=== PATIENT | male | born 1975 | race Caucasian/White ===

== ENCOUNTER → 2019-07-27 09:31 | Outpatient (CLI) | payer OTHER, SELFPAY ==
--- NOTE | ~2019-07-27 | XR_ITS ---
EXAMINATION: XR chest 2V 07/27/2019 09:46 INDICATION: Nicotine dependence. PROCEDURE: PA and lateral views of the chest COMPARISON: No prior studies for comparison. FINDINGS: The lungs are clear. There are scattered calcified granulomas. The cardiomediastinal silhou ette is within normal limits. There are no pleural effusions. There is no pneumothorax suspected. IMPRESSION: 1: NO ACUTE CARDIOPULMONARY DISEASE. Reviewed, dictated and finalized at location A.
== END ==
PROVIDERS: PCP Family Medicine; Visit Provider Family Medicine
DX: F17.200 Nicotine dependence, unspecified, uncomplicated (principal)
CPT/HCPCS: 71046

== ENCOUNTER 2021-07-30 08:46 | Outpatient (CLI) | payer OTHER, BC, SELFPAY ==
[2021-07-30 19:18] LABS: Basophils Percent Auto 0.7 % (0.2-1.2); Eosinophils Absolute Auto 0.2 K/mm3 (0-0.3); Hematocrit 44.1 % (42.0-52.0); Immature Granulocyte Absolute 0.02 K/mm3 (0.00-0.031); Immature Granulocyte Percent A 0.4 % (0-0.5); Lymphocytes Absolute Auto 1.79 K/mm3 (0.9-3.2); Lymphocytes Percent Auto 32.4 % (18.3-44.2); Mean Corpuscular Hemoglobin 30.6 pg (26-34); Mean Platelet Volume 10.2 fl (7.4-10.4); Monocytes Absolute Auto 0.4 K/mm3 (0.1-0.6); Monocytes Percent Auto 6.7 % (2.6-8.5); Neutrophils Absolute Auto 3.1 K/mm3 (1.3-6.7); Neutrophils Percent Auto 55.8 % (45.5-73.1); Platelet Count Result 261 k/mm3 (150-375); Red Cell Distribution Width 12.8 % (11.5-14.5); White Blood Count 5.5 K/mm3 (4.5-10.0)
[2021-07-30 19:32] LABS: Alanine Aminotransferase 32 U/L (4-50); Alkaline Phosphatase 98 U/L (38-126); Anion Gap 8 mmol/L (8-16); Aspartate Amino Transferase 38 U/L (17-59); Bilirubin,Total 0.5 mg/dL (0.2-1.3); Blood Urea Nitrogen 15 mg/dL (9-20); CRP 0.8 mg/dL (<1.0); Calcium 9.5 mg/dL (8.4-10.2); Carbon Dioxide 27 mmol/L (22-30); Chloride 104 mmol/L (98-107); Cholesterol 190 mg/dL (0-200); Estimated Glomerular Filt Rate > 60; Glucose 94 mg/dL (65-110); HDL Direct 35 mg/dL; Lipase 186 U/L (23-300); Potassium 4.4 mmol/L (3.4-5.0); Sodium 139 mmol/L (137-145); Triglycerides 101 mg/dL (<150)
[2021-07-30 19:41] LABS: LDL Cholesterol Direct 129 mg/dL
[2021-07-30 19:48] LABS: Vitamin D 25 Hydroxy 44.4 ng/mL
[2021-07-30 20:02] LABS: Prostate Specific Antigen 0.5 ng/mL (< OR = 4.0)
[2021-07-30 20:12] LABS: Erythrocyte Sedimentation Rate 12 mm/hr (0-20)
[2021-08-03 20:11] LABS: Gliadin AB, IgG <1.0 U/mL (<15.0); Reticulin IgA Negative (Negative); TTG IGA AB <1.0 U/mL (<15.0)
== END 2021-07-30 08:47 | disposition home or self-care (01) ==
PROVIDERS: PCP Family Medicine; Visit Provider Family Medicine
DX: Z00.00 Encounter for general adult medical examination without abnormal findings (principal); Z12.5 Encounter for screening for malignant neoplasm of prostate; E78.5 Hyperlipidemia, unspecified; K21.9 Gastro-esophageal reflux disease without esophagitis; R53.83 Other fatigue; R79.89 Other specified abnormal findings of blood chemistry; K52.9 Noninfective gastroenteritis and colitis, unspecified; Z87.19 Personal history of other diseases of the digestive system
CPT/HCPCS: 36415; 80053; 80061; 82306; 83516; 83690; 84153; 85025; 85652; 86140; 86255; G0103

== ENCOUNTER 2022-12-23 09:30 | Emergency (ER) | payer OTHER, BC, SELFPAY ==
[2022-12-23] VITALS (12 sets, daily range): BP systolic 133–162; BP diastolic 86–106; PULSE 70–91; RESP 16–22; TEMP 36.6–36.8; O2SAT 96–100
--- NOTE | ~2022-12-23 | XR_ITS ---
EXAMINATION: XR chest 2V 12/23/2022 13:45 INDICATION: Weakness, dizziness and syncope PROCEDURE: 2 view chest COMPARISON: 07/27/2019 FINDINGS: The lungs are clear. The cardiomediastinal silhouette is within normal limits. There are no pleural effusions. There is no pneumothorax suspected. IMPRESSION: 1: NO ACUTE CARDIOPULMONARY DISEASE. Reviewed, dictated and finalized at location B.
--- NOTE | ~2022-12-23 | CT_ITS ---
EXAMINATION: CT brain wo con DATE: 12/23/2022 12:54 INDICATION: Syncope. TECHNIQUE: Computed tomography (CT) of the head was performed without intravenous contrast. The mA wa s adjusted according to patient size. Iterative reconstruction technique was employed. The dose-lengt h product was 605.33 mGy-cm. COMPARISON: None FINDINGS: There is no intracranial hemorrhage, acute infarction, or abnormal intracranial mass lesion . The ventricles are normal in size. The orbits are normal. There is mucosal thickening in the parana olegario sinuses. The mastoid air cells are normal. IMPRESSION: 1. Normal brain. Reviewed, dictated and finalized at location A. IMPRESSION: 1. Normal brain.
--- NOTE | 2022-12-23 09:33 | ECG_ITS ---
Measurements Intervals Lyman Rate: 91 P: 68 AL: 126 QRS: 46 QRSD: 91 T: 29 QT: 359 QTc: 443 Interpretive Statements SINUS RHYTHM MINIMAL Q WAVES- INFERIOR LEADS BORDERLINE ECG NO PREVIOUS ECG AVAILABLE FOR COMPARISON Electronically Signed On 12-23-2022 10:26:31 CDT by Lamonte Hansen D.O.
[2022-12-23 09:55] LABS: Basophils Absolute Auto 0.1 K/mm3 (0.0-0.1); Basophils Percent Auto 0.5 % (0.2-1.2); Eosinophils Absolute Auto 0.1 K/mm3 (0-0.3); Eosinophils Percent Auto 1.2 % (0-4.4); Hematocrit 47.3 % (42.0-52.0); Hemoglobin 16.5 g/dL (14.0-18.0); Immature Granulocyte Absolute 0.05 K/mm3 (0.00-0.031); Immature Granulocyte Percent A 0.4 % (0-0.5); Lymphocytes Absolute Auto 1.73 K/mm3 (0.9-3.2); Lymphocytes Percent Auto 14.4 % (18.3-44.2); Mean Corpuscular HGB Conc 34.9 g/dl (32-36); Mean Corpuscular Volume 91.8 fl (80-100); Mean Platelet Volume 9.5 fl (7.4-10.4); Monocytes Absolute Auto 0.6 K/mm3 (0.1-0.6); Monocytes Percent Auto 4.6 % (2.6-8.5); Neutrophils Absolute Auto 9.5 K/mm3 (1.3-6.7); Neutrophils Percent Auto 78.9 % (45.5-73.1); Platelet Count Result 245 k/mm3 (150-375); Red Blood Count 5.15 M/mm3 (4.6-6.20); Red Cell Distribution Width 12.3 % (11.5-14.5)
[2022-12-23 10:05] LABS: Alanine Aminotransferase 49 U/L (6-50); Albumin Level 4.9 g/dL (3.5-5.1); Alkaline Phosphatase 111 U/L (38-126); Anion Gap 11 mmol/L (8-16); Aspartate Amino Transferase 56 U/L (17-59); Bilirubin,Total 0.8 mg/dL (0.2-1.3); Blood Urea Nitrogen 8 mg/dL (9-20); Calcium 9.5 mg/dL (8.4-10.2); Carbon Dioxide 24 mmol/L (22-30); Chloride 102 mmol/L (98-107); Estimated CRCL calculation 115 ml/min; Estimated Glomerular Filt Rate > 60; Glucose 113 mg/dL (65-110); Sodium 137 mmol/L (137-145)
--- NOTE | 2022-12-23 11:02 | PC.NURSE ---
Pt denies any dizziness at this time. States he has had a minor stroke a few years ago without any assisted deficits. Pt reports history of ETOH, states when he passed out yesterday i did a breathalyzer on him and it was negative
[2022-12-23 12:53] LABS: Appearance Urine Clear (Clear); Bilirubin Urine Negative (Negative); Blood Urine Negative (Negative); Color Urine Yellow (Yellow); Glucose Urine UA Negative (Negative); Ketones Urine Negative (Negative); Leukocyte Esterase Ur Negative LEU/UL (Negative); Nitrate Urine Negative (Negative); Protein Urine Negative (Negative); Specific Grav Ur 1.013 (1.001-1.035); pH Urine 8.5 (5.0-9.0)
[2022-12-23 12:55] LABS: Add Urine Microscopic? NO
[2022-12-23 13:01] LABS: Magnesium 2.1 mg/dL (1.6-2.3)
[2022-12-23 13:03] LABS: Ethanol < 10 mg/dL (<10)
[2022-12-23 13:05] LABS: INR 1.1; Prothrombin Time 14.3 Seconds (11.1-14.7)
[2022-12-23 13:06] LABS: Partial Thromboplastin Time 30.4 SECONDS (22.3-36.8)
[2022-12-23] MEDS: SODIUM CHLORIDE 0.9% IV 1,000 ML 999 ML IV CONT (13:08)
[2022-12-23 13:13] LABS: Barbiturate Screen Urine Negative (Negative); Benzodiazepines Screen Urine Negative (Negative); Troponin I < 0.012 ng/mL (0.000-0.034)
[2022-12-23 13:14] LABS: D Dimer < 0.27 ug/mL (<0.48)
[2022-12-23 13:20] LABS: Amphetamine Screen Urine Negative (Negative); Cannabinoid Screen Urine Negative (Negative); Cocaine Screen Urine Negative (Negative); Methadone Screen Urine Negative (Negative); Opiate Screen Urine Negative (Negative); Phencyclidine Screen Urine Negative (Negative)
--- NOTE | 2022-12-23 13:56 | ED.SYNCOPE ---
HPI - Syncope General Chief Complaint: Syncope Stated Complaint: syncopal episodes Time Seen by Provider: 12/23/22 12:05 Source: patient and RN notes reviewed Mode of arrival: ambulatory Limitations: no limitations History of Present Illness HPI narrative: This is a 47 year old male who presents for evaluation of syncope. PAtient states on Friday he develop diaphoretic and dizzy. He states he felt fine until yesterday. He states yesterday he had a couple of episodes of dizziness . He also reports he walked into the kitchen and he passed out. His states she checked his alcohol, and it was negative. He denies having associated palpitations, chest pain, shortness of breath, nausea, vomiting, abdominal pain. He denies having any complaints today. Related Data Allergies Allergy/AdvReac Type Severity Reaction Status Date / Time No Known Allergies Allergy Verified 08/05/22 16:06 Review of Systems Constitutional: Constitutional: Denies weakness Cardiovascular: Cardiovascular: Reports syncope, Denies rapid heart rate, Denies irregular heart rhythm, Denies leg edema and Denies dyspnea Respiratory: Respiratory: Denies chest congestion, Denies hemoptysis, Denies excessive phlegm production and Denies dyspnea Gastrointestinal: Gastrointestinal: Denies abdominal pain, Denies hematochezia, Denies diarrhea and Denies vomiting Genitourinary: Genitourinary: Denies hematuria, Denies dysuria, Denies penile discharge and Denies testicular pain Musculoskeletal: Musculoskeletal: Denies joint swelling, Denies loss of height and Denies muscle weakness Neurologic: Reports syncope, Denies focal weakness and Denies weakness PMFSH Past Medical History Medical History (Updated 12/23/22 @ 15:21 by Esther Haines MD) Colitis GERD (gastroesophageal reflux disease) History of IBS Tobacco abuse Family History Family History Mother Cancer COPD (chronic obstructive pulmonary disease) Social History Social History Smoking packs per day: 1 Smoking cigarettes per day: 20.0 Years smoked: 20 Smoking pack-years: 20.00 Smoking status: Current every day smoker Alcohol intake: current Drinks per week: 18 Exam Const: General: no acute distress and alert Nutritional Appearance: well nourished Orientation/consciousness: patient oriented x3 HENMT: Head: normal to inspection Face and sinus: normal facial exam Mouth: Yes Normal oral and palatal mucosa present, Yes lip normal and Yes moist mucous membranes Throat: posterior oropharynx normal and uvula midline Eyes: Pupils: Equal, round and reactive pupils present EOM: EOMs intact bilaterally Neck: Neck: normal visual inspection Chest: Chest palpation & inspection: normal inspection of the chest Resp: Effort & Inspection: normal respiratory effort Auscultation: clear to auscultation bilaterally Cardio: Rate: regular rate Rhythm: regular rhythm Heart sounds: no murmurs GI: GI Palp: Yes Soft to palpation, No Tenderness to palpation present (GI), No Guarding due to palpation present (GI) and No Rigid due to palpation Auscultation: normal bowel sounds Skin: General skin exam: normal color Rashes: no rashes Wounds: no wounds Neuro: General: patient oriented x3, moves all extremities and CN's II-XI intact bilaterally Cranial nerves: Yes Nystagmus not present Speech: normal speech Extrem: General: normal to inspection Psych: Mental Status: mental status grossly normal Affect: normal affect Attitude: cooperative Course Reevaluation(s) Reevaluation #1: I Discussed with patient labs results and imaging. HE has not complaints at this time. I Discussed concern for rule out of arrhythmia. I discussed admission to hospital but he declines. I spoke with his PCP Dr. Yoni Odom who states he will get patient into clinic and continue work up for syncop
== END 2022-12-23 15:34 | disposition home or self-care (01) ==
PROVIDERS: Emergency Medicine; Emergency Provider General Practice; PCP Family Medicine
DX: R55 Syncope and collapse (principal); K21.9 Gastro-esophageal reflux disease without esophagitis; F17.210 Nicotine dependence, cigarettes, uncomplicated
CPT/HCPCS: 36415; 70450; 71046; 80053; 80307; 81003; 83735; 84484; 85025; 85380; 85610; 85730; 93005; 96360; 99284; J7030

== ENCOUNTER 2024-08-30 16:23 | Outpatient (CLI) | payer OTHER, SELFPAY ==
--- OUTSIDE RECORDS SUMMARY | 2024-08-30 16:28 | XMS_ITS | Clinical Summary ---
Author Organization [facility] Address [address] [address] Phone Care Team Providers Care Director Video Name Role Phone Nelly Godinez Juan FRIAS Primary Care Provider [phone]- [phone] Allergies Active Allergy Reactions Criticality Noted Date Comments Lactose Intolerance (Gi) Nausea 07/25/2024 Medications amLODIPine (NORVASC) 5 MG Tablet Take 5 mg by mouth daily. 5 10/20/19 25 Active aspirin 81 MG Chewable Tablet Take 81 mg by mouth daily. 5 10/20/19 25 Active atorvastatin (LIPITOR) 80 MG Tablet Take 80 mg by mouth daily. 5 10/20/19 25 Active acetaminophen (TYLENOL) 325 MG Tablet Take 650 mg by mouth every 8 hours as needed for Mild or more severe pain. Active nicotine (NICODERM CQ) 14 MG/24HR PATCH 24 HR 1 Patch by Transdermal route every 24 hours. 5 09/20/19 25 Active Active Problems Problem Noted Date Diagnosed Date Spastic hemiparesis of right dominant side 08/17 Cognitive communication deficit 08/04/2024 Carotid stenosis 07/27/2024 Polysubstance abuse 07/27/2024 Mixed hyperlipidemia Resolved Problems Problem Noted Date Diagnosed Date Resolved Date Cerebral edema 07/27/2024 08/25/2024 Acute ischemic left ICA stroke 07/19/2024 08/25/2024 Wrist drop 01/17/2015 08/18/2024 Overview (08/18/2024): Wristdrop Encounters Date Type Department Care Team Description 08/25/2024 1:45 PM CDT Office Visit [facility] - Primary Care - [place] [address] [place] [address] Serafin Amato MD Spastic hemiparesis of right dominant side (HCC) (Primary Dx) Discharge Disposition: Discharged to home or Selfcare 08/25/2024 Travel 08/18/2024 Telephone [facility] [address] [place] [address] Provider, None Advice Only from Last 3 Months Social History Tobacco Use Types Packs/Day Years Used Date Smoking Tobacco: Former Cigarettes Tobacco Cessation:Counseling Given: Not Answered Alcohol Use Standard Drinks/Week Comments Not Currently 0 (1 standard drink = 0.6 oz pur e alcohol) Sex and Gender Information Value Date Recorded Sex Assigned at Not on file Legal Sex Male 8:59 PM CDT Gender Identity Not on file Sexual Orientation Not on file Last Filed Vital Signs Vital Sign Reading Time Taken Comments Blood Pressure 102/72 08/25/2024 1:37 PM CDT Pulse 76 08/25/2024 1:37 PM CDT Temperature 36.6 C (97.9 F) 08/25/2024 1:37 PM CDT Respiratory Rate 20 08/25/2024 1:37 PM CDT Oxygen Saturation 97% 08/25/2024 1:37 PM CDT Inhaled Oxygen Concentration - - Weight - - Height 172.7 cm (5' 8) 08/25/2024 1:37 PM CDT Body Mass Index - - Plan of Treatment Health Maintenance Due Date Last Done Comments Hepatitis C Virus (HCV) Screening 1977 TdaP Immunization 1977 Hepatitis B Immunization (1 of 3 - 19+ 3-dose series) 1996 Colonoscopy 2022 Colorectal Cancer Screening 2022 SARS-COV-2 Immunization ( - season) 2023 Influenza Immunization (Seas on Ended) 2024 Respiratory Syncytial Virus (RSV) Immunization (Adult) (1 - 1-dose 75+ series) 2052 Human Papillomavirus (HPV) Immunization Aged Out No longer eligible b ased on patient's age to complete this topic Meningococcal Immunization (ACWY) Aged Out No longer eligible based on patient's age to complete this topic Pneumococcal Immunization Combined Aged Out No longer eligible based on patient's age to complete this topic Rotavirus Immunization Aged Out No lo nger eligible based on patient's age to complete this topic [place] [address] [place] [address] Care Teams Director Video Relationship Specialty Start Date End Date Nelly Godinez APRN [address] [place] [address] PCP - General Advanced Practice Nurse 08/25/24
[2024-08-30 20:24] LABS: Basophils Absolute Auto 0.1 K/mm3 (0.0-0.1); Basophils Percent Auto 0.8 % (0.2-1.2); Eosinophils Absolute Auto 0.2 K/mm3 (0-0.3); Eosinophils Percent Auto 2.6 % (0-4.4); Hematocrit 45.3 % (42.0-52.0); Hemoglobin 15.2 g/dL (14.0-18.0); Immature Granulocyte Absolute 0.04 K/mm3 (0.00-0.031); Immature Granulocyte Percent A 0.5 % (0-0.5); Lymphocytes Absolute Auto 2.36 K/mm3 (0.9-3.2); Lymphocytes Percent Auto 27.5 % (18.3-44.2); Mean Corpuscular HGB Conc 33.6 g/dl (32-36); Mean Corpuscular Hemoglobin 30.9 pg (26-34); Mean Corpuscular Volume 92.1 fl (80-100); Mean Platelet Volume 9.6 fl (7.4-10.4); Monocytes Absolute Auto 0.6 K/mm3 (0.1-0.6); Monocytes Percent Auto 7.5 % (2.6-8.5); Neutrophils Absolute Auto 5.3 K/mm3 (1.3-6.7); Neutrophils Percent Auto 61.1 % (45.5-73.1); Platelet Count Result 314 k/mm3 (150-375); Red Blood Count 4.92 M/mm3 (4.6-6.20); Red Cell Distribution Width 11.9 % (11.5-14.5); White Blood Count 8.6 K/mm3 (4.5-10.0)
[2024-08-30 20:26] LABS: Alanine Aminotransferase 40 U/L (6-50); Albumin Level 4.8 g/dL (3.5-5.1); Alkaline Phosphatase 98 U/L (38-126); Anion Gap 12 mmol/L (4-12); Aspartate Amino Transferase 60 U/L (17-59); Bilirubin,Total 0.8 mg/dL (0.2-1.3); Blood Urea Nitrogen 10 mg/dL (9-20); Calcium 9.8 mg/dL (8.4-10.2); Carbon Dioxide 26 mmol/L (22-30); Chloride 101 mmol/L (98-107); Estimated Glomerular Filt Rate > 60; Glucose 110 mg/dL (65-110); Potassium 4.1 mmol/L (3.4-5.0); Sodium 139 mmol/L (137-145)
== END 2024-08-30 16:24 | disposition home or self-care (01) ==
PROVIDERS: PCP Nurse Practitioner Adult Health; Visit Provider Nurse Practitioner Adult Health
DX: I65.29 Occlusion and stenosis of unspecified carotid artery (principal)
CPT/HCPCS: 36415; 80053; 85025

== ENCOUNTER 2024-10-06 15:42 | Outpatient (CLI) | payer OTHER, MEDICAID, SELFPAY ==
--- NOTE | ~2024-10-06 | XR_ITS ---
Right Shoulder Technique: AP and scapular Y views were obtained. Clinical History: Bursitis Findings: No fracture or dislocation is seen. Osseous alignment is anatomic. The glenohumeral joint i s intact. There is mild AC joint degenerative change. Soft tissues are unremarkable. Impression: Mild AC joint degenerative change. Reviewed, dictated and finalized at location . Impression: Mild AC joint degenerative change.
--- OUTSIDE RECORDS SUMMARY | 2024-10-06 15:45 | XMS_ITS | Encounter Summary ---
Author Organization [facility] Address [address] [place] [address] Phone Care Team Providers Care Entry Rep Name Role Phone Nelly Godinez APRN Primary Care Provider [phone]- [phone] Encounter Details Date Type Department Care Team (Late st Contact Info) Description 10/06/2024 Plan of Care Documentation [facility] [address] [place] [address] Social History Tobacco Use Types Packs/Day Years Used Date Smoking Tobacco: Former Cigarettes Alcohol Use Standard Drinks/Week Comments Not Currently 0 (1 standard drink = 0.6 oz pur e alcohol) Sex and Gender Information Value Date Recorded Sex Assigned at Not on file Legal Sex Male 8:59 PM CDT Gender Identity Not on file Sexual Orientation Not on file documented as of this encounter Plan of Treatment Upcoming Encounters Date Type Department Care Team (Latest Contact Info) Description 10/07/2024 10:00 AM CDT Physical Therapy [facility] [address] [place] [address] Nelly Godinez APRN [address] [place] [id number] Nidhi Priest, PT [place] Discharge Disposition: Discharged to home or Selfcare 10/11/2024 2:30 PM CDT Speech Therapy [facility] [address] [place] [address] Nelly Godinez, CLERK TELEGRAPH SERVICE [address] [place] [address] Evelina Barrientos, MS [facility]NAGER [place] Discharge Disposition: Discharged to home or Selfcare 10/12/2024 4:45 PM CDT Occupational Therapy [facility] [address] [place] [address] Nelly Godinez CLERK TELEGRAPH SERVICE [address] [place] [address] Kyra Castillo, OT [place] Discharge Disposition: Discharged to home or Selfcare 10/14/2024 8:30 AM CDT Occupational Therapy [facility] [address] [place] [address] Nelly Godinez CLERK TELEGRAPH SERVICE [address] [place] [address] Kyra Castillo, OT [place] 10/18/2024 12:45 PM CDT Occupational Therapy [facility] [address] [place] [address] Nelly Godinez CLERK TELEGRAPH SERVICE [address] [place] [address] Kyra Castillo, OT [place] 10/21/2024 1:00 PM CDT Occupational Therapy [facility] [address] [place] [address] Nelly Godinez, CLERK TELEGRAPH SERVICE [address] [facility] [place] [address] Kyra Castillo, OT [place] 10/26/2024 1:00 PM CDT Occupational Therapy [facility] [address] [place] [address] Nelly Godinez, CLERK TELEGRAPH SERVICE [address] [facility] [place] [address] Kyra Castillo, OT [place] 10/28/2024 2:30 PM CDT Occupational Therapy [facility] [address] [place] [address] Nelly Godinez, CLERK TELEGRAPH SERVICE [address] [facility] [place] [address] Kyra Castillo, OT [place] 11/02/2024 1:45 PM CDT Occupational Therapy [facility] [address] [place] [address] Nelly Godinez, CLERK TELEGRAPH SERVICE [address] [facility] [place] [address] Kyra Castillo, OT [place] 11/02/2024 2:30 PM CDT Speech Therapy [facility] [address] [place] [address] Nelly Godinez, CLERK TELEGRAPH SERVICE [address] [facility] [place] [address] Evelina Barrientos, MS [facility]NAGER [place] 11/05/2024 1:45 PM CDT Speech Therapy [facility] [address] [place] [address] Nelly Godinez, CLERK TELEGRAPH SERVICE [address] [facility] [place] [address] Evelnia Barrientos, MS CCC-MEDICAL CLINIC MANAGER [place] 11/05/2024 2:30 PM CDT Occupational Therapy [facility] [address] [place] [address] Nelly Godinez, CLERK TELEGRAPH SERVICE [address] [place] [address] Kyra Castillo, OT [place] 11/08/2024 12:45 PM CDT Occupational Therapy [facility] [address], [address] [place] [address] Nelly Godinez, CLERK TELEGRAPH SERVICE [address] [facility] [place] [address] Kyra Castillo, OT [place] 11/08/2024 1:45 PM CDT Speech Therapy [facility] [address] [place] [address] Nelly Godinez, CLERK TELEGRAPH SERVICE [address] [facility] [place] [address] Evelina Barrientos, MS CCC-MEDICAL CLINIC MANAGER [place] 11/11/2024 1:00 PM CDT Occupational Therapy [facility] [address] [place] [address] Nelly Godinez, CLERK TELEGRAPH SERVICE [address] [facility] [place] [address] Kyra Castillo, OT [place] 11/15/2024 12:45 PM CDT Occupational Therapy [facility] [address] [place] [address] Nelly Godinez, CLERK TELEGRAPH SERVICE [address] [facility] [place] [address] Kyra Castillo, OT [place] 11/15/2024 1:45 PM CDT Speech Therapy [facility] [address] [place] [address] Nelly Godinez, CLERK TELEGRAPH SERVICE [address] [facility] [place] [address] Evelina Barrientos, MS CCC-MEDICAL CLINIC MANAGER [place] 11/19/2024 1:00 PM CDT Speech Therapy [facility] [address] [place] [address] Nelly Godinez, CLERK TELEGRAPH SERVICE [address] [facility] [place] [address] Evelina Barrientos, MS CCC-MEDICAL CLINIC MANAGER [place] 11/22/2024 12:45 PM CDT Occupational Therapy [facility] [address] [place] [address] Nelly Godinez, CLERK TELEGRAPH SERVICE [address] [facility] [place] [address] Kyra Castillo, OT [place] 11/22/2024 1:45 PM CDT Speech Therapy [facility] [address] [place] [address] Nelly Godinez, CLERK TELEGRAPH SERVICE [address] [facility] [place] [address] Evelina Barrientos, MS CCC-MEDICAL CLINIC MANAGER [place] 11/26/2024 1:00 PM CDT Speech Therapy [facility] [address] [place] [address] Nelly Godinez, CLERK TELEGRAPH SERVICE [address] [place] [address] Evelina Barrientos, MS CCC-MEDICAL CLINIC MANAGER [place] 11/26/2024 1:45 PM CDT Occupational Therapy [facility] [address] [place] [address] Nelly Godinez, CLERK TELEGRAPH SERVICE [address] [place] [address] [place], Kyra, OT [place] 11/30/2024 1:00 PM CDT Speech Therapy [facility] [address] [place] [address] Nelly Godinez, CLERK TELEGRAPH SERVICE [address] [facility] [place] [address] Evelina Barrientos, MS CCC-MEDICAL CLINIC MANAGER [place] 11/30/2024 1:45 PM CDT Occupational Therapy [facility] [address] [place] [address] Nelly Godinez, CLERK TELEGRAPH SERVICE [address] [facility] [place] [address] [place], Kyra, OT [place] 12/03/2024 1:00 PM CDT Speech Therapy [facility] [address] [place] [address] Nelly Godinez, CLERK TELEGRAPH SERVICE [address] [place] [address] Evelina Barrientos, MS CCC-MEDICAL CLINIC MANAGER [place] 12/03/2024 1:45 PM CDT Occupational Therapy [facility] [address] [place] [address] Nelly Godinez, CLERK TELEGRAPH SERVICE [address] [place] [address] Kyra Castillo, OT [place] 12/06/2024 12:45 PM CDT Occupational Therapy [facility] [address] [facility], [address] [place] [address] Nelly Godinez, CLERK TELEGRAPH SERVICE [address] [place] [address] Kyra Castillo, OT [place] 12/06/2024 1:45 PM CDT Speech Therapy [facility] [address] [place] [address] Nelly Godinez, CLERK TELEGRAPH SERVICE [address] [place] [address] Evelina Barrientos, MS CCC-MEDICAL CLINIC MANAGER [place] documented as of this encounter Visit Diagnoses Not on filedocumented in this encounter Care Teams Entry Rep Relationship Specialty Start Date End Date Nelly Godinez APRN [address] [place] [address] PCP - General Advanced Practice Nurse 08/25/24 documented as of this encounter
--- OUTSIDE RECORDS SUMMARY | 2024-10-06 15:46 | XMS_ITS | Clinical Summary ---
Author Organization [facility] Address [address] [address] Phone Care Team Providers Care Electrical Designer Drafter Name Role Phone Nelly Godinez ALTAGRACIA Primary Care Provider [phone]- [phone] Allergies Active Allergy Reactions Criticality Noted Date Comments Lactose Intolerance (Gi) Nausea 07/25/2024 Medications amLODIPine (NORVASC) 5 MG Tablet Take 5 mg by mouth daily. 5 10/20/19 25 Active aspirin 81 MG Chewable Tablet Take 81 mg by mouth daily. 5 10/20/19 25 Active atorvastatin (LIPITOR) 80 MG Tablet Take 80 mg by mouth daily. 5 10/20/19 Active acetaminophen (TYLENOL) 325 MG Tablet Take 650 mg by mouth every 8 hours as needed for Mild or more severe pain. Active omeprazole (PriLOSEC) 40 MG CAPSULE DELAYED RELEASE Take 40 mg by mouth 2 times daily. Active nicotine (NICODERM CQ) 14 MG/24HR PATCH 24 HR 1 Patch by Transdermal route every 24 hours. 5 09/20/19 25 Active Problems Problem Noted Date Diagnosed Date Spastic hemiparesis of right dominant side 08/17 Cognitive communication deficit 08/04/2024 Carotid stenosis 07/27/2024 Polysubstance abuse 07/27/2024 Mixed hyperlipidemia Resolved Problems Problem Noted Date Diagnosed Date Resolved Date Cerebral edema 07/27/2024 08/25/2024 Acute ischemic left ICA stroke 07/19/2024 08/25/2024 Wrist drop 01/17/2015 08/18/2024 Overview (08/18/2024): Wristdrop Encounters Date Type Department Care Team Description 10/06/2024 [facility] [address], [address] [place] [address] 10/06/2024 Plan of Care Documentation [facility] [address], [place] [address] 10/05/2024 2:30 PM CDT Occupational Therapy [facility] [address], [address] [place] [address] Nelly Godinez, Kyra Glasgow OT Hemiplegia affecting right dominant side, unspecified etiology, unspecified hemiplegia type (HCC) Discharge Disposition: Discharged to home or Selfcare 10/05/2024 1:45 PM CDT Speech Therapy [facility] [address], [place] [address] Nelly Godinez APRN Davis, Kristina J MS [facility]-SALES REPRESENTATIVE GRAPHIC ART Aphasia (Primary Dx); Hemiplegia affecting right dominant side, unspecified etiology, unspecified hemiplegia type (HCC); Personal history of transient ischemic attack (TIA), and cerebral infarction without residual deficits Discharge Disposition: Discharged to home or Selfcare 10/05/2024 Travel 09/24/2024 [facility] [address] [place] [address] Mayda Singh OT OT - DISCHARGE SUMMARY 09/24/2024 [facility] [address] [place] [address] Demetria Bains, PT PT - DISCHARGE SUMMARY 09/23/2024 1:00 PM CDT Home Care Visit [address] [address] Josselyn Goff, SALES REPRESENTATIVE GRAPHIC ART-SPEECH LANGUAGE PATHOLOGIST SALES REPRESENTATIVE GRAPHIC ART - OASIS DISCHARGE 09/23/2024 11:00 AM CDT Home Care Visit [address] [address] Blank Bernal OTA OT - DISCIPLINE DISCHARGE 09/23/2024 10:30 AM CDT Home Care Visit [address] [address] Gali Ag, LINUX DEVOPS ENGINEER PT - DISCIPLINE DISCHARGE 09/23/2024 Travel 09/22/2024 Home Care Visit [address] [address] Demetria Bains, PT CASE COMMUNICATION 09/22/2024 Transcribe Orders [facility] [address] [place] [phone] Nelly Godinez APRN Hemiplegia affecting right dominant side, unspecified etiology, unspecified hemiplegia type (HCC) (Primary Dx); Personal history of transient ischemic attack (TIA), and cerebral infarction without residual deficits 09/22/2024 Home Care Visit [address] [address] Demetria Bains, PT TELEPHONE ENCOUNTER 09/21/2024 2:30 PM CDT Home Care Visit [address] [address] Josselyn Goff, SALES REPRESENTATIVE GRAPHIC ART-SPEECH LANGUAGE PATHOLOGIST SALES REPRESENTATIVE GRAPHIC ART - HOME VISIT 09/21/2024 10:30 AM CDT Home Care Visit [address] [address] Gali Ag, LINUX DEVOPS ENGINEER PT - HOME VISIT 09/21/2024 Home Care Visit [address] [address] Blank Bernal, SECOND FLOOR OPERATOR CASE COMMUNICATION 09/20/2024 12:30 PM CDT Home Care Visit [address] [address] Blank Bernal, BESSY OT - HOME VISIT 09/20/2024 8:00 AM CDT Home Care Visit [address] [address] Mei Karimi, RN SN - DISCIPLINE DISCHARGE 09/20/2024 Home Care Visit [address] [address] Demetria Bains, PT TELEPHONE ENCOUNTER 09/20/2024 Travel 09/17/2024 1:00 PM CDT Home Care Visit [address] [address] Annabel Potter, LINUX DEVOPS ENGINEER PT - HOME VISIT 09/16/2024 1:15 PM CDT Home Care Visit [address] [address] Josselyn Goff, SALES REPRESENTATIVE GRAPHIC ART-SPEECH LANGUAGE PATHOLOGIST SALES REPRESENTATIVE GRAPHIC ART - HOME VISIT 09/16/2024 11:30 AM CDT Home Care Visit [address] [address] Stefany Lopez, BESSY OT - HOME VISIT 09/14/2024 3:00 PM CDT Home Care Visit [address] [address] Josselyn Goff, SALES REPRESENTATIVE GRAPHIC ART-SPEECH LANGUAGE PATHOLOGIST SALES REPRESENTATIVE GRAPHIC ART - INITIAL EVALUATION 09/14/2024 2:00 PM CDT Home Care Visit [address] [address] Gali Ag, LINUX DEVOPS ENGINEER PT - HOME VISIT 09/14/2024 10:30 AM CDT Home Care Visit [address] [address] Jasmin Gilbert, ADMITTING OFFICER ADMITTING OFFICER - INITIAL EVALUATION 09/13/2024 11:00 AM CDT Home Care Visit [address] [address] Mei Karimi RN SN - HOME VISIT 09/13/2024 9:00 AM CDT Home Care Visit [address] [address] Mayda Singh, OT OT - MARMOLEJO SUPERVISORY VISIT 09/09/2024 1:00 PM CDT Home Care Visit [address] [address] Stefany Lopez, SECOND FLOOR OPERATOR OT - HOME VISIT 09/09/2024 Home Care Visit [address] [address] Stefany Lopez, SECOND FLOOR OPERATOR CASE COMMUNICATION 09/09/2024 Home Care Visit [address] [address] Stefany Lopez, BESSY TELEPHONE ENCOUNTER 09/08/2024 11:30 AM CDT Home Care Visit [address] [address] Ludy Reardon, LINUX DEVOPS ENGINEER PT - HOME VISIT 09/08/2024 Home Care Visit [address] [address] Jasmin Gilbert, ADMITTING OFFICER CASE COMMUNICATION 09/08/2024 Travel 09/08/2024 Home Care Visit [address] [address] Demetria Bains, PT TELEPHONE ENCOUNTER 09/07/2024 12:00 PM CDT Home Care Visit [address] [address] Demetria Bains, PT PT - INITIAL EVALUATION 09/07/2024 10:15 AM CDT Home Care Visit [address] [address] Mayda Singh, OT OT - INITIAL EVALUATION 09/06/2024 10:00 AM CDT Home Care Visit [address] [address] Mei Karimi RN SN - OASIS START OF CARE 09/06/2024 Plan of Care [facility]ation [facility] [address] [place] [address] 08/25/2024 1:45 PM CDT Office Visit [facility] Primary [facility] - [place] [address] [place] [address] Serafin Amato MD Spastic hemiparesis of right dominant side (HCC) (Primary Dx) Discharge Disposition: Discharged to home or Selfcare 08/25/2024 Travel 08/18/2024 Telephone [facility] [address] [place] [address] Provider, None Advice Only from [...] Sign Reading Time Taken Comments Blood Pressure 120/64 09/23/2024 1:29 PM CDT Pulse 80 09/23/2024 1:29 PM CDT Temperature 36.6 C (97.8 F) 09/23/2024 1:29 PM CDT Respiratory Rate 18 09/23/2024 1:29 PM CDT Oxygen Saturation 98% 09/23/2024 1:29 PM CDT Inhaled Oxygen Concentration - - Weight - - Height 172.7 cm (5' 8) 09/07/2024 10:50 AM CDT Body Mass Index - - Plan of Treatment Upcoming Encounters Date Type Department Care Team (Latest Contact Info) Description 10/07/2024 10:00 AM CDT Physical Therapy [facility] [address], [address] [place] [phone] Nelly Godinez, EDUCATION DEPARTMENT REGISTRAR [address] [place] [address] Nidhi Priest, PT [place] Discharge Disposition: Discharged to home or Selfcare 10/11/2024 2:30 PM CDT Speech [facility] [address], [address] [place] [address] Nelly Godinez, EDUCATION DEPARTMENT REGISTRAR [address] [place] [address] Evelina Barrientos, MS [facility]-SALES REPRESENTATIVE GRAPHIC ART [place] Discharge Disposition: Discharged to home or Selfcare 10/12/2024 4:45 PM CDT [facility]ational [facility] [address], [address] [place] [address] Nelly Godinez, EDUCATION DEPARTMENT REGISTRAR [address] [place] [address] Kyra Castillo, OT [place] Discharge Disposition: Discharged to home or Selfcare 10/14/2024 8:30 AM CDT Occupational [facility] [address], [address] [place] [address] Nelly Godinez, EDUCATION DEPARTMENT REGISTRAR [address] [place] [address] Kyra Castillo, OT [place] 10/18/2024 12:45 PM CDT Occupational Therapy [facility] [address], [address] [place] [phone] Nelly Godinez, EDUCATION DEPARTMENT REGISTRAR [address] [place] [address] Kyra Castillo, OT [place] 10/21/2024 1:00 PM CDT Occupational [facility] [address], [address] [place] [address] Nelly Godinez, EDUCATION DEPARTMENT REGISTRAR [address] [facility] [place] [address] Kyra Castlilo, OT [place] 10/26/2024 1:00 PM CDT Occupational Therapy [facility] [address] [facility], [address] [place] [address] Nelly Godinez, EDUCATION DEPARTMENT REGISTRAR [address] [facility] [place] [address] Kyra Castillo, OT [place] 10/28/2024 2:30 PM CDT [facility] [address], [address] [place] [address] Nelly Godinez, EDUCATION DEPARTMENT REGISTRAR [address] [facility] [place] [address] Kyra Castillo, OT [place] 11/02/2024 1:45 PM CDT [facility] [address], [address] [place] [address] Nelly Godinez, EDUCATION DEPARTMENT REGISTRAR [address] [facility] [place] [address] Kyra Castillo, OT [place] 11/02/2024 2:30 PM CDT Speech Therapy [facility] [address] [facility], [address] [place] [address] Nelly Godinez, EDUCATION DEPARTMENT REGISTRAR [address] [facility] [place] [address] Evelina Barrientos, MS [facility]-SALES REPRESENTATIVE GRAPHIC ART [place] 11/05/2024 1:45 PM CDT Speech Therapy [facility] [address], [address] [place] [address] Nelly Godinez, EDUCATION DEPARTMENT REGISTRAR [address] [facility] [place] [address] Evelina Barrientos, MS CCC-SALES REPRESENTATIVE GRAPHIC ART [place] 11/05/2024 2:30 PM CDT Occupational Therapy [facility] [address], [address] [place] [address] Nelly Godinez, EDUCATION DEPARTMENT REGISTRAR [address] [facility] [place] [address] Kyra Castillo, OT [place] 11/08/2024 12:45 PM CDT Occupational Therapy [facility] [address], [address] [place] [address] Nelly Godinez, EDUCATION DEPARTMENT REGISTRAR [address] [facility] [place] [address] Kyra Castillo, OT [place] 11/08/2024 1:45 PM CDT Speech Therapy [facility] [address], [address] [place] [address] Nelly Godinez, EDUCATION DEPARTMENT REGISTRAR [address] [facility] [place] [address] Evelina Barrientos, MS CCC-SALES REPRESENTATIVE GRAPHIC ART [place] 11/11/2024 1:00 PM CDT Occupational Therapy [facility] [address], [address] [place] [address] Nelly Godinez, EDUCATION DEPARTMENT REGISTRAR [address] [facility] [place] [address] Kyra Castillo, OT [place] 11/15/2024 12:45 PM CDT Occupational Therapy [facility] [address], [address] [place] [address] Nelly Godinez, EDUCATION DEPARTMENT REGISTRAR [address] [place] [address] Kyra Castillo, OT [place] 11/15/2024 1:45 PM CDT Speech Therapy [facility] [address], [address] [place] [address] Nelly Godinez, EDUCATION DEPARTMENT REGISTRAR [address] [place] [address] Evelina Barrientos, MS CCC-SALES REPRESENTATIVE GRAPHIC ART [place] 11/19/2024 1:00 PM CDT Speech Therapy [facility] [address], [address] [place] [address] Nelly Godinez, EDUCATION DEPARTMENT REGISTRAR [address] [place] [address] Evelina Barrientos, MS CCC-SALES REPRESENTATIVE GRAPHIC ART [place] 11/22/2024 12:45 PM CDT Occupational Therapy [facility] [address], [address] [place] [address] Nelly Godinez, EDUCATION DEPARTMENT REGISTRAR [address] [place] [address] Kyra Castillo, OT [place] 11/22/2024 1:45 PM CDT Speech Therapy [facility] [address], [address] [place] [address] Nelly Godinez, EDUCATION DEPARTMENT REGISTRAR [address] [place] [address] Evelina Barrientos, MS CCC-SALES REPRESENTATIVE GRAPHIC ART [place] 11/26/2024 1:00 PM CDT Speech Therapy [facility] [address], [address] [place] [address] Nelly Godinez, EDUCATION DEPARTMENT REGISTRAR [address] [place] [address] Evelina Barrientos, MS CCC-SALES REPRESENTATIVE GRAPHIC ART [place] 11/26/2024 1:45 PM CDT Occupational Therapy [facility] [address], [address] [place] [address] Nelly Godinez, EDUCATION DEPARTMENT REGISTRAR [address] [place] [address] Embick, Kyra, OT [place] 11/30/2024 1:00 PM CDT Speech Therapy [facility] [address], [address] [place] [address] Nelly Godinez, EDUCATION DEPARTMENT REGISTRAR [address] [place] [address] Evelina Barrientos, MS CCC-SALES REPRESENTATIVE GRAPHIC ART [place] 11/30/2024 1:45 PM CDT Occupational Therapy [facility] [address], [address] [place] [address] Nelly Godinez, EDUCATION DEPARTMENT REGISTRAR [address] [place] [address] [place]aick, Kyra, OT [place] 12/03/2024 1:00 PM CDT Speech Therapy [facility] [address], [address] [place] [address] Nelly Godinez, EDUCATION DEPARTMENT REGISTRAR [address] [place] [address] Evelina Barrientos, MS CCC-SALES REPRESENTATIVE GRAPHIC ART [place] 12/03/2024 1:45 PM CDT Occupational Therapy [facility] [address], [address] [place] [address] Nelly Godinez, EDUCATION DEPARTMENT REGISTRAR [address] [place] [address] Kyra Castillo, OT [place] 12/06/2024 12:45 PM CDT Occupational Therapy [facility] [address], [address] [place] [address] Nelly Godinez, EDUCATION DEPARTMENT REGISTRAR [address] [facility] [place] [address] Kyra Castillo, OT [place] 12/06/2024 1:45 PM CDT Speech Therapy [facility] [address] [place] [address] Nelly Godinez, EDUCATION DEPARTMENT REGISTRAR [address] [facility] [place] [address] Evelina Barrientos, MS CCC-SALES REPRESENTATIVE GRAPHIC ART [place] Health Maintenance Due Date Last Done Comments Hepatitis C Virus (HCV) Screening 1977 TdaP Immunization 1977 Hepatitis B Immunization (1 of 3 - 19+ 3-dose series) 1996 Cologuard 2022 Colonoscopy 2022 Colorectal Cancer Screening 2022 Immunochemical Fecal Occult Blood 2022 SARS-COV-2 Immunization (1 - 2023- season) 2023 Influenza Immunization (#1) 2024 Respiratory Syncytial Virus (RSV) Immunization (Adult) [...] patient's age to complete this topic Insurance [facility] Advance Directives * Full Code (Latest Code Status on File) Date Activated Date Inactivated Comments 09/06/2024 3:09 PM Care Teams Electrical Designer Drafter Relationship Specialty Start Date End Date Nelly Godinez APRN [address] [place] [address] PCP - General Advanced Practice Nurse 08/25/24
--- OUTSIDE RECORDS SUMMARY | 2024-10-06 15:46 | XMS_ITS | Referral Summary ---
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 Phone Nelly Godinez NP Primary Care Provider [phone] Encounters Date Type Department Care Team Description 09/30/2024 Telephone [facility] Neurosurgery [address] [place] [address] 6th [place] [address] [place] [address] Claudia Walters RN 09/25/2024 7:35 PM CDT - 09/30/2024 4:19 PM CDT Hospital Encounter [address] [address] Chelsea Hawkins MD Stenosis of left carotid artery (Primary Dx); Stroke due to stenosis of left middle cerebral artery (HCC) Discharge Disposition: Discharge to home or self care 09/29/2024 Orders Only [address] [address] Joey Hodges MD 09/29/2024 8:30 AM CDT - 09/29/2024 1:15 PM CDT Surgery [facility] [address] [place] [address] Joey Hodges MD Endarterectomy - Carotid 09/29/2024 8:33 AM CDT Anesthesia Event [facility] [address] [place] [address] Howard Garay MD PhD Irene Manriquez NP 09/25/2024 6:53 PM CDT - 09/25/2024 11:59 PM CDT Hospital Encounter [facility] Emergency, Room R Discharge Disposition: Discharge to home or self care 09/25/2024 2:16 PM CDT - 09/25/2024 6:51 PM CDT Emergency [facility] Emergency Department [address] [place] [address] Dominique Fischer MD Stroke, hemorrhagic (HCC) (Primary Dx) Discharge Disposition: Discharge to a critical access hospital 09/07/2024 3:40 PM CDT Lab [facility] [address] [place] [id number] 09/01/2024 Telephone [facility] Home Care Services [address] [place] [address] Apryl Spence from Last 3 Months Allergies No known active allergies Medications ondansetron ODT (ZOFRAN-ODT) 4 mg disintegrating tablet Dissolve 1 tablet oral every 4 hours as needed for nausea or vomiting. 15 tablet 0 Active amLODIPine (NORVASC) 5 mg tablet Take 1 tablet (5 mg total) by mouth daily Active atorvastatin (LIPITOR) 80 mg tablet Take 1 tablet (80 mg total) by mouth daily Active omeprazole (PriLOSEC) 40 mg capsule Take 1 capsule (40 mg total) by mouth 2 (two) times a day Active aspirin 325 mg enteric coated tablet Take 1 tablet (325 mg total) by mouth daily 30 tablet 1 5 026 Active acetaminophen (TYLENOL) 325 mg tabletIndications: Fever,Pain Take 2 tablets (650 mg total) by mouth every 4 (four) hours as needed for pain 5 Active aspirin 81 mg chewable tablet Take 1 tablet (81 mg total) by mouth daily 5 025 Discontin ued(Stop Taking at Discharge ) aspirin 81 mg enteric coated tablet Take 1 tablet (81 mg total) by mouth daily 025 Discontin ued(Stop Taking at Discharge ) Active Problems Problem Noted Date Diagnosed Date 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 09/25/2024 Stenosis of left carotid artery 09/25/2024 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 Never 09/29/2024 Q2: How many drinks containi ng alcohol do you have on a typical day when you are drinking? Patient does not drink Q3: How often do you have si x or more drinks on one occasion? Never 09/29/2024 PHQ-2 Answer Date Recorded PHQ-2 Total Score (If total score is 3 or more points, staff should administer the PHQ-9) 0 09/25/2024 PHQ-9 Answer Date Recorded PHQ-9 Total Score 0 09/25/2024 Personal Safety Answer Date Recorded Have you ever been in or are you currently in a harmful physical or emotional relationship or is someone making you feel afraid or unsafe? Denies 09/29/2024 Sex and Gender Information Value Date Recorded Sex Assigned at Not on file Legal Sex Male 4:24 PM CRO Gender Identity Not on file Sexual Orientation Not on file Last Filed Vital Signs Vital Sign Reading Time Taken Comments Blood Pressure 98/69 09/30/2024 3:00 PM CDT Pulse 90 09/30/2024 3:00 PM CDT Temperature 36.3 C (97.4 F) 09/30/2024 2:02 PM CDT Respiratory Rate 22 09/30/2024 3:00 PM CDT Oxygen Saturation 94% 09/30/2024 1:00 PM CDT Inhaled Oxygen Concentration - - Weight 72.6 kg (160 lb) 09/29/2024 6:05 AM CDT Height 172.7 cm (5' 8) 09/25/2024 9:00 PM CDT Body Mass Index 24.33 09/25/2024 9:00 PM CDT Plan of Treatment Not on file Procedures Procedure Name Priority Date/Time Associated Diagnosis Comments EGFR Routine 09/29/2024 9:08 PM CDT BASIC METABOLIC PANEL Routine 09/29/2024 9:08 PM CDT CBC WITHOUT DIFFERENTIAL Routine 09/29/2024 9:08 PM CDT VASCULAR SURGERY PROCEDURE Routine 09/29/2024 12:55 PM CDT Stenosis of left carotid artery POC BLOOD GAS AND CHEMISTRIES, ARTERIAL Routine 09/29/2024 10:42 AM CDT PERIPHERAL LINE Routine 09/29/2024 9:29 AM CDT ANESTHESIA ARTERIAL LINE PLACEMENT Routine 09/29/2024 9:29 AM CDT ANESTHESIA INTUBATION Routine 09/29/2024 9:28 AM CDT B CHECK SAMPLE STAT 09/29/2024 12:47 AM CDT EGFR Routine 09/28/2024 9:20 PM CDT B CHECK SAMPLE STAT 09/28/2024 9:20 PM CDT BASIC METABOLIC PANEL Routine 09/28/2024 9:20 PM CDT CBC WITHOUT DIFFERENTIAL Routine 09/28/2024 9:20 PM CDT TYPE AND SCREEN Timed 09/28/2024 4:23 PM CDT XR CHEST 1 VIEW ED Urgent/IP Urgent 09/28/2024 11:26 AM CDT TRANSTHORACIC ECHO (TTE) COMPLETE W DOPPLER/CF W CONTRAST W BUBBLE Routine 09/28/2024 8:13 AM CDT EGFR Routine 09/27/2024 9:39 PM CDT BASIC METABOLIC PANEL Routine 09/27/2024 9:39 PM CDT CBC WITHOUT DIFFERENTIAL Routine 09/27/2024 9:39 PM CDT ANGIO SELECTIVE CAROTID HVAC REFRIGERATION TECHNICIAN RIGHT Today 09/27/2024 8:47 AM CDT HEMOGLOBIN A1C Routine 09/26/2024 8:00 PM CDT EGFR Routine 09/26/2024 8:00 PM CDT BASIC METABOLIC PANEL Routine 09/26/2024 8:00 PM CDT CBC WITHOUT DIFFERENTIAL Routine 09/26/2024 8:00 PM CDT FENTANYL CONFIRMATION, MS URINE Routine 09/26/2024 1:23 PM CDT DRUGS OF ABUSE SCREEN, URINE WITH REFLEX CONFIRMATION Routine 09/26/2024 1:23 PM CDT LIPID PANEL Routine 09/25/2024 10:32 PM CDT EGFR Routine 09/25/2024 10:32 PM CDT BASIC METABOLIC PANEL Routine 09/25/2024 10:32 PM CDT CBC WITHOUT DIFFERENTIAL Routine 09/25/2024 10:32 PM CDT ECG 12-LEAD STAT 09/25/2024 9:41 PM CDT URINALYSIS AND REFLEX TO MICROSCOPIC AND CULTURE STAT 09/25/2024 6:06 PM CDT TROPONIN T HIGH-SENSITIVITY 2-HOUR Timed 09/25/2024 3:[address] STROKE PROTOCOL W WO CONTRAST Critical/Life-T hreatening 09/25/2024 3:13 PM CDT ECG 12-LEAD STAT 09/25/2024 2:[address] STROKE PROTOCOL WO CONTRAST Critical/Life-T hreatening 09/25/2024 2:24 PM CDT EGFR STAT 09/25/2024 2:16 PM CDT DIFFERENTIAL AUTO STAT 09/25/2024 2:1 6 PM CDT TROPONIN T HIGH-SENSITIVITY SERIES (BASELINE, 2HR, 4HR, 6HR) STAT 09/25/2024 2:16 PM CDT APTT STAT 09/25/2024 2:16 PM CDT PROTIME-INR STAT 09/25/2024 2:16 PM CDT COMPREHENSIVE METABOLIC PANEL STAT 09/25/2024 2:16 PM CDT CBC WITH AUTO DIFFERENTIAL STAT 09/25/2024 2:16 PM CDT POCT GLUCOSE DEVICE Routine 09/25/2024 2 :11 PM CDT EGFR Routine 09/07/2024 4:00 PM CDT DIFFERENTIAL AUTO Routine 09/07/2024 4:0 0 PM CDT CBC WITH AUTO DIFFERENTIAL Routine 09/07/2024 4:00 PM CDT BASIC METABOLIC PANEL Routine 09/07/2024 4:00 PM CDT LIPOPROTEIN A (LPA) Routine 09/07/2024 4 :00 PM CDT LIPID PANEL Routine 09/07/2024 4:00 PM CDT COLONOSCOPY 06/10/2012 12:00 AM CDT from Last 3 Months or Most Recently Relevant to Health Maintenance Results * eGFR (09/29/2024 9:08 PM CDT) eGFR >90 >=60 mL/min/1. 73 m2 Comment: Interpretive Data Reference Interval Normal >/= 90 mL/min/1.73m2 Mildly decreased* 60 - 89 mL/min/1.73m2 Mildly to moderately decreased 45 - 59 mL/min/1.73m2 Moderately to severely decreased 30 - 44 mL/min/1.73m2 Severely decreased 15 - 29 mL/min/1.73m2 Kidney Failure < 15 mL/min/1.73m2 *Relative to young adult level Estimated glomerular filtration rate is determined by the 2020 CKD-EPI equation recommended by the National Kidney Foundation (A Unifying Approach to GFR Estimation: Recommendations of the NKF-ASK Task Force on Reassessing the Inclusion of Race in Diagnosing Kidney Disease, JASN 2020). The CKD-EPI equation should not be used for patients with unstable renal function and has not been validated in children and those over 70. Current interpretive data was last reviewed 2021. Blood 09/29/2024 9:08 PM CDT 09/29/2024 9:32 PM CDT us Chelsea Hawkins MD LAB BLOOD ORDERABLES Final Result [facility] [place] [address] * (ABNORMAL) CBC without differential (09/29/2024 9:08 PM CDT) WBC 11.26(H) 3.80 - 9.90 K/cumm Hgb 14.1 13.0 - 17.5 g/dL [facility] Hct 40.3 38.9 - 50.3 % [facility] Plt 289 150 - 400 K/cumm [facility] MPV 9.1 9.1 - 12.3 fL [facility] RBC 4.76 4.30 - 5.80 M/cumm [facility] MCV 84.7 81.3 - 96.4 fL [facility] MCH 29.6 27.1 - 33.3 pg [facility] MCHC 35.0 32.3 - 35.7 g/dL [facility] RDW CV 11.7 11.1 - 14.9 % [facility] RDW SD 35.8 35.7 - 48.1 fL [facility] NRBC abs 0.00 0.00 - 0.01 K/cumm [facility] Blood 09/29/2024 9:08 PM CDT 09/29/2024 9:35 PM CDT Chelsea Hawkins MD LAB BLOOD ORDERABLES Final Result [facility] [place] [address] * Basic metabolic panel (09/29/2024 9:08 PM CDT) Pathologist [facility] [place] Sodium 136 135 - 145 mmol/L Potassium, pl 4.3 3.3 - 4.9 mmol/L [facility] Chloride 99 97 - 110 mmol/L [facility] CO2 26 22 - 32 mmol/L [facility] Anion gap 11 2 - 15 mmol/L [facility] BUN 12 6 - 25 mg/dL [facility] Creatinine 0.85 0.80 - 1.30 mg/dL [facility] Glucose 188 70 - 199 mg/dL [facility] Comment: Interpretive Data Fasting glucose >/= 126 mg/dl is diagnostic for diabetes. Fasting is defined as no caloric intake for at least 8 hours. Fasting glucose between 100 mg/dl to 125 mg/dl is diagnostic of prediabetes. In a patient with classic symptoms of hyperglycemia or hyperglycemic crisis, a random glucose >/= 200 mg/dl is diagnostic for diabetes. In the absence of unequivocal hyperglycemia, results should be confirmed by repeat testing. The classification and Diagnosis of Diabetes Diabetes Care 2021; 46: S19-S40. Current interpretive data was last revised 2022. Calcium 9.5 8.5 - 10.3 mg/dL [facility] Blood 09/29/2024 9:08 PM CDT 09/29/2024 9:32 PM CDT us Chelsea Hawkins MD LAB BLOOD ORDERABLES Final Result [facility] [place] [address] * ENDARTERECTOMY - CAROTID (09/29/2024 12:55 PM CDT) Anatomical Region Laterality Modality X-Ray Angiograph y Narrative 09/29/2024 3:17 PM CDT Please see OpNote for result. us Joey Hodges MD CV CARDIAC CATH PROCEDURES Fi nal Result * (ABNORMAL) POC Blood Gas and Chemistries, Arterial - (09/29/2024 10:42 AM CDT) pH, Art POC 7.36 7.35 - 7.45 pCO2, Art POC 46(H) 35 - 45 mmHg [facility] pO2, Art POC 213(H) 83 - 108 mmHg [facility] Na, POC 139 135 - 145 mmol/L [facility] K POC 4.6 3.3 - 4.9 mmol/L [facility] Comment: Interpretive Data Not all point of care methods assess for hemolysis. Confirm with instrument and retest K+ if not consistent with clinical signs and symptoms. Current Interpretive Data was last revised on 2023. Cl, POC 108 97 - 110 mmol/L [facility] Ionized Ca, POC 4.84 4.50 - 5.10 mg/dL [facility] Glucose, POC 115 70 - 199 mg/dL [facility] Lactate POC 1.5 0.7 - 2.0 mmol/L [facility] SO2 (radha) arterial 100(H) 90 - 95 % [facility] Base excess, POC 0.1 mmol/L [facility] Hct, POC 42.0 41.4 - 51.6 % [facility] Total Hb, POC 14.1 13.8 - 17.2 g/dL [facility] Blood 09/29/2024 10:4 2 AM CDT 09/29/2024 10:42 AM CDT Chelsea Hawkins MD LAB POCT ORDERABLES - CARRIE CE Final Result [facility] [place] [address] * Peripheral IV Catheter (09/29/2024 9:29 AM CDT) Narrative Susana Lomeli MD - 09/29/2024 9:29 AM CDT Susana Lomeli MD 09/29/2024 9:30 AM Peripheral IV Catheter Patient location: OR Staff: Supervising provider: Howard Garay MD PhD Placed by: Resident: Susana Lomeli MD Preprocedure prep: Prep solution: chlorhexadine PPE: gloves PIV line: Laterality: right Site: upper arm Catheter size: 20 g Technique: ultrasound guided Procedure details: good blood return and occlusive dressing applied Number of attempts: 1 Assessment: Events: patient tolerated procedure well with no complications Howard Garay MD PhD ANESTHESIA ORDERABLES Fin al Result * Arterial Line (09/29/2024 9:29 AM CDT) Narrative Susana Lomeli MD - 09/29/2024 9:29 AM CDT Susana Lomeli MD 09/29/2024 9:29 AM Arterial Line Patient location: OR Indication: continuous blood pressure monitoring and blood sampling needed Ultrasound assisted: yes Staff: Supervising provider: Howard Garay MD PhD Placed by: Resident: Susana Lomeli MD Procedure prep: Prep solution: chlorhexadine/alcohol Prep: provider hat/mask and sterile gloves Arterial line: Catheter size: 22 gauge Catheter length: 1 and 3/4 inch Catheter type: wire-guided catheter Seldinger technique: yes Site: radial artery Line secured: tape and Tegaderm Results: good waveform and good blood return Number of attempts: 1 Assessment: Events: patient tolerated procedure well with no complications us Howard Garay MD PhD ANESTHESIA ORDERABLES Fin al Result * Airway (09/29/2024 9:28 AM CDT) Narrative Susana Lomeli MD - 09/29/2024 9:28 AM CDT Susana Lomeli MD 09/29/2024 9:28 AM Airway Patient location: OR Urgency: elective Indications for airway management: anesthesia Difficult airway: no Staff: Supervising provider: Howard Garay MD PhD Placed by: Resident: Susana Lomeli MD Emergent airway documentation: Risks and benefits discussed: yes Consent obtained: yes Consent given by: patient Airway prep: Preoxygenated: yes Patient position: sniffing Mask difficulty assessment: 2 - vent by mask + OA or adjuvant Spontaneous ventilation during airway: absent Sedation level during airway: GA Final airway details: Final airway type: endotracheal airway Tube type: ETT ETT size: 8.0 mm Cuffed: yes Technique used for successful ETT placement: video laryngoscopy Devices/Methods used in placement: stylet Insertion site: oral Blade type: Claudia Video blade type: Resendiz Blade size: 4 Cormack-Lehane (video): grade IIa - partial view of glottis Cuff volume: 24 mL Placement verified by: auscultation and CO2 detection Airway secured with: silk tape Number of attempts: 1 Planned trial extubation: yes us Howard Garay MD PhD ANESTHESIA ORDERABLES Fin al Result * Check Sample (09/29/2024 12:47 AM CDT) ABO Rh O Negative [facility] OTHER 09/29/2024 12:4 7 AM CDT 09/29/2024 1:35 AM CDT Chelsea Hawkins MD LAB BLOOD ORDERABLES Final Result [facility] Department [place] [address] [facility] * eGFR (09/28/2024 9:20 PM CDT) eGFR >90 >=60 mL/min/1. 73 m2 Comment: Interpretive Data Reference Interval Normal >/= 90 mL/min/1.73m2 Mildly decreased* 60 - 89 mL/min/1.73m2 Mildly to moderately decreased 45 - 59 mL/min/1.73m2 Moderately to severely decreased 30 - 44 mL/min/1.73m2 Severely decreased 15 - 29 mL/min/1.73m2 Kidney Failure < 15 mL/min/1.73m2 *Relative to young adult level Estimated glomerular filtration rate is determined by the 2020 CKD-EPI equation recommended by the National Kidney Foundation (A Unifying Approach to GFR Estimation: Recommendations of the NKF-ASK Task Force on Reassessing the Inclusion of Race in Diagnosing Kidney Disease, JASN 2020). The CKD-EPI equation should not be used for patients with unstable renal function and has not been validated in children and those over 70. Current interpretive data was last reviewed 2021. Blood 09/28/2024 9:20 PM CDT 09/28/2024 10:30 PM CDT us Chelsea Hawkins MD LAB BLOOD ORDERABLES Final Result Performing Organization Address City/[facility]/ZIP Co de Phone Number [facility] Department [place] [address] * Check Sample (09/28/2024 9:20 PM CDT) Pathologist [facility] [place] ABO Rh O Negative [facility] OTHER 09/28/2024 9:20 PM CDT 09/28/2024 10:46 PM CDT us Chelsea Hawkins MD LAB BLOOD ORDERABLES Final Result [facility] Department [place] [address] [facility] * CBC without differential (09/28/2024 9:20 PM CDT) WBC 8.07 3.80 - 9.90 K/cumm Hgb 14.1 13.0 - 17.5 g/dL [facility] Hct 40.7 38.9 - 50.3 % [facility] Plt 287 150 - 400 K/cumm [facility] MPV 9.2 9.1 - 12.3 fL [facility] RBC 4.84 4.30 - 5.80 M/cumm [facility] MCV 84.1 81.3 - 96.4 fL [facility] MCH 29.1 27.1 - 33.3 pg [facility] MCHC 34.6 32.3 - 35.7 g/dL [facility] RDW CV 11.8 11.1 - 14.9 % [facility] RDW SD 35.8 35.7 - 48.1 fL [facility] NRBC abs 0.00 0.00 - 0.01 K/cumm [facility] Blood 09/28/2024 9:20 PM CDT 09/28/2024 10:33 PM CDT us Chelsea Hawkins MD LAB BLOOD ORDERABLES Final Result [facility] [place] [address] * (ABNORMAL) Basic metabolic panel (09/28/2024 9:20 PM CDT) [facility] Sodium 137 135 - 145 mmol/L Potassium, pl 3.5 3.3 - 4.9 mmol/L [facility] Chloride 100 97 - 110 mmol/L [facility] CO2 25 22 - 32 mmol/L [facility] Anion gap 12 2 - 15 mmol/L [facility] BUN 14 6 - 25 mg/dL [facility] Creatinine 0.73(L) 0.80 - 1.30 mg/dL [facility] Glucose 112 70 - 199 mg/dL [facility] Comment: Interpretive Data Fasting glucose >/= 126 mg/dl is diagnostic for diabetes. Fasting is defined as no caloric intake for at least 8 hours. Fasting glucose between 100 mg/dl to 125 mg/dl is diagnostic of prediabetes. In a patient with classic symptoms of hyperglycemia or hyperglycemic crisis, a random glucose >/= 200 mg/dl is diagnostic for diabetes. In the absence of unequivocal hyperglycemia, results should be confirmed by repeat testing. The classification and Diagnosis of Diabetes Diabetes Care 2021; 46: S19-S40. Current interpretive data was last revised 2022. Calcium 9.5 8.5 - 10.3 mg/dL [facility] Blood 09/28/2024 9:20 PM CDT 09/28/2024 10:30 PM CDT Chelsea Hawkins MD LAB BLOOD ORDERABLES Final Result Performing Organization Address [facility] Co de Phone Number [facility] [place] [address] * Type and screen (09/28/2024 4:23 PM CDT) Keira, indirect Negative ABO Rh O Negative [facility] Blood 09/28/2024 4:23 PM CDT 09/28/2024 5:14 PM CDT Narrative [facility] - 09/28/2024 6:14 PM CDT Has the patient had Daratumumab or Isatuximab in the past 6 months?->Unknown us Chelsea Hawkins MD LAB BLOOD BANK TEST ORDERA BLES Final Result Performing Organization Address [facility] Co de Phone Number [facility] [place] [address] * XR Chest 1 View (09/28/2024 11:26 AM CDT) Anatomical Region Laterality Modality Body, Chest N/A Computed Radiogr aphy 09/28/2024 11:5 0 AM CDT Impressions 09/28/2024 11:50 AM CDT There are no prior chest radiographs for comparison. The heart and mediastinal contours are normal. There is no mass or consolidation. There is no lymphadenopathy. There are no pleural effusions. There is no pneumothorax. Electronically signed by: Concepción Goyal M.D. Narrative 09/28/2024 11:50 AM CDT EXAMINATION: 1 view chest radiograph Procedure Note Concepción Goyal MD - 09/28/2024 EXAMINATION: 1 view chest radiograph IMPRESSION: There are no prior chest radiographs for comparison. The heart and mediastinal contours are normal. There is no mass or consolidation. There is no lymphadenopathy. There are no pleural effusions. There is no pneumothorax. Electronically signed by: Concepción Goyal M.D. us Chelsea Hawkins MD IMG XR PROCEDURES Final Re sult * TRANSTHORACIC ECHO (TTE) COMPLETE W DOPPLER/CF W CONTRAST W BUBBLE (09/28/2024 8:13 AM CDT) EF Mod BP 71 % CONS SCIMAGE Anatomical Region Laterality Modality Ultrasound 09/28/2024 7:17 AM CDT Narrative 09/28/2024 9:26 AM CDT [facility] [place] [address] Transthoracic Echocardiographic Report Patient Name: LIT SOTOMAYOR L : 1975 (49y 4m) Gender: M Study Date: 09/28/2024 07:17:31 AM Ht(Inch): 68 Wt(Lb): 160.05 BSA: 1.87 Registered Nurse Cardiac: Sole Jarqiun [facility] Location: [id number] Order Provider: CHELSEA HAWKINS Heart Rate: 97 BMI: 24.33 BP: 104 / 71 Ref Provider: CHELSEA HAWKINS PROCEDURES: Echocardiographic Report: Transthoracic complete echo with contrast, 2D, spectral and tissue Doppler, color flow Doppler, M-mode. Contrast: Contrast Enhancement was Employed: Due to suboptimal image quality with inadequate visualization of at least 2 of 16 LV wall segments in any view after initial imaging. Perflutren contrast was administered using the volume necessary to obtain adequate images. 0.4 ml Optison Administered, (2.6 ml wasted). Technically difficult study due to: Poor acoustic windows. INDICATIONS: stroke, follow up. CONCLUSIONS: 1. Normal left ventricular size based on volume index. Normal LV wall thickness. Normal left ventricular systolic function. The Ejection Fraction (Manley's) is measured at 71 %. Normal diastolic function. 2. Normal right ventricular size. Normal right ventricular systolic function. 3. Agitated saline bubble study is negative for intracardiac shunt at rest and post-Valsalva. 4. There is no significant valvular heart disease. 5. Normal pericardium without pericardial effusion. 6. Normal aortic root size at sinuses of Valsalva. 7. IVC is normal in size. 8. Unable to determine PASP due to inadequate TR jet. ATTESTATION: I have personally reviewed and interpreted this study without fellow or resident. - DISCLAIMER: The study images and the final report will be retained in the patient chart by the Echo Laboratory for the legally required time period. This chart constitutes the legal record of any testing performed. FINDINGS: Left Ventricle: Normal left ventricular size based on volume index. Normal LV wall thickness. Normal left ventricular systolic function. The Ejection Fraction (Manley's) is measured at 71 %. Normal diastolic function. Unable to assess global longitudinal strain due to image quality. Right Ventricle: Normal right ventricular size. Normal right ventricular systolic function. Left Atrium: The left atrium is normal in size. Right Atrium: The right atrium is normal in size. Atrial Septum: Agitated saline bubble study is negative for intracardiac shunt at rest and post-Valsalva. Mitral Valve: Normal mitral valve structure. No mitral regurgitation. No stenosis present. Aortic Valve: Normal trileaflet aortic valve. No aortic regurgitation. No aortic valve stenosis. Tricuspid Valve: Normal tricuspid valve structure. No tricuspid regurgitation. No tricuspid valve stenosis. Pulmonic Valve: Normal pulmonic valve structure. No pulmonic regurgitation. No pulmonic valve stenosis present. Pericardium: Normal pericardium without pericardial effusion. Aorta: Normal aortic root size at sinuses of Valsalva. IVC: IVC is normal in size. PASP: Unable to determine PASP due to inadequate TR jet. MEASUREMENTS: 2D/MM Value Range Doppler Value Range LVIDd 2D 3.92 cm [ 4.20 - 5.80 ] AV Peak Ranjit 1.3 m/s [ 1.0 - 1.7 ] LVIDs 2D 2.20 cm [ 2.50 - 4.00 ] AV Peak PG 6.76 mmHg IVSd 2D 0.62 cm [ 0.60 - 1.00 ] AV Mean PG 4 mmHg LVPWd 2D 0.62 cm [ 0.60 - 1.00 ] AV VTI 27.0 cm LV Thickness Ratio 1.0 LVOT Peak Ranjit 1.0 m/s [ 0.7 - 1.1 ] LV FS 2D 43.92 % [ 25.00 - 43.00 ] LVOT Peak PG 4.00 mmHg LV Mass 2D 66.72 g LVOT Mean PG 3 mmHg LV Mass Index 2D 35.68 g/m2 LVOT VTI 21.6 cm RWT 0.32 LVOT Diam 2.00 cm EDV Mod BP 102.29 ml [ 62.00 - 150.00 ] LORENA VTI 2.51 cm2 LV EDV Index 54.70 ml/m2 LVOT/AV VTI 0.80 - Dimensionless index (DVI) ESV Mod BP 30.10 ml [ 21.00 - 61.00 ] MV E Peak Ranjit 0.7 m/s [ 0.6 - 1.3 ] EF Mod BP 71 % [ 52 - 72 ] MV A Peak Ranjit 0.5 m/s [ 1.0 - 1.2 ] LA Length 4C 5.65 cm MV E/A 1.5 ratio [ 0.8 - 1.5 ] LA Length 2C 5.74 cm MV Decel Time 173.18 msec [ 104.00 - 258.00 ] LA Volume BP 23.58 ml Med E` Ranjit 10.4 cm/sec [ 8.0 - 25.0 ] LA Volume Index 12.61 ml/m2 [ 16.00 - 34.00 ] Lat E` Ranjit 11.2 cm/sec [ 10.0 - 25.0 ] RV Base Dimen 2D 3.5 cm [ 2.5 - 4.2 ] Average E/E` 6.48 RV ES Area 8.58 cm2 [ 3.00 - 15.00 ] RV S` 11.62 cm/sec TAPSE 2.19 cm [ 1.71 - 5.00 ] PV Peak Ranjit 0.7 m/s [ 0.4 - 0.8 ] RA Volume 18.34 ml PV Peak PG 1.96 mmHg RA Volume Index 9.81 ml/m2 IVC Diam 1.53 cm AoR Diam 2D 3.24 cm [ 3.10 - 3.70 ] Ao Root Index 1.73 cm/m2 [ 1.00 - 2.00 ] Electronically Signed By: Michael Johnson MD 09/28/2024 9:25:51 AM CDT Procedure Note Michael Johnson MD - 09/28/2024 [facility] [place] [address] Transthoracic Echocardiographic Report Patient Name: LIT SOTOMAYOR L : 1975 (49y 4m) Gender: M Study Date: 09/28/2024 07:17:31 AM Ht(Inch): 68 Wt(Lb): 160.05 BSA: 1.87 Registered Nurse Cardiac: Sole Jarquin RDCS Location: [id number] OrderProvider: CHELSEA HAWKINS Heart Rate: 97 BMI: 24.33 BP: 104 / 71 Ref Provider: CHELSEA HAWKINS PROCEDURES: Echocardiographic Report: Transthoracic complete echo with contrast, 2D,spectral and tissue Doppler, color flow Doppler, M-mode. Contrast: Contrast Enhancement was Employed: Due to suboptimal imagequality with inadequate visualization of at least 2 of 16 LV wall segments in any viewafter initial imaging. Perflutren contrast was administered using the volume necessaryto obtain adequate images. 0.4 ml Optison Administered, (2.6 ml wasted). Technically difficult study due to: Poor acoustic windows. INDICATIONS: stroke, follow up. CONCLUSIONS: 1. Normal left ventricular size based on volume index. Normal LV wallthickness. Normal left ventricular systolic function. The Ejection Fraction (Manley's) ismeasured at 71 %. Normal diastolic function. 2. Normal right ventricular size. Normal right ventricular systolicfunction. 3. Agitated saline bubble study is negative for intracardiac shunt at restand post-Valsalva. 4. There is no significant valvular heart disease. 5. Normal pericardium without pericardial effusion. 6. Normal aortic root size at sinuses of Valsalva. 7. IVC is normal in size. 8. Unable to determine PASP due to inadequate TR jet. ATTESTATION: I have personally reviewed and interpreted this study without fellow orresident. - DISCLAIMER: The study images and the final report will be retained in the patientchart by the Echo Laboratory for the legally required time period. This chart constitutesthe legal record of any testing performed. FINDINGS: Left Ventricle: Normal left ventricular size based on volume index. NormalLV wall thickness. Normal left ventricular systolic function. The EjectionFraction (Manley's) is measured at 71 %. Normal diastolic function. Unable to assess globallongitudinal strain due to image quality. Right Ventricle: Normal right ventricular size. Normal right ventricularsystolic function. Left Atrium: The left atrium is normal in size. Right Atrium: The right atrium is normal in size. Atrial Septum: Agitated saline bubble study is negative for intracardiacshunt at rest and post-Valsalva. Mitral Valve: Normal mitral valve structure. No mitral regurgitation. Nostenosis present. Aortic Valve: Normal trileaflet aortic valve. No aortic regurgitation. Noaortic valve stenosis. Tricuspid Valve: Normal tricuspid valve structure. No tricuspidregurgitation. No tricuspid valve stenosis. Pulmonic Valve: Normal pulmonic valve structure. No pulmonicregurgitation. No pulmonic valve stenosis present. Pericardium: Normal pericardium without pericardial effusion. Aorta: Normal aortic root size at sinuses of Valsalva. IVC: IVC is normal in size. PASP: Unable to determine PASP due to inadequate TR jet. MEASUREMENTS: 2D/MM Value Range DopplerValue Range LVIDd 2D 3.92 cm [ 4.20 - 5.80 ] AV Peak Vel1.3 m/s [ 1.0 - 1.7 ] LVIDs 2D 2.20 cm [ 2.50 - 4.00 ] AV Peak PG6.76 mmHg IVSd 2D 0.62 cm [ 0.60 - 1.00 ] AV Mean PG4 mmHg LVPWd 2D 0.62 cm [ 0.60 - 1.00 ] AV VTI27.0 cm LV Thickness Ratio 1.0 LVOT Peak Vel1.0 m/s [ 0.7 - 1.1 ] LV FS 2D 43.92 % [ 25.00 - 43.00 ] LVOT Peak PG4.00 mmHg LV Mass 2D 66.72 g LVOT Mean PG3 mmHg LV Mass Index 2D 35.68 g/m2 LVOT VTI21.6 cm RWT 0.32 LVOT Diam2.00 cm EDV Mod BP 102.29 ml [ 62.00 - 150.00 ] LORENA VTI2.51 cm2 LV EDV Index 54.70 ml/m2 LVOT/AV VTI0.80 - Dimensionless index (DVI) ESV Mod BP 30.10 ml [ 21.00 - 61.00 ] MV E Peak Vel0.7 m/s [ 0.6 - 1.3 ] EF Mod BP 71 % [ 52 - 72 ] MV A Peak Vel0.5 m/s [ 1.0 - 1.2 ] LA Length 4C 5.65 cm MV E/A1.5 ratio [ 0.8 - 1.5 ] LA Length 2C 5.74 cm MV Decel Dzvd896.18 msec [ 104.00 - 258.00 ] LA Volume BP 23.58 ml Med E` Vel10.4 cm/sec [ 8.0 - 25.0 ] LA Volume Index 12.61 ml/m2 [ 16.00 - 34.00 ] Lat E` Vel11.2 cm/sec [ 10.0 - 25.0 ] RV Base Dimen 2D 3.5 cm [ 2.5 - 4.2 ] Average E/E`6.48 RV ES Area 8.58 cm2 [ 3.00 - 15.00 ] RV S`11.62 cm/sec TAPSE 2.19 cm [ 1.71 - 5.00 ] PV Peak Vel0.7 m/s [ 0.4 - 0.8 ] RA Volume 18.34 ml PV Peak PG1.96 mmHg RA Volume Index9.81 ml/m2 IVC Diam1.53 cm AoR Diam 2D 3.24 cm [ 3.10 - 3.70 ] Ao Root Index 1.73 cm/m2 [ 1.00 - 2.00 ] Electronically Signed By: Michael Johnson MD 09/28/2024 9:25:51 AM CDT us Chelsea Hawkins MD CV ECHO PROCEDURES Final R esult * eGFR (09/27/2024 9:39 PM CDT) eGFR >90 >=60 mL/min/1. 73 m2 Comment: Interpretive Data Reference Interval Normal >/= 90 mL/min/1.73m2 Mildly decreased* 60 - 89 mL/min/1.73m2 Mildly to moderately decreased 45 - 59 mL/min/1.73m2 Moderately to severely decreased 30 - 44 mL/min/1.73m2 Severely decreased 15 - 29 mL/min/1.73m2 Kidney Failure < 15 mL/min/1.73m2 *Relative to young adult level Estimated glomerular filtration rate is determined by the 2020 CKD-EPI equation recommended by the National Kidney Foundation (A Unifying Approach to GFR Estimation: Recommendations of the NKF-ASK Task Force on Reassessing the Inclusion of Race in Diagnosing Kidney Disease, JASN 2020). The CKD-EPI equation should not be used for patients with unstable renal function and has not been validated in children and those over 70. Current interpretive data was last reviewed 2021. Blood 09/27/2024 9:39 PM CDT 09/27/2024 10:43 PM CDT Chelsea Hawkins MD LAB BLOOD ORDERABLES Final Result Performing Organization Address [facility]/ZIP Co de Phone Number [facility] [place] [place] [place] [address] * (ABNORMAL) CBC without differential (09/27/2024 9:39 PM CDT) Pathologist [facility] [place] WBC 7.74 3.80 - 9.90 K/cumm Hgb 13.1 13.0 - 17.5 g/dL [facility] Hct 37.1(L) 38.9 - 50.3 % [facility] Plt 250 150 - 400 K/cumm [facility] MPV 9.2 9.1 - 12.3 fL [facility] RBC 4.37 4.30 - 5.80 M/cumm [facility] MCV 84.9 81.3 - 96.4 fL [facility] MCH 30.0 27.1 - 33.3 pg [facility] MCHC 35.3 32.3 - 35.7 g/dL [facility] RDW CV 11.9 11.1 - 14.9 % [facility] RDW SD 36.4 35.7 - 48.1 fL [facility] NRBC abs 0.00 0.00 - 0.01 K/cumm [facility] Blood 09/27/2024 9:39 PM CDT 09/27/2024 10:44 PM CDT us Chelsea Hawkins MD LAB BLOOD ORDERABLES Final Result Performing Organization Address City/[facility] Co de Phone Number [facility] Department [place] [address] * Basic metabolic panel (09/27/2024 9:39 PM CDT) Sodium 143 135 - 145 mmol/L Potassium, pl 4.3 3.3 - 4.9 mmol/L [facility] Chloride 105 97 - 110 mmol/L [facility] CO2 24 22 - 32 mmol/L [facility] Anion gap 14 2 - 15 mmol/L [facility] BUN 14 6 - 25 mg/dL [facility] Creatinine 0.89 0.80 - 1.30 mg/dL [facility] Glucose 124 70 - 199 mg/dL [facility] Comment: Interpretive Data Fasting glucose >/= 126 mg/dl is diagnostic for diabetes. Fasting is defined as no caloric intake for at least 8 hours. Fasting glucose between 100 mg/dl to 125 mg/dl is diagnostic of prediabetes. In a patient with classic symptoms of hyperglycemia or hyperglycemic crisis, a random glucose >/= 200 mg/dl is diagnostic for diabetes. In the absence of unequivocal hyperglycemia, results should be confirmed by repeat testing. The classification and Diagnosis of Diabetes Diabetes Care 2021; 46: S19-S40. Current interpretive data was last revised 2022. Calcium 9.0 8.5 - 10.3 mg/dL [facility] Blood 09/27/2024 9:39 PM CDT 09/27/2024 10:43 PM CDT Chelsea Hawkins MD LAB BLOOD ORDERABLES Final Result [facility] [place] [address] * IR Angio Selective Carotid HVAC REFRIGERATION TECHNICIAN Right (09/27/2024 8:47 AM CDT) Anatomical Region Laterality Modality Neck Right Radio Fluoroscop y 09/27/2024 9:02 AM CDT Impressions 10/02/2024 8:06 PM CDT 1. There is 55% stenosis at the origin of the left internal carotid artery with respect to the distal internal carotid artery secondary to an ulcerative and heavily calcified atherosclerotic plaque status post angioplasty. 2. There is very mild irregularity at the origin of the right internal carotid artery without flow limiting stenosis. 3. There is mild stenosis at the origin of the right vertebral artery. These results were discussed with patient's brother and neurology team after the conclusion of the procedure. Dictated by: Michael Ramon M.D. The radiology attending physician has personally reviewed this study, and had reviewed and/or edited this written report and agrees with it. Electronically signed by: Joey Hodges M.D. 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 He presents for diagnostic cerebral angiogram to evaluate carotid stenosis. PROCEDURE: 1. Cerebral angiography: Left common carotid artery, right common carotid artery, right vertebral artery injections 2. Ultrasound-guided vascular access ATTENDING SURGEON: Joey Hodges MD. He was present for the entire procedure. ASSISTING SURGEON(S): Michael Ramon MD ANESTHESIA: Local in the right forearm with 1% Lidocaine. Conscious sedation with Versed and Fentanyl was given by the nurse under the supervision of the attending interventional neuroradiologist. Pre-, intra-, and post-conscious sedation monitoring records are available in the chart. Total monitored sedation time was 30 minutes. MEDICATIONS: Local anesthesia: 1% Lidocaine SQ Sedation and Analgesia: Versed IV, Fentanyl IV Radial artery cocktail: Verapamil (2.5 mg), Nitroglycerin (200 mcg), and Heparin (3000 units) MATERIALS: 21-gauge needle 5 [place] Merit Prelude IDeal sheath 23cm and mini guidewire 5 [place] Carson 2 [place] catheter Terumo glidewire TR Band CONTRAST: Visipaque 270 100 mL TECHNIQUE: Prior to the procedure, the technical aspects of the procedure, as well as benefits, potential risks and alternate options, were explained to the patient's brother. Specifically, the risks of cerebral infarction, hemorrhage, weakness, paralysis, sensory changes, vision decline/blindness, cranial nerve palsy, facial pain, anaphylaxis, renal failure, access site hematoma, arterial dissection, arterial pseudoaneurysm, arteriovenous fistula were discussed with the patient's brother via telephone. Informed consent was obtained. After informed consent was obtained, the patient was brought to the angiography suite. Moderate sedation (intravenous fentanyl and midazolam) was administered under the direction of the attending physician with continuous monitoring by a trained nurse specialist independent of those performing the procedure. Total monitored sedation time was 30 minutes. The right forearm was prepped and draped in the usual fashion. Access to the vascular system was gained in the usual way by a single-wall puncture of the right radial artery at the anatomical snuff box under ultrasound guidance. Ultrasound images demonstrated a patent vessel and were stored to PACS.. The 5 [place] Merit Prelude IDeal sheath 23cm was then introduced into the right radial artery over the mini guidewire. A cocktail of Verapamil (2.5 mg), Nitroglycerin (200 mcg), and Heparin (3000 units) was slowly injected into the right radial artery through the sheath over several minutes, with close monitoring of blood pressure. A Terumo Glidewire and 5 [place] Carson 2 [place] catheter were advanced into the aortic arch under fluoroscopic visualization and the Carson catheter was formed over the aortic arch. Using fluoroscopic guidance, selective catheterization of the above mentioned vessels and digital angiograms were performed, centered over the head and neck with AP, lateral, and oblique views. The catheter was then removed. The sheath was removed. Patent hemostasis was achieved by placement of a TR band. There were no immediate complications related to the procedure. FINDINGS: RIGHT COMMON CAROTID ARTERY, CERVICAL: The bifurcation has mild irregularity without flow-limiting stenosis with respect to the distal right internal carotid artery. The bifurcation is at C3-C4 level. There is normal opacification of right cervical external carotid artery branches. RIGHT COMMON CAROTID ARTERY, CEREBRAL: There is no evidence of aneurysm, focal stenosis, or early draining vein. There is cross filling of the left anterior cerebral artery via the anterior communicating artery. Normal parenchymal and venous phases. LEFT COMMON CAROTID ARTERY, CERVICAL: There is an ulcerative and heavily calcified atherosclerotic plaque at the origin of the left internal carotid artery. There is approximately 55% stenosis secondary to the atherosclerotic disease with respect to the distal internal carotid artery. There is no flow limitation. Bifurcation is at C3 level. There is normal opacification of left cervical external carotid artery branches. LEFT COMMON CAROTID ARTERY, CEREBRAL: There is no evidence of aneurysm, focal stenosis, or early draining vein. There is no opacification of the left posterior communicating artery. There is cross-filling of the right anterior cerebral artery via the anterior communicating artery. Normal parenchymal and venous phases. RIGHT VERTEBRAL ARTERY, CEREBRAL: There is no evidence of aneurysm, focal stenosis, or early draining vein. There was good contrast reflux down the left vertebral artery. Both posterior inferior cerebellar arteries demonstrate normal takeoffs from the distal ipsilateral vertebral arteries. There is mild stenosis at the origin of the right vertebral artery. There are robust P1 segments bilaterally. Normal parenchymal and venous phases. COMPLICATIONS: There were no immediate complications. 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 He presents for diagnostic cerebral angiogram to evaluate carotid stenosis. PROCEDURE: 1. Cerebral angiography: Left common carotid artery, right common carotid artery, right vertebral artery injections 2. Ultrasound-guided vascular access ATTENDING SURGEON: Joey Hodges MD. He was present for the entire procedure. ASSISTING SURGEON(S): Michael Ramon MD ANESTHESIA: Local in the right forearm with 1% Lidocaine. Conscious sedation with Versed and Fentanyl was given by the nurse under the supervision of the attending interventional neuroradiologist. Pre-, intra-, and post-conscious sedation monitoring records are available in the chart. Total monitored sedation time was 30 minutes. MEDICATIONS: Local anesthesia: 1% Lidocaine SQ Sedation and Analgesia: Versed IV, Fentanyl IV Radial artery cocktail: Verapamil (2.5 mg), Nitroglycerin (200 mcg), and Heparin (3000 units) MATERIALS: 21-gauge needle 5 [place] Merit Prelude IDeal sheath 23cm and mini guidewire 5 [place] Carson 2 [place] catheter Terumo glidewire TR Band CONTRAST: Visipaque 270 100 mL TECHNIQUE: Prior to the procedure, the technical aspects of the procedure, as well as benefits, potential risks and alternate options, were explained to the patient's brother. Specifically, the risks of cerebral infarction, hemorrhage, weakness, paralysis, sensory changes, vision decline/blindness, cranial nerve palsy, facial pain, anaphylaxis, renal failure, access site hematoma, arterial dissection, arterial pseudoaneurysm, arteriovenous fistula were discussed with the patient's brother via telephone. Informed consent was obtained. After informed consent was obtained, the patient was brought to the angiography suite. Moderate sedation (intravenous fentanyl and midazolam) was administered under the direction of the attending physician with continuous monitoring by a trained nurse specialist independent of those performing the procedure. Total monitored sedation time was 30 minutes. The right forearm was prepped and draped in the usual fashion. Access to the vascular system was gained in the usual way by a single-wall puncture of the right radial artery at the anatomical snuff box under ultrasound guidance. Ultrasound images demonstrated a patent vessel and were stored to PACS.. The 5 Icelandic Genero Prelude IDeal sheath 23cm was then introduced into the right radial artery over the mini guidewire. A cocktail of Verapamil (2.5 mg), Nitroglycerin (200 mcg), and Heparin (3000 units) was slowly injected into the right radial artery through the sheath over several minutes, with close monitoring of blood pressure. A Terumo Glidewire and 5 [place] Carson 2 [place] catheter were advanced into the aortic arch under fluoroscopic visualization and the Carson catheter was formed over the aortic arch. Using fluoroscopic guidance, selective catheterization of the above mentioned vessels and digital angiograms were performed, centered over the head and neck with AP, lateral, and oblique views. The catheter was then removed. The sheath was removed. Patent hemostasis was achieved by placement of a TR band. There were no immediate complications related to the procedure. FINDINGS: RIGHT COMMON CAROTID ARTERY, CERVICAL: The bifurcation has mild irregularity without flow-limiting stenosis with respect to the distal right internal carotid artery. The bifurcation is at C3-C4 level. There is normal opacification of right cervical external carotid artery branches. RIGHT COMMON CAROTID ARTERY, CEREBRAL: There is no evidence of aneurysm, focal stenosis, or early draining vein. There is cross filling of the left anterior cerebral artery via the anterior communicating artery. Normal parenchymal and venous phases. LEFT COMMON CAROTID ARTERY, CERVICAL: There is an ulcerative and heavily calcified atherosclerotic plaque at the origin of the left internal carotid artery. There is approximately 55% stenosis secondary to the atherosclerotic disease with respect to the distal internal carotid artery. There is no flow limitation. Bifurcation is at C3 level. There is normal opacification of left cervical external carotid artery branches. LEFT COMMON CAROTID ARTERY, CEREBRAL: There is no evidence of aneurysm, focal stenosis, or early draining vein. There is no opacification of the left posterior communicating artery. There is cross-filling of the right anterior cerebral artery via the anterior communicating artery. Normal parenchymal and venous phases. RIGHT VERTEBRAL ARTERY, CEREBRAL: There is no evidence of aneurysm, focal stenosis, or early draining vein. There was good contrast reflux down the left vertebral artery. Both posterior inferior cerebellar arteries demonstrate normal takeoffs from the distal ipsilateral vertebral arteries. There is mild stenosis at the origin of the right vertebral artery. There are robust P1 segments bilaterally. Normal parenchymal and venous phases. COMPLICATIONS: There were no immediate complications. IMPRESSION: 1. There is 55% stenosis at the origin of the left internal carotid artery with respect to the distal internal carotid artery secondary to an ulcerative and heavily calcified atherosclerotic plaque status post angioplasty. 2. There is very mild irregularity at the origin of the right internal carotid artery without flow limiting stenosis. 3. There is mild stenosis at the origin of the right vertebral artery. These results were discussed with patient's brother and neurology team after the conclusion of the procedure. Dictated by: Michael Ramon M.D. The radiology attending physician has personally reviewed this study, and had reviewed and/or edited this written report and agrees with it. Electronically signed by: Joey Hodges M.D. us Chelsea Hawkins MD IMG IR PROCEDURES Final Re sult * eGFR (09/26/2024 8:00 PM CDT) eGFR >90 >=60 mL/min/1. 73 m2 Comment: Interpretive Data Reference Interval Normal >/= 90 mL/min/1.73m2 Mildly decreased* 60 - 89 mL/min/1.73m2 Mildly to moderately decreased 45 - 59 mL/min/1.73m2 Moderately to severely decreased 30 - 44 mL/min/1.73m2 Severely decreased 15 - 29 mL/min/1.73m2 Kidney Failure < 15 mL/min/1.73m2 *Relative to young adult level Estimated glomerular filtration rate is determined by the 2020 CKD-EPI equation recommended by the National Kidney Foundation (A Unifying Approach to GFR Estimation: Recommendations of the NKF-ASK Task Force on Reassessing the Inclusion of Race in Diagnosing Kidney Disease, JASN 2020). The CKD-EPI equation should not be used for patients with unstable renal function and has not been validated in children and those over 70. Current interpretive data was last reviewed 2021. Blood 09/26/2024 8:00 PM CDT 09/26/2024 8:55 PM CDT us Chelsea Hawkins MD LAB BLOOD ORDERABLES Final Result Performing Organization Address City/[facility]/ZIP Co de Phone Number [facility] [place] [address] * CBC without differential (09/26/2024 8:00 PM CDT) WBC 7.85 3.80 - 9.90 K/cumm Hgb 13.9 13.0 - 17.5 g/dL [facility] Hct 39.3 38.9 - 50.3 % [facility] Plt 256 150 - 400 K/cumm [facility] MPV 9.2 9.1 - 12.3 fL [facility] RBC 4.66 4.30 - 5.80 M/cumm [facility] MCV 84.3 81.3 - 96.4 fL [facility] MCH 29.8 27.1 - 33.3 pg [facility] MCHC 35.4 32.3 - 35.7 g/dL [facility] RDW CV 11.9 11.1 - 14.9 % [facility] RDW SD 36.4 35.7 - 48.1 fL [facility] NRBC abs 0.00 0.00 - 0.01 K/cumm [facility] Blood 09/26/2024 8:00 PM CDT 09/26/2024 8:55 PM CDT us Chelsea Hawkins MD LAB BLOOD ORDERABLES Final Result Performing Organization Address [facility] Co de Phone Number [facility] [place] [address] * Hemoglobin A1c (09/26/2024 8:00 PM CDT) Hgb A1C 5.6 4.0 - 5.6 % Estimated Average Glucose 114 mg/dL [facility] Comment: The ADA recommends reporting an estimated Average Glucose (eAG) with all Hemoglobin A1c results using the equation derived from a study of 507 normal and diabetic adults. Minority populations were underrepresented and children were not included. (Diabetes Care 2020; 43(S1): S66-S76). The eAG is not equivalent to a fasting glucose. Blood 09/26/2024 8:00 PM CDT 09/26/2024 8:58 PM CDT us Chelsea Hawkins MD LAB BLOOD ORDERABLES Final Result [facility] [place] [address] * Basic metabolic panel (09/26/2024 8:00 PM CDT) [facility] Sodium 139 135 - 145 mmol/L Potassium, pl 3.9 3.3 - 4.9 mmol/L [facility] Chloride 103 97 - 110 mmol/L [facility] CO2 25 22 - 32 mmol/L [facility] Anion gap 11 2 - 15 mmol/L [facility] BUN 20 6 - 25 mg/dL [facility] Creatinine 0.89 0.80 - 1.30 mg/dL [facility] Glucose 141 70 - 199 mg/dL [facility] Comment: Interpretive Data Fasting glucose >/= 126 mg/dl is diagnostic for diabetes. Fasting is defined as no caloric intake for at least 8 hours. Fasting glucose between 100 mg/dl to 125 mg/dl is diagnostic of prediabetes. In a patient with classic symptoms of hyperglycemia or hyperglycemic crisis, a random glucose >/= 200 mg/dl is diagnostic for diabetes. In the absence of unequivocal hyperglycemia, results should be confirmed by repeat testing. The classification and Diagnosis of Diabetes Diabetes Care 202; 46: S19-S40. Current interpretive data was last revised 2022. Calcium 9.4 8.5 - 10.3 mg/dL [facility] Blood 09/26/2024 8:00 PM CDT 09/26/2024 8:55 PM CDT Chelsea Hawkins MD LAB BLOOD ORDERABLES Final Result Performing Organization Address [facility] Co de Phone Number MIGUEL ANGEL [facility] [place] [address] * (ABNORMAL) Fentanyl Confirmation, Urine (09/26/2024 1:23 PM CDT) Fentanyl Conf, Ur Confirmed Positive(A) Cutoff 0.3ng/mL Acetylfentanyl Conf, Ur Does Not Confirm Cutoff 1 ng/mL [facility] Acrylfentanyl Conf, Ur Does Not Confirm Cutoff 1 ng/mL [facility] Furanylfentanyl Conf, Ur Does Not Confirm Cutoff 1 ng/mL [facility] Fentanyl Metabolite (Norfentanyl) Conf, Ur Confirmed Positive(A) CutOff 5 ng/mL [facility] Xylazine MS Does Not Confirm Cutoff 1 ng/mL [facility] Comment: Interpretive Data This test detects the presence or absence of drug compounds using LC Tandem mass spectrometry and is not intended to assess compliance with prescribed medications. While this test is highly specific, false positive and false negative results may occur in very rare circumstances. Contact the laboratory for consultation, if needed. Performance characteristics were determined by the [facility] in a manner consistent with CLIA requirement and has not been cleared or approved by the U.S. Food and Drug Administration. Current interpretive data was last revised 2020. Urine 09/26/2024 1:23 PM CDT 09/26/2024 1:42 PM CDT us Chelsea Hawkins MD LAB URINE ORDERABLES Final Result Performing Organization Address City/[facility]/ZIP Co de Phone Number MIGUEL ANGEL [facility] Department [place] [address] * (ABNORMAL) Drugs of Abuse Screen, Urine with Reflex Confirmation (09/26/2024 1:23 PM CDT) Amphetamine, ur Not Detected CutOff 500ng/mL Comment: Interpretive Data - Amphetamines: Samples containing greater than 500 ng/mL d-methamphetamine or other cross-reacting amphetamine compounds are reported as positive. Amphetamine immunoassays are subject to significant false positive rates due to cross-reactivity of non-amphetamine drugs. Confirmatory testing required for definitive results. Current Interpretive Data was last reviewed 2022. Barbiturates, ur Not Detected CutOff 200ng/mL [facility] Comment: Interpretive Data - Barbiturates: Samples containing greater than 200 ng/mL secobarbital or other cross-reacting barbiturate compounds are reported as positive. False positive and false negative results are possible. Confirmatory testing required for definitive results. Current Interpretive Data was last reviewed 2022. Benzodiazepines, ur Not Detected CutOff 100ng/mL [facility] Comment: Interpretive Data - Benzodiazepines: Samples containing greater than 100 ng/mL nordiazepam or other cross-reacting compounds are reported as positive. False positive and false negative results are possible. Confirmatory testing required for definitive results. Current Interpretive Data was last reviewed 2022. Cannabinoids, ur Not Detected CutOff 50 ng/mL [facility] Comment: Interpretive Data - Cannabinoids: Samples containing greater than 50 ng/mL delta-9 THC -COOH or other cross- reacting compounds are reported as positive. False positive and false negative results are possible. Confirmatory testing required for definitive results. Current Interpretive Data was last reviewed 2022. Cocaine, ur Not Detected CutOff 150ng/mL [facility] Comment: Interpretive Data - Cocaine: Samples containing greater than 150 ng/mL benzoylecgonine or other cross- reacting compounds are reported as positive. False positive and false negative results are possible. Confirmatory testing required for definitive results. Current Interpretive Data was last reviewed 2022. Fentanyl, Ur Screen Positive, presumptive (A) CutOff 5 ng/mL [facility] Comment: Interpretive Data - Fentanyl: Samples containing greater than 5 ng/mL norfentanyl, fentanyl, or other cross-reacting fentanyl compounds are reported as positive. False positive and false negative results are possible. Confirmatory testing required for definitive results. Current Interpretive Data was last reviewed 2023. Methadone, ur Not Detected CutOff 300ng/mL [facility] Comment: Interpretive Data - Methadone: Samples containing greater than 300 ng/mL d,l-methadone or other cross-reacting compounds are reported as positive. False positive and false negative results are possible. Confirmatory testing required for definitive results. Current Interpretive Data was last reviewed 2022. Opiates, ur Not Detected CutOff 300ng/mL [facility] Comment: Interpretive Data - Opiates: Samples containing greater than 300 ng/mL morphine or other cross-reacting compounds are reported as positive. False positive and false negative results are possible. Confirmatory testing required for definitive results. Current Interpretive Data was last reviewed 2022. Oxycodone, ur Not Detected CutOff 100ng/mL [facility] Comment: Interpretive Data - Oxycodone: Samples containing greater than 100 ng/mL oxycodone or other cross-reacting compounds are reported as positive. False positive and false negative results are possible. Confirmatory testing required for definitive results. Current Interpretive Data was last reviewed 2022. Phencyclidine, ur Not Detected CutOff 25 ng/mL [facility] Comment: Interpretive Data - Phencyclidine: Samples containing greater than 25 ng/mL phencyclidine or other cross-reacting compounds are reported as positive. False positive and false negative results are possible. Confirmatory testing required for definitive results. Current Interpretive Data was last reviewed 2022. Urine Creatinine 292 mg/dL [facility] Comment: Interpretive Data Urine Creatinine: < 10 mg/dL is extremely dilute = or > 10 but < 20 mg/dL is dilute = or > 20 mg/dL is normal Current Interpretive Data was last revised on 2017. Urine 09/26/2024 1:23 PM CDT 09/26/2024 1:42 PM CDT Narrative [facility] - 09/26/2024 2:54 PM CDT Drug of Abuse screening is performed by immunoassay for medical purposes only. This is not to be used for Pain Management purposes. If Detected, confirmation testing will be performed for Amphetamines, Cocaine, Fentanyl, Methadone, Opiates, Oxycodone or Phencyclidine. Chelsea Hawkins MD LAB URINE ORDERABLES Final Result MIGUEL ANGEL [facility] Department [place] [address] * eGFR (09/25/2024 10:32 PM CDT) [facility] eGFR >90 >=60 mL/min/1. 73 m2 Comment: Interpretive Data Reference Interval Normal >/= 90 mL/min/1.73m2 Mildly decreased* 60 - 89 mL/min/1.73m2 Mildly to moderately decreased 45 - 59 mL/min/1.73m2 Moderately to severely decreased 30 - 44 mL/min/1.73m2 Severely decreased 15 - 29 mL/min/1.73m2 Kidney Failure < 15 mL/min/1.73m2 *Relative to young adult level Estimated glomerular filtration rate is determined by the 2020 CKD-EPI equation recommended by the National Kidney Foundation (A Unifying Approach to GFR Estimation: Recommendations of the NKF-ASK Task Force on Reassessing the Inclusion of Race in Diagnosing Kidney Disease, JASN 2020). The CKD-EPI equation should not be used for patients with unstable renal function and has not been validated in children and those over 70. Current interpretive data was last reviewed 2021. Blood 09/25/2024 10:3 2 PM CDT 09/25/2024 10:58 PM CDT us Chelsea Hawkins MD LAB BLOOD ORDERABLES Final Result Performing Organization Address [facility]/State/ZIP Co de Phone Number MIGUEL ANGEL [facility] Department [place] [address] * (ABNORMAL) CBC without differential (09/25/2024 10:32 PM CDT) [facility] WBC 9.05 3.80 - 9.90 K/cumm Hgb 13.9 13.0 - 17.5 g/dL [facility] Hct 40.2 38.9 - 50.3 % [facility] Plt 281 150 - 400 K/cumm [facility] MPV 9.0(L) 9.1 - 12.3 fL [facility] RBC 4.70 4.30 - 5.80 M/cumm [facility] MCV 85.5 81.3 - 96.4 fL [facility] MCH 29.6 27.1 - 33.3 pg [facility] MCHC 34.6 32.3 - 35.7 g/dL [facility] RDW CV 11.9 11.1 - 14.9 % [facility] RDW SD 37.0 35.7 - 48.1 fL [facility] NRBC abs 0.00 0.00 - 0.01 K/cumm [facility] Blood 09/25/2024 10:3 2 PM CDT 09/25/2024 11:00 PM CDT Chelsea Hawkins MD LAB BLOOD ORDERABLES Final Result [facility] [place] [address] * (ABNORMAL) Lipid panel (09/25/2024 10:32 PM CDT) Cholesterol 152 30 - 199 mg/dL Comment: Interpretive Data Ages < or = 19 years Acceptable: <170 mg/dL Borderline high: 170-199 mg/dL High: >or= 200 mg/dL Ages > or = 20 years Desirable: <200 mg/dL Borderline high: 200-239 mg/dL High: >or= 240 mg/dL Literature References: 1. Expert Panel on Integrated Guidelines for Cardiovascular Health and Risk Reduction in Children and Adolescents. Pediatrics 2011;128:S213 2. NCEP Expert Panel. Circulation 2004;110:227 Current Interpretive Data was last revised on 2017. Triglycerides 60 <=149 mg/dL [facility] Comment: Interpretive Data Ages < or = 9 years Acceptable: <75 mg/dL Borderline high: 75-99 mg/dL High: >or= 100 mg/dL Ages 10 to 20 years Acceptable: <90 mg/dL Borderline high: 90-129 mg/dL High: >or= 130 mg/dL Ages > or = 20 years Desirable: <150 mg/dL Borderline high: 150-199 mg/dL High: 200-499 mg/dL Very high: >or= 499 mg/dL Literature References: 1. Expert Panel on Integrated Guidelines for Cardiovascular Health and Risk Reduction in Children and Adolescents. Pediatrics 2011;128:S213 2. NCEP Expert Panel. Circulation 2004;110:227 Current Interpretive Data was last revised on 2017. HDL 37(L) >=40 mg/dL [facility] Comment: Interpretive Data Ages < or = 19 years Acceptable: >45 mg/dL Borderline low: 40-45 mg/dL Low: <40 mg/dL Ages > or = 20 years Desirable: >or= 60 mg/dL Low: <40 mg/dL Literature References: 1. Expert Panel on Integrated Guidelines for Cardiovascular Health and Risk Reduction in Children and Adolescents. Pediatrics 2011;128:S213 2. NCEP Expert Panel. Circulation 2004;110:227 Current Interpretive Data was last revised on 2017. LDL, calculated 103 <=129 mg/dL [facility] Comment: Interpretive Data Ages < or = 19 years Acceptable: <110 mg/dL Borderline high: 110-129 mg/dL High: >or= 130 mg/dL Ages > or = 20 years Optimal: <100 mg/dL Near optimal: 100-129 mg/dL Borderline high: 130-159 mg/dL High: >160 mg/dL Calculated using the Tom LDL-C estimating equation. This equation was implemented on 2023. Prior to this date LDL-C was estimated using the Friedewald equation. Literature References: 1. Expert Panel on Integrated Guidelines for Cardiovascular Health and Risk Reduction in Children and Adolescents. Pediatrics 2011;128:S213 2. NCEP Expert Panel. Circulation 2004;110:227 3. Tom Leonard al. RIZWANA Cardiol. 2019July 29;5(5):540-548. doi: [email or web address] Current Interpretive Data was last revised on 2023. Non-HDL Cholesterol 115 mg/dL [facility] Comment: Interpretive Data Ages < or = 19 years Acceptable: <120 mg/dL Borderline high: 120-144 mg/dL High: >145 mg/dL Ages > or = 20 years When triglycerides are >200 mg/dL, Non-HDL cholesterol is a secondary target of therapy with treatment goals that are 30 mg/dL greater than the LDL cholesterol target. Literature References: 1. Expert Panel on Integrated Guidelines for Cardiovascular Health and Risk Reduction in Children and Adolescents. Pediatrics 2011;128:S213 2. NCEP Expert Panel. Circulation 2004;110:227 Current Interpretive Data was last revised on 2017. Chol/HDL ratio 4 [facility] Blood 09/25/2024 10:3 2 PM CDT 09/25/2024 10:58 PM CDT Chelsea Hawkins MD LAB BLOOD ORDERABLES Final Result [facility] [place] [address] * (ABNORMAL) Basic metabolic panel (09/25/2024 10:32 PM CDT) Sodium 139 135 - 145 mmol/L Potassium, pl 4.3 3.3 - 4.9 mmol/L [facility] Chloride 104 97 - 110 mmol/L [facility] CO2 25 22 - 32 mmol/L [facility] Anion gap 10 2 - 15 mmol/L [facility] BUN 11 6 - 25 mg/dL [facility] Creatinine 0.77(L) 0.80 - 1.30 mg/dL [facility] Glucose 106 70 - 199 mg/dL [facility] Comment: Interpretive Data Fasting glucose >/= 126 mg/dl is diagnostic for diabetes. Fasting is defined as no caloric intake for at least 8 hours. Fasting glucose between 100 mg/dl to 125 mg/dl is diagnostic of prediabetes. In a patient with classic symptoms of hyperglycemia or hyperglycemic crisis, a random glucose >/= 200 mg/dl is diagnostic for diabetes. In the absence of unequivocal hyperglycemia, results should be confirmed by repeat testing. The classification and Diagnosis of Diabetes Diabetes Care 202; 46: S19-S40. Current interpretive data was last revised 2022. Calcium 9.6 8.5 - 10.3 mg/dL [facility] Blood 09/25/2024 10:3 2 PM CDT 09/25/2024 10:58 PM CDT us Chelsea Hawkins MD LAB BLOOD ORDERABLES Final Result Performing Organization Address [facility]/ZIP Co de Phone Number [facility] Department [place] [address] * ECG 12 lead (09/25/2024 9:41 PM CDT) Ventricular Rate EKG/Min 59 BPM [facility] Atrial Rate 59 BPM [facility] OK-Interval (MSEC) 154 ms [facility] QRS-Interval (MSEC) 86 ms [facility] QT-Interval (MSEC) 460 ms [facility] QTc 455 ms [facility] P [place] 46 degrees [facility] R [place] 18 degrees [facility] T [place] 19 degrees [facility] Diagnosis Sinus bradycardia Otherwise normal ECG No previous ECGs available Confirmed by ROYER MALIN M.D ([id number]) on 09/27/2024 6:26:23 PM [facility] 09/25/2024 9:41 PM CDT 09/27/2024 6:26 PM CDT us Chelsea Hawkins MD ECG ORDERABLES Final Resu lt Performing Organization Address [facility] Co de Phone Number [facility] * (ABNORMAL) Urinalysis reflex to microscopic and culture Urine (09/25/2024 6:06 PM CDT) Color, ur Yellow Yellow Clarity, ur Clear Clear [facility] ([place]) Specific gravity, ur 1.046(H) 1.003 - 1.030 [facility] ([place]) pH, urine 6.0 [facility] ([place]) Comment: Interpretive Data U rine pH is affected by diet, medications, systemic acid-base disturbances, and renal tubular function. pH may affect urinary stone formation. For example, urine pH below 6.0 may help reduce the tendency for calcium phosphate stones and pH greater than 6.0 may reduce the tendency for uric acid stone formation. Source: [employer] Current Interpretive Data was last revised on 2017 Protein, ur ql Negative Negative [facility] ([place]) Glucose, ur ql Negative Negative [facility] ([place]) Ketones, ur Negative Negative [facility] ([place]) Bilirubin, ur Negative Negative [facility] ([place]) Blood, ur Negative Negative [facility] ([place]) Urobilinogen, ur <2.0 <2.0 mg/dL [facility] ([place]) Nitrite, ur Negative Negative [facility] ([place]) Leukocyte esterase, ur Negative Negative [facility] ([place]) UA reflex comment Reflex conditions for microscopic UA and culture not met. [facility] ([place]) Urine 09/25/2024 6:06 PM CDT 09/25/2024 6:20 PM CDT Dominique Fischer MD LAB MICROBIOLOGY - GENERAL ORDERABLES Final Result Performing Organization Address [facility] Co de Phone Number MIGUEL ANGEL [facility] ([place]) [facility] Department [place] [address] * Troponin T high-sensitivity 2-hour (09/25/2024 3:56 PM CDT) Trop T hs <6 <=22 ng/L Comment: Interpretive Data For further hscTnT resources including the diagnostic algorithm and an aid in interpretation, copy and paste this link: [email or web address].testcatalog.org/show/[email or web address] Current Interpretive Data last revised 2020. Trop T hs delta 0 ng/L [facility] (ESTEF[place]IA) Trop T hs interp Insignificant [facility] ([place]) Blood 09/25/2024 3:56 PM CDT 09/25/2024 3:58 PM CDT us Dominique Fischer MD LAB BLOOD ORDERABLES Final Result Performing Organization Address City/[facility]/ZIP Co de Phone Number MIGUEL ANGEL [facility] ([place]) 1 [facility] Department [place] [address] * CTA Stroke Head Neck W WO Contrast (09/25/2024 3:13 PM CDT) Anatomical Region Laterality Modality Head and Neck N/A Computed Tomogra phy 09/25/2024 3:20 PM CDT Narrative 09/25/2024 3:41 PM CDT EXAM DESCRIPTION: CTA STROKE HEAD NECK W WO CONTRAST REASON FOR STUDY: Severe right sided headache since 1315 today, on blood thinners, hx of stroke reported prior large vessel occlusion status post thrombectomy. TECHNIQUE: Post IV contrast scanning, thin section axial imaging from the great vessel origins through the brain. Sagittal and coronal reformats were reconstructed and reviewed. 3D MIP images rendered on scanning unit and reviewed at time of interpretation. Carotid stenosis measurements are based on NASCET criteria. Automated exposure control was used as a dose optimization technique for this examination. CONTRAST TYPE/DOSE: 75mL of IOVERSOL 350 MG IODINE/ML INTRAVENOUS SYRINGE injected via intravenous COMPARISON: 09/17/2024, 11/25/2014 FINDINGS: CAROTID AND VERTEBRAL ARTERIES: AORTIC ARCH: No significant narrowing. RIGHT CAROTIDS: Atherosclerotic changes with up to mild (<50%) stenosis at the ICA origin. LEFT CAROTIDS: Atherosclerotic changes with up to severe (70-99%) stenosis at the ICA origin. RIGHT VERTEBRAL: Atherosclerotic changes with up to mild (<50%) stenosis at the origin. LEFT VERTEBRAL: Patent. No significant stenosis. Where applicable, evaluation of internal carotid artery (ICA) stenosis was performed using NASCET-like criteria. INTRACRANIAL VESSELS: ANTERIOR CIRCULATION: Right anterior circulation (ICA/JOSELIN/MCA): Atherosclerotic changes with up to mild (<50%) stenosis. No large vessel occlusion. Left anterior circulation (ICA/JOSELIN/MCA): Multifocal atherosclerotic changes with up to mild stenosis of the intracranial ICA. Asymmetrically decreased arborization of the inferior left MCA distribution throughout the temporal lobe. No large vessel occlusion. POSTERIOR CIRCULATION: Vertebral and basilar arteries: No large vessel occlusion or vascular malformation. Right posterior cerebral artery (LOOPER FIXER): No large vessel occlusion or vascular malformation. Left posterior cerebral artery (LOOPER FIXER): No large vessel occlusion or vascular malformation. INCLUDED LUNGS: Mild biapical pleural-parenchymal scarring and emphysematous changes. Calcified pulmonary nodules which likely represent sequelae of prior granulomatous disease. NECK SOFT TISSUE: Right palatine tonsilliths. Unremarkable thyroid. No pathologically enlarged lymphadenopathy. CERVICAL SPINE: No acute abnormality. OTHER: Large chronic appearing left MCA territorial infarction involving the left insula, basal ganglia, temporal lobe. Age-indeterminate but subacute to chronic appearing infarction of the left perirolandic region with similar-appearing small volume parenchymal and petechial hemorrhage measuring approximately 1.2 x 0.8 cm (4; 630). IMPRESSION: 1. No large vessel occlusion. 2. Asymmetrically decreased arborization of the left MCA distribution likely related to chronic left MCA territory infarction. 3. Severe (70-99%) stenosis of the left ICA origin. 4. Age-indeterminate but subacute to chronic appearing infarction of the left perirolandic region with similar-appearing small volume parenchymal and petechial hemorrhage. No definite active extravasation or underlying vascular malformation. Recommend attention on follow-up. 5. Incidental and chronic findings as above. These significant findings were reported by telephone to Dr. Fischer on 09/17/2024 at 1535 . THIS IS AN ELECTRONICALLY VERIFIED FINAL REPORT 09/25/2024 3:41 PM - Electronically signed by Sekou Burton M.D. NS: NS Report ID: [id number] Reading Location: [id number] Procedure Note Sekou Burton MD - 09/25/2024 EXAM DESCRIPTION: CTA STROKE HEAD NECK W WO CONTRAST REASON FOR STUDY: Severe right sided headache since 1315 today, on blood thinners, hx ofstroke reported prior large vessel occlusion status post thrombectomy. TECHNIQUE: Post IV contrast scanning, thin section axial imaging from the great vessel origins through the brain. Sagittal and coronal reformatswere reconstructed and reviewed. 3D MIP images rendered on scanning unit and reviewed at time of interpretation. Carotid stenosis measurements arebased on NASCET criteria. Automated exposure control was used as a dose optimization technique for this examination. CONTRAST TYPE/DOSE: 75mL of IOVERSOL 350 MG IODINE/ML INTRAVENOUSSYRINGE injected via intravenous COMPARISON: 09/17/2024, 11/25/2014 FINDINGS: CAROTID AND VERTEBRAL ARTERIES: AORTIC ARCH: No significant narrowing. RIGHT CAROTIDS: Atherosclerotic changes with up to mild (<50%) stenosisat the ICA origin. LEFT CAROTIDS: Atherosclerotic changes with up to severe (70-99%)stenosis at the ICA origin. RIGHT VERTEBRAL: Atherosclerotic changes with up to mild (<50%) stenosisat the origin. LEFT VERTEBRAL: Patent. No significant stenosis. Where applicable, evaluation of internal carotid artery (ICA) stenosis was performed using NASCET-like criteria. INTRACRANIAL VESSELS: ANTERIOR CIRCULATION: Right anterior circulation (ICA/JOSELIN/MCA): Atherosclerotic changes with upto mild (<50%) stenosis. No large vessel occlusion. Left anterior circulation (ICA/JOSELIN/MCA): Multifocal atheroscleroticchanges with up to mild stenosis of the intracranial ICA. Asymmetricallydecreased arborization of the inferior left MCA distribution throughout the temporal lobe. No large vessel occlusion. POSTERIOR CIRCULATION: Vertebral and basilar arteries: No large vessel occlusion or vascular malformation. Right posterior cerebral artery (LOOPER FIXER): No large vessel occlusion orvascular malformation. Left posterior cerebral artery (LOOPER FIXER): No large vessel occlusion orvascular malformation. INCLUDED LUNGS: Mild biapical pleural-parenchymal scarring andemphysematous changes. Calcified pulmonary nodules which likely represent sequelae ofprior granulomatous disease. NECK SOFT TISSUE: Right palatine tonsilliths. Unremarkable thyroid. No pathologically enlarged lymphadenopathy. CERVICAL SPINE: No acute abnormality. OTHER: Large chronic appearing left MCA territorial infarction involvingthe left insula, basal ganglia, temporal lobe. Age-indeterminate but subacuteto chronic appearing infarction of the left perirolandic region with similar-appearing small volume parenchymal and petechial hemorrhagemeasuring approximately 1.2 x 0.8 cm (4; 630). IMPRESSION: 1. No large vessel occlusion. 2. Asymmetrically decreased arborization of the left MCA distributionlikely related to chronic left MCA territory infarction. 3. Severe (70-99%) stenosis of the left ICA origin. 4. Age-indeterminate but subacute to chronic appearing infarction of the left perirolandic region with similar-appearing small volume parenchymaland petechial hemorrhage. No definite active extravasation or underlyingvascular malformation. Recommend attention on follow-up. 5. Incidental and chronic findings as above. These significant findings were reported by telephone to Dr. Baker 09/17/2024 at 1535 . THIS IS AN ELECTRONICALLY VERIFIED FINAL REPORT 09/25/2024 3:41 PM - Electronically signed by Sekou Burton M.D. NS: NS Report ID: [id number] Reading Location: [id number] us Dominique Fischer MD IMG CT PROCEDURES Final Re sult * ECG 12 lead (09/25/2024 2:27 PM CDT) 09/25/2024 2:27 PM CDT Narrative [facility] - 09/27/2024 8:11 AM CDT Vent Rate: 90 bpm RR Interval: 662 msec OK Interval: 147 msec QRS Duration: 89 msec QT Interval: 362 msec QTC Interval: 410 msec P-R-T [place]: 60 - 26 - 44 degrees IMPRESSION: SINUS RHYTHM LOW QRS VOLTAGE IN PRECORDIAL LEADS [QRS DEFLECTION < 1.0 mV IN CHEST LEADS] BORDERLINE ECG Electronically Signed By: Harvey Olson MD us Dominique Fischer MD ECG ORDERABLES Final Resu lt [facility] * CT Stroke Head WO Contrast (09/25/2024 2:24 PM CDT) Anatomical Region Laterality Modality Head N/A Computed Tomogra phy 09/25/2024 2:30 PM CDT Narrative 09/25/2024 2:43 PM CDT EXAM DESCRIPTION: CT STROKE HEAD WO CONTRAST REASON FOR STUDY: Stroke, follow up, Stroke Severe right sided headache since 1315 today, on blood thinners, hx of stroke TECHNIQUE: Axial images acquired through the brain without intravenous contrast. Images stored on PACS. Automated exposure control was used as a dose optimization technique for this examination. COMPARISON: Head CT comparison 11/25/2014 FINDINGS: BRAIN: Large old territorial infarction of the left middle cerebral artery with chronic encephalomalacia is evident, involving the left basal ganglia, left temporal lobe and portions of the posterior left temporal occipital regions and left centrum semiovale white matter. On today's study, there is a new recent appearing cortical infarct involving the posterior left parietal lobe. There is a smudgy focus of high density in keeping with acute parenchymal hemorrhage centrally within the lesion as well as additional petechial hemorrhage of cortex over the superficial infarct of the parietal region. EXTRA-AXIAL SPACES: No fluid collections. No masses. CALVARIUM: No fracture. SINUSES/MASTOIDS: No fluid or mucosal thickening. ORBITS: No significant abnormality. OTHER: No other significant abnormality. IMPRESSION: 1. 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 2. New acute cortical infarct of the posterior left parietal lobe with small areas of acute parenchymal hemorrhage and petechial hemorrhage of the overlying cortex. 3. Findings discussed with Dr. Fischer at the time of this dictation, 09/25/2024 at 2:43 p.m. THIS IS AN ELECTRONICALLY VERIFIED FINAL REPORT 09/25/2024 2:43 PM - Electronically signed by Radha Lorenz M.D. LC: KYRA Report ID: [id number] Reading Location: [place] [address] Procedure Note Lubna Lorenz MD - 09/25/2024 EXAM DESCRIPTION: CT STROKE HEAD WO CONTRAST REASON FOR STUDY: Stroke, follow up, Stroke Severe right sided headache since 1314 today, on blood thinners, hx ofstroke TECHNIQUE: Axial images acquired through the brain without intravenous contrast. Images stored on PACS. Automated exposure control was used asa dose optimization technique for this examination. COMPARISON: Head CT comparison 11/25/2014 FINDINGS: BRAIN: Large old territorial infarction of the left middle cerebralartery with chronic encephalomalacia is evident, involving the left basalganglia, left temporal lobe and portions of the posterior left temporal occipital regions and left centrum semiovale white matter. On today's study,there is a new recent appearing cortical infarct involving the posterior leftparietal lobe. There is a smudgy focus of high density in keeping with acute parenchymal hemorrhage centrally within the lesion as well as additional petechial hemorrhage of cortex over the superficial infarct of theparietal region. EXTRA-AXIAL SPACES: No fluid collections. No masses. CALVARIUM: No fracture. SINUSES/MASTOIDS: No fluid or mucosal thickening. ORBITS: No significant abnormality. OTHER: No other significant abnormality. IMPRESSION: 1. 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 2. New acute cortical infarct of the posterior left parietal lobe withsmall areas of acute parenchymal hemorrhage and petechial hemorrhage of the overlying cortex. 3. Findings discussed with Dr. Fischer at the time of this dictation, 09/25/2024 at 2:43 p.m. THIS IS AN ELECTRONICALLY VERIFIED FINAL REPORT 09/25/2024 2:43 PM - Electronically signed by Radha Lorenz M.D. LC: KYRA Report ID: [id number] Reading Location: [id number] Dominique Fischer MD IMG CT PROCEDURES Final Re sult * Troponin T high-sensitivity series (baseline, 2hr, 4hr, 6hr) (09/25/2024 2:16 PM CDT) Trop T hs <6 <=22 ng/L Comment: Interpretive Data For further hscTnT resources including the diagnostic algorithm and an aid in interpretation, copy and paste this link: [email or web address].[email or web address] Current Interpretive Data last revised 2020. Blood 09/25/2024 2:16 PM CDT 09/25/2024 2:20 PM CDT Dominique Fischer MD LAB BLOOD ORDERABLES Final Result [facility] 1 [facility] Department of Laboratories [place], [place] [id number] * eGFR (09/25/2024 2:16 PM CDT) eGFR >90 >=60 mL/min/1. 73 m2 Comment: Interpretive Data Reference Interval Normal >/= 90 mL/min/1.73m2 Mildly decreased* 60 - 89 mL/min/1.73m2 Mildly to moderately decreased 45 - 59 mL/min/1.73m2 Moderately to severely decreased 30 - 44 mL/min/1.73m2 Severely decreased 15 - 29 mL/min/1.73m2 Kidney Failure < 15 mL/min/1.73m2 *Relative to young adult level Estimated glomerular filtration rate is determined by the 2020 CKD-EPI equation recommended by the National Kidney Foundation (A Unifying Approach to GFR Estimation: Recommendations of the NKF-ASK Task Force on Reassessing the Inclusion of Race in Diagnosing Kidney Disease, JASN 2020). The CKD-EPI equation should not be used for patients with unstable renal function and has not been validated in children and those over 70. Current interpretive data was last reviewed 2021. Blood 09/25/2024 2:16 PM CDT 09/25/2024 2:20 PM CDT us Dominique Fischer MD LAB BLOOD ORDERABLES Final Result [facility] ([place] 1 [facility] Department [place] [address] * Differential, auto (09/25/2024 2:16 PM CDT) Neutrophil abs 5.23 1.50 - 6.50 K/cumm Imm gran abs 0.02 0.00 - 0.10 K/cumm [facility] ([place]) Lymphocyte abs 2.18 0.80 - 3.30 K/cumm [facility] ([place]) Monocyte abs 0.68 0.20 - 0.80 K/cumm [facility] ([place]) Eosinophil abs 0.16 0.00 - 0.50 K/cumm [facility] ([place]) Basophil abs 0.06 0.00 - 0.10 K/cumm [facility] ([place]) Neutrophil pct 62.8 % [facility] ([place]) Comment: Interpretive Data Percent cell count reference ranges are not reported, since discordance with absolute values may lead to misinterpretation of CBC data. Current Interpretive Data was last revised on 2017. Imm gran pct 0.2 % [facility] ([place]) Comment: Interpretive Data Percent cell count reference ranges are not reported, since discordance with absolute values may lead to misinterpretation of CBC data. Current Interpretive Data was last revised on 2017. Lymphocyte pct 26.2 % [facility] ([place]) Comment: Interpretive Data Percent cell count reference ranges are not reported, since discordance with absolute values may lead to misinterpretation of CBC data. Current Interpretive Data was last revised on 2017. Monocyte pct 8.2 % [facility] ([place]) Comment: Interpretive Data Percent cell count reference ranges are not reported, since discordance with absolute values may lead to misinterpretation of CBC data. Current Interpretive Data was last revised on 2017. Eosinophil pct 1.9 % [facility] ([place]) Comment: Interpretive Data Percent cell count reference ranges are not reported, since discordance with absolute values may lead to misinterpretation of CBC data. Current Interpretive Data was last revised on 2017. Basophil pct 0.7 % [facility] ([place]) Comment: Interpretive Data Percent cell count reference ranges are not reported, since discordance with absolute values may lead to misinterpretation of CBC data. Current Interpretive Data was last revised on 2017. Blood 09/25/2024 2:16 PM CDT 09/25/2024 2:20 PM CDT us Dominique Fischer MD LAB BLOOD ORDERABLES Final Result [facility] ([place] 1 [facility] Department [place] [address] * (ABNORMAL) CBC with auto differential (09/25/2024 2:16 PM CDT) WBC 8.33 3.80 - 9.90 K/cumm Hgb 15.0 13.0 - 17.5 g/dL [facility] ([place]) Hct 42.3 38.9 - 50.3 % [facility] ([place]) Plt 297 150 - 400 K/cumm [facility] ([place]) MPV 8.5(L) 9.1 - 12.3 fL [facility] ([place]) RBC 4.97 4.30 - 5.80 M/cumm [facility] ([place]) MCV 85.1 81.3 - 96.4 fL [facility] ([place]) MCH 30.2 27.1 - 33.3 pg [facility] ([place]) MCHC 35.5 32.3 - 35.7 g/dL [facility] ([place]) RDW CV 11.7 11.1 - 14.9 % [facility] ([place]) RDW SD 35.8 35.7 - 48.1 fL [facility] ([place]) NRBC abs 0.00 0.00 - 0.01 K/cumm [facility] ([place]) Blood Venous blood specimen / Unknown 09/25/2024 2:16 PM CDT 09/25/2024 2:20 PM CDT Narrative [facility] ([place]) - 09/25/2024 2:23 PM CDT Potential Stroke Patient us Dominique Fischer MD LAB BLOOD ORDERABLES Final Result Performing Organization Address [facility]/ZIP Co de Phone Number [facility] ([place]) 1 [facility] [place] [address] * (ABNORMAL) aPTT (09/25/2024 2:16 PM CDT) aPTT 40(H) 28 - 38 sec [facility] ([place]) Comment: Interpretive Data Heparin therapeutic range: 66.0 - 100.0 seconds. Range based on correlation with therapeutic heparin activity range of 0.3 - 0.7 Units/mL. Current interpretive data was last revised on 2022. Blood Venous blood specimen / Unknown 09/25/2024 2:16 PM CDT 09/25/2024 2:20 PM CDT Narrative [facility] ([place]) - 09/25/2024 2:31 PM CDT Potential stroke patient. Dominique Fischer MD LAB BLOOD ORDERABLES Final Result [facility] ([place] 1 [facility] [place] [address] * (ABNORMAL) Protime-INR (09/25/2024 2:16 PM CDT) PT 13.6(H) 9.7 - 13.0 sec [facility] ([place]) INR 1.25(H) 0.90 - 1.20 [facility] ([place]) Comment: Interpretive data Oral anticoagulant therapeutic ranges: Venous thromboembolism prophylaxis or treatment: 2.0-3.0 CARDIOLOGY Standard range: 2.0-3.0 High-intensity range: 2.5-3.5 Refer to indication-specific guidelines for appropriate target ranges for prosthetic heart valve replacement. Current interpretive data was last revised on 2019. Blood 09/25/2024 2:16 PM CDT 09/25/2024 2:20 PM CDT us Dominique Fischer MD LAB BLOOD ORDERABLES Final Result [facility] ([place]) 1 [facility] Department [place] [address] * (ABNORMAL) Comprehensive metabolic panel (09/25/2024 2:16 PM CDT) Sodium 137 135 - 145 mmol/L Potassium, pl 4.0 3.3 - 4.9 mmol/L [facility] ([place]) Chloride 99 97 - 110 mmol/L [facility] ([place]) CO2 24 22 - 32 mmol/L [facility] ([place]) Anion gap 14 2 - 15 mmol/L [facility] ([place]) BUN 10 6 - 25 mg/dL [facility] ([place]) Creatinine 0.73(L) 0.80 - 1.30 mg/dL [facility] ([place]) Glucose 107 70 - 199 mg/dL [facility] ([place]) Comment: Interpretive Data Fasting glucose >/= 126 mg/dl is diagnostic for diabetes. Fasting is defined as no caloric intake for at least 8 hours. Fasting glucose between 100 mg/dl to 125 mg/dl is diagnostic of prediabetes. In a patient with classic symptoms of hyperglycemia or hyperglycemic crisis, a random glucose >/= 200 mg/dl is diagnostic for diabetes. In the absence of unequivocal hyperglycemia, results should be confirmed by repeat testing. The classification and Diagnosis of Diabetes Diabetes Care 202; 46: S19-S40. Current interpretive data was last revised 2022. Calcium 9.7 8.5 - 10.3 mg/dL [facility] ([place]) Bilirubin, total 0.6 0.1 - 1.2 mg/dL [facility] ([place]) Protein, pl 7.7 6.5 - 8.5 g/dL [facility] ([place]) Albumin 4.4 3.5 - 5.0 g/dL [facility] ([place]) Alk phos 134(H) 40 - 130 Units/L [facility] ([place]) ALT 23 7 - 55 Units/L [facility] ([place]) AST 20 10 - 50 Units/L [facility] ([place]) Blood Venous blood specimen / Unknown 09/25/2024 2:16 PM CDT 09/25/2024 2:20 PM CDT Narrative [facility] ([place]) - 09/25/2024 2:38 PM CDT Potential Stroke Patient Dominique Fischer MD LAB BLOOD ORDERABLES Final Result [facility] ([place]) 1 [facility] [place] [address] * POCT glucose (09/25/2024 2:11 PM CDT) [facility] Glucose, POC 113 70 - 199 mg/dL Blood 09/25/2024 2:11 PM CDT 09/25/2024 2:11 PM CDT Dominique Fischer MD LAB POCT ORDERABLES - CARRIE CE Final Result [facility] ([place]) 1 [facility] [place] [address] * eGFR (09/07/2024 4:00 PM CDT) [facility] eGFR >90 >=60 mL/min/1. 73 m2 Comment: Interpretive Data Reference Interval Normal >/= 90 mL/min/1.73m2 Mildly decreased* 60 - 89 mL/min/1.73m2 Mildly to moderately decreased 45 - 59 mL/min/1.73m2 Moderately to severely decreased 30 - 44 mL/min/1.73m2 Severely decreased 15 - 29 mL/min/1.73m2 Kidney Failure < 15 mL/min/1.73m2 *Relative to young adult level Estimated glomerular filtration rate is determined by the 2020 CKD-EPI equation recommended by the National Kidney Foundation (A Unifying Approach to GFR Estimation: Recommendations of the NKF-ASK Task Force on Reassessing the Inclusion of Race in Diagnosing Kidney Disease, JASN 2020). The CKD-EPI equation should not be used for patients with unstable renal function and has not been validated in children and those over 70. Current interpretive data was last reviewed 2021. Blood 09/07/2024 4:00 PM CDT 09/07/2024 5:54 PM CDT us Reuben Finn MD LAB BLOOD ORDERABLES Final Resu lt [facility] [address] Department [place] [address] * Differential, auto (09/07/2024 4:00 PM CDT) Neutrophil abs 5.29 1.50 - 6.50 K/cumm Imm gran abs 0.03 0.00 - 0.10 K/cumm [facility] Lymphocyte abs 1.92 0.80 - 3.30 K/cumm [facility] Monocyte abs 0.69 0.20 - 0.80 K/cumm [facility] Eosinophil abs 0.13 0.00 - 0.50 K/cumm [facility] Basophil abs 0.06 0.00 - 0.10 K/cumm [facility] Neutrophil pct 65.2 % [facility] Comment: Interpretive Data Percent cell count reference ranges are not reported, since discordance with absolute values may lead to misinterpretation of CBC data. Current Interpretive Data was last revised on 2017. Imm gran pct 0.4 % [facility] Comment: Interpretive Data Percent cell count reference ranges are not reported, since discordance with absolute values may lead to misinterpretation of CBC data. Current Interpretive Data was last revised on 2017. Lymphocyte pct 23.6 % [facility] Comment: Interpretive Data Percent cell count reference ranges are not reported, since discordance with absolute values may lead to misinterpretation of CBC data. Current Interpretive Data was last revised on 2017. Monocyte pct 8.5 % [facility] Comment: Interpretive Data Percent cell count reference ranges are not reported, since discordance with absolute values may lead to misinterpretation of CBC data. Current Interpretive Data was last revised on 2017. Eosinophil pct 1.6 % [facility] Comment: Interpretive Data Percent cell count reference ranges are not reported, since discordance with absolute values may lead to misinterpretation of CBC data. Current Interpretive Data was last revised on 2017. Basophil pct 0.7 % [facility] Comment: Interpretive Data Percent cell count reference ranges are not reported, since discordance with absolute values may lead to misinterpretation of CBC data. Current Interpretive Data was last revised on 2017. Blood 09/07/2024 4:00 PM CDT 09/07/2024 4:01 PM CDT us Reuben Finn MD LAB BLOOD ORDERABLES Final Resu lt [facility] [address] Department [place] [address] * CBC with auto differential (09/07/2024 4:00 PM CDT) WBC 8.12 3.80 - 9.90 K/cumm Hgb 14.9 13.0 - 17.5 g/dL [facility] Hct 43.0 38.9 - 50.3 % [facility] Plt 307 150 - 400 K/cumm [facility] MPV 10.0 9.1 - 12.3 fL [facility] RBC 4.79 4.30 - 5.80 M/cumm [facility] MCV 89.8 81.3 - 96.4 fL [facility] MCH 31.1 27.1 - 33.3 pg [facility] MCHC 34.7 32.3 - 35.7 g/dL [facility] RDW CV 11.7 11.1 - 14.9 % [facility] SD 38.5 35.7 - 48.1 fL [facility] NRBC abs 0.00 0.00 - 0.01 K/cumm [facility] Blood 09/07/2024 4:00 PM CDT 09/07/2024 4:01 PM CDT Reuben Finn MD LAB BLOOD ORDERABLES Final Resu lt Performing Organization Address [facility] Co de Phone Number [facility] [address] [place] [address] * Lipoprotein a (LPa) (09/07/2024 4:00 PM CDT) [facility] Lipoprotein A 23 <75 nmol/L [facility] Comment: ADDITIONAL INFORMATION Please notice that Lp(a) values are reported in molar units (nmol/L). These units are recommended by professional society guidelines and expert opinion statements. Measured results and risk thresholds are higher than those generated using mass units (mg/dL). Cardiovascular risk increases starting at 75 nmol/L. Lp(a) >=125 nmol/L is considered a risk enhancing factor by the [place] [employer]. This test has been modified from the safety grooving machine operator's instructions. Its performance characteristics were determined by [facility] in a manner consistent with CLIA requirements. This test has not been cleared or approved by the U.S. Food and Drug Administration. Test Performed by: [address] [address] [employer] Mechan[employer] Helper: Pauly Ruffin Ph.D.; CLIA# [id number] Blood 09/07/2024 4:00 PM CDT 09/08/2024 9:52 AM CDT Reuben Finn MD LAB BLOOD ORDERABLES Final Resu lt Performing Organization Address [facility]/ZIP Co de Phone Number [facility] [address] [place] [address] [facility] * (ABNORMAL) Lipid panel (09/07/2024 4:00 PM CDT) Cholesterol 147 30 - 199 mg/dL Comment: Interpretive Data Ages < or = 19 years Acceptable: <170 mg/dL Borderline high: 170-199 mg/dL High: >or= 200 mg/dL Ages > or = 20 years Desirable: <200 mg/dL Borderline high: 200-239 mg/dL High: >or= 240 mg/dL Literature References: 1. Expert Panel on Integrated Guidelines for Cardiovascular Health and Risk Reduction in Children and Adolescents. Pediatrics 2011;128:S213 2. NCEP Expert Panel. Circulation 2004;110:227 Current Interpretive Data was last revised on 2017. Triglycerides 161(H) <=149 mg/dL [facility] Comment: Interpretive Data Ages < or = 9 years Acceptable: <75 mg/dL Borderline high: 75-99 mg/dL High: >or= 100 mg/dL Ages 10 to 20 years Acceptable: <90 mg/dL Borderline high: 90-129 mg/dL High: >or= 130 mg/dL Ages > or = 20 years Desirable: <150 mg/dL Borderline high: 150-199 mg/dL High: 200-499 mg/dL Very high: >or= 499 mg/dL Literature References: 1. Expert Panel on Integrated Guidelines for Cardiovascular Health and Risk Reduction in Children and Adolescents. Pediatrics 2011;128:S213 2. NCEP Expert Panel. Circulation 2004;110:227 Current Interpretive Data was last revised on 2017. HDL 38(L) >=40 mg/dL [facility] Comment: Interpretive Data Ages < or = 19 years Acceptable: >45 mg/dL Borderline low: 40-45 mg/dL Low: <40 mg/dL Ages > or = 20 years Desirable: >or= 60 mg/dL Low: <40 mg/dL Literature References: 1. Expert Panel on Integrated Guidelines for Cardiovascular Health and Risk Reduction in Children and Adolescents. Pediatrics 2011;128:S213 2. NCEP Expert Panel. Circulation 2004;110:227 Current Interpretive Data was last revised on 2017. LDL, calculated 81 <=129 mg/dL [facility] Comment: Interpretive Data Ages < or = 19 years Acceptable: <110 mg/dL Borderline high: 110-129 mg/dL High: >or= 130 mg/dL Ages > or = 20 years Optimal: <100 mg/dL Near optimal: 100-129 mg/dL Borderline high: 130-159 mg/dL High: >160 mg/dL Calculated using the Tom LDL-C estimating equation. This equation was implemented on 2023. Prior to this date LDL-C was estimated using the Friedewald equation. Literature References: 1. Expert Panel on Integrated Guidelines for Cardiovascular Health and Risk Reduction in Children and Adolescents. Pediatrics 2011;128:S213 2. NCEP Expert Panel. Circulation 2004;110:227 3. Tom Nava et al. RIZWANA Cardiol. 2019July 29;5(5):540-548. doi: 10.1001/jamacardio.2020.0013 Current Interpretive Data was last revised on 2023. Non-HDL Cholesterol 109 mg/dL [facility] Comment: Interpretive Data Ages < or = 19 years Acceptable: <120 mg/dL Borderline high: 120-144 mg/dL High: >145 mg/dL Ages > or = 20 years When triglycerides are >200 mg/dL, Non-HDL cholesterol is a secondary target of therapy with treatment goals that are 30 mg/dL greater than the LDL cholesterol target. Literature References: 1. Expert Panel on Integrated Guidelines for Cardiovascular Health and Risk Reduction in Children and Adolescents. Pediatrics 2011;128:S213 2. NCEP Expert Panel. Circulation 2004;110:227 Current Interpretive Data was last revised on 2017. Chol/HDL ratio 4 [facility] Blood 09/07/2024 4:00 PM CDT 09/07/2024 4:00 PM CDT us Reuben Finn MD LAB BLOOD ORDERABLES Final Resu lt [facility] [address] Department [place] [address] * Basic metabolic panel (09/07/2024 4:00 PM CDT) Sodium 141 135 - 145 mmol/L Potassium, pl 4.0 3.3 - 4.9 mmol/L [facility] Chloride 104 97 - 110 mmol/L [facility] CO2 26 22 - 32 mmol/L [facility] Anion gap 11 2 - 15 mmol/L [facility] BUN 9 6 - 25 mg/dL [facility] Creatinine 0.85 0.80 - 1.30 mg/dL [facility] Glucose 111 70 - 199 mg/dL [facility] Comment: Interpretive Data Fasting glucose >/= 126 mg/dl is diagnostic for diabetes. Fasting is defined as no caloric intake for at least 8 hours. Fasting glucose between 100 mg/dl to 125 mg/dl is diagnostic of prediabetes. In a patient with classic symptoms of hyperglycemia or hyperglycemic crisis, a random glucose >/= 200 mg/dl is diagnostic for diabetes. In the absence of unequivocal hyperglycemia, results should be confirmed by repeat testing. The classification and Diagnosis of Diabetes Diabetes Care 202; 46: S19-S40. Current interpretive data was last revised 2022. Calcium 9.8 8.5 - 10.3 mg/dL [facility] Blood 09/07/2024 4:00 PM CDT 09/07/2024 4:00 PM CDT us Reuben Finn MD LAB BLOOD ORDERABLES Final Resu lt [facility] [id number] [place] [address] * COLONOSCOPY (06/10/2012 12:00 AM CDT) Anatomical Region Laterality Modality Other Narrative 06/10/2012 12:00 AM CDT Ordered by an unspecified provider. Procedure Note ProviderPerry MD - 06/10/2012 12:00 AM CDT PROCEDURE REPORT Patient: LIT SOTOMAYOR Account: [id number] Room No: : 1975 Patient Type: SDS Attend.: Aranza Butler M.D. Admit Date: 06/10/2012 Dict.: Aranza Butler M.D. Disch. Date: 06/10/2012 NAME OF PROCEDURE: Colonoscopy with biopsy. INDICATIONS Acute abdominal pain, acute diarrhea, colitis. DATE OF PROCEDURE 06/10/2012 BRIEF HISTORY AND PHYSICAL The patient is a 37-year-old white male with acute onset episode ofabdominal pain and diarrhea. I saw the patient in my office last week. The patientwas started on antibiotics of Flagyl and Levaquin. Colonoscopy is being doneto rule out acute colitis and inflammatory bowel disease. No family historyof colon cancer. PROCEDURE Sedation was provided by anesthesia service. The procedure ofcolonoscopy, including indications and possible complications of bleeding, infection,and perforation requiring surgery was discussed with the patient and consentwas obtained. Rectal exam prior to colonoscopy was normal. The scope wasintroduced into the rectum and advanced to the cecum, which was identified by the ileocecal valve and appendiceal orifice. The terminal ileum was normal.The cecum and ascending colon and the transverse colon were normal. Biopsyfrom the right side of the colon was performed. The descending colon was noted withmild erythema, then we see more extensive patchy erythema in the sigmoid colon.This is suggestive of acute colitis, likely infectious, less likelyinflammatory bowel disease. Biopsy for histology was performed. The rectum andretroflex view of the rectum were unremarkable. IMPRESSION Patchy erythema in the left side of the colon suggestive of acutecolitis. RECOMMENDATIONS 1. Follow pathology report. 2. Follow up in my office as scheduled. 3. Finish antibiotics as prescribed. 4. Maintain low fiber diet for the next week or two weeks. Aranza Butler M.D. BIBI/gaurav TD: 06/11/2012 15:04 CC: Jarod Cheatham M.D. Authenticated by Aranza Butler MD On 06/12/2012 01:11:15 PM Historical Provider ENDOSCOPY PROCEDURES Yomaira solorio Result from Last 3 Months or Most Recently Relevant to Health Maintenance Insurance [facility] [place] [address] [facility] [employer] Advance Directives For more information, please contact: [phone] Documents on File Type Date Recorded Patient Editorial Assistant Expl anation ADVANCE DIRECTIVE 09/26/2024 10:45 AM RAYMUNDO R OF AUTOMATIC VULCANIZING LEAD OPERATOR-MEDICAL * Full Code (Latest Code Status on File) Date Activated Date Inactivated Comments 09/25/2024 8:20 PM 09/30/2024 8:25 PM Care Teams Painting Trades Worker Relationship Specialty Start Date End Date Nelly Godinez NP [facility] [place] [address] PCP - General Nurse Practitioner 09/26/24
--- OUTSIDE RECORDS SUMMARY | 2024-10-06 15:46 | XMS_ITS | Encounter Summary ---
Author Organization [facility] [employer] Care Team Providers Care Music Education Adjunct Professor Name Role Phone Nelly Godinez APRN Primary Care Provider [phone]- [phone] Encounter Details Date Type Department Care Team (Latest Contact Info) Description 10/05/2024 Travel Social History Tobacco Use Types Packs/Day Years [...] Description 10/07/2024 10:00 AM CDT Physical Therapy [facility] at [facility] [address] [place] [address] Nelly Godinez, RAILROAD YARD WORKER [address] [place] [address] Nidhi Priest, PT [place] Discharge Disposition: Discharged to home or Selfcare 10/11/2024 2:30 PM CDT Speech Therapy [facility] [address] [place] [address] Nelly Godinez, RAILROAD YARD WORKER [address] [place] [address] Evelina Barrientos, MS [facility]-CONSTRUCTION SAFETY MANAGER [place] Discharge Disposition: Discharged to home or Selfcare 10/12/2024 4:45 PM CDT Occupational Therapy [facility] Re[facility] at [address] [place] [address] Nelly Godinez, RAILROAD YARD WORKER [address] [place] [address] Kyra Castillo, OT [place] Discharge Disposition: Discharged to home or Selfcare 10/14/2024 8:30 AM CDT Occupational Therapy [facility] Re[facility] at [address] [place] [address] Nelly Godinez, RAILROAD YARD WORKER [address] [place] [address] Kyra Castillo, OT [place] 10/18/2024 12:45 PM CDT Occupational Therapy [facility] at [facility] [address] [place] [address] Nelly Godinez, RAILROAD YARD WORKER [address] [facility] [place] [address] Kyra Castillo, OT [place] 10/21/2024 1:00 PM CDT Occupational Therapy [facility] at [facility] [address] [place] [address] eNlly Godinez, RAILROAD YARD WORKER [address] [facility] [place] [address] Kyra Castillo, OT [place] 10/26/2024 1:00 PM CDT Occupational Therapy [facility] at [facility] [address] [place] [address] Nelly Godinez, RAILROAD YARD WORKER [address] [place] [address] Kyra Castillo, OT [place] 10/28/2024 2:30 PM CDT Occupational Therapy [facility] at [facility] [address] [place] [address] Nelly Godinez, RAILROAD YARD WORKER [address] [place] [address] Kyra Castillo, OT [place] 11/02/2024 1:45 PM CDT Occupational Therapy [facility] Rehab at [address], [address] [place] [address] Nelly Godinez, RAILROAD YARD WORKER [address] [place] [address] Kyra Castillo, OT [place] 11/02/2024 2:30 PM CDT Speech Therapy [facility] Rehab at [address], [address] [place] [address] Nelly Godinez, RAILROAD YARD WORKER [address] [place] [address] Evelina Barrientos, MS CCC-CONSTRUCTION SAFETY MANAGER [place] 11/05/2024 1:45 PM CDT Speech Therapy [facility] at [facility] [address] [place] [address] Nelly Godinez, RAILROAD YARD WORKER [address] [place] [address] Evelina Barrientos, MS CCC-CONSTRUCTION SAFETY MANAGER [place] 11/05/2024 2:30 PM CDT Occupational Therapy [facility] at [facility] [address] [place] [address] Nelly Godinez, RAILROAD YARD WORKER [address] [facility] [place] [address] Kyra Castillo, OT [place] 11/08/2024 12:45 PM CDT Occupational Therapy [facility] at [facility] [address] [place] [address] Nelly Godinez, RAILROAD YARD WORKER [address] [facility] [place] [address] Kyra Castillo, OT [place] 11/08/2024 1:45 PM CDT Speech Therapy [facility] at [facility] [address] [place] [address] Nelly Godinez, RAILROAD YARD WORKER [address] [facility] [place] [address] Evelina Barrientos, MS CCC-CONSTRUCTION SAFETY MANAGER [place] 11/11/2024 1:00 PM CDT Occupational Therapy [facility] at [facility] [address] [place] [address] Nelly Godinez, RAILROAD YARD WORKER [address] [facility] [place] [address] Kyra Castillo, OT [place] 11/15/2024 12:45 PM CDT Occupational Therapy [facility] at [facility] [address] [place] [address] Nelly Godinez, RAILROAD YARD WORKER [address] [facility] [place] [address] Kyra Castillo, OT [place] 11/15/2024 1:45 PM CDT Speech Therapy [facility] at [facility] [address] [place] [address] Nelly Godinez, RAILROAD YARD WORKER [address] [place] [address] Eevlina Barrientos, MS CCC-CONSTRUCTION SAFETY MANAGER [place] 11/19/2024 1:00 PM CDT Speech Therapy [facility] at [facility] [address] [place] [address] Nelly Godinez, RAILROAD YARD WORKER [address] [place] [address] Evelina Barrientos, MS CCC-CONSTRUCTION SAFETY MANAGER [place] 11/22/2024 12:45 PM CDT Occupational Therapy [facility] at [facility] [address] [place] [address] Nelly Godinez, RAILROAD YARD WORKER [address] [place] [address] Kyra Castillo, OT [place] 11/22/2024 1:45 PM CDT Speech Therapy [facility] [address] [place] [address] Nelly Godinez, RAILROAD YARD WORKER [address] [place] [address] Evelina Barrientos, MS CCC-CONSTRUCTION SAFETY MANAGER [place] 11/26/2024 1:00 PM CDT Speech Therapy [facility] at [facility] [address] [place] [address] Nelly Godinez, RAILROAD YARD WORKER [address] [facility] [place] [address] Evelina Barrientos, MS CCC-CONSTRUCTION SAFETY MANAGER [place] 11/26/2024 1:45 PM CDT Occupational Therapy [facility] at [facility] [address] [facility], [address] [place] [address] Nelly Godinez, RAILROAD YARD WORKER [address] [facility] [place] [address] Anna, Kyra, OT [place] 11/30/2024 1:00 PM CDT Speech Therapy [facility] Rehab at [address], [address] [place] [address] Nelly Godinez, RAILROAD YARD WORKER [address] [facility] [place] [address] Evelina Barrientos, MS CCC-CONSTRUCTION SAFETY MANAGER [place] 11/30/2024 1:45 PM CDT Occupational Therapy [facility] Re[facility] at [address], [address] [place] [address] Nelly Godinez, RAILROAD YARD WORKER [address] [facility] [place] [address] Anna, Kyra, OT [place] 12/03/2024 1:00 PM CDT Speech Therapy [facility] at [facility] [address] [facility], [address] [place] [address] Nelly Godinez, RAILROAD YARD WORKER [address] [facility] [place] [address] Evelina Barrientos, MS CCC-CONSTRUCTION SAFETY MANAGER [place] 12/03/2024 1:45 PM CDT Occupational Therapy [facility] at [facility] [address] [place] [address] Nelly Godinez RAILROAD YARD WORKER [address] [place] [address] Kyra Castillo, OT [place] 12/06/2024 12:45 PM CDT Occupational Therapy [facility] at [facility] [address] [place] [address] Nelly Godinez RAILROAD YARD WORKER [address] [place] [address] Kyra Castillo, OT [place] 12/06/2024 1:45 PM CDT Speech Therapy [facility] at [facility] [address] [place] [address] Nelly Godinez RAILROAD YARD WORKER [address] [place] [address] Evelina Barrientos, MS [facility]-CONSTRUCTION SAFETY MANAGER [place] documented as of this encounter Visit Diagnoses Not on filedocumented in this encounter Care Teams Music Education Adjunct Professor Relationship Specialty Start Date End Date Nelly Godinez APRN [address] [place] [address] PCP - General Advanced Practice Nurse 08/25/24 documented as of this encounter
--- OUTSIDE RECORDS SUMMARY | 2024-10-06 15:46 | XMS_ITS | Encounter Summary ---
Author Organization [facility] Address [address] [place] [address] Phone Care Team Providers Care Supervisor Hardboard Name Role Phone Nelly Godinez APRN Primary Care Provider +1- [phone] Encounter Details Date Type Department Care Team (Late st Contact Info) Description 10/06/2024 Plan of Care [facility]ation [facility] [address] [place] [address] Social History Tobacco Use Types [...] Description 10/07/2024 10:00 AM CDT Physical Therapy [facility] [address] [place] [address] Nelly Godinez APRN [address] [place] [address] Nidhi Priest, PT [place] Discharge Disposition: Discharged to home or Selfcare 10/11/2024 2:30 PM CDT Speech Therapy [facility] [address] [place] [address] Nelly Godinez, COLOR MATCHER [address] [place] [address] Evelina Barrientos, MS [facility]-PACKAGING TECH [place] Discharge Disposition: Discharged to home or Selfcare 10/12/2024 4:45 PM CDT Occupational Therapy [facility] [address] [place] [address] Nelly Godinez COLOR MATCHER [address] [place] [address] Kyra Castillo, OT [place] Discharge Disposition: Discharged to home or Selfcare 10/14/2024 8:30 AM CDT Occupational Therapy [facility] [address] [place] [address] Nelly Godinez COLOR MATCHER [address] [place] [address] Kyra Castillo, OT [place] 10/18/2024 12:45 PM CDT Occupational Therapy [facility] [address] [place] [address] Nelly Godinez COLOR MATCHER [address] [place] [address] Kyra Castillo, OT [place] 10/21/2024 1:00 PM CDT Occupational Therapy [facility] [address] [place] [address] Nelly Godinez, COLOR MATCHER [address] [facility] [place] [address] Kyra Castillo, OT [place] 10/26/2024 1:00 PM CDT Occupational Therapy [facility] [address] [place] [address] Nelly Godinez, COLOR MATCHER [address] [facility] [place] [address] Kyra Castillo, OT [place] 10/28/2024 2:30 PM CDT Occupational Therapy [facility] [address] [place] [address] Nelly Godinez, COLOR MATCHER [address] [facility] [place] [address] Kyra Castillo, OT [place] 11/02/2024 1:45 PM CDT Occupational Therapy [facility] [address] [place] [address] Nelly Godinez, COLOR MATCHER [address] [facility] [place] [address] Kyra Castillo, OT [place] 11/02/2024 2:30 PM CDT Speech Therapy [facility] [address] [place] [address] Nelly Godinez, COLOR MATCHER [address] [facility] [place] [address] Evelina Barrientos, MS [facility]-PACKAGING TECH [place] 11/05/2024 1:45 PM CDT Speech Therapy [facility] [address] [place] [address] Nelly Godinez, COLOR MATCHER [address] [facility] [place] [address] Evelina Barrientos, MS CCC-PACKAGING TECH [place] 11/05/2024 2:30 PM CDT Occupational Therapy [facility] [address] [place] [address] Nelly Godinez, COLOR MATCHER [address] [place] [address] Kyra Castillo, OT [place] 11/08/2024 12:45 PM CDT Occupational Therapy [facility] at [address], [address] [place] [address] Nelly Godinez, COLOR MATCHER [address] [facility] [place] [address] Kyra Castillo, OT [place] 11/08/2024 1:45 PM CDT Speech Therapy [facility] at [address] [place] [address] Nelly Godinez, COLOR MATCHER [address] [facility] [place] [address] Evelina Barrientos, MS CCC-PACKAGING TECH [place] 11/11/2024 1:00 PM CDT Occupational Therapy [facility] [address] [place] [address] Nelly Godinez, COLOR MATCHER [address] [facility] [place] [address] Kyra Castillo, OT [place] 11/15/2024 12:45 PM CDT Occupational Therapy [facility] [address] [place] [address] Nelly Godinez, COLOR MATCHER [address] [facility] [place] [address] Kyra Castillo, OT [place] 11/15/2024 1:45 PM CDT Speech Therapy [facility] [address] [place] [address] Nelly Godinez, COLOR MATCHER [address] [facility] [place] [address] Evelina Barrientos, MS CCC-PACKAGING TECH [place] 11/19/2024 1:00 PM CDT Speech Therapy [facility] [address] [place] [address] Nelly Godinez, COLOR MATCHER [address] [facility] [place] [address] Evelina Barrientos, MS CCC-PACKAGING TECH [place] 11/22/2024 12:45 PM CDT Occupational Therapy [facility] [address] [place] [address] Nelly Godinez, COLOR MATCHER [address] [facility] [place] [address] Kyra Castillo, OT [place] 11/22/2024 1:45 PM CDT Speech Therapy [facility] [address] [place] [address] Nelly Godinez, COLOR MATCHER [address] [facility] [place] [address] Evelina Barrientos, MS CCC-PACKAGING TECH [place] 11/26/2024 1:00 PM CDT Speech Therapy [facility] [address] [place] [address] Nelly Godinez, COLOR MATCHER [address] [place] [address] Evelina Barrientos, MS CCC-PACKAGING TECH [place] 11/26/2024 1:45 PM CDT Occupational Therapy [facility] [address] [place] [address] Nelly Godinez, COLOR MATCHER [address] [place] [address] Embick, Kyra, OT [place] 11/30/2024 1:00 PM CDT Speech Therapy [facility] [address] [place] [address] Nelly Godinez, COLOR MATCHER [address] [facility] [place] [address] Evelina Barrientos, MS CCC-PACKAGING TECH [place] 11/30/2024 1:45 PM CDT Occupational Therapy [facility] [address] [place] [address] Nelly Godinez, COLOR MATCHER [address] [facility] [place] [address] Michaick, Kyra, OT [place] 12/03/2024 1:00 PM CDT Speech Therapy [facility] [address] [place] [address] Nelly Godinez, COLOR MATCHER [address] [place] [address] Evelina Barrientos, MS CCC-PACKAGING TECH [place] 12/03/2024 1:45 PM CDT Occupational Therapy [facility] [address] [place] [address] Nelly Godinez, COLOR MATCHER [address] [place] [address] Kyra Castillo, OT [place] 12/06/2024 12:45 PM CDT Occupational Therapy [facility] [address] [facility], [address] [place] [address] Nelly Godinez, COLOR MATCHER [address] [place] [address] Kyra Castillo, OT [place] 12/06/2024 1:45 PM CDT Speech Therapy [facility] [address] [place] [address] Nelly Godinez, COLOR MATCHER [address] [place] [address] Evelina Barrientos, MS CCC-PACKAGING TECH [place] documented as of this encounter Visit Diagnoses Not on filedocumented in this encounter Care Teams Supervisor Hardboard Relationship Specialty Start Date End Date Nelly Godinez APRN [address] [place] [address] PCP - General Advanced Practice Nurse 08/25/24 documented as of this encounter
--- OUTSIDE RECORDS SUMMARY | 2024-10-06 15:46 | XMS_ITS | Clinical Summary ---
Author Organization [facility] Address [address] [place] [address] Care Team Providers Care Personnel Consultant Name Role Phone Nelly Godinez NP Primary Care Provider [phone] Allergies No known active allergies Medications ondansetron [...] 09/25/2024 Wrist drop 01/17/2015 Overview (07/05/2016): Wristdrop Encounters Date Type Department Care Team Description 09/30/2024 Telephone [facility] Neurosurgery [address] 6th [place] [address] [place] [address] Claudia Walters RN 09/29/2024 8:33 AM CDT Anesthesia Event [facility] Operating Room [address] [place] [address] Howard Garay MD PhD Irene Manriquez NP 09/29/2024 8:30 AM CDT - 09/29/2024 1:15 PM CDT Surgery [facility] Operating Room [address] [place] [address] Joey Hodges MD Endarterectomy - Carotid 09/29/2024 Orders Only [address] [address] Joey Hodges MD 09/25/2024 7:35 PM CDT - 09/30/2024 4:19 PM CDT Hospital Encounter [address] [address] Chelsea Hawkins MD Stenosis of left carotid artery (Primary Dx); Stroke due to stenosis of left middle cerebral artery (HCC) Discharge Disposition: Discharge to home or self care 09/25/2024 6:53 PM CDT - 09/25/2024 11:59 PM CDT Hospital Encounter [facility] Emergency, Room R Discharge Disposition: Discharge to home or self care 09/25/2024 2:16 PM CDT - 09/25/2024 6:51 PM CDT Emergency [facility] Emergency Department [address] [place] [address] Dominique Fischer MD Stroke, hemorrhagic (HCC) (Primary Dx) Discharge Disposition: Discharge to a critical access hospital 09/07/2024 3:40 PM CDT Lab [facility] [address] [place] [address] 09/01/2024 Telephone [facility] [address] [place] [address] Apryl Spence from Last 3 Months Surgical History Surgery Date Site/Laterality Comments THROMBECTOMY 06/29/2024 - 07/28/2024 IR THROMBECTOMY/THROMBOLYSIS INTRACRANIAL ARTERIAL 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 09/27/2024 Right Medical History Medical History Date Comments Calculus of kidney Kidney stones Hx Other Medical Colitice Gastroesophageal reflux disease GERD Family History Medical History Relation Name Comments Cancer Other Family history of Cancer; Anesthesia problems Neg Hx Relation Name Status Comments Other Social History Tobacco Use Types Packs/Day Years [...] on file Legal Sex Male 4:24 PM [employer]IL [employer]ATIONS [employer] Gender Identity Not on file Sexual Orientation Not on file Obstetrics History Last Filed Vital Signs Vital Sign Reading [...] 09/25/2024 9:00 PM CDT Plan of Treatment Health Maintenance Due Date Last Done Comments Hepatitis C Screening 1977 DTaP/Tdap/Td Vaccine (1 - Tdap) 1988 Hepatitis B Screening 1995 Regular Well Visit/Exam 18-64 1995 Pneumococcal vaccine <65 (1 of 2 - PCV) 1996 Colon Cancer Screening-Colonoscopy 06/10/20222012 Influenza Vaccine (#1) 2024 Depression Screening 09/25/2025 09/25/2024, 09/26/19 25 Procedures Procedure Name Priority Date/Time Associated Diagnosis [...] 09/27/2024 9:39 PM CDT 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 Today 09/27/2024 8:47 AM CDT HEMOGLOBIN [...] 9:08 PM CDT 09/29/2024 9:32 PM CDT Chelsea Hawkins MD LAB BLOOD ORDERABLES Final Result Performing Organization Address City/[facility]/ZIP Co de Phone Number [facility] [place] [address] * (ABNORMAL) CBC without differential (09/29/2024 9:08 PM CDT) Pathologist [facility] WBC 11.26(H) 3.80 - 9.90 K/cumm Hgb 14.1 13.0 - 17.5 g/dL [facility] Hct 40.3 38.9 - 50.3 % [facility] Plt 289 150 - 400 K/cumm [facility] MPV 9.1 9.1 - 12.3 fL [facility] RBC 4.76 4.30 - 5.80 M/cumm [facility] MCV 84.7 81.3 - 96.4 fL [facility] MCH 29.6 27.1 - 33.3 pg [facility] MCHC 35.0 32.3 - 35.7 g/dL [facility] RDW CV 11.7 11.1 - 14.9 % [facility] RDW SD 35.8 35.7 - 48.1 fL [facility] NRBC abs 0.00 0.00 - 0.01 K/cumm [facility] Blood 09/29/2024 9:08 PM CDT 09/29/2024 9:35 PM CDT us Chelsea Hawkins MD LAB BLOOD ORDERABLES Final Result Performing Organization Address City/[facility]/ZIP Co de Phone Number [facility] Department [place] [address] * Basic metabolic panel (09/29/2024 9:08 PM CDT) Pathologist [facility] Sodium 136 135 - 145 mmol/L Potassium, pl 4.3 3.3 - 4.9 mmol/L [facility] Chloride 99 97 - 110 mmol/L [facility] CO2 26 22 - 32 mmol/L [facility] Anion gap 11 2 - 15 mmol/L [facility] BUN 12 6 - 25 mg/dL [facility] Creatinine 0.85 0.80 - 1.30 mg/dL [facility] Glucose 188 70 - 199 mg/dL [facility] Comment: Interpretive Data Fasting glucose >/= 126 [...] 2022. Calcium 9.5 8.5 - 10.3 mg/dL [facility] Blood 09/29/2024 9:08 PM CDT 09/29/2024 9:32 PM CDT us Chelsea Hawkins MD LAB BLOOD ORDERABLES Final Result [facility] [address] [facility] [place] [address] * ENDARTERECTOMY - CAROTID (09/29/2024 12:55 PM [...] Art POC 46(H) 35 - 45 mmHg [facility] pO2, Art POC 213(H) 83 - 108 mmHg [facility] Na, POC 139 135 - 145 mmol/L [facility] K POC 4.6 3.3 - 4.9 mmol/L [facility] Comment: Interpretive Data Not all point of care methods assess for hemolysis. Confirm with instrument and retest K+ if not consistent with clinical signs and symptoms. Current Interpretive Data was last revised on 2023. Cl, POC 108 97 - 110 mmol/L [facility] Ionized Ca, POC 4.84 4.50 - 5.10 mg/dL [facility] Glucose, POC 115 70 - 199 mg/dL [facility] Lactate POC 1.5 0.7 - 2.0 mmol/L [facility] SO2 (radha) arterial 100(H) 90 - 95 % [facility] Base excess, POC 0.1 mmol/L [facility] Hct, POC 42.0 41.4 - 51.6 % [facility] Total Hb, POC 14.1 13.8 - 17.2 g/dL [facility] Blood 09/29/2024 10:4 2 AM CDT 09/29/2024 10:42 AM CDT us Chelsea Hawkins MD LAB POCT ORDERABLES - CARRIE CE Final Result [facility] [address] [facility] [place] [address] * Peripheral IV Catheter (09/29/2024 9:29 AM [...] 12:47 AM CDT) ABO Rh O Negative [facility] OTHER 09/29/2024 12:4 7 AM CDT 09/29/2024 1:35 AM CDT us Chelsea Hawkins MD LAB BLOOD ORDERABLES Final Result Performing Organization Address City/[facility]/ZIP Co de Phone Number [facility] [place] [address] [facility] * eGFR (09/28/2024 9:20 PM CDT) eGFR [...] Hawkins MD LAB BLOOD ORDERABLES [place] [address] * Check Sample (09/28/2024 9:20 PM CDT) Pathologist [facility] ABO Rh O Negative [facility] OTHER 09/28/2024 9:20 PM CDT 09/28/2024 10:46 PM CDT us Chelsea Hawkins MD LAB BLOOD ORDERABLES [place] [address] [facility] * CBC without differential (09/28/2024 9:20 PM CDT) Pathologist [facility] WBC 8.07 3.80 - 9.90 K/cumm Hgb 14.1 13.0 - 17.5 g/dL [facility] Hct 40.7 38.9 - 50.3 % [facility] Plt 287 150 - 400 K/cumm [facility] MPV 9.2 9.1 - 12.3 fL [facility] RBC 4.84 4.30 - 5.80 M/cumm [facility] MCV 84.1 81.3 - 96.4 fL [facility] MCH 29.1 27.1 - 33.3 pg [facility] MCHC 34.6 32.3 - 35.7 g/dL [facility] RDW CV 11.8 11.1 - 14.9 % [facility] RDW SD 35.8 35.7 - 48.1 fL [facility] NRBC abs 0.00 0.00 - 0.01 K/cumm [facility] Blood 09/28/2024 9:20 PM CDT 09/28/2024 10:33 PM CDT us Chelsea Hawkins MD LAB BLOOD ORDERABLES Final Result [facility] [place] [address] * (ABNORMAL) Basic metabolic panel (09/28/2024 9:20 PM CDT) Sodium 137 135 - 145 mmol/L Potassium, pl 3.5 3.3 - 4.9 mmol/L [facility] Chloride 100 97 - 110 mmol/L [facility] CO2 25 22 - 32 mmol/L [facility] Anion gap 12 2 - 15 mmol/L [facility] BUN 14 6 - 25 mg/dL [facility] Creatinine 0.73(L) 0.80 - 1.30 mg/dL [facility] Glucose 112 70 - 199 mg/dL [facility] Comment: Interpretive Data Fasting glucose >/= 126 [...] 2022. Calcium 9.5 8.5 - 10.3 mg/dL [facility] Blood 09/28/2024 9:20 PM CDT 09/28/2024 10:30 PM CDT Chelsea Hawkins MD LAB BLOOD ORDERABLES Final Result [facility] [address] [facility] [place] [address] * Type and screen (09/28/2024 4:23 PM CDT) Keira, indirect Negative ABO Rh O Negative [facility] Blood 09/28/2024 4:23 PM CDT 09/28/2024 5:14 PM CDT Narrative [facility] - 09/28/2024 6:14 PM CDT Has the patient had Daratumumab or Isatuximab in the past 6 months?->Unknown Chelsea Hawkins MD LAB BLOOD BANK TEST ORDERA BLES Final Result [facility] [address] [facility] [place] [address] * XR Chest 1 View (09/28/2024 11:26 [...] pneumothorax. Electronically signed by: Concepción Goyal M.D. Chelsea Hawkins MD IMG XR PROCEDURES Final Re sult * TRANSTHORACIC ECHO (TTE) COMPLETE W DOPPLER/CF W CONTRAST W BUBBLE (09/28/2024 8:13 AM CDT) EF Mod BP 71 % CONS SCIMAGE Anatomical Region Laterality Modality Ultrasound 09/28/2024 7:17 AM CDT Narrative 09/28/2024 9:26 AM CDT [facility] Cardiac [place] [address] Transthoracic Echocardiographic Report Patient Name: LIT SOTOMAYOR L : 1975 (49y 4m) Gender: M Study Date: 09/28/2024 07:17:31 AM Ht(Inch): 68 Wt(Lb): 160.05 BSA: 1.87 Corporate Development Associate: Sole Jarquin [facility] Location: [id number] Order Provider: CHELSEA HAWKINS Heart Rate: 97 [...] Procedure Note Michael Johnson MD - 09/28/2024 [facility] Cardiac [place] [address] Transthoracic Echocardiographic Report Patient Name: LIT SOTOMAYOR L : 1975 (49y 4m) Gender: M Study Date: 09/28/2024 07:17:31 AM Ht(Inch): 68 Wt(Lb): 160.05 BSA: 1.87 Corporate Development Associate: Sole Jarquin [facility] Location: [id number] OrderProvider: CHELSEA HAWKINS Heart Rate: 97 BMI: [...] LA Length 2C 5.74 cm MV Decel Qspa352.18 msec [ 104.00 - 258.00 ] LA [...] Michael Johnson MD 09/28/2024 9:25:51 AM CDT Chelsea Hawkins MD CV ECHO PROCEDURES Final R esult * eGFR (09/27/2024 9:39 PM CDT) [facility] eGFR >90 >=60 mL/min/1. 73 m2 [...] 9:39 PM CDT 09/27/2024 10:43 PM CDT us Chelsea Hawkins MD LAB BLOOD ORDERABLES Final Result [facility] [address] [facility] [place] [address] * (ABNORMAL) CBC without differential (09/27/2024 9:39 PM CDT) [facility] WBC 7.74 3.80 - 9.90 K/cumm Hgb 13.1 13.0 - 17.5 g/dL [facility] Hct 37.1(L) 38.9 - 50.3 % [facility] Plt 250 150 - 400 K/cumm [facility] MPV 9.2 9.1 - 12.3 fL [facility] RBC 4.37 4.30 - 5.80 M/cumm [facility] MCV 84.9 81.3 - 96.4 fL [facility] MCH 30.0 27.1 - 33.3 pg [facility] MCHC 35.3 32.3 - 35.7 g/dL [facility] RDW CV 11.9 11.1 - 14.9 % [facility] RDW SD 36.4 35.7 - 48.1 fL [facility] NRBC abs 0.00 0.00 - 0.01 K/cumm [facility] Blood 09/27/2024 9:39 PM CDT 09/27/2024 10:44 PM CDT Chelsea Hawkins MD LAB BLOOD ORDERABLES Final Result [facility] [address] [facility] [place] [address] * Basic metabolic panel (09/27/2024 9:39 PM CDT) Sodium 143 135 - 145 mmol/L Potassium, pl 4.3 3.3 - 4.9 mmol/L [facility] Chloride 105 97 - 110 mmol/L [facility] CO2 24 22 - 32 mmol/L [facility] Anion gap 14 2 - 15 mmol/L [facility] BUN 14 6 - 25 mg/dL [facility] Creatinine 0.89 0.80 - 1.30 mg/dL [facility] Glucose 124 70 - 199 mg/dL [facility] Comment: Interpretive Data Fasting glucose >/= 126 [...] 2022. Calcium 9.0 8.5 - 10.3 mg/dL [facility] Blood 09/27/2024 9:39 PM CDT 09/27/2024 10:43 PM CDT us Chelsea Hawkins MD LAB BLOOD ORDERABLES Final Result [facility] [place] [address] * IR Angio Selective Carotid STRATEGIC PLANNING DIRECTOR Right (09/27/2024 8:47 AM CDT) Anatomical Region [...] Heparin (3000 units) MATERIALS: 21-gauge needle 5 Maltese Merit Prelude IDeal sheath 23cm and mini guidewire 5 Maltese Carson 2 Jackson catheter Terumo glidewire TR Band CONTRAST: Visipaque [...] and were stored to PACS.. The 5 M[place] Merit Prelude IDeal sheath 23cm was then introduced into the right radial artery over the mini guidewire. A cocktail of Verapamil (2.5 mg), Nitroglycerin (200 mcg), and Heparin (3000 units) was slowly injected into the right radial artery through the sheath over several minutes, with close monitoring of blood pressure. A Terumo Glidewire and 5 M[place] Carson 2 Jackson catheter were advanced into the aortic arch [...] Heparin (3000 units) MATERIALS: 21-gauge needle 5 M[place] Merit Prelude IDeal sheath 23cm and mini guidewire 5 M[place]ese Carson 2 Jackson catheter Terumo glidewire TR Band CONTRAST: Visipaque [...] and were stored to PACS.. The 5 M[place]ese Merit Prelude IDeal sheath 23cm was then introduced into the right radial artery over the mini guidewire. A cocktail of Verapamil (2.5 mg), Nitroglycerin (200 mcg), and Heparin (3000 units) was slowly injected into the right radial artery through the sheath over several minutes, with close monitoring of blood pressure. A Terumo Glidewire and 5 M[place]ese Carson 2 Jackson catheter were advanced into the aortic arch [...] Joey Hodges M.D. us Chelsea Hawkins MD IM IR PROCEDURES Final Re sult * eGFR (09/26/2024 8:00 PM CDT) [facility] eGFR >90 >=60 mL/min/1. 73 m2 [...] Hawkins MD LAB BLOOD ORDERABLES Final Result [facility] [place] [address] * CBC without differential (09/26/2024 8:00 PM CDT) [facility] WBC 7.85 3.80 - 9.90 K/cumm Hgb 13.9 13.0 - 17.5 g/dL [facility] Hct 39.3 38.9 - 50.3 % [facility] Plt 256 150 - 400 K/cumm [facility] MPV 9.2 9.1 - 12.3 fL [facility] RBC 4.66 4.30 - 5.80 M/cumm [facility] MCV 84.3 81.3 - 96.4 fL [facility] MCH 29.8 27.1 - 33.3 pg [facility] MCHC 35.4 32.3 - 35.7 g/dL [facility] RDW CV 11.9 11.1 - 14.9 % [facility] RDW SD 36.4 35.7 - 48.1 fL [facility] NRBC abs 0.00 0.00 - 0.01 K/cumm [facility] Blood 09/26/2024 8:00 PM CDT 09/26/2024 8:55 PM CDT Chelsea Hawkins MD LAB BLOOD ORDERABLES Final Result Performing Organization Address [facility] de Phone Number [facility] [place] [place] [address] * Hemoglobin A1c (09/26/2024 8:00 PM CDT) [facility] Hgb A1C 5.6 4.0 - 5.6 % Estimated Average Glucose 114 mg/dL [facility] Comment: The ADA recommends reporting an estimated Average Glucose (eAG) with all Hemoglobin A1c results using the equation derived from a study of 507 normal and diabetic adults. Minority populations were underrepresented and children were not included. (Diabetes Care 2020; 43(S1): S66-S76). The eAG is not equivalent to a fasting glucose. Blood 09/26/2024 8:00 PM CDT 09/26/2024 8:58 PM CDT Chelsea Hawkins MD LAB BLOOD ORDERABLES Final Result Performing Organization Address [facility] Co de Phone Number [facility] [place] [address] * Basic metabolic panel (09/26/2024 8:00 PM CDT) [facility] Sodium 139 135 - 145 mmol/L Potassium, pl 3.9 3.3 - 4.9 mmol/L [facility] Chloride 103 97 - 110 mmol/L [facility] CO2 25 22 - 32 mmol/L [facility] Anion gap 11 2 - 15 mmol/L [facility] BUN 20 6 - 25 mg/dL [facility] Creatinine 0.89 0.80 - 1.30 mg/dL [facility] Glucose 141 70 - 199 mg/dL [facility] Comment: Interpretive Data Fasting glucose >/= 126 [...] 2022. Calcium 9.4 8.5 - 10.3 mg/dL [facility] Blood 09/26/2024 8:00 PM CDT 09/26/2024 8:55 PM CDT us Chelsea Hawkins MD LAB BLOOD ORDERABLES Final Result [facility] [place] [address] * (ABNORMAL) Fentanyl Confirmation, Urine (09/26/2024 1:23 PM CDT) [facility] Fentanyl Conf, Ur Confirmed Positive(A) Cutoff 0.3ng/mL Acetylfentanyl Conf, Ur Does Not Confirm Cutoff 1 ng/mL [facility] Acrylfentanyl Conf, Ur Does Not Confirm Cutoff 1 ng/mL [facility] Furanylfentanyl Conf, Ur Does Not Confirm Cutoff 1 ng/mL [facility] Fentanyl Metabolite (Norfentanyl) Conf, Ur Confirmed Positive(A) CutOff 5 ng/mL [facility] Xylazine MS Does Not Confirm Cutoff 1 ng/mL [facility] Comment: Interpretive Data This test detects the presence or absence of drug compounds using LC Tandem mass spectrometry and is not intended to assess compliance with prescribed medications. While this test is highly specific, false positive and false negative results may occur in very rare circumstances. Contact the laboratory for consultation, if needed. Performance characteristics were determined by the [facility] in a manner consistent with CLIA requirement and has not been cleared or approved by the U.S. Food and Drug Administration. Current interpretive data was last revised 2020. Urine 09/26/2024 1:23 PM CDT 09/26/2024 1:42 PM CDT Chelsea Hawkins MD LAB URINE ORDERABLES Final Result [facility] [place] [address] * (ABNORMAL) Drugs of Abuse Screen, Urine [...] 2022. Barbiturates, ur Not Detected CutOff 200ng/mL [facility] Comment: Interpretive Data - Barbiturates: Samples containing greater than 200 ng/mL secobarbital or other cross-reacting barbiturate compounds are reported as positive. False positive and false negative results are possible. Confirmatory testing required for definitive results. Current Interpretive Data was last reviewed 2022. Benzodiazepines, ur Not Detected CutOff 100ng/mL [facility] Comment: Interpretive Data - Benzodiazepines: Samples containing greater than 100 ng/mL nordiazepam or other cross-reacting compounds are reported as positive. False positive and false negative results are possible. Confirmatory testing required for definitive results. Current Interpretive Data was last reviewed 2022. Cannabinoids, ur Not Detected CutOff 50 ng/mL [facility] Comment: Interpretive Data - Cannabinoids: Samples containing greater than 50 ng/mL delta-9 THC -COOH or other cross- reacting compounds are reported as positive. False positive and false negative results are possible. Confirmatory testing required for definitive results. Current Interpretive Data was last reviewed 2022. Cocaine, ur Not Detected CutOff 150ng/mL [facility] Comment: Interpretive Data - Cocaine: Samples containing greater than 150 ng/mL benzoylecgonine or other cross- reacting compounds are reported as positive. False positive and false negative results are possible. Confirmatory testing required for definitive results. Current Interpretive Data was last reviewed 2022. Fentanyl, Ur Screen Positive, presumptive (A) CutOff 5 ng/mL [facility] Comment: Interpretive Data - Fentanyl: Samples containing greater than 5 ng/mL norfentanyl, fentanyl, or other cross-reacting fentanyl compounds are reported as positive. False positive and false negative results are possible. Confirmatory testing required for definitive results. Current Interpretive Data was last reviewed 2023. Methadone, ur Not Detected CutOff 300ng/mL [facility] Comment: Interpretive Data - Methadone: Samples containing greater than 300 ng/mL d,l-methadone or other cross-reacting compounds are reported as positive. False positive and false negative results are possible. Confirmatory testing required for definitive results. Current Interpretive Data was last reviewed 2022. Opiates, ur Not Detected CutOff 300ng/mL [facility] Comment: Interpretive Data - Opiates: Samples containing greater than 300 ng/mL morphine or other cross-reacting compounds are reported as positive. False positive and false negative results are possible. Confirmatory testing required for definitive results. Current Interpretive Data was last reviewed 2022. Oxycodone, ur Not Detected CutOff 100ng/mL [facility] Comment: Interpretive Data - Oxycodone: Samples containing greater than 100 ng/mL oxycodone or other cross-reacting compounds are reported as positive. False positive and false negative results are possible. Confirmatory testing required for definitive results. Current Interpretive Data was last reviewed 2022. Phencyclidine, ur Not Detected CutOff 25 ng/mL [facility] Comment: Interpretive Data - Phencyclidine: Samples containing greater than 25 ng/mL phencyclidine or other cross-reacting compounds are reported as positive. False positive and false negative results are possible. Confirmatory testing required for definitive results. Current Interpretive Data was last reviewed 2022. Urine Creatinine 292 mg/dL [facility] Comment: Interpretive Data Urine Creatinine: < 10 mg/dL is extremely dilute = or > 10 but < 20 mg/dL is dilute = or > 20 mg/dL is normal Current Interpretive Data was last revised on 2017. Urine 09/26/2024 1:23 PM CDT 09/26/2024 1:42 PM CDT Narrative [facility] - 09/26/2024 2:54 PM CDT Drug of Abuse screening is performed by immunoassay for medical purposes only. This is not to be used for Pain Management purposes. If Detected, confirmation testing will be performed for Amphetamines, Cocaine, Fentanyl, Methadone, Opiates, Oxycodone or Phencyclidine. Chelsea Hawkins MD LAB URINE ORDERABLES Final Result [facility] One [facility] [place] [address] * eGFR (09/25/2024 10:32 PM CDT) eGFR >90 >=60 mL/min/1. 73 [...] BLOOD ORDERABLES Final Result Performing Organization Address City/[facility]/ZIP Co de Phone Number [facility] [place] [address] * (ABNORMAL) CBC without differential (09/25/2024 10:32 PM CDT) [facility] WBC 9.05 3.80 - 9.90 K/cumm Hgb 13.9 13.0 - 17.5 g/dL [facility] Hct 40.2 38.9 - 50.3 % [facility] Plt 281 150 - 400 K/cumm [facility] MPV 9.0(L) 9.1 - 12.3 fL [facility] RBC 4.70 4.30 - 5.80 M/cumm [facility] MCV 85.5 81.3 - 96.4 fL [facility] MCH 29.6 27.1 - 33.3 pg [facility] MCHC 34.6 32.3 - 35.7 g/dL [facility] RDW CV 11.9 11.1 - 14.9 % [facility] RDW SD 37.0 35.7 - 48.1 fL [facility] NRBC abs 0.00 0.00 - 0.01 K/cumm [facility] Blood 09/25/2024 10:3 2 PM CDT 09/25/2024 11:00 PM CDT us Chelsea Hawkins MD LAB BLOOD ORDERABLES Final Result [facility] [place] [address] * (ABNORMAL) Lipid panel (09/25/2024 10:32 PM CDT) Pathologist [facility] Cholesterol 152 30 - 199 mg/dL Comment: [...] revised on 2017. Triglycerides 60 <=149 mg/dL [facility] Comment: Interpretive Data Ages < or [...] 2017. HDL 37(L) >=40 mg/dL [facility] Comment: Interpretive Data Ages < or [...] LDL, calculated 103 <=129 mg/dL [facility] Comment: Interpretive Data Ages < or = 19 years Acceptable: <110 mg/dL Borderline high: 110-129 mg/dL High: >or= 130 mg/dL Ages > or = 20 years Optimal: <100 mg/dL Near optimal: 100-129 mg/dL Borderline high: 130-159 mg/dL High: >160 mg/dL Calculated using the Santos LDL-C estimating equation. This equation was implemented on 2023. Prior to this date LDL-C was estimated using the Friedewald equation. Literature References: 1. Expert Panel on Integrated Guidelines for Cardiovascular Health and Risk Reduction in Children and Adolescents. Pediatrics 2011;128:S213 2. NCEP Expert Panel. Circulation 2004;110:227 3. Tom Nava et al. RIZWANA Cardiol. 2020 July 29;5(5):540-548. doi: 10.1001/jamacardio.2020.0013 Current Interpretive Data was last revised on 2023. Non-HDL Cholesterol 115 mg/dL [facility] Comment: Interpretive Data Ages < or = [...] last revised on 2017. Chol/HDL ratio 4 [facility] Blood 09/25/2024 10:3 2 PM CDT 09/25/2024 10:58 PM CDT us Chelsea Hawkins MD LAB BLOOD ORDERABLES Final Result [facility] One [facility] [place] [address] * (ABNORMAL) Basic metabolic panel (09/25/2024 10:32 PM CDT) Sodium 139 135 - 145 mmol/L Potassium, pl 4.3 3.3 - 4.9 mmol/L [facility] Chloride 104 97 - 110 mmol/L [facility] CO2 25 22 - 32 mmol/L [facility] Anion gap 10 2 - 15 mmol/L [facility] BUN 11 6 - 25 mg/dL [facility] Creatinine 0.77(L) 0.80 - 1.30 mg/dL [facility] Glucose 106 70 - 199 mg/dL [facility] Comment: Interpretive Data Fasting glucose >/= 126 [...] 2022. Calcium 9.6 8.5 - 10.3 mg/dL [facility] Blood 09/25/2024 10:3 2 PM CDT 09/25/2024 10:58 PM CDT us Chelsea Hawkins MD LAB BLOOD ORDERABLES Final Result Performing Organization Address City/State/[facility] Co de Phone Number [facility] One [facility] [place] [address] * ECG 12 lead (09/25/2024 9:41 PM CDT) Ventricular Rate EKG/Min 59 BPM [facility] Atrial Rate 59 BPM [facility] ID-Interval (MSEC) 154 ms [facility] QRS-Interval (MSEC) 86 ms [facility] QT-Interval (MSEC) 460 ms [facility] QTc 455 ms [facility] P Alto 46 degrees [facility] R Alto 18 degrees [facility] T Alto 19 degrees [facility] Diagnosis Sinus bradycardia Otherwise normal ECG No previous ECGs available Confirmed by ROYER MALIN M.D ([id number]) on 09/27/2024 6:26:[address] [facility] 09/25/2024 9:41 PM CDT 09/27/2024 6:26 PM CDT us Chelsea Hawkins MD ECG ORDERABLES Final Resu lt [facility] * (ABNORMAL) Urinalysis reflex to microscopic and culture Urine (09/25/2024 6:06 PM CDT) Color, ur Yellow Yellow Clarity, ur Clear Clear [facility] ([place]) Specific gravity, ur 1.046(H) 1.003 - 1.030 [facility] ([place]) pH, urine 6.0 [facility] ([place]) Comment: Interpretive Data U rine pH is affected by diet, medications, systemic acid-base disturbances, and renal tubular function. pH may affect urinary stone formation. For example, urine pH below 6.0 may help reduce the tendency for calcium phosphate stones and pH greater than 6.0 may reduce the tendency for uric acid stone formation. Source: [facility] [employer] Current Interpretive Data was last revised on [...] 6:06 PM CDT 09/25/2024 6:20 PM CDT us Dominique Fischer MD LAB MICROBIOLOGY - GENERAL ORDERABLES Final Result [facility] ([place]) 1 [facility] Department [place] [address] * Troponin T high-sensitivity 2-hour (09/25/2024 3:56 [...] BLOOD ORDERABLES Final Result [facility] ([place]) 1 [facility] Department [place] [address] * CTA Stroke Head Neck W WO Contrast (09/25/2024 3:13 PM CDT) Anatomical Region Laterality Modality Head and Neck N/A Computed Tomogra phy 09/25/2024 3:20 PM CDT Narrative 09/25/2024 3:41 PM CDT EXAM DESCRIPTION: CTA STROKE HEAD NECK W WO CONTRAST REASON FOR STUDY: Severe right sided headache since 5 today, on blood thinners, hx of stroke [...] or vascular malformation. Right posterior cerebral artery (SENIOR CLINICAL PROJECT MANAGER): No large vessel occlusion or vascular malformation. Left posterior cerebral artery (SENIOR CLINICAL PROJECT MANAGER): No large vessel occlusion or vascular malformation. [...] Sekou Burton M.D. NS: NS Report ID: [id number] Reading Location: [place] [address] Procedure Note Sekou Burton MD - 09/25/2024 [...] or vascular malformation. Right posterior cerebral artery (SENIOR CLINICAL PROJECT MANAGER): No large vessel occlusion orvascular malformation. Left posterior cerebral artery (SENIOR CLINICAL PROJECT MANAGER): No large vessel occlusion orvascular malformation. INCLUDED [...] Sekou Burton M.D. NS: NS Report ID: [id number] Reading Location: [place] [address] Dominique Fischer MD IMG CT PROCEDURES Final Re sult * ECG 12 lead (09/25/2024 2:27 PM CDT) 09/25/2024 2:27 PM CDT Narrative [facility] - 09/27/2024 8:11 AM CDT Vent Rate: 90 bpm RR Interval: 662 msec ID Interval: 147 msec QRS Duration: 89 msec QT Interval: 362 msec QTC Interval: 410 msec P-R-T Alto: 60 - 26 - 44 degrees IMPRESSION: SINUS RHYTHM LOW QRS VOLTAGE IN PRECORDIAL LEADS [QRS DEFLECTION < 1.0 mV IN CHEST LEADS] BORDERLINE ECG Electronically Signed By: Harvey Olson MD Dominique Fischer MD ECG ORDERABLES Final Resu lt [facility] [employer] [facility] * CT Stroke Head WO Contrast (09/25/2024 2:24 PM CDT) Anatomical Region Laterality Modality Head N/A Computed Tomogra phy 09/25/2024 2:30 PM CDT Narrative 09/25/2024 2:43 PM CDT EXAM DESCRIPTION: CT STROKE HEAD WO CONTRAST REASON FOR STUDY: Stroke, follow up, Stroke Severe right sided headache since 1314 today, on blood thinners, hx of stroke [...] Radha Lorenz M.D. LC: KYRA Report ID: [id number] Reading Location: [id number] Procedure Note Lubna Lorenz MD - 09/25/2024 [...] Radha Lorenz M.D. LC: KYRA Report ID: [id number] Reading Location: [place] [address] Dominique Fischer MD IM CT PROCEDURES Final Re sult * Troponin [...] BLOOD ORDERABLES Final Result [facility] ([place]) 1 [facility] [employer] [place] [address] * eGFR (09/25/2024 2:16 PM CDT) eGFR [...] BLOOD ORDERABLES Final Result [facility] ([place]) 1 [facility] [employer] [place] [address] * Differential, auto (09/25/2024 2:16 PM CDT) Neutrophil abs 5.23 1.50 - 6.50 K/cumm Imm gran abs 0.02 0.00 - 0.10 K/cumm [facility] ([place]) Lymphocyte abs 2.18 0.80 - 3.30 [...] Final Result [facility] ([place]) 1 [facility] Department [place] [address] * (ABNORMAL) CBC with auto differential (09/25/2024 2:16 PM CDT) Pathologist [facility] WBC 8.33 3.80 - 9.90 K/cumm Hgb [...] ([place]) MCHC 35.5 32.3 - 35.7 g/dL [facility] ([place]) RDW CV 11.7 11.1 - 14.9 % [facility] ([place]) RDW SD 35.8 35.7 - 48.1 fL [facility] NRBC abs 0.00 0.00 - 0.01 K/cumm [facility] Blood Venous blood specimen / Unknown 09/25/2024 2:16 PM CDT 09/25/2024 2:20 PM CDT Narrative [facility] ([place]) - 09/25/2024 2:23 PM CDT Potential Stroke Patient us Dominique Fischer MD LAB BLOOD ORDERABLES Final Result [facility] ([place]) 1 [facility] Department [place] [address] * (ABNORMAL) aPTT (09/25/2024 2:16 PM CDT) Pathologist [facility] aPTT 40(H) 28 - 38 sec [facility] ([place]) Comment: Interpretive Data Heparin therapeutic range: 66.0 [...] BLOOD ORDERABLES Final Result Performing Organization Address City/[facility] Co de Phone Number [facility] 1 [facility] [place] [address] * (ABNORMAL) Protime-INR (09/25/2024 2:16 PM CDT) PT 13.6(H) 9.7 - 13.0 sec [facility] ([place]) INR 1.25(H) 0.90 - 1.20 [facility] ([place]) Comment: Interpretive data Oral anticoagulant therapeutic ranges: Venous thromboembolism prophylaxis or treatment: 2.0-3.0 CARDIOLOGY Standard range: 2.0-3.0 High-intensity range: 2.5-3.5 Refer to indication-specific guidelines for appropriate target ranges for prosthetic heart valve replacement. Current interpretive data was last revised on 2019. Blood 09/25/2024 2:16 PM CDT 09/25/2024 2:20 PM CDT Dominique Fischer MD LAB BLOOD ORDERABLES Final Result Performing Organization Address City/[facility]/ZIP Co de Phone Number [facility] ([place]) 1 [facility] [place] [address] * (ABNORMAL) Comprehensive metabolic panel (09/25/2024 2:16 PM CDT) Sodium 137 135 - 145 mmol/L Potassium, pl 4.0 3.3 - 4.9 mmol/L [facility] ([place]) Chloride 99 97 - 110 mmol/L [facility] ([place]) CO2 24 22 - 32 mmol/L [facility] ([place]) Anion gap 14 2 - 15 mmol/L [facility] ([place]) BUN 10 6 - 25 mg/dL [facility] ([place]) Creatinine 0.73(L) 0.80 - 1.30 mg/dL [facility] ([place]) Glucose 107 70 - 199 mg/dL [facility] ([place]) Comment: Interpretive Data Fasting glucose >/= [...] 09/25/2024 2:38 PM CDT Potential Stroke Patient us Dominique Fischer MD LAB BLOOD ORDERABLES Final Result [facility] ([place]) 1 [facility] Department [place] [address] * POCT glucose (09/25/2024 2:11 PM CDT) [facility] Glucose, POC 113 70 - 199 mg/dL Blood 09/25/2024 2:11 PM CDT 09/25/2024 2:11 PM CDT us Dominique Fischer MD LAB POCT ORDERABLES - CARRIE CE Final Result [facility] 1 [facility] Department [place] [address] * eGFR (09/07/2024 4:00 PM CDT) [facility] eGFR >90 >=60 mL/min/1. 73 m2 [...] ORDERABLES Final Resu lt [facility] [address] [place] [address] * Differential, auto (09/07/2024 4:00 PM CDT) Neutrophil abs 5.29 1.50 - 6.50 K/cumm Imm gran abs 0.03 0.00 - 0.10 K/cumm [facility] Lymphocyte abs 1.92 0.80 - 3.30 K/cumm [facility] Monocyte abs 0.69 0.20 - 0.80 K/cumm [facility] Eosinophil abs 0.13 0.00 - 0.50 K/cumm [facility] Basophil abs 0.06 0.00 - 0.10 K/cumm [facility] Neutrophil pct 65.2 % [facility] Comment: Interpretive Data Percent cell count reference ranges are not reported, since discordance with absolute values may lead to misinterpretation of CBC data. Current Interpretive Data was last revised on 2017. Imm gran pct 0.4 % [facility] Comment: Interpretive Data Percent cell count reference ranges are not reported, since discordance with absolute values may lead to misinterpretation of CBC data. Current Interpretive Data was last revised on 2017. Lymphocyte pct 23.6 % [facility] Comment: Interpretive Data Percent cell count reference ranges are not reported, since discordance with absolute values may lead to misinterpretation of CBC data. Current Interpretive Data was last revised on 2017. Monocyte pct 8.5 % [facility] Comment: Interpretive Data Percent cell count reference ranges are not reported, since discordance with absolute values may lead to misinterpretation of CBC data. Current Interpretive Data was last revised on 2017. Eosinophil pct 1.6 % [facility] Comment: Interpretive Data Percent cell count reference ranges are not reported, since discordance with absolute values may lead to misinterpretation of CBC data. Current Interpretive Data was last revised on 2017. Basophil pct 0.7 % [facility] Comment: Interpretive Data Percent cell count reference ranges are not reported, since discordance with absolute values may lead to misinterpretation of CBC data. Current Interpretive Data was last revised on 2017. Blood 09/07/2024 4:00 PM CDT 09/07/2024 4:01 PM CDT us Reuben Finn MD LAB BLOOD ORDERABLES Final Resu lt [facility] [address] Department [place] [address] * CBC with auto differential (09/07/2024 4:00 PM CDT) Pathologist [facility] WBC 8.12 3.80 - 9.90 K/cumm Hgb 14.9 13.0 - 17.5 g/dL [facility] Hct 43.0 38.9 - 50.3 % [facility] Plt 307 150 - 400 K/cumm [facility] MPV 10.0 9.1 - 12.3 fL [facility] RBC 4.79 4.30 - 5.80 M/cumm [facility] CH MCV 89.8 81.3 - 96.[address] [facility] CH MCH 31.1 27.1 - 33.3 pg [facility] MCHC 34.7 32.3 - 35.7 g/dL [facility] CH RDW CV 11.7 11.1 - 14.9 % [facility] CH RDW SD 38.5 35.7 - 48.1 fL [facility] NRBC abs 0.00 0.00 - 0.01 K/cumm [facility] Blood 09/07/2024 4:00 PM CDT 09/07/2024 4:01 PM CDT us Reuben Finn MD LAB BLOOD ORDERABLES Final Resu lt [facility] [address] [facility] [place] [address] * Lipoprotein a (LPa) (09/07/2024 4:00 PM CDT) Pathologist [facility] Lipoprotein A 23 <75 nmol/L [place] [facility] Comment: ADDITIONAL INFORMATION Please notice that Lp(a) values are reported in molar units (nmol/L). These units are recommended by professional society guidelines and expert opinion statements. Measured results and risk thresholds are higher than those generated using mass units (mg/dL). Cardiovascular risk increases starting at 75 nmol/L. Lp(a) >=125 nmol/L is considered a risk enhancing factor by the [place] [employer]. This test has been modified from the mortar mixer operator's instructions. Its performance characteristics were determined by [facility] in a manner consistent with CLIA requirements. This test has not been cleared or approved by the U.S. Food and Drug Administration. Test Performed by: [facility] - [address] [address] [employer]: Pauly Ruffin Ph.D.; CLIA# [id number] Blood 09/07/2024 4:00 PM CDT 09/08/2024 9:52 AM CDT us Reuben Finn MD LAB BLOOD ORDERABLES Final Resu lt [facility] [address] Department [place] [address] [place] [facility] * (ABNORMAL) Lipid panel (09/07/2024 [...] last revised on 2017. Chol/HDL ratio 4 [facility] Blood 09/07/2024 4:00 PM CDT 09/07/2024 4:00 PM CDT Reuben Finn MD LAB BLOOD ORDERABLES Final Resu lt Performing Organization Address [facility] Co de Phone Number [facility] [address] [place] [address] * Basic metabolic panel (09/07/2024 4:00 PM CDT) Sodium 141 135 - 145 mmol/L Potassium, pl 4.0 3.3 - 4.9 mmol/L [facility] Chloride 104 97 - 110 mmol/L [facility] CO2 26 22 - 32 mmol/L [facility] Anion gap 11 2 - 15 mmol/L [facility] BUN 9 6 - 25 mg/dL [facility] Creatinine 0.85 0.80 - 1.30 mg/dL [facility] Glucose 111 70 - 199 mg/dL [facility] Comment: Interpretive Data Fasting glucose >/= 126 [...] 2022. Calcium 9.8 8.5 - 10.3 mg/dL [facility] Blood 09/07/2024 4:00 PM CDT 09/07/2024 4:00 PM CDT Reuben Finn MD LAB BLOOD ORDERABLES Final Resu lt Performing Organization Address [facility]/ZIP Co de Phone Number [facility] [address] [place] [address] * COLONOSCOPY (06/10/2012 12:00 AM CDT) Anatomical Region Laterality Modality Other Narrative 06/10/2012 12:00 AM CDT Ordered by an unspecified provider. Procedure Note ProviderPerry MD - 06/10/2012 12:00 AM CDT PROCEDURE REPORT Patient: LIT SOTOMAYOR Account: [id number] Room No: : 1975 Patient Type: SDS [...] week or two weeks. Aranza Butler M.D. AK/gaurav TD: 06/11/2012 15:04 CC: Jarod Cheatham M.D. 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
--- OUTSIDE RECORDS SUMMARY | 2024-10-06 15:46 | XMS_ITS | Encounter Summary ---
Author Organization [facility] Health[facility] Address [address] [place] [address] Phone Care Team Providers Care Lens Matcher Name Role Phone Nelly Godinez APRN Primary Care Provider [phone] Reason for Referral * PT/OT/ST (Routine) - Authorized Specialty Diagnoses / Procedures Referred By Kb kyle Referred To Contact Speech Therapy Diagnoses Hemiplegia affecting right dominant side, unspecified etiology, unspecified hemiplegia type (HCC) Personal history of transient ischemic attack (TIA), and cerebral infarction without residual deficits Nelly Godinez APRN [address] [place] [address] Phone: tel: fax: [facility] at [address] [address] Phone: tel: fax: Referral ID Status Reason Start Date Expiration Date V isits Requested Visits Authorized [id number] Authorized 09/22/2024 100 30 Scheduling Instructions * PT/OT/ST (Routine) - Authorized Specialty Diagnoses / Procedures Referred By Kb kyle Referred To Contact Physical Therapy Diagnoses Hemiplegia affecting right dominant side, unspecified etiology, unspecified hemiplegia type (HCC) Personal history of transient ischemic attack (TIA), and cerebral infarction without residual deficits Nelly Godinez APRN [address] [place] [address] Phone: tel: fax: [facility] [address] [facility], [address] [address] Phone: tel: fax: Referral ID Status Reason Start Date Expiration Date V isits Requested Visits Authorized [id number] Authorized 09/22/2024 100 20 Scheduling Instructions * PT/OT/ST (Routine) - Authorized Specialty Diagnoses / Procedures Referred By Contolga t Referred To Contact Occupational Therapy Diagnoses Hemiplegia affecting right dominant side, unspecified etiology, unspecified hemiplegia type (HCC) Nelly Godinez APRN [address] [place] [address] Phone: tel: fax: [facility] [address], [address] [address] Phone: tel: fax: Referral ID Status Reason Start Date Expiration Date V isits Requested Visits Authorized [id number] Authorized 09/22/2024 100 20 Scheduling Instructions Encounter Details Date Type Department Care Team (Latest Contact Info) Description 09/22/2024 Transcribe Orders [facility] [address] [place] [phone] Nelly Godinez APRN [address] [place] [address] Hemiplegia affecting right dominant side, unspecified etiology, unspecified hemiplegia type (HCC) (Primary Dx); Personal history of transient ischemic attack (TIA), and cerebral infarction without residual deficits Social History Tobacco Use Types Packs/Day Years [...] Description 10/07/2024 10:00 AM CDT Physical Therapy [facility] [address], [place] [place] [place] [phone] Nelly Godinez, CLINICAL INFORMATION SYSTEMS DIRECTOR [address] [place] [address] Nidhi Priest, PT [place] Discharge Disposition: Discharged to home or Selfcare 10/11/2024 2:30 PM CDT Speech Therapy [facility] [address], [address] [place] [phone] Nelly Godinez, CLINICAL INFORMATION SYSTEMS DIRECTOR [address] [place] [address] Evelina Barrientos, MS [facility] CNC MACHINE OPERATOR [place] Discharge Disposition: Discharged to home or Selfcare 10/12/2024 4:45 PM CDT Occupational Therapy [facility] [address], [address] [place] [phone] Nelly Godinez, CLINICAL INFORMATION SYSTEMS DIRECTOR [address] [place] [address] Kyra Castillo OT [place] Discharge Disposition: Discharged to home or Selfcare 10/14/2024 8:30 AM CDT Occupational Therapy [facility] [address], [address] [place] [phone] Nelly Godinez, CLINICAL INFORMATION SYSTEMS DIRECTOR [address] [facility] [place] [place] [address] Kyra Castillo, OT [place] 10/18/2024 12:45 PM CDT Occupational Therapy [facility] [address], [address] [place] [address] Nelly Godinez, CLINICAL INFORMATION SYSTEMS DIRECTOR [address] [place] [address] Kyra Castillo, OT [place] 10/21/2024 1:00 PM CDT Occupational Therapy [facility] [address], [address] [place] [address] Nelly Godinez, CLINICAL INFORMATION SYSTEMS DIRECTOR [address] [place] [address] Kyra Castillo, OT [place] 10/26/2024 1:00 PM CDT Occupational Therapy [facility] [address] [place] [address] Nelly Godinez, CLINICAL INFORMATION SYSTEMS DIRECTOR [address] [place] [address] Kyra Castillo, OT [place] 10/28/2024 2:30 PM CDT Occupational Therapy [facility] [address] [place] [address] Nelly Godinez, CLINICAL INFORMATION SYSTEMS DIRECTOR [address] [facility] [place] [place] [address] Kyra Castillo, OT [place] 11/02/2024 1:45 PM CDT Occupational Therapy [facility] [address] [facility], [address] [place] [address] Nelly Godinez, CLINICAL INFORMATION SYSTEMS DIRECTOR [address] [facility] [place] [address] Kyra Castillo, OT [place] 11/02/2024 2:30 PM CDT Speech Therapy [facility] [address] [facility], [address] [place] [address] Nelly Godinez, CLINICAL INFORMATION SYSTEMS DIRECTOR [address] [facility] [place] [address] Evelina Barrientos, MS [employer] CNC MACHINE OPERATOR [place] 11/05/2024 1:45 PM CDT Speech Therapy [facility] [address], [address] [place] [address] Nelly Godinez, CLINICAL INFORMATION SYSTEMS DIRECTOR [address] [facility] [place] [address] Evelina Barrientos, MS [employer] CNC MACHINE OPERATOR [place] 11/05/2024 2:30 PM CDT Occupational Therapy [facility] [address] [facility], [address] [place] [address] Nelly Godinez, CLINICAL INFORMATION SYSTEMS DIRECTOR [address] [facility] [place] [address] Kyra Castillo, OT [place] 11/08/2024 12:45 PM CDT Occupational Therapy [facility] [address] [facility], [address] [place] [address] Nelly Godinez, CLINICAL INFORMATION SYSTEMS DIRECTOR [address] [facility] [place] [address] Kyra Castillo, OT [place] 11/08/2024 1:45 PM CDT Speech Therapy [facility] [address] [place] [address] Nelly Godinez, CLINICAL INFORMATION SYSTEMS DIRECTOR [address] [facility] [place] [place] [address] Evelina Barrientos, MS CCC-[employer] CNC MACHINE OPERATOR [place] 11/11/2024 1:00 PM CDT Occupational Therapy [facility] [address], [address] [place] [address] Nelly Godinez, CLINICAL INFORMATION SYSTEMS DIRECTOR [address] [place] [address] Kyra Castillo, OT [place] 11/15/2024 12:45 PM CDT Occupational Therapy [facility] [address], [address] [place] [address] Nelly Godinez, CLINICAL INFORMATION SYSTEMS DIRECTOR [address] [facility] [place] [address] Kyra Castillo, OT [place] 11/15/2024 1:45 PM CDT Speech Therapy [facility] [address], [address] [place] [address] Nelly Godinez, CLINICAL INFORMATION SYSTEMS DIRECTOR [address] [place] [address] Evelina Barrientos, MS [employer] CNC MACHINE OPERATOR [place] 11/19/2024 1:00 PM CDT Speech Therapy [facility] [address], [address] [place] [address] Nelly Godinez, CLINICAL INFORMATION SYSTEMS DIRECTOR [address] [place] [address] Evelina Barrientos, MS CCC-[employer] CNC MACHINE OPERATOR [place] 11/22/2024 12:45 PM CDT Occupational Therapy [facility] [address], [address] [place] [address] Nelly Godinez, CLINICAL INFORMATION SYSTEMS DIRECTOR [address] [place] [address] Anna, Kyra, OT [place] 11/22/2024 1:45 PM CDT Speech Therapy [facility] [address], [address] [place] [address] Nelly Godinez, CLINICAL INFORMATION SYSTEMS DIRECTOR [address] [place] [address] Evelina Barrientos, MS CCC[employer] CNC MACHINE OPERATOR [place] 11/26/2024 1:00 PM CDT Speech Therapy [facility] [address] [place] [address] Nelly Godinez, CLINICAL INFORMATION SYSTEMS DIRECTOR [address] [place] [address] Evelina Barrientos, MS CCC-PL[employer] CNC MACHINE OPERATOR [place] 11/26/2024 1:45 PM CDT Occupational Therapy [facility] [address] [place] [address] Nelly Godinez, CLINICAL INFORMATION SYSTEMS DIRECTOR [address] [place] [address] Katie Castillosa, OT [place] 11/30/2024 1:00 PM CDT Speech Therapy [facility] [address] [facility], [address] [place] [address] Nelly Godinez, CLINICAL INFORMATION SYSTEMS DIRECTOR [address] [facility] [place] [address] Evelina Barrientos, MS CCC-[employer] CNC MACHINE OPERATOR [place] 11/30/2024 1:45 PM CDT Occupational Therapy [facility] [address], [address] [place] [address] Nelly Godinez, CLINICAL INFORMATION SYSTEMS DIRECTOR [address] [facility] [place] [address] Kyra Castillo, OT [place] 12/03/2024 1:00 PM CDT Speech Therapy [facility] [address], [address] [place] [address] Nelly Godinez, CLINICAL INFORMATION SYSTEMS DIRECTOR [address] [place] [address] Evelina Barrientos, MS CCC-PL[employer]IC CNC MACHINE OPERATOR [place] 12/03/2024 1:45 PM CDT Occupational Therapy [facility] [address], [address] [place] [address] Nelly Godinez, CLINICAL INFORMATION SYSTEMS DIRECTOR [address] [facility] [place] [address] Kyra Castillo, OT [place] 12/06/2024 12:45 PM CDT Occupational Therapy [facility] [address], [address] [place] [address] Nelly Godinez, CLINICAL INFORMATION SYSTEMS DIRECTOR [address] [facility] [place] [address] Kyra Castillo, OT [place] 12/06/2024 1:45 PM CDT Speech Therapy [facility] [address], [address] [place] [address] Nelly Godinez APRN [address] [place] [address] Evelina Barrientos, MS CCC-PLASTIC CNC MACHINE OPERATOR [place] Scheduled Referrals Name Type Priority Associated Diagnoses Orde r Schedule OCCUPATIONAL THERAPY REFERRAL Outpatient Referral Routine Hemiplegia affecting right dominant side, unspecified etiology, unspecified hemiplegia type (HCC) Expected: 09/22/2024, Expires: 09/22/2025 PHYSICAL THERAPY REFERRAL Outpatient Referral Routine Hemiplegia affecting right dominant side, unspecified etiology, unspecified hemiplegia type (HCC) Personal history of transient ischemic attack (TIA), and cerebral infarction without residual deficits Expected: 09/22/2024, Expires: 09/22/2025 SPEECH THERAPY REFERRAL Outpatient Referral Routine Hemiplegia affecting right dominant side, unspecified etiology, unspecified hemiplegia type (HCC) Personal history of transient ischemic attack (TIA), and cerebral infarction without residual deficits Expected: 09/22/2024, Expires: 09/22/2025 documented as of this encounter Visit Diagnoses Diagnosis Hemiplegia affecting right dominant side, unspecified etiology, unspecified hemiplegia type (HCC)- Primary Personal history of transient ischemic attack (TIA), and cerebral infarction without residual deficits documented in this encounter Care Teams Lens Matcher Relationship Specialty Start Date End Date Nelly Godinez APRN [address] [place] [address] PCP - General Advanced Practice Nurse 08/25/24 documented as of this encounter
--- OUTSIDE RECORDS SUMMARY | 2024-10-06 15:46 | XMS_ITS | Encounter Summary ---
Author Organization [facility] Address [address] [place] [address] Phone Care Team Providers Care Vp Lab Name Role Phone Nelly Godinez APRN Primary Care Provider [phone] Reason for Visit * PT/OT/ST (Routine) - Authorized Specialty Diagnoses / Procedures Referred By Kb kyle Referred To Contact Speech Therapy Diagnoses Hemiplegia affecting right dominant side, unspecified etiology, unspecified hemiplegia type (HCC) Personal history of transient ischemic attack (TIA), and cerebral infarction without residual deficits Nelly Godinez APRN [address] [place] [address] Phone: tel: fax: [facility] [address], [address] [address] Phone: tel: fax: Referral ID Status Reason Start Date Expiration Date V isits Requested Visits Authorized [id number] Authorized 09/22/2024 100 30 Encounter Details Date Type Department Care Team (Late st Contact Info) Description 10/05/2024 1:45 PM CDT Speech Therapy [facility] [address], [address] [address] Nelly Godinez APRN [address] [place] [address] Evelina Barrientos, MS CCC-CHEMISTRY TECHNICAL OFFICER [place] Aphasia (Primary Dx); Hemiplegia affecting right dominant side, unspecified etiology, unspecified hemiplegia type (HCC); Personal history of transient ischemic attack (TIA), and cerebral infarction without residual deficits Discharge Disposition: Discharged to home or Selfcare Social History Tobacco Use Types Packs/Day Years [...] on file documented as of this encounter Miscellaneous Notes * Plan of Care - Evelina Barrientos, MS CCC-CHEMISTRY TECHNICAL OFFICER - 10/05/2024 1:45 PM CDT Speech-Language Pathology Evaluation - Electronically signed by: EVELINA BARRIENTOS, MS CCC-CHEMISTRY TECHNICAL OFFICER October 05, 2024 Subjective Subjective Shalom Madison is 49 y.o. male referred to Speech Pathology service from Nelly Godinez APRN ,with much appreciation, due to global communication impairment. Patient's former attended evaluation to assist patient and provide historical information. Patient attempted to communicate verbally with overt evidence of speech disturbance that impeded basic communication. Former confirmed history. Patient currently lives with brother Sam and extended family providing care and transportation. Patient history remarkable for large left MCA occlusion stroke in June 2024 in [facility] with residual right hemiplegia and aphasia s/p mechanical thrombectomy and left ICA balloon angioplasty.Positive drug screen for methamphetamines and cocaine and known history of etoh/tobacco/substance use. Patient discharged from OSH in 08/19/24. Patient presented in August 2024 with initial complaint of right side headache and initial NIH of 21.Non contrast head CT in August 2024 reported 1.no large vessel occlusion. 2. Asymmetrically decreased arborization of the left MCA distribution likely related to chronic left MCA territory infarction. 3. Severe (70-99%) stenosis of the left ICA origin. 4. Age-indeterminate but subacute to chronic ap pearing infarction of the left perirolandic region with similar-appearing small volume parenchymal and petechial hemorrhage. No definite active extravasation or underlying vascular malformation. Recommend attention on follow-up. 5. Incidental and chronic findings as above. No thrombolytics administered. Patient underwent carotid endarterectomy on 09/29/24 after evidence of greater than 70% Left ICA stenosis Past Medical History: has a past medical history of Acute ischemic left ICA stroke ([facility]) (07/19/2024), Cerebral edema (HCC) (07/27/2024), Hyperlipidemia, Hypertension, and Stroke ([facility]). Calculus of kidney, GERD, Colitice, etoh abuse, tobacco use, substance abuse Number of falls within the past year: 1 History of previous therapies: recent home health care Speech Pathology service Patient reports headache Prior Level of Function: Prior to original stroke, patient reported independent baseline and workedin [employer] Noted medical impairments: wheelchair bound Areas of daily life affected by language:Social Language, Medical Communication, Vocational Language, Basic communication Areas of daily life affected by cognition: ADLs, Organization, Social, Safety Current assistive devices: Wheelchair Patient is right hand dominant. Is the patient's weight a concern? No Patient/caregiver concerns: Communication Patient is unemployed. Patient's goal for speech therapy: Improved communication. to stand up, I'm going to a dirty house, I want to weigh something Patient's learning preference: multi-modal Patient's barriers to learning: receptive language, expressive language, cognition communication Patient's preferred language: [place] Galvanizer required: no Written attendance policy reviewed: yes Objective Oral Motor: Appearance of intact general musculature, no overt structural abnormality or strength deficit, no evidence of drooling, Mild facial asymmetry at rest. Mild asymmetry noted during labial retraction. Intact lingual lateralization, Intact lingual elevation, intact lingual depression. Patient required demonstration due to impaired receptive language. Speech Intelligibility: Patient presented with intact articulation, fast rate of speech and no overt evidence of apraxia Voice: appearance of intact respiratory support, denied vocal fatigue, denied sinus drainage. No reported concern from patient/family Language: The Western Aphasia Battery (WAB) is a diagnostic tool to assess the linguistic skills, main nonlinguistic skills of adults with Aphasia and provides information for the diagnosis of the type of Aphasia. Exam not completed due to time constraints and severity of language impairment. Completed subtests as follows: Spontaneous Speech Information Content: 2/10 Fluency, Grammatical Competence, and paraphasias: 06/07 Spontaneous Speech Total: 08/17 Spontaneous Speech Total: 08/17 Picture Natural Resources Specialist: Hubert....Geez..... Two racked..... he huddle.... he eduard sex... two... he get choked.... he was going to leave.... he was going to leave restroom.. the aragon.. the arm it... he gonna give the strings teacher.... that's all pretty good. He's got thos valleys.. and you wanting to have some... and that's it.... Auditory Verbal Comprehension Yes/No Questions: Auditory Word Recognition: TREATMENT: Learner: patient and family Readiness: acceptance Method: explanation CHEMISTRY TECHNICAL OFFICER provided skilled instruction to patient/family regarding rationale for skilled services, evaluation performance to date and proposed care plan. CHEMISTRY TECHNICAL OFFICER provided skilled instruction to patient/family defined asphasia, reviewed types and aphasias, instructed on communication strategies for optimal communication and initiation of home program. Former only stated understanding, patient did not exhibit evidence of learning. Given observations, suspect Wernicke's aphasia given impaired naming, fluent paraphasias, some structured but empty utterances and impaired comprehension Assessment Therapy Diagnosis: Global Communication disorder, Aphasia Medical Diagnosis: Hemiplegia affecting right dominant side, unspecified etiology, unspecified hemiplegia type (HCC) Personal history of transient ischemic attack (TIA), and cerebral infarction without residual deficits Shalom Madison is a 49 y.o. patient referred to Speech Pathology service with receptive and expressive language deficits consistent with aphasia. Patient's current level of skills/abilities directlyimpact basic communication, medical communication, comprehension, safety, reasoning and independence. Clinical impression at this time: Patient would benefit from ongoing skilled Speech Pathology intervention. Rehab potential: fair Complexities that are a barrier to service: cognitive deficits impacting carryover Preferred Language: [place] All charges entered today are appropriate and separate from each other. Plan Goals to be achieved by discharge. - Complete formal testing to determine further intervention needs. -The patient will complete sentences with an appropriate word at 80% accuracy given frequent maximum verbal and frequent maximum phonemic cues. - Patient will complete naming tasks with 80% accuracy and provide single word to phrase length response when provided with max verbal assist for improved language skills. - The patient will name items via confrontation naming and/or from description at 80% accuracy given frequent maximum verbal and frequent maximum phonemic cues in order to increase ability to communicate basic wants and needs. - The patient will complete sentences with two or more appropriate words at 80% accuracy given frequent maximum verbal and frequent maximum phonemic cues. - The patient will participate in simple conversation at 80% accuracy given frequent maximum verbaland frequent maximum phonemic cues. - Patient will produce a minimum of 4 different features, when presented with a word using semanticfeature analysis (SFA), given verbal prompts, with 75% accuracy. - CHEMISTRY TECHNICAL OFFICER to provide skilled instruction to patient/family regarding recommendations, guidelines and compensatory strategies for optimal communication and carryover of skills. Planned Interventions This patient will likely be seen 1-2x/week for 12 visits from the date of initial evaluation for the following interventions: Speech Therapy Treatment ([address]55), Compensatory Strategies, Patient/Caregiver Education to address current level of function, Progression of home exercise program. Precaution: falls, safetyTreatment may be altered based on patient progression and symptoms. The plan of care, as well as the benefits and risks of speech therapy were reviewed with the patient and the patient consented to treatment. EVELINA BARRIENTOS MS CCC-CHEMISTRY TECHNICAL OFFICER Speech Language Pathologist 10/05/24 Time spent with patient/family:45 m documented in this encounter Plan of Treatment Upcoming Encounters Date Type Department Care Team (Latest Contact Info) Description 10/07/2024 10:00 AM CDT Physical Therapy [facility] [address], [address] [place] [address] Nelly Godinez, [employer] [address] [place] [address] Nidhi Priest, PT [place] Discharge Disposition: Discharged to home or Selfcare 10/11/2024 2:30 PM CDT Speech Therapy [facility] [address], [address] [place] [address] Nelly Godinez, [employer] [address] [place] [address] Evelina Barrientos, MS [facility]-CHEMISTRY TECHNICAL OFFICER [place] Discharge Disposition: Discharged to home or Selfcare 10/12/2024 4:45 PM CDT Occupational Therapy [facility] [address], [address] [place] [address] Nelly Godinez, [employer] [address] [place] [address] Kyra Castillo, JASMIN [place] Discharge Disposition: Discharged to home or Selfcare 10/14/2024 8:30 AM CDT Occupational Therapy [facility] [address], [address] [place] [address] Nelly Godinez, [employer] [address] [place] [address] Kyra Castillo, OT [place] 10/18/2024 12:45 PM CDT Occupational Therapy [facility] [address], [address] [place] [address] Nelly Godinez, [employer] [address] [place] [address] Kyra Castillo, OT [place] 10/21/2024 1:00 PM CDT Occupational Therapy [facility] [address], [address] [place] [address] Nelly Godinez, [employer] [address] [place] [address] Kyra Castillo, OT [place] 10/26/2024 1:00 PM CDT Occupational Therapy [facility] [address], [address] [place] [address] Nelly Godinez, [employer] [address] [place] [address] Kyra Castillo, OT [place] 10/28/2024 2:30 PM CDT Occupational Therapy [facility] [address], [address] [place] [address] Nelly Godinez, [employer] [address] [place] [address] Kyra Castillo, OT [place] 11/02/2024 1:45 PM CDT Occupational Therapy [facility] [address], [address] [place] [address] Nelly Godinez, [employer] [address] [place] [address] Kyra Castillo, OT [place] 11/02/2024 2:30 PM CDT Speech Therapy [facility] [address], [address] [place] [address] Nelly Godinez, [employer] [address] [place] [address] Evelina Barrientos, MS [facility]-CHEMISTRY TECHNICAL OFFICER [place] 11/05/2024 1:45 PM CDT Speech Therapy [facility] [address], [address] [place] [address] Nelly Godinez, [employer] [address] [place] [address] Evelina Barrientos, MS CCC-CHEMISTRY TECHNICAL OFFICER [place] 11/05/2024 2:30 PM CDT Occupational Therapy [facility] [address], [address] [place] [address] Nelly Godinez, [employer] [address] [place] [address] Kyra Castillo, OT [place] 11/08/2024 12:45 PM CDT Occupational Therapy [facility] [address], [address] [place] [address] Nelly Godinez, [employer] [address] [place] [address] Kyra Castillo, OT [place] 11/08/2024 1:45 PM CDT Speech Therapy [facility] [address], [address] [place] [address] Nelly Godinez, [employer] [address] [place] [address] Evelina Barrientos, MS CCC-CHEMISTRY TECHNICAL OFFICER [place] 11/11/2024 1:00 PM CDT Occupational Therapy [facility] [address], [address] [place] [address] Nelly Godinez, [employer] [address] [place] [address] Katie Castillosa, OT [place] 11/15/2024 12:45 PM CDT Occupational Therapy [facility] [address], [address] [place] [address] Nelly Godinez, [employer] [address] [place] [address] Kyra Castillo, OT [place] 11/15/2024 1:45 PM CDT Speech Therapy [facility] [address], [address] [place] [address] Nelly Godinez, [employer] [address] [place] [address] Evelina Barrientos, MS CCC-CHEMISTRY TECHNICAL OFFICER [place] 11/19/2024 1:00 PM CDT Speech Therapy [facility] [address] [facility], [address] [place] [address] Nelly Godinez, [employer] [address] [place] [address] Evelina Barrientos, MS CCC-CHEMISTRY TECHNICAL OFFICER [place] 11/22/2024 12:45 PM CDT Occupational Therapy [facility] [address], [address] [place] [address] Nelly Godinez, [employer] [address] [place] [address] Kyra Castillo, OT [place] 11/22/2024 1:45 PM CDT Speech Therapy [facility] [address], [address] [place] [address] Nelly Godinez, [employer] [address] [place] [address] Evelina Barrientos, MS CCC-CHEMISTRY TECHNICAL OFFICER [place] 11/26/2024 1:00 PM CDT Speech Therapy [facility] [address], [address] [place] [address] Nelly Godinez, [employer] [address] [place] [address] Evelina Barrientos, MS CCC-CHEMISTRY TECHNICAL OFFICER [place] 11/26/2024 1:45 PM CDT Occupational Therapy [facility] [address], [address] [place] [address] Nelly Godinez, [employer] [address] [place] [address] Kyra Castillo, OT [place] 11/30/2024 1:00 PM CDT Speech Therapy [facility] [address] [place] [address] Nelly Godinez, [employer] [address] [place] [address] Evelina Barrientos, MS CCC-CHEMISTRY TECHNICAL OFFICER [place] 11/30/2024 1:45 PM CDT Occupational Therapy [facility] [address], [address] [place] [address] Nelly Godinez, [employer] [address] [place] [address] Anna, Kyra, OT [place] 12/03/2024 1:00 PM CDT Speech Therapy [facility] [address], [address] [place] [address] Nelly Godinez, [employer] [address] [place] [address] Evelina Barrientos, MS CCC-CHEMISTRY TECHNICAL OFFICER [place] 12/03/2024 1:45 PM CDT Occupational Therapy [facility] [address], [address] [place] [address] Nelly Godinez, [employer] [address] [place] [address] Katie Castillosa, OT [place] 12/06/2024 12:45 PM CDT Occupational Therapy [facility] [address], [address] [place] [address] Nelly Godinez, [employer] [address] [place] [address] Kyra Castillo, OT [place] 12/06/2024 1:45 PM CDT Speech Therapy [facility] [address], [address] [place] [address] Nelly Godinez, [employer] [address] [place] [address] Evelina Barrientos, MS CCC-CHEMISTRY TECHNICAL OFFICER [place] documented as of this encounter Visit Diagnoses Diagnosis Aphasia- Primary Hemiplegia affecting right dominant side, unspecified etiology, unspecified hemiplegia type (HCC) Personal history of transient ischemic attack (TIA), and cerebral infarction without residual deficits documented in this encounter Care Teams Vp Lab Relationship Specialty Start Date End Date Nelly Godinez APRN [address] [place] [address] PCP - General Advanced Practice Nurse 08/25/24 documented as of this encounter
--- OUTSIDE RECORDS SUMMARY | 2024-10-06 15:46 | XMS_ITS | Encounter Summary ---
Author Organization [facility] Address [address] [facility] [place] [place] [address] Phone Care Team Providers Care Interventional Tech Name Role Phone Nelly Godinez APRN Primary Care Provider [phone] Reason for Visit * PT/OT/ST (Routine) - Authorized Specialty Diagnoses / Procedures Referred By Kb t Referred To Contact Occupational Therapy Diagnoses Hemiplegia affecting right dominant side, unspecified etiology, unspecified hemiplegia type (HCC) Nelly Godinez APRN [address] [place] [address] Phone: tel: fax: [facility] [address] [facility], [address] [address] Phone: tel: fax: Referral ID Status Reason Start Date Expiration Date V isits Requested Visits Authorized [id number] Authorized 09/22/2024 100 20 Encounter Details Date Type Department Care Team (Latest Contact Info) Description 10/05/2024 2:30 PM CDT Occupational Therapy [facility] [address], [address] [place] [address] Nelly Godinez APRN [address] [place] [address] Kyra Castillo OT [place] Hemiplegia affecting right dominant side, unspecified etiology, [...] Miscellaneous Notes * Plan of Care - Kyra Castillo OT - 10/05/2024 2:30 PM CDT Occupational Therapy Evaluation - Electronically signed by: KYRA CASTILLO OT October 05, 2024 Subjective SUBJECTIVE: Onset date: June 2024 Patient has expressive and receptive aphasia. Patient's ex- was present to assist with reports of the incident and overall medical history. History of current problem: Patient was in [facility] on a job site when he experienced stroke symptoms. Patient was aware of the amount of time that passed, but couldn't access his phone to call, and it is suspected that he was on the ground for 5-6 hours. Patient's ex reports that he was found on his right shoulder. Patient spent 2 weeks in ICU, 2 weeks in inpatient rehab for PT/OT/ST, and C after. Patient experienced some additional stroke symptoms, and went to [facility] on09/25/24, where he had second stroke with left carotid artery clean out. Patient was discharged lastThday from the hospital and referred for outpatient therapy services. Per chart review, left MCAstroke on 06/2024 (s/p MT and left ICA balloon angioplasty, follow-up CT imaging showed petechial hemorrhage and progression of the midline shift). He was ultimately discharged on 08/19 with plans for PT/OT/CHURCH SECRETARY/BA/SW. Patient has a past medical history of Acute ischemic left ICA stroke (HCC) (07/19/2024), Cerebral edema (HCC) (07/27/2024), Hyperlipidemia, Hypertension, and Stroke (HCC). Patient's blood pressure iswell managed. Patient has been taped in the shoulder due to potential subluxation. Red flags: weakness and numbness / tingling Fall history (in the past year): 1 fall when getting dressed. History of previous therapies: Patient has received inpatient and home health therapy services fromPT/OT/ST. Patient reports having a headache on the right side of his head/face, but does not rate. Living arrangements: Patient lives in a house with 1 step up to enter. There are no stairs within home. Bathroom set up: tub/shower with shower chair. Patient lives with brother. Family is assisting to make sure there is 24 hour care. Equipment: Patient currently utilizes: walker, wheelchair, and shower chair. Patient has a bedside commode, but doesn't like to use. Patient has leg weights. Current functional status: Bathing: Patient's brother will assist with bathing, but only has to help with washing his left arm, Dressing: Patient is able to get himself dressed using one handed dressing techniques with his arm. Patient will occasionally need assistance with putting on his socks/shoes. He will at least attempt/try, Grooming: Patient is independent with washing his face, brushing te eth, using an electric shaver. He attempts to wash his hands. Toilet skills: Patient is independentwith toileting skills using his left arm, Homemaking: Patient reports that he will get in the fridge, and can make his own coffee in the morning. Transfers: Patient is independent. Patient is Right side dominant. Employment status: Patient is not currently working due to stroke. Prior functional status: Patient was independent with ADLs and IADLs Patient's goal for Occupational Therapy: to get as much back in the right arm as possible Patient learning style: - Patient's barriers to learning: cognitive - Patient's preferred learning style: listening, demonstration, pictures/videos, and hands-on Caregiver's learning style: - Caregiver's barriers to learning: no barriers - Caregiver's preferred learning style: listening, reading, demonstration, and pictures/videos Written attendance policy reviewed: Yes OBJECTIVE: Observation: Functional Outcomes/Other Observations: Upper Extremity: Range of Motion: All Range of Motion Documentation below is measured in degrees unless otherwise indicated Patient required demonstration of all movements, and was able to follow single step directions withabout 50% accuracy for ROM testing. Patient experienced significant pain in the shoulder with any attempts for PROM. There were several occasions where the patient would attempt to move his right legwhen instructed to attempt to move his right arm. Right Shoulder Flexion: AROM: 40 PROM: 90 Right Shoulder Extension: AROM: 0 Right Shoulder Abduction: AROM: 0 PROM: 38 Right Shoulder Ext Rotation: AROM: 0 PROM: 27 Right Shoulder Internal Rotation: AROM: 0 PROM: WFL Right Elbow Flexion: AROM: 82 PROM: 140 Right Elbow Extension: AROM: 0 PROM: 21 Right Elbow Pronation: AROM: 0 PROM: WFL Right Elbow Supination: AROM: 0 PROM: 77 Right Wrist Flexion: AROM: 0 PROM: 68 Right Wrist Extension: AROM: 0 PROM: 35 Right Finger Flexion: PROM: WFL Right Finger Extension: PROM: WFL Strength: All strength measurements out of 5 unless otherwise indicated. Right Shoulder Flexion: 2- Right Shoulder Abduction: 2- Right Shoulder Ext Rotation: 2- Right Shoulder Internal Rotation: 2- Right Elbow Flexion: 2- Right Elbow Extension: 2- Right Elbow Pronation: Strength: 1 Right Elbow Supination: 1 Right Wrist Flexion: 1 Right Wrist Extension: 1 Right Finger Flexion: Strength: 1 Right Finger Extension: Strength: 1 Formal repair armature winder/pinch strength testing not completed due to trace movement noted in digits. Treatment ASSESSMENT: Therapy Diagnosis: right hemiplegia Medical Diagnosis: Hemiplegia affecting right dominant side, unspecified etiology, unspecified hemiplegia type (HCC) Shalom Madison is a 49 y.o. patient referred to Occupational Therapy with deficits noted includingimpairments of right UE ROM, right UE strength, coordination, repair armature winder strength, pinch strength, and sensation which contribute to the following areas of functional restriction or limitation: housework, lifting a bag of groceries to waist level, lifting a bag of groceries over head, grooming hair, pushing up on hands, dressing, doing buttons, tying or lacing shoes, and opening a jar. Clinical impression at this time: Patient will benefit from ongoing skilled Occupational Therapy intervention. Patient may benefit from a follow up with additional provider/further imaging on his right shoulder depending on his progress with therapy. Rehab potential: good. Complexities that are a barrier to service: cognitive deficits impacting carryover Preferred Language: Venezuelan All charges entered today are appropriate and separate from each other. PLAN Goals to be achieved by discharge. Patient will demonstrate the following: - Demonstrate independence in home exercise program for PROM and demonstrate understanding and be independent in its performance. (high) - Patient will increase right upper extremity shoulder flexion range of motion by 25 degrees to enable patient to reach into upper kitchen cabinet. - Patient will increase right upper extremity shoulder abduction range of motion by 25 degrees to enable patient to reach into upper kitchen cabinet. - Patient will report pain as a 5/10 or less with functional activities. - Patient will stand X 5 minutes with good activity tolerance unsupported to perform yard work. - Patient will utilize his right hand as a stabilizer during bimanual tasks to increase independence for cooking tasks. - Patient to be evaluated on repair armature winder/pinch/9 hole testing at a later date. Planned Interventions This patient will likely be seen 2x/week for 16 visits from the date of initial evaluation for the following interventions: Therapeutic Exercise (07333) - ROM and strengthening Neuromuscular re-education (09031) Self care/home management training (98433) Therapeutic activity (98509) Instruction in home exercise program Precautions: monitor BP; expressive and receptive aphasia. Treatment may be altered based on patient progression and symptoms. The plan of care, as well as the benefits and risks of therapy were reviewed with the patient and the patient consented to treatment. Thank you for the opportunity to work with this individual. . documented in this encounter Plan of Treatment Upcoming Encounters Date Type Department Care Team (Latest Contact Info) Description 10/07/2024 10:00 AM CDT Physical Therapy [facility] [address], [address] [place] [address] Nelly Godinez, SEASONAL CUSTOMER SERVICE ASSOCIATE [address] [place] [address] Nidhi Priest, PT [place] Discharge Disposition: Discharged to home or Selfcare 10/11/2024 2:30 PM CDT Speech Therapy [facility] [address], [address] [place] [address] Nelly Godinez, SEASONAL CUSTOMER SERVICE ASSOCIATE [address] [place] [address] Evelina Barrientos, MS [facility] [place] Discharge Disposition: Discharged to home or Selfcare 10/12/2024 4:45 PM CDT Occupational Therapy [facility] [address], [address] [place] [address] Nelly Godinez, SEASONAL CUSTOMER SERVICE ASSOCIATE [address] [place] [address] Kyra Castillo, OT [place] Discharge Disposition: Discharged to home or Selfcare 10/14/2024 8:30 AM CDT Occupational Therapy [facility] [address] [place] [address] Nelly Godinez, SEASONAL CUSTOMER SERVICE ASSOCIATE [address] [place] [address] Kyra Castillo, OT [place] 10/18/2024 12:45 PM CDT Occupational Therapy [facility] [address] [place] [address] Nelly Godinez, SEASONAL CUSTOMER SERVICE ASSOCIATE [address] [facility] [place] [address] Kyra Castillo, OT [place] 10/21/2024 1:00 PM CDT Occupational Therapy [facility] [address] [place] [address] Nelly Godinez, SEASONAL CUSTOMER SERVICE ASSOCIATE [address] [facility] [place] [address] Kyra Castillo, OT [place] 10/26/2024 1:00 PM CDT Occupational Therapy [facility] [address] [place] [address] Nelly Godinez, SEASONAL CUSTOMER SERVICE ASSOCIATE [address] [facility] [place] [address] Kyra Castillo, OT [place] 10/28/2024 2:30 PM CDT Occupational Therapy [facility] [address] [place] [address] Nelly Godinez, SEASONAL CUSTOMER SERVICE ASSOCIATE [address] [facility] [place] [address] Kyra Castillo, OT [place] 11/02/2024 1:45 PM CDT Occupational Therapy [facility] [address] [place] [address] Nelly Godinez, SEASONAL CUSTOMER SERVICE ASSOCIATE [address] [facility] [place] [address] Kyra Castillo, OT [place] 11/02/2024 2:30 PM CDT Speech Therapy [facility] [address] [place] [address] Nelly Godinez, SEASONAL CUSTOMER SERVICE ASSOCIATE [address] [facility] [place] [address] Evelina Barrientos, MS [facility] [place] 11/05/2024 1:45 PM CDT Speech Therapy [facility] [address] [place] [address] Nelly Godinez, SEASONAL CUSTOMER SERVICE ASSOCIATE [address] [facility] [place] [address] Evelina Barrientos, MS [facility]-CHURCH SECRETARY [place] 11/05/2024 2:30 PM CDT Occupational Therapy [facility] [address], [address] [place] [address] Nelly Godinez, SEASONAL CUSTOMER SERVICE ASSOCIATE [address] [place] [address] Kyra Castillo, OT [place] 11/08/2024 12:45 PM CDT Occupational Therapy [facility] [address] [place] [address] Nelly Godinez, SEASONAL CUSTOMER SERVICE ASSOCIATE [address] [place] [address] Kyra Castillo, OT [place] 11/08/2024 1:45 PM CDT Speech Therapy [facility] [address], [address] [place] [address] Nelly Godinez, SEASONAL CUSTOMER SERVICE ASSOCIATE [address] [place] [address] Evelina Barrientos, MS CCC-CHURCH SECRETARY [place] 11/11/2024 1:00 PM CDT Occupational Therapy [facility] [address], [address] [place] [address] Nelly Godinez, SEASONAL CUSTOMER SERVICE ASSOCIATE [address] [place] [address] Katie Castillosa, OT [place] 11/15/2024 12:45 PM CDT Occupational Therapy [facility] [address] [place] [address] Nelly Godinez, SEASONAL CUSTOMER SERVICE ASSOCIATE [address] [place] [address] Kyra Castillo, OT [place] 11/15/2024 1:45 PM CDT Speech Therapy [facility] [address] [place] [address] Nelly Godinez, SEASONAL CUSTOMER SERVICE ASSOCIATE [address] [place] [address] Evelina Barrientos, MS [facility]-CHUR[facility] SECRETARY [place] 11/19/2024 1:00 PM CDT Speech Therapy [facility] [address], [address] [place] [address] Nelly Godinez, SEASONAL CUSTOMER SERVICE ASSOCIATE [address] [place] [address] Evelina Barrientos, MS CCC-[facility] SECRETARY [place] 11/22/2024 12:45 PM CDT Occupational Therapy [facility] [address] [place] [address] Nelly Godinez, SEASONAL CUSTOMER SERVICE ASSOCIATE [address] [place] [address] Kyra Castillo, OT [place] 11/22/2024 1:45 PM CDT Speech Therapy [facility] [address] [place] [address] Nelly Godinez, SEASONAL CUSTOMER SERVICE ASSOCIATE [address] [place] [address] Evelina Barrientos, MS [facility]-CHUR[facility] SECRETARY [place] 11/26/2024 1:00 PM CDT Speech Therapy [facility] [address] [place] [address] Nelly Godinez, SEASONAL CUSTOMER SERVICE ASSOCIATE [address] [facility] [place] [address] Evelina Barrientos, MS CCC-[facility] SECRETARY [place] 11/26/2024 1:45 PM CDT Occupational Therapy [facility] [address] [place] [address] Nelly Godinez, SEASONAL CUSTOMER SERVICE ASSOCIATE [address] [place] [address] Kyra Castillo, OT [place] 11/30/2024 1:00 PM CDT Speech Therapy [facility] [address] [facility], [address] [place] [address] Nelly Godinez, SEASONAL CUSTOMER SERVICE ASSOCIATE [address] [facility] [place] [address] Evelina Barrientos, MS [facility] SECR[facility]ARY [place] 11/30/2024 1:45 PM CDT Occupational Therapy [facility] [address] [facility], [address] [place] [address] Nelly Godinez, SEASONAL CUSTOMER SERVICE ASSOCIATE [address] [facility] [place] [address] Anna, Kyra, OT [place] 12/03/2024 1:00 PM CDT Speech Therapy [facility] [address] [place] [address] Nelly Godinez, SEASONAL CUSTOMER SERVICE ASSOCIATE [address] [facility] [address] Evelina Barrientos, MS CCC-[facility]UR[facility] SECRETARY [place] 12/03/2024 1:45 PM CDT Occupational Therapy [facility] [address] [place] [address] Nelly Godinez, SEASONAL CUSTOMER SERVICE ASSOCIATE [address] [place] [address] Kyra Castillo, OT [place] 12/06/2024 12:45 PM CDT Occupational Therapy [facility] [address] [place] [address] Nelly Godinez, SEASONAL CUSTOMER SERVICE ASSOCIATE [address] [place] [address] Kyra Castillo, OT [place] 12/06/2024 1:45 PM CDT Speech Therapy [facility] [address] [place] [address] Nelly Godinez, SEASONAL CUSTOMER SERVICE ASSOCIATE [address] [place] [address] Evelina Barrientos, MS [facility] SECRETARY [place] documented as of this encounter Visit Diagnoses Diagnosis Hemiplegia affecting right dominant side, unspecified etiology, unspecified hemiplegia type (HCC) documented in this encounter Care Teams Interventional Tech Relationship Specialty Start Date End Date Nelly Godinez APRN [address] [place] [address] PCP - General Advanced Practice Nurse 08/25/24 documented as of this encounter
== END 2024-10-06 15:43 | disposition home or self-care (01) ==
PROVIDERS: PCP Nurse Practitioner Adult Health; Visit Provider Nurse Practitioner Adult Health
DX: M19.011 Primary osteoarthritis, right shoulder (principal); M75.50 Bursitis of unspecified shoulder
CPT/HCPCS: 73030

== ENCOUNTER 2024-10-27 08:51 | Outpatient (CLI) | payer OTHER, MEDICAID, SELFPAY ==
--- NOTE | ~2024-10-27 | US_ITS ---
EXAMINATION: US arterial duplex LE RT DATE: 10/27/2024 09:40 INDICATION: hemiplegia TECHNIQUE: Grayscale ultrasound images without and with compression and Doppler ultrasound images of the bilateral lower extremity veins were obtained. COMPARISON: None. FINDINGS: Peak systolic velocity (cm/sec) ; waveform Right lower extremity Common femoral artery: 115; triphasic Profunda femoral artery: 77; biphasic Superficial femoral artery: 91; biphasic Popliteal artery: 63; biphasic Anterior tibial artery: 59; biphasic Posterior tibial artery: 95; biphasic Peroneal artery: 79; biphasic Dorsalis pedis: 75; biphasic IMPRESSION: No significant peripheral vascular disease detected within the right lower extremity, as detailed abo ve. Reviewed, dictated and finalized at location A. IMPRESSION: No significant peripheral vascular disease detected within the right lower extr emity, as detailed above.
--- OUTSIDE RECORDS SUMMARY | 2024-10-27 09:03 | XMS_ITS | Encounter Summary ---
Author Organization [facility] Healthcare Address [address] [place] [address] Care Team Providers Care Lieutenant Governor Name Role Phone Nelly Godinez NP Primary Care Provider [phone] Encounter Details Date Type Department Care Team (Latest Contact Info) Description 10/25/2024 12:39 PM CDT - 10/25/2024 11:59 PM CDT Hospital Encounter [facility] [address] [place] [address] Arrived Discharge Disposition: Discharge to home or self care Social History Tobacco Use Types Packs/Day Years [...] on file 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 Gender Identity Not on file Sexual Orientation Not on file documented as of this encounter Medications at Time of Discharge acetaminophen (TYLENOL) 325 mg tabletIndications:Fe bear,Pain Take 2 tablets (650 mg total) by mouth every 4 (four) hours as needed for pain 09/30/2024 amLODIPine (NORVASC) 5 mg tablet Take 1 tablet (5 mg total) by mouth daily aspirin 325 mg enteric coated tablet Take 1 tablet (325 mg total) by mouth daily 30 tablet 1 10/01/2024 atorvastatin (LIPITOR) 80 mg tablet Take 1 tablet (80 mg total) by mouth daily omeprazole (PriLOSEC) 40 mg capsule Take 1 capsule (40 mg total) by mouth 2 (two) times a day ondansetron ODT (ZOFRAN-ODT) 4 mg disintegrating tablet Dissolve 1 tablet oral every 4 hours as needed for nausea or vomiting. 15 tablet 11/30/2019 documented as of this encounter Discharge Disposition Disposition Code Departure Means Destination Discharge to home or self care documented in this encounter Plan of Treatment Not on file documented as of this encounter Procedures Procedure Name Priority Date/Time Associated Diagnosis Comments US TRANSFER OF OUTSIDE FILMS Routine 10/25/2024 12:39 PM CDT documented in this encounter Results * US Outside Reference (10/25/2024 12:39 PM CDT) Impressions [facility] - 10/25/2024 12:39 PM CDT These images are for Reference purposes only and have not been reviewed by [facility]iology. There will be no report generated by a [facility] Radiologist. Narrative [facility] - 10/25/2024 12:39 PM CDT EXAMINATION: Images For Reference Purposes Only us Jarod Jacobson MD IMG US PROCEDURES Final Re sult [facility] documented in this encounter Visit Diagnoses Not on filedocumented in this encounter Care Teams Lieutenant Governor Relationship Specialty Start Date End Date Nelly Godinez NP [facility] [place] [address] PCP - General Nurse Practitioner 09/26/24 documented as of this encounter
--- OUTSIDE RECORDS SUMMARY | 2024-10-27 09:03 | XMS_ITS | Encounter Summary ---
Author Organization [facility] Healthcare Address [address] [place] [address] Care Team Providers Care Mathematics Professor Name Role Phone Nelly Godinez NP Primary Care Provider [phone] Reason for Referral * MRI/CAT/PET Scan (Routine) - Closed Specialty Diagnoses / Procedures Referred By Kb kyle Referred To Contact Procedures Neuro CT Outside Reference Jarod Jacobson MD [address] [address] Phone: tel: fax: Referral ID Status Reason Start Date Expiration Date Visits Re quested Visits Authorized [id number] Closed 10/25/2024 11/24/2025 1 1 Reason for Visit * MRI/CAT/PET Scan (Routine) - Closed Specialty Diagnoses / Procedures Referred By Kb kyle Referred To Contact Procedures Neuro CT Outside Reference Jarod Jacobson MD [address] [address] Phone: tel: fax: Referral ID Status Reason Start Date Expiration Date Visits Re quested Visits Authorized [id number] Closed 10/25/2024 11/24/2025 1 1 Encounter Details Date Type Department Care Team (Latest Contact Info) Description 10/25/2024 12:41 PM CDT - 10/25/2024 11:59 PM CDT Hospital Encounter [facility] [address] [place] [address] Arrived Discharge Disposition: Discharge to home or [...] on file 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 There will be no report generated by a [facility] Radiologist. Narrative [facility] - 10/25/2024 12:41 PM CDT EXAMINATION: Images For Reference Purposes Only us Jarod Jacobson MD IMG CT PROCEDURES Final Re sult [facility] documented in this encounter Visit Diagnoses Not on filedocumented in this encounter Care Teams Mathematics Professor Relationship Specialty Start Date End Date Nelly Godinez NP [address] [place] [address] [place] [address] PCP - General Nurse Practitioner 09/26/24 documented as of this encounter
--- OUTSIDE RECORDS SUMMARY | 2024-10-27 09:03 | XMS_ITS | Encounter Summary ---
Author Organization [facility] Address [address] [place] [address] Phone Care Team Providers Care Brand Marketing Manager Name Role Phone Nelly Godinez APRN Primary Care Provider [phone] Reason for Referral * PT/OT/ST (Routine) - Authorized Specialty Diagnoses / Procedures Referred By Kb kyle Referred To Contact Speech Therapy Diagnoses Hemiplegia affecting right dominant side, unspecified etiology, unspecified hemiplegia type (HCC) Personal history of transient ischemic attack (TIA), and cerebral infarction without residual deficits Nelly Godinez APRN [address] [place] [address] Phone: tel: fax: [facility] at [address] [address] Phone: tel: fax: Referral ID Status Reason Start Date Expiration Date V isits Requested Visits Authorized [id number] Authorized 09/22/2024 100 30 Scheduling Instructions * PT/OT/ST (Routine) - Authorized Specialty Diagnoses / Procedures Referred By Kb kyle Referred To Contact Physical Therapy Diagnoses Hemiplegia affecting right dominant side, unspecified etiology, unspecified hemiplegia type (HCC) Personal history of transient ischemic attack (TIA), and cerebral infarction without residual deficits Nelly Godinez APRN [address] [place] [address] Phone: tel: fax: [facility] [address] [facility], [address] [address] Phone: tel: fax: Referral ID Status Reason Start Date Expiration Date V isits Requested Visits Authorized [id number] Authorized 09/22/2024 100 20 Scheduling Instructions * PT/OT/ST (Routine) - Authorized Specialty Diagnoses / Procedures Referred By Contolga t Referred To Contact Occupational Therapy Diagnoses Hemiplegia affecting right dominant side, unspecified etiology, unspecified hemiplegia type (HCC) Nelly Godinez APRN [address] [place] [address] Phone: tel: fax: [facility] [address] [facility], [address] [address] Phone: tel: fax: Referral ID Status Reason Start Date Expiration Date V isits Requested Visits Authorized [id number] Authorized 09/22/2024 100 20 Scheduling Instructions Encounter Details Date Type Department Care Team (Latest Contact Info) Description 09/22/2024 Transcribe Orders [facility] [address] [place] [address] Nelly Godinez APRN [address] [place] [address] Hemiplegia affecting right dominant side, unspecified etiology, [...] Upcoming Encounters Date Type Department Care Team (Late st Contact Info) Description 10/28/2024 2:30 PM CDT Occupational Therapy [facility] [address] [facility], [address] [place] [address] Nelly Godinez PAD EXTRACTOR TENDER [address] [place] [address] Kyra Castillo OT [place] 10/29/2024 8:45 AM CDT Physical Therapy [facility] [address], [address] [place] [address] Nelly Godinez PAD EXTRACTOR TENDER [address] [place] [address] Nidhi Priest, PT [place] 11/02/2024 11:30 AM CDT Physical Therapy [facility] [address], [address] [place] [address] Nelly Godinez PAD EXTRACTOR TENDER [address] [place] [address] Nidhi Priest, PT [place] 11/02/2024 1:45 PM CDT Occupational Therapy [facility] [address], [address] [place] [address] Nelly Godinez PAD EXTRACTOR TENDER [address] [place] [address] Kyra Castillo, OT [place] 11/02/2024 2:30 PM CDT Speech Therapy [facility] [address], [address] [place] [address] Nelly Godinez, PAD EXTRACTOR TENDER [address] [place] [address] Evelina Barrientos, MS CCC-BEHAVIORAL HEALTH WORKER [place] 11/05/2024 1:00 PM CDT Physical Therapy [facility] [address], [address] [place] [address] Nelly Godinez, PAD EXTRACTOR TENDER [address] [place] [address] Nidhi Priest, PT [place] 11/05/2024 1:45 PM CDT Speech Therapy [facility] [address], [address] [place] [address] Nelly Godinez, PAD EXTRACTOR TENDER [address] [place] [address] Evelina Barrientos, MS CCC-BEHAVIORAL HEALTH WORKER [place] 11/05/2024 2:30 PM CDT Occupational Therapy [facility] [address], [address] [place] [address] Nelly Godinez, PAD EXTRACTOR TENDER [address] [place] [address] Kyra Castillo, OT [place] 11/08/2024 12:45 PM CDT Occupational Therapy [facility] [address], [address] [place] [address] Nelly Godinez, PAD EXTRACTOR TENDER [address] [place] [address] Kyra Castillo, OT [place] 11/08/2024 1:45 PM CDT Speech Therapy [facility] [address], [address] [place] [address] Nelly Godinez, PAD EXTRACTOR TENDER [address] [place] [address] Evelina Barrientos, MS [facility]-BEHAVIORAL HEALTH WORKER [place] 11/11/2024 1:00 PM CDT Occupational Therapy [facility] [address], [address] [place] [address] Nelly Godinez, PAD EXTRACTOR TENDER [address] [place] [address] Kyra Castillo, OT [place] 11/11/2024 1:45 PM CDT Physical Therapy [facility] [address], [address] [place] [address] Nelly Godinez, PAD EXTRACTOR TENDER [address] [place] [address] Adalberto Kwan PTA [place] 11/15/2024 12:45 PM CDT Occupational Therapy [facility] [address], [address] [place] [address] Nelly Godinez, PAD EXTRACTOR TENDER [address] [place] [address] Kyra Castillo, OT [place] 11/15/2024 1:45 PM CDT Speech Therapy [facility] [address] [facility], [address] [place] [address] Nelly Godinez, PAD EXTRACTOR TENDER [address] [facility] [place] [address] Evelina Barrientos, MS CCC-BEHAVIORAL HEALTH WORKER [place] 11/15/2024 2:45 PM CDT Physical Therapy [facility] [address], [address] [place] [address] Nelly Godinez, PAD EXTRACTOR TENDER [address] [facility] [place] [address] Adalberto Kwan PTA [place] 11/19/2024 1:00 PM CDT Speech Therapy [facility] [address] [facility], [address] [place] [address] Nelly Godinez, PAD EXTRACTOR TENDER [address] [place] [address] Evelina Barrientos, MS CCC-BEHAVIORAL HEALTH WORKER [place] 11/19/2024 1:45 PM CDT Physical Therapy [facility] [address] [facility], [address] [place] [address] Nelly Godinez, PAD EXTRACTOR TENDER [address] [facility] [place] [address] Nidhi Priest PT [place] 11/22/2024 12:45 PM CDT Occupational Therapy [facility] [address], [address] [place] [address] Nelly Godinez, PAD EXTRACTOR TENDER [address] [facility] [place] [address] Kyra Castillo, OT [place] 11/22/2024 1:45 PM CDT Speech Therapy [facility] [address], [address] [place] [address] Nelly Godinez, PAD EXTRACTOR TENDER [address] [place] [address] Evelina Barrientos, MS CCC-BEHAVIORAL HEALTH WORKER [place] 11/22/2024 2:45 PM CDT Physical Therapy [facility] [address], [address] [place] [address] Nelly Godinez, PAD EXTRACTOR TENDER [address] [place] [address] Adalberto Kwan, SURVEY ENGINEER [place] 11/26/2024 1:00 PM CDT Speech Therapy [facility] [address], [address] [place] [address] Nelly Godinez, PAD EXTRACTOR TENDER [address] [place] [address] Evelina Barrientos, MS CCC-BEHAVIORAL HEALTH WORKER [place] 11/26/2024 1:45 PM CDT Occupational Therapy [facility] [address], [address] [place] [address] Nelly Godinez, PAD EXTRACTOR TENDER [address] [place] [address] Kyra Castillo, OT [place] 11/26/2024 2:30 PM CDT Physical Therapy [facility] [address], [address] [place] [address] Nelly Godinez, PAD EXTRACTOR TENDER [address] [place] [address] Nidhi Priest, PT [place] 11/30/2024 1:00 PM CDT Speech Therapy [facility] [address], [address] [place] [address] Nelly Godinez, PAD EXTRACTOR TENDER [address] [place] [address] Evelina Barrientos, MS CCC-BEHAVIORAL HEALTH WORKER [place] 11/30/2024 1:45 PM CDT Occupational Therapy [facility] [address], [address] [place] [address] Nelly Godinez, PAD EXTRACTOR TENDER [address] [place] [address] Kyra Castillo OT [place] 11/30/2024 2:30 PM CDT Physical Therapy [facility] [address], [address] [place] [address] Nelly Godinez, PAD EXTRACTOR TENDER [address] [place] [address] Adalberto Kwan PTA [place] 12/03/2024 1:00 PM CDT Speech Therapy [facility] [address], [address] [place] [address] Nelly Godinez, PAD EXTRACTOR TENDER [address] [place] [address] Evelina Barrientos, MS CCC-BEHAVIORAL HEALTH WORKER [place] 12/03/2024 1:45 PM CDT Occupational Therapy [facility] [address], [address] [place] [address] Nelly Godinez, PAD EXTRACTOR TENDER [address] [facility] [place] [address] Kyra Castillo, OT [place] 12/03/2024 2:30 PM CDT Physical Therapy [facility] [address] [facility], [address] [place] [address] Nelly Godinez, PAD EXTRACTOR TENDER [address] [place] [address] Nidhi Priest, PT [place] 12/06/2024 12:45 PM CDT Occupational Therapy [facility] [address], [address] [place] [address] Nelly Godinez, PAD EXTRACTOR TENDER [address] [place] [address] Anna, Kyra, OT [place] 12/06/2024 1:45 PM CDT Speech Therapy [facility] [address] [facility], [address] [place] [address] Nelly Godinez, PAD EXTRACTOR TENDER [address] [place] [address] Evelina Barrientos, MS [facility]-BEHAVIORAL HEALTH WORKER [place] 12/06/2024 2:45 PM CDT Physical Therapy [facility] [address] [facility], [address] [place] [address] Nelly Godinez, PAD EXTRACTOR TENDER [address] [place] [address] Nidhi Priest, PT [place] 12/09/2024 1:15 PM CDT Physical Therapy [facility] [address], [address] [place] [address] Nelly Godinez APRN [address] [place] [address] Nidhi Priest, PT [place] Scheduled Referrals Name Type Priority Associated Diagnoses [...] deficits documented in this encounter Care Teams Brand Marketing Manager Relationship Specialty Start Date End Date Nelly Godinez APRN [address] [place] [address] PCP - General Advanced Practice Nurse 08/25/24 documented as of this encounter
--- OUTSIDE RECORDS SUMMARY | 2024-10-27 09:03 | XMS_ITS | Encounter Summary ---
Author Organization [facility] Healthcare Address [address] [place] [address] Care Team Providers Care Military Communications Specialist Name Role Phone Nelly Godinez NP Primary Care Provider [phone] Reason for Referral * MRI/CAT/PET Scan (Routine) - Closed Specialty Diagnoses / Procedures Referred By Kb kyle Referred To Contact Procedures Neuro CT Outside Reference Jarod Jacobson MD [address] [address] Phone: tel: fax: Referral ID Status Reason Start Date Expiration Date Visits Re quested Visits Authorized [id number] Closed 10/25/2024 11/24/2025 1 1 Reason for Visit * MRI/CAT/PET Scan (Routine) - Closed Specialty Diagnoses / Procedures Referred By Kb kyle Referred To Contact Procedures Neuro CT Outside Reference Jarod Jacobson MD [address] [address] Phone: tel: fax: Referral ID Status Reason Start Date Expiration Date Visits Re quested Visits Authorized [id number] Closed 10/25/2024 11/24/2025 1 1 Encounter Details Date Type Department Care Team (Latest Contact Info) Description 10/25/2024 12:39 PM CDT - 10/25/2024 11:59 PM CDT Hospital Encounter [facility] [address] [place] [address] Arrived Discharge Disposition: Discharge to home or [...] on file 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 There will be no report generated by a [facility] Radiologist. Narrative RAD_PACS_[facility] - 10/25/2024 12:39 PM CDT EXAMINATION: Images For Reference Purposes Only us Jarod Jacobson MD IMG CT PROCEDURES Final Re sult [facility] documented in this encounter Visit Diagnoses Not on filedocumented in this encounter Care Teams Military Communications Specialist Relationship Specialty Start Date End Date Nelly Godniez NP [address] [place] [address] [place] [address] PCP - General Nurse Practitioner 09/26/24 documented as of this encounter
--- OUTSIDE RECORDS SUMMARY | 2024-10-27 09:03 | XMS_ITS | Encounter Summary ---
Author Organization [facility] Healthcare Address [address] [place] [address] Care Team Providers Care Fixed Wing Aircraft Flight Engineer Name Role Phone Nelly Godinez NP Primary Care Provider Reason for Referral * MRI/CAT/PET Scan (Routine) - Closed Specialty Diagnoses / Procedures Referred By Kb kyle Referred To Contact Procedures Neuro CT Outside Reference Jarod Jacobson MD [address] [place] [id number] Phone: tel: fax: Referral ID Status Reason Start Date Expiration Date Visits Re quested Visits Authorized [id number] Closed 10/25/2024 11/24/2025 1 1 Reason for Visit * MRI/CAT/PET Scan (Routine) - Closed Specialty Diagnoses / Procedures Referred By Kb kyle Referred To Contact Procedures Neuro CT Outside Reference Jarod Jacobson MD [address] [address] Phone: tel: fax: Referral ID Status Reason Start Date Expiration Date Visits Re quested Visits Authorized [id number] Closed 10/25/2024 11/24/2025 1 1 Encounter Details Date Type Department Care Team (Latest Contact Info) Description 10/25/2024 12:43 PM CDT - 10/25/2024 11:59 PM CDT Hospital Encounter [facility] [address] [place] [address] Arrived Discharge Disposition: Discharge to home or [...] on file 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 There will be no report generated by a [facility] Radiologist. Narrative RAD_PACS_[facility] - 10/25/2024 12:43 PM CDT EXAMINATION: Images For Reference Purposes Only us Jarod Jacobson MD IMG CT PROCEDURES Final Re sult [facility] documented in this encounter Visit Diagnoses Not on filedocumented in this encounter Care Teams Fixed Wing Aircraft Flight Engineer Relationship Specialty Start Date End Date Nelly Godinez NP [address] [place] [address] [place] [address] PCP - General Nurse Practitioner 09/26/24 documented as of this encounter
--- OUTSIDE RECORDS SUMMARY | 2024-10-27 09:03 | XMS_ITS | Encounter Summary ---
Author Organization [facility] Healthcare Address [address] [place] [address] Care Team Providers Care Tie Maker Name Role Phone Nelly Godinez NP Primary Care Provider [phone] Reason for Referral * MRI/CAT/PET Scan (Routine) - Closed Specialty Diagnoses / Procedures Referred By Kb kyle Referred To Contact Procedures Neuro CT Outside Reference Jarod Jacobson MD [address] [address] Phone: tel: fax: Referral ID Status Reason Start Date Expiration Date Visits Re quested Visits Authorized [id number] Closed 10/25/2024 11/24/2025 1 1 Reason for Visit * MRI/CAT/PET Scan (Routine) - Closed Specialty Diagnoses / Procedures Referred By Kb kyle Referred To Contact Procedures Neuro CT Outside Reference Jarod Jacobson MD [address] [address] Phone: tel: fax: Referral ID Status Reason Start Date Expiration Date Visits Re quested Visits Authorized [id number] Closed 10/25/2024 11/24/2025 1 1 Encounter Details Date Type Department Care Team (Latest Contact Info) Description 10/25/2024 12:42 PM CDT - 10/25/2024 11:59 PM CDT Hospital Encounter [facility] [address] [place] [address] Arrived Discharge Disposition: Discharge to home or [...] on file 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 There will be no report generated by a [facility] Radiologist. Narrative RAD_PACS_[facility] - 10/25/2024 12:42 PM CDT EXAMINATION: Images For Reference Purposes Only us Jarod Jacobson MD IMG CT PROCEDURES Final Re sult [facility] documented in this encounter Visit Diagnoses Not on filedocumented in this encounter Care Teams Tie Maker Relationship Specialty Start Date End Date Nelly Godinez NP [address] [place] [address] [place] [address] PCP - General Nurse Practitioner 09/26/24 documented as of this encounter
--- OUTSIDE RECORDS SUMMARY | 2024-10-27 09:03 | XMS_ITS | Encounter Summary ---
Author Organization [facility] Healthcare Address [address] [place] [address] Care Team Providers Care Youth Program Director Name Role Phone Nelly Godinez NP Primary Care Provider [phone] Reason for Referral * MRI/CAT/PET Scan (Routine) - Closed Specialty Diagnoses / Procedures Referred By Kb kyle Referred To Contact Procedures Neuro CT Outside Reference Jarod Jacobson MD [address] [address] Phone: tel: fax: Referral ID Status Reason Start Date Expiration Date Visits Re quested Visits Authorized [id number] Closed 10/25/2024 11/24/2025 1 1 Reason for Visit * MRI/CAT/PET Scan (Routine) - Closed Specialty Diagnoses / Procedures Referred By Kb kyle Referred To Contact Procedures Neuro CT Outside Reference Jarod Jacobson MD [address] [address] Phone: tel: fax: Referral ID Status Reason Start Date Expiration Date Visits Re quested Visits Authorized [id number] Closed 10/25/2024 11/24/2025 1 1 Encounter Details Date Type Department Care Team (Latest Contact Info) Description 10/25/2024 12:42 PM CDT - 10/25/2024 11:59 PM CDT Hospital Encounter [facility] [address] [place] [address] Arrived Discharge Disposition: Discharge to home or [...] on file 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 Narrative RAD_PACS[facility] - 10/25/2024 12:42 PM CDT EXAMINATION: Images For Reference Purposes Only us Jarod Jacobson MD IMG CT PROCEDURES Final Re sult [facility] documented in this encounter Visit Diagnoses Not on filedocumented in this encounter Care Teams Youth Program Director Relationship Specialty Start Date End Date Nelly Godinez NP [address] [place] [address] [place] [address] PCP - General Nurse Practitioner 09/26/24 documented as of this encounter
--- OUTSIDE RECORDS SUMMARY | 2024-10-27 09:03 | XMS_ITS | Encounter Summary ---
Author Organization [facility] Healthcare Address [address] [place] [address] Care Team Providers Care Rpg Developer Name Role Phone Nelly Godinez NP Primary Care Provider [phone] Reason for Referral * MRI/CAT/PET Scan (Routine) - Closed Specialty Diagnoses / Procedures Referred By Kb kyle Referred To Contact Procedures Neuro CT Outside Reference Jarod Jacobson MD [address] [address] Phone: tel: fax: Referral ID Status Reason Start Date Expiration Date Visits Re quested Visits Authorized [id number] Closed 10/25/2024 11/24/2025 1 1 Reason for Visit * MRI/CAT/PET Scan (Routine) - Closed Specialty Diagnoses / Procedures Referred By Kb kyle Referred To Contact Procedures Neuro CT Outside Reference Jarod Jacobson MD [address] [address] Phone: tel: fax: Referral ID Status Reason Start Date Expiration Date Visits Re quested Visits Authorized [id number] Closed 10/25/2024 11/24/2025 1 1 Encounter Details Date Type Department Care Team (Latest Contact Info) Description 10/25/2024 12:40 PM CDT - 10/25/2024 11:59 PM CDT Hospital Encounter [facility] [address] [place] [address] Arrived Discharge Disposition: Discharge to home or [...] on file 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 There will be no report generated by a [facility] Radiologist. Narrative RAD_PACS_[facility] - 10/25/2024 12:40 PM CDT EXAMINATION: Images For Reference Purposes Only us Jarod Jacobson MD IMG CT PROCEDURES Final Re sult [facility] documented in this encounter Visit Diagnoses Not on filedocumented in this encounter Care Teams Rpg Developer Relationship Specialty Start Date End Date Nelly Godinez NP [address] [place] [address] [place] [address] PCP - General Nurse Practitioner 09/26/24 documented as of this encounter
--- OUTSIDE RECORDS SUMMARY | 2024-10-27 09:03 | XMS_ITS | Encounter Summary ---
Author Organization [facility] Healthcare Address [address] [place] [id number] Care Team Providers Care Brim Ironer Hand Name Role Phone Nelly Godinez NP Primary Care Provider [phone] Reason for Referral * MRI/CAT/PET Scan (Routine) - Closed Specialty Diagnoses / Procedures Referred By Kb kyle Referred To Contact Procedures Neuro MR Outside Reference Jarod Jacobson MD [address] [address] Phone: tel: fax: Referral ID Status Reason Start Date Expiration Date Visits Re quested Visits Authorized [id number] Closed 10/25/2024 11/24/2025 1 1 Reason for Visit * MRI/CAT/PET Scan (Routine) - Closed Specialty Diagnoses / Procedures Referred By Kb kyle Referred To Contact Procedures Neuro MR Outside Reference Jarod Jacobson MD [address] [address] Phone: tel: fax: Referral ID Status Reason Start Date Expiration Date Visits Re quested Visits Authorized [id number] Closed 10/25/2024 11/24/2025 1 1 Encounter Details Date Type Department Care Team (Latest Contact Info) Description 10/25/2024 12:41 PM CDT - 10/25/2024 11:59 PM CDT Hospital Encounter [facility] [address] [place] [address] Arrived Discharge Disposition: Discharge to home or [...] on file Legal Sex Male 4:24 PM [employer] Gender Identity Not on file Sexual Orientation [...] Name Priority Date/Time Associated Diagnosis Comments NEURO MR OUTSIDE REFERENCE Routine 10/25/2024 12:41 PM CDT documented in this encounter Results * Neuro MR Outside Reference (10/25/2024 12:41 PM CDT) Impressions [facility] - 10/25/2024 12:41 PM CDT These images are for Reference purposes only and have not been reviewed by [facility]. There will be no report generated by a [facility] Radiologist. Narrative [facility] - 10/25/2024 12:41 PM CDT EXAMINATION: Images For Reference Purposes Only us Jarod Jacobson MD IMG MRI PROCEDURES Final R esult [facility] documented in this encounter Visit Diagnoses Not on filedocumented in this encounter Care Teams Brim Ironer Hand Relationship Specialty Start Date End Date Nelly Godinez NP [address] [place] [address] [place] [address] PCP - General Nurse Practitioner 09/26/24 documented as of this encounter
--- OUTSIDE RECORDS SUMMARY | 2024-10-27 09:04 | XMS_ITS | Clinical Summary ---
Author Organization [facility] Address [address] [place] [address] Care Team Providers Care Technical Illustrations Map Inker Name Role Phone Nelly Godinez NP Primary Care Provider [phone] Allergies Active Allergy Reactions Criticality Noted Date Comments Lactose Stomach upset,Nausea only Low 07/25/2024 Macadamia Nut Stomach upset Low 07/25/2024 Milk Stomach upset Low 07/25/2024 All dairy products Rice Stomach upset Low 07/25/2024 Sesame Oil Stomach upset Low 07/25/2024 Medications ondansetron ODT (ZOFRAN-ODT) 4 mg disintegrating [...] Active Problems Problem Noted Date Diagnosed Date Mixed hyperlipidemia 10/27/2024 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 09/25/2024 Stenosis of left carotid artery 09/25/2024 Dyslipidemia 09/07/2024 Essential hypertension 09/07/2024 Right hemiplegia 08/17/2024 Spastic hemiparesis of right dominant side 08/17 Cognitive communication deficit 08/04/2024 Cerebral edema 07/27/2024 Midline shift of brain 07/27/2024 Polysubstance abuse 07/27/2024 Wrist drop 01/17/2015 Overview (07/05/2016): Wristdrop Encounters Date Type Department Care Team Description 10/25/2024 12:43 PM CDT - 10/25/2024 11:59 PM CDT Hospital Encounter [facility] [address] [place] [address] Arrived Discharge Disposition: Discharge to home or self care 10/25/2024 12:42 PM CDT - 10/25/2024 11:59 PM CDT Hospital Encounter [facility] ([facility]) [address] [place] [address] Arrived Discharge Disposition: Discharge to home or self care 10/25/2024 12:42 PM CDT - 10/25/2024 11:59 PM CDT Hospital Encounter [facility]) [address] [place] [address] Arrived Discharge Disposition: Discharge to home or self care 10/25/2024 12:41 PM CDT - 10/25/2024 11:59 PM CDT Hospital Encounter [facility] ([facility]) [address] [place] [address] Arrived Discharge Disposition: Discharge to home or self care 10/25/2024 12:41 PM CDT - 10/25/2024 11:59 PM CDT Hospital Encounter [facility] ([facility]) [address] [place] [address] Arrived Discharge Disposition: Discharge to home or self care 10/25/2024 12:40 PM CDT - 10/25/2024 11:59 PM CDT Hospital Encounter [facility] [address] [place] [address] Arrived Discharge Disposition: Discharge to home or self care 10/25/2024 12:39 PM CDT - 10/25/2024 11:59 PM CDT Hospital Encounter [facility] [address] [place] [address] Arrived Discharge Disposition: Discharge to home or self care 10/25/2024 12:39 PM CDT - 10/25/2024 11:59 PM CDT Hospital Encounter [facility] ([facility]) [address] [place] [address] Arrived Discharge Disposition: Discharge to home or self care 10/22/2024 10:20 AM CDT Office Visit [facility] Stroke [address] [facility] Advanced [facility] [address] [place] [phone] Dejon Rizo NP Stroke due to stenosis of left middle cerebral artery (HCC) (Primary Dx); Stenosis of left carotid artery; Hospital discharge follow-up; Hyperlipidemia LDL goal <70; Hypertension goal BP (blood pressure) < 130/80; History of tobacco use 10/08/2024 [facility] Post Discharge Follow up phone call [address] [phone] Yosef Bran RN 10/07/2024 [facility] Post Discharge Follow up phone call [address] [phone] Yosef Bran RN 09/30/2024 Telephone [facility] Neurosurgery [address] [facility] 6th [place] [address] [place] [phone] Claudia Walters RN 09/29/2024 8:33 AM CDT Anesthesia Event [facility] Operating Room [address] [place] [address] Howard Garay MD PhD Irene Manriquez NP 09/29/2024 8:30 AM CDT - 09/29/2024 1:15 PM CDT Surgery [facility] Operating Room [address] [place] [address] Joey Hodges MD Endarterectomy - Carotid 09/29/2024 Orders Only [address] [phone] Joey Hodges MD 09/25/2024 7:35 PM CDT - 09/30/2024 4:19 PM CDT Hospital Encounter [address] [phone] Chelsea Hawkins MD Stenosis of left carotid artery (Primary Dx); Stroke due to stenosis of left middle cerebral artery (HCC) Discharge Disposition: Discharge to home or self care 09/25/2024 6:53 PM CDT - 09/25/2024 11:59 PM CDT Hospital Encounter [facility] Emergency, Room R Discharge Disposition: Discharge to home or self care 09/25/2024 2:16 PM CDT - 09/25/2024 6:51 PM CDT Emergency [facility] Emergency Department [address] [place] [address] Dominique Fischer MD Stroke, hemorrhagic (HCC) (Primary Dx) Discharge Disposition: Discharge to a critical access hospital 09/07/2024 3:40 PM CDT [facility] [address] [place] [address] 09/01/2024 Telephone [facility] Home Care Services [address] [facility] [address] [place] [address] Apryl Spence from Last 3 Months Surgical History Surgery Date Site/Laterality Comments THROMBECTOMY 06/29/2024 - 07/28/2024 IR THROMBECTOMY/THROMBOLYSIS INTRACRANIAL ARTERIAL 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 09/27/2024 Right Medical History Medical History Date Comments Calculus of kidney Kidney stones Hx Other Medical Colitice Gastroesophageal reflux disease GERD Family History Medical History Relation Name Comments Cancer Other Family history of Cancer; Anesthesia problems Neg Hx Relation Name Status Comments Other Social History Tobacco Use Types Packs/Day Years Used Date Smoking Tobacco: Every Day Tobacco Cessation:Ready to Q uit: Not Asked; Counseling Given: Not Answered Alcohol Use Standard Drinks/Week Comments Yes 0 [...] on file Legal Sex Male 4:24 PM [employer] Gender Identity Not on file Sexual Orientation Not on file Obstetrics History Last Filed Vital Signs Vital Sign Reading Time Taken Comments Blood Pressure 132/78 10/22/2024 10:26 AM CDT Pulse 90 09/30/2024 3:00 PM CDT Temperature 36.3 C (97.4 F) 09/30/2024 2:02 PM CDT Respiratory Rate 22 09/30/2024 3:00 PM CDT Oxygen Saturation 94% 09/30/2024 1:00 PM CDT Inhaled Oxygen Concentration - - Weight 75.8 kg (167 lb) 10/22/2024 10:26 AM CDT Height 172.7 cm (5' 8) 10/22/2024 10:26 AM CDT Body Mass Index 25.39 10/22/2024 10:26 AM CDT Plan of Treatment Health Maintenance Due [...] OUTSIDE REFERENCE Routine 10/25/2024 12:[address] OUTSIDE REFERENCE Routine 10/25/2024 12:[address] OUTSIDE REFERENCE Routine 10/25/2024 12:[address] OUTSIDE REFERENCE Routine 10/25/2024 12:41 PM CDT NEURO MR OUTSIDE REFERENCE Routine 10/25/2024 12:[address] OUTSIDE REFERENCE Routine 10/25/2024 12:[address] OUTSIDE REFERENCE Routine 10/25/2024 12:39 PM CDT US TRANSFER OF OUTSIDE FILMS Routine 10/25/2024 12:39 PM CDT EGFR Routine 09/29/2024 9:08 PM CDT BASIC METABOLIC PANEL Routine 09/29/2024 9:08 PM CDT CBC WITHOUT DIFFERENTIAL Routine 09/29/2024 9:08 PM CDT VASCULAR SURGERY PROCEDURE Routine 09/29/2024 12:55 PM CDT Stenosis of left carotid artery SURGICAL PATHOLOGY Routine 09/29/2024 10 :52 AM CDT POC BLOOD GAS AND CHEMISTRIES, ARTERIAL Routine [...] 09/27/2024 9:39 PM CDT 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 There will be no report generated by a [facility] Radiologist. Narrative [facility] - 10/25/2024 12:43 PM CDT EXAMINATION: Images For Reference Purposes Only Jarod Jacobson MD IMG CT PROCEDURES Final Re sult Performing Organization Address [facility] de Phone Number [email or web address] * Neuro CT Outside Reference (10/25/2024 12:42 PM CDT) Impressions [facility] - 10/25/2024 12:42 PM CDT These images are for Reference purposes only and have not been reviewed by [facility]. There will be no report generated by a [facility] Radiologist. Narrative [facility] - 10/25/2024 12:42 PM CDT EXAMINATION: Images For Reference Purposes Only Jarod Jacobson MD IMG CT PROCEDURES Final Re sult Performing Organization Address [facility] de Phone Number [email or web address] * Neuro CT Outside Reference (10/25/2024 12:42 PM CDT) Impressions [facility] - 10/25/2024 12:42 PM CDT These images are for Reference purposes only and have not been reviewed by [facility]. There will be no report generated by a [facility] Radiologist. Narrative [facility] - 10/25/2024 12:42 PM CDT EXAMINATION: Images For Reference Purposes Only Jarod Jacobson MD IMG CT PROCEDURES Final Re sult Performing Organization Address [facility] Co de Phone Number [email or web address] * Neuro CT Outside Reference (10/25/2024 12:41 PM CDT) Impressions [facility] - 10/25/2024 12:41 PM CDT These images are for Reference purposes only and have not been reviewed by [facility]. There will be no report generated by a [facility] Radiologist. Narrative [facility] - 10/25/2024 12:41 PM CDT EXAMINATION: Images For Reference Purposes Only Jarod Jacobson MD IMG CT PROCEDURES Final Re sult Performing Organization Address [facility] de Phone Number [email or web address] * Neuro MR Outside Reference (10/25/2024 12:41 PM CDT) Impressions [facility] - 10/25/2024 12:41 PM CDT These images are for Reference purposes only and have not been reviewed by [facility]. There will be no report generated by a [facility] Radiologist. Narrative [facility] - 10/25/2024 12:41 PM CDT EXAMINATION: Images For Reference Purposes Only Jarod Jacobson MD IMG MRI PROCEDURES Final R esult Performing Organization Address [facility] de Phone Number [email or web address] * Neuro CT Outside Reference (10/25/2024 12:40 PM CDT) Impressions [facility] - 10/25/2024 12:40 PM CDT These images are for Reference purposes only and have not been reviewed by [facility]. There will be no report generated by a [facility] Radiologist. Narrative [facility] - 10/25/2024 12:40 PM CDT EXAMINATION: Images For Reference Purposes Only Jarod Jacobson MD IMG CT PROCEDURES Final Re sult Performing Organization Address [facility] Co de Phone Number [email or web address] * Neuro CT Outside Reference (10/25/2024 12:39 PM CDT) Impressions [facility] - 10/25/2024 12:39 PM CDT These images are for Reference purposes only and have not been reviewed by [facility]. There will be no report generated by a [facility] Radiologist. Narrative [facility] - 10/25/2024 12:39 PM CDT EXAMINATION: Images For Reference Purposes Only us Jarod Jacobson MD IMG CT PROCEDURES Final Re sult Performing Organization Address [facility] de Phone Number [email or web address] * US Outside Reference (10/25/2024 12:39 PM CDT) Impressions [facility] - 10/25/2024 12:39 PM CDT These images are for Reference purposes only and have not been reviewed by [facility]. There will be no report generated by a [facility] Radiologist. Narrative [facility] - 10/25/2024 12:39 PM CDT EXAMINATION: Images For Reference Purposes Only us Jarod Jacobson MD IMG US PROCEDURES Final Re sult Performing Organization Address [facility] de Phone Number [email or web address] * eGFR (09/29/2024 9:08 PM CDT) eGFR [...] BLOOD ORDERABLES Final Result Performing Organization Address [facility]/ZIP Co de Phone Number [facility] Department [place] [address] * (ABNORMAL) CBC without differential (09/29/2024 9:08 PM CDT) [facility] WBC 11.26(H) 3.80 - 9.90 K/cumm Hgb 14.1 13.0 - 17.5 g/dL [facility] Hct 40.3 38.9 - 50.3 % [facility] Plt 289 150 - 400 K/cumm [facility] MPV 9.1 9.1 - 12.3 fL [facility] RBC 4.76 4.30 - 5.80 M/cumm [facility] MCV 84.7 81.3 - 96.4 fL [facility] MCH 29.6 27.1 - 33.3 pg [facility] MCHC 35.0 32.3 - 35.7 g/dL [facility] RDW CV 11.7 11.1 - 14.9 % [facility] RDW SD 35.8 35.7 - 48.1 fL [facility] NRBC abs 0.00 0.00 - 0.01 K/cumm [facility] Blood 09/29/2024 9:08 PM CDT 09/29/2024 9:35 PM CDT us Chelsea Hawkins MD LAB BLOOD ORDERABLES Final Result Performing Organization Address City/[facility]/ZIP Co de Phone Number [facility] Department [place] [address] * Basic metabolic panel (09/29/2024 9:08 PM CDT) Pathologist [facility] Sodium 136 135 - 145 mmol/L Potassium, pl 4.3 3.3 - 4.9 mmol/L [facility] Chloride 99 97 - 110 mmol/L [facility] CO2 26 22 - 32 mmol/L [facility] Anion gap 11 2 - 15 mmol/L [facility] BUN 12 6 - 25 mg/dL [facility] Creatinine 0.85 0.80 - 1.30 mg/dL [facility] Glucose 188 70 - 199 mg/dL [facility] Comment: Interpretive Data Fasting glucose >/= [...] 2022. Calcium 9.5 8.5 - 10.3 mg/dL [facility] Blood 09/29/2024 9:08 PM CDT 09/29/2024 9:32 PM CDT us Chelsea Hawkins MD LAB BLOOD ORDERABLES Final Result [facility] Department [place] [address] * ENDARTERECTOMY - CAROTID (09/29/2024 12:55 PM CDT) Anatomical Region Laterality Modality X-Ray Angiograph y Narrative 09/29/2024 3:17 PM CDT Please see OpNote for result. us Joey Hodges MD CV CARDIAC CATH PROCEDURES Fi nal Result * Surgical pathology (09/29/2024 10:52 AM CDT) Lymph node, dissection/region al resection 09/29/2024 10:52 AM CDT 09/29/2024 2:05 PM CDT Narrative 10/07/2024 10:28 AM CDT [facility] Sabina Julien [facility] of Surgical Pathology [facility] [place] [address] NEUROPATHOLOGY REPORT FINAL Patient Name:LIT SOTOMAYORAddress:[address]:NeurosurgeryAccession #:[id number] [address]Bryzaewa:[facility] [address]Taken:09/29/2024Gender: MMRN :[id number]:09/29/2024DOB:1975 (Age: 49)Hospital #:[id number]:10/04/2024Patient Type:[facility] InpatientReported:10/07/2024 Physician(s): Ciro Ribeiro ANP Dr Angela M Holbrook, MD DIAGNOSIS: Left cevical lymph node, excision: - Lymph node with reactive changes - See comment mbr/10/07/2024 10:01 By this signature, I attest that the above diagnosis is based upon my personal examination of the slides(and/or other material indicated in the diagnosis). Corie Redmond M.D., Ph.D.Report Electronically Reviewed and Signed Out By Corie Redmond M.D., Ph.D. 10/07/2024 10:28:52 Diagnosis Comment Diagnostic features of lymphoma are not identified. Correlation with clinical, laboratory, cytogenetic and radiologic findings is needed for full evaluation. Microscopic Description and Comment: Microscopic examination reveals lymph node tissue with preserved architecture. Scattered secondary follicles are present. Interfollicular areas are composed of small lymphocytes, scattered plasma cells, histiocytes and occasional immunoblasts. Immunohistochemistry and in situ hybridization studies (with appropriate controls) are performed for further evaluation in tissue context. Immunostains for CD3 and CD20 reveal that [id number] B cells are located predominantly in the follicles while CD3-positive T-cells are found predominantly in interfollicular spaces. Secondary follicles are positive to CD10 and BCL-6 and negative for Bcl-2. Immunostain for CD21 highlights follicular dendritic networks associated with follicles. Immunostain for Cyclin D1 and SOX11 are negative. Immunostain for CD5 shows staining pattern similar to CD3. History: The patient is a 49-year-old man with stenosis of left carotid artery. Operative Procedure: endarterectomy carotid Specimen(s) Received: A: Left cevical lymph node Gross Description: Received in formalin labeled with patient identifiers and left cervical lymph node is an irregular piece of rubbery purple mccall tissue (1.8 x 1.2 x 1.0 cm). The specimen is trisected and submitted entirely in cassette A1. Jar 0 bao2/10/04/2024 15:32 SHIRIN Kenny By this signature, I attest that the above diagnosis is based upon my personal examination of the slides(and/or other material). Surgical Pathology report is available electronically in [employer]. The performance characteristics of some immunohistochemical stains, fluorescence in-situ hybridization tests and immunophenotyping by flow cytometry cited in this report (if any) were determined by the Surgical Pathology Department at [facility] as part of an ongoing quality control head program and in compliance with federally mandated regulations drawn from the Clinical Laboratory Improvement Act of 1988 (CLIA '88). Some of these tests rely on the use of analyte specific reagents and are subject to specific labeling requirements by the US Food and Drug Administration. Such diagnostic tests may only be performed in a facility that is certified by the Department of Health and Human Services as a high complexity laboratory under CLIA '88. The FDA has determined that such clearance or approval is not necessary. This test is used for clinical purposes. It should not be regarded as investigational or for research. Nevertheless, federal rules concerning the medical use of analyte specific reagents require that the following disclaimer be attached to the report: This test was developed and its performance characteristics determined by the Surgical Pathology Department of [facility]. It has not been cleared or approved by the U. S. Food and Drug Administration. Joey Hodges MD LAB PATHOLOGY ORDERABLES Yomaira solorio Result * (ABNORMAL) POC Blood Gas and Chemistries, Arterial - (09/29/2024 10:42 AM CDT) pH, Art POC 7.36 7.35 - 7.45 pCO2, Art POC 46(H) 35 - 45 mmHg [facility] pO2, Art POC 213(H) 83 - 108 mmHg [facility] Na, POC 139 135 - 145 mmol/L [facility] K POC 4.6 3.3 - 4.9 mmol/L [facility] Comment: Interpretive Data Not all point of care methods assess for hemolysis. Confirm with instrument and retest K+ if not consistent with clinical signs and symptoms. Current Interpretive Data was last revised on 2023. Cl, POC 108 97 - 110 mmol/L [facility] Ionized Ca, POC 4.84 4.50 - 5.10 mg/dL [facility] Glucose, POC 115 70 - 199 mg/dL [facility] Lactate POC 1.5 0.7 - 2.0 mmol/L [facility] SO2 (radha) arterial 100(H) 90 - 95 % [facility] Base excess, POC 0.1 mmol/L [facility] Hct, POC 42.0 41.4 - 51.6 % [facility] Total Hb, POC 14.1 13.8 - 17.2 g/dL [facility] Blood 09/29/2024 10:4 2 AM CDT 09/29/2024 10:42 AM CDT us Chelsea Hawkins MD LAB POCT ORDERABLES - CARRIE CE Final Result [facility] Department [place] [address] * Peripheral IV Catheter (09/29/2024 9:29 AM [...] 12:47 AM CDT) ABO Rh O Negative [facility] HCLL OTHER 09/29/2024 12:4 7 AM CDT 09/29/2024 1:35 AM CDT us Chelsea Hawikns MD LAB BLOOD ORDERABLES Final Result Performing Organization Address City/[facility]/ZIP Co de Phone Number [facility] Department [place] [address] [facility] * eGFR (09/28/2024 9:20 PM CDT) eGFR [...] Hawkins MD LAB BLOOD ORDERABLES [place] [address] * Check Sample (09/28/2024 9:20 PM CDT) Pathologist [facility] ABO Rh O Negative [facility] HCLL OTHER 09/28/2024 9:20 PM CDT 09/28/2024 10:46 PM CDT us Chelsea Hawkins MD LAB BLOOD ORDERABLES [place] [address] [facility] * CBC without differential (09/28/2024 9:20 PM CDT) Pathologist [facility] WBC 8.07 3.80 - 9.90 K/cumm Hgb 14.1 13.0 - 17.5 g/dL [facility] Hct 40.7 38.9 - 50.3 % [facility] Plt 287 150 - 400 K/cumm [facility] MPV 9.2 9.1 - 12.3 fL [facility] RBC 4.84 4.30 - 5.80 M/cumm [facility] MCV 84.1 81.3 - 96.4 fL [facility] MCH 29.1 27.1 - 33.3 pg [facility] MCHC 34.6 32.3 - 35.7 g/dL [facility] RDW CV 11.8 11.1 - 14.9 % [facility] RDW SD 35.8 35.7 - 48.1 fL [facility] NRBC abs 0.00 0.00 - 0.01 K/cumm [facility] Blood 09/28/2024 9:20 PM CDT 09/28/2024 10:33 PM CDT us Chelsea Hawkins MD LAB BLOOD ORDERABLES Final Result [facility] [place] [address] * (ABNORMAL) Basic metabolic panel (09/28/2024 9:20 PM CDT) Sodium 137 135 - 145 mmol/L Potassium, pl 3.5 3.3 - 4.9 mmol/L [facility] Chloride 100 97 - 110 mmol/L [facility] CO2 25 22 - 32 mmol/L [facility] Anion gap 12 2 - 15 mmol/L [facility] BUN 14 6 - 25 mg/dL [facility] Creatinine 0.73(L) 0.80 - 1.30 mg/dL [facility] Glucose 112 70 - 199 mg/dL [facility] Comment: Interpretive Data Fasting glucose >/= [...] 2022. Calcium 9.5 8.5 - 10.3 mg/dL [facility] Blood 09/28/2024 9:20 PM CDT 09/28/2024 10:30 PM CDT Chelsea Hawkins MD LAB BLOOD ORDERABLES Final Result [facility] Department [place] [address] * Type and screen (09/28/2024 4:23 PM CDT) Keira, indirect Negative ABO Rh O Negative [facility] Blood 09/28/2024 4:23 PM CDT 09/28/2024 5:14 PM CDT Narrative [facility] - 09/28/2024 6:14 PM CDT Has the patient had Daratumumab or Isatuximab in the past 6 months?->Unknown Chelsea Hawkins MD LAB BLOOD BANK TEST ORDERA BLES Final Result MIGUEL ANGEL [facility] Department of Laboratories [place] [address] * XR Chest 1 View (09/28/2024 11:26 [...] AM CDT Narrative 09/28/2024 9:26 AM CDT [facility] [place] [address] Transthoracic Echocardiographic Report Patient Name: LIT SOTOMAYOR L : 1975 (49y 4m) Gender: M Study Date: 09/28/2024 07:17:31 AM Ht(Inch): 68 Wt(Lb): 160.05 BSA: 1.87 Jde Developer: Sole Jarquin [facility] Location: [id number] Order Provider: CHELSEA HAWKINS Heart Rate: 97 [...] LA Volume BP 23.58 ml Med E` Rnajit 10.4 cm/sec [ 8.0 - 25.0 ] [...] Procedure Note Michael Johnson MD - 09/28/2024 [facility] [place] [address] Transthoracic Echocardiographic Report Patient Name: LIT SOTOMAYOR L : 1975 (49y 4m) Gender: M Study Date: 09/28/2024 07:17:31 AM Ht(Inch): 68 Wt(Lb): 160.05 BSA: 1.87 Jde Developer: Sole Jarquin [facility] Location: [id number] OrderProvider: CHELSEA HAWKINS Heart Rate: 97 BMI: [...] LA Length 2C 5.74 cm MV Decel Rfwh179.18 msec [ 104.00 - 258.00 ] LA [...] esult * eGFR (09/27/2024 9:39 PM CDT) [facility] eGFR >90 >=60 mL/min/1. 73 m2 Comment: [...] Hawkins MD LAB BLOOD ORDERABLES Final Result [facility] Department [place] [address] * (ABNORMAL) CBC without differential (09/27/2024 9:39 PM CDT) [facility] WBC 7.74 3.80 - 9.90 K/cumm Hgb 13.1 13.0 - 17.5 g/dL [facility] Hct 37.1(L) 38.9 - 50.3 % [facility] Plt 250 150 - 400 K/cumm [facility] MPV 9.2 9.1 - 12.3 fL [facility] RBC 4.37 4.30 - 5.80 M/cumm [facility] MCV 84.9 81.3 - 96.4 fL [facility] MCH 30.0 27.1 - 33.3 pg [facility] MCHC 35.3 32.3 - 35.7 g/dL [facility] RDW CV 11.9 11.1 - 14.9 % [facility] RDW SD 36.4 35.7 - 48.1 fL [facility] NRBC abs 0.00 0.00 - 0.01 K/cumm [facility] Blood 09/27/2024 9:39 PM CDT 09/27/2024 10:44 PM CDT Chelsea Hawkins MD LAB BLOOD ORDERABLES Final Result [facility] Department [place] [address] * Basic metabolic panel (09/27/2024 9:39 PM CDT) Sodium 143 135 - 145 mmol/L Potassium, pl 4.3 3.3 - 4.9 mmol/L [facility] Chloride 105 97 - 110 mmol/L [facility] CO2 24 22 - 32 mmol/L [facility] Anion gap 14 2 - 15 mmol/L [facility] BUN 14 6 - 25 mg/dL [facility] Creatinine 0.89 0.80 - 1.30 mg/dL [facility] Glucose 124 70 - 199 mg/dL [facility] Comment: Interpretive Data Fasting glucose >/= [...] 2022. Calcium 9.0 8.5 - 10.3 mg/dL [facility] Blood 09/27/2024 9:39 PM CDT 09/27/2024 10:43 PM CDT us Chelsea Hawkins MD LAB BLOOD ORDERABLES Final Result MIGUEL ANGEL AMANDA [facility] Department [place] [address] * IR Angio Selective Carotid [employer] Right (09/27/2024 8:47 AM CDT) Anatomical Region [...] Heparin (3000 units) MATERIALS: 21-gauge needle 5 Nigerian Merit Prelude IDeal sheath 23cm and mini guidewire [address] [place] [address] catheter Terumo glidewire TR Band CONTRAST: Visipaque [...] and were stored to PACS.. The 5 Nigerian Merit Prelude IDeal sheath 23cm was then introduced into the right radial artery over the mini guidewire. A cocktail of Verapamil (2.5 mg), Nitroglycerin (200 mcg), and Heparin (3000 units) was slowly injected into the right radial artery through the sheath over several minutes, with close monitoring of blood pressure. A Terumo Glidewire and 5 [place] [address] catheter were advanced into the aortic arch [...] Heparin (3000 units) MATERIALS: 21-gauge needle 5 Nigerian Merit Prelude IDeal sheath 23cm and mini guidewire [address] [place] [address] catheter Terumo glidewire TR Band CONTRAST: Visipaque [...] and were stored to PACS.. The 5 Nigerian Merit Prelude IDeal sheath 23cm was then introduced into the right radial artery over the mini guidewire. A cocktail of Verapamil (2.5 mg), Nitroglycerin (200 mcg), and Heparin (3000 units) was slowly injected into the right radial artery through the sheath over several minutes, with close monitoring of blood pressure. A Terumo Glidewire and [address] [place] [address] catheter were advanced into the aortic arch [...] sult * eGFR (09/26/2024 8:00 PM CDT) [facility] eGFR >90 >=60 mL/min/1. 73 m2 Comment: [...] Hawkins MD LAB BLOOD ORDERABLES Final Result [facility] Department [place] [address] * CBC without differential (09/26/2024 8:00 PM CDT) [facility] WBC 7.85 3.80 - 9.90 K/cumm Hgb 13.9 13.0 - 17.5 g/dL [facility] Hct 39.3 38.9 - 50.3 % [facility] Plt 256 150 - 400 K/cumm [facility] MPV 9.2 9.1 - 12.3 fL [facility] RBC 4.66 4.30 - 5.80 M/cumm [facility] MCV 84.3 81.3 - 96.4 fL [facility] MCH 29.8 27.1 - 33.3 pg [facility] MCHC 35.4 32.3 - 35.7 g/dL [facility] RDW CV 11.9 11.1 - 14.9 % [facility] RDW SD 36.4 35.7 - 48.1 fL [facility] NRBC abs 0.00 0.00 - 0.01 K/cumm [facility] Blood 09/26/2024 8:00 PM CDT 09/26/2024 8:55 PM CDT Chelsea Hawkins MD LAB BLOOD ORDERABLES Final Result Performing Organization Address [facility] de Phone Number [facility] [place] [address] * Hemoglobin A1c (09/26/2024 8:00 PM CDT) [facility] Hgb A1C 5.6 4.0 - 5.6 % Estimated Average Glucose 114 mg/dL [facility] Comment: The ADA recommends reporting an estimated [...] BLOOD ORDERABLES Final Result Performing Organization Address [facility] Co de Phone Number [facility] [place] [address] * Basic metabolic panel (09/26/2024 8:00 PM CDT) [facility] Sodium 139 135 - 145 mmol/L Potassium, pl 3.9 3.3 - 4.9 mmol/L [facility] Chloride 103 97 - 110 mmol/L [facility] CO2 25 22 - 32 mmol/L [facility] Anion gap 11 2 - 15 mmol/L [facility] BUN 20 6 - 25 mg/dL [facility] Creatinine 0.89 0.80 - 1.30 mg/dL [facility] Glucose 141 70 - 199 mg/dL [facility] Comment: Interpretive Data Fasting glucose >/= [...] 2022. Calcium 9.4 8.5 - 10.3 mg/dL [facility] Blood 09/26/2024 8:00 PM CDT 09/26/2024 8:55 PM CDT us Chelsea Hawkins MD LAB BLOOD ORDERABLES Final Result [facility] One [facility] Department [place] [address] * (ABNORMAL) Fentanyl Confirmation, Urine (09/26/2024 1:23 PM CDT) [facility] Fentanyl Conf, Ur Confirmed Positive(A) Cutoff 0.3ng/mL Acetylfentanyl Conf, Ur Does Not Confirm Cutoff 1 ng/mL [facility] Acrylfentanyl Conf, Ur Does Not Confirm Cutoff 1 ng/mL [facility] Furanylfentanyl Conf, Ur Does Not Confirm Cutoff 1 ng/mL [facility] Fentanyl Metabolite (Norfentanyl) Conf, Ur Confirmed Positive(A) CutOff 5 ng/mL [facility] Xylazine MS Does Not Confirm Cutoff 1 ng/mL [facility] Comment: Interpretive Data This test detects the presence or absence of drug compounds using LC Tandem mass spectrometry and is not intended to assess compliance with prescribed medications. While this test is highly specific, false positive and false negative results may occur in very rare circumstances. Contact the laboratory for consultation, if needed. Performance characteristics were determined by the [facility] in a manner consistent with CLIA requirement and has not been cleared or approved by the U.S. Food and Drug Administration. Current interpretive data was last revised 2020. Urine 09/26/2024 1:23 PM CDT 09/26/2024 1:42 PM CDT Chelsea Hawkins MD LAB URINE ORDERABLES Final Result [facility] Department [place] [address] * (ABNORMAL) Drugs of Abuse Screen, Urine [...] 2022. Barbiturates, ur Not Detected CutOff 200ng/mL [facility] Comment: Interpretive Data - Barbiturates: Samples containing greater than 200 ng/mL secobarbital or other cross-reacting barbiturate compounds are reported as positive. False positive and false negative results are possible. Confirmatory testing required for definitive results. Current Interpretive Data was last reviewed 2022. Benzodiazepines, ur Not Detected CutOff 100ng/mL [facility] Comment: Interpretive Data - Benzodiazepines: Samples containing greater than 100 ng/mL nordiazepam or other cross-reacting compounds are reported as positive. False positive and false negative results are possible. Confirmatory testing required for definitive results. Current Interpretive Data was last reviewed 2022. Cannabinoids, ur Not Detected CutOff 50 ng/mL [facility] Comment: Interpretive Data - Cannabinoids: Samples containing greater than 50 ng/mL delta-9 THC -COOH or other cross- reacting compounds are reported as positive. False positive and false negative results are possible. Confirmatory testing required for definitive results. Current Interpretive Data was last reviewed 2022. Cocaine, ur Not Detected CutOff 150ng/mL [facility]EISON [facility] Comment: Interpretive Data - Cocaine: Samples containing greater than 150 ng/mL benzoylecgonine or other cross- reacting compounds are reported as positive. False positive and false negative results are possible. Confirmatory testing required for definitive results. Current Interpretive Data was last reviewed 2022. Fentanyl, Ur Screen Positive, presumptive (A) CutOff 5 ng/mL [facility] Comment: Interpretive Data - Fentanyl: Samples containing greater than 5 ng/mL norfentanyl, fentanyl, or other cross-reacting fentanyl compounds are reported as positive. False positive and false negative results are possible. Confirmatory testing required for definitive results. Current Interpretive Data was last reviewed 2023. Methadone, ur Not Detected CutOff 300ng/mL MIGUEL ANGEL [facility] Comment: Interpretive Data - Methadone: Samples containing greater than 300 ng/mL d,l-methadone or other cross-reacting compounds are reported as positive. False positive and false negative results are possible. Confirmatory testing required for definitive results. Current Interpretive Data was last reviewed 2022. Opiates, ur Not Detected CutOff 300ng/mL [facility] Comment: Interpretive Data - Opiates: Samples containing greater than 300 ng/mL morphine or other cross-reacting compounds are reported as positive. False positive and false negative results are possible. Confirmatory testing required for definitive results. Current Interpretive Data was last reviewed 2022. Oxycodone, ur Not Detected CutOff 100ng/mL [facility] Comment: Interpretive Data - Oxycodone: Samples containing greater than 100 ng/mL oxycodone or other cross-reacting compounds are reported as positive. False positive and false negative results are possible. Confirmatory testing required for definitive results. Current Interpretive Data was last reviewed 2022. Phencyclidine, ur Not Detected CutOff 25 ng/mL [facility] Comment: Interpretive Data - Phencyclidine: Samples containing greater than 25 ng/mL phencyclidine or other cross-reacting compounds are reported as positive. False positive and false negative results are possible. Confirmatory testing required for definitive results. Current Interpretive Data was last reviewed 2022. Urine Creatinine 292 mg/dL [facility] Comment: Interpretive Data Urine Creatinine: < 10 mg/dL is extremely dilute = or > 10 but < 20 mg/dL is dilute = or > 20 mg/dL is normal Current Interpretive Data was last revised on 2017. Urine 09/26/2024 1:23 PM CDT 09/26/2024 1:42 PM CDT Narrative MIGUEL ANGEL [facility] - 09/26/2024 2:54 PM CDT Drug of Abuse screening is performed by immunoassay for medical purposes only. This is not to be used for Pain Management purposes. If Detected, confirmation testing will be performed for Amphetamines, Cocaine, Fentanyl, Methadone, Opiates, Oxycodone or Phencyclidine. Chelsea Hawkins MD LAB URINE ORDERABLES Final Result [facility] Department [place] [address] * eGFR (09/25/2024 10:32 PM CDT) eGFR [...] BLOOD ORDERABLES Final Result Performing Organization Address City/[facility]/ZIP Co de Phone Number [facility] Department [place] [address] * (ABNORMAL) CBC without differential (09/25/2024 10:32 PM CDT) [facility] WBC 9.05 3.80 - 9.90 K/cumm Hgb 13.9 13.0 - 17.5 g/dL [facility] Hct 40.2 38.9 - 50.3 % [facility] Plt 281 150 - 400 K/cumm [facility] MPV 9.0(L) 9.1 - 12.3 fL [facility] RBC 4.70 4.30 - 5.80 M/cumm [facility] MCV 85.5 81.3 - 96.4 fL [facility] MCH 29.6 27.1 - 33.3 pg [facility] MCHC 34.6 32.3 - 35.7 g/dL [facility] RDW CV 11.9 11.1 - 14.9 % [facility] RDW SD 37.0 35.7 - 48.1 fL [facility] NRBC abs 0.00 0.00 - 0.01 K/cumm [facility] Blood 09/25/2024 10:3 2 PM CDT 09/25/2024 11:00 PM CDT us Chelsea Hawkins MD LAB BLOOD ORDERABLES Final Result [facility] Department [place] [address] * (ABNORMAL) Lipid panel (09/25/2024 10:32 PM CDT) Pathologist [facility] Cholesterol 152 30 - 199 mg/dL Comment: [...] 2017. Triglycerides 60 <=149 mg/dL MIGUEL ANGEL [facility] Comment: Interpretive Data Ages < or = [...] 2017. HDL 37(L) >=40 mg/dL MIGUEL ANGEL [facility] Comment: Interpretive Data Ages < or = [...] LDL, calculated 103 <=129 mg/dL MIGUEL ANGEL [facility] Comment: Interpretive Data Ages < or = [...] revised on 2023. Non-HDL Cholesterol 115 mg/dL [facility] Comment: Interpretive Data Ages < or [...] last revised on 2017. Chol/HDL ratio 4 [facility] Blood 09/25/2024 10:3 2 PM CDT 09/25/2024 10:58 PM CDT us Chelsea Hawkins MD LAB BLOOD ORDERABLES Final Result [facility] Department [place] [address] * (ABNORMAL) Basic metabolic panel (09/25/2024 10:32 PM CDT) Sodium 139 135 - 145 mmol/L Potassium, pl 4.3 3.3 - 4.9 mmol/L [facility] Chloride 104 97 - 110 mmol/L [facility] CO2 25 22 - 32 mmol/L [facility] Anion gap 10 2 - 15 mmol/L [facility] BUN 11 6 - 25 mg/dL [facility] Creatinine 0.77(L) 0.80 - 1.30 mg/dL [facility] Glucose 106 70 - 199 mg/dL [facility] Comment: Interpretive Data Fasting glucose >/= [...] 2022. Calcium 9.6 8.5 - 10.3 mg/dL [facility] Blood 09/25/2024 10:3 2 PM CDT 09/25/2024 10:58 PM CDT us Chelsea Hawkins MD LAB BLOOD ORDERABLES Final Result Performing Organization Address City/State/[facility] Co de Phone Number [facility] Department [place] [address] * ECG 12 lead (09/25/2024 9:41 PM CDT) Ventricular Rate EKG/Min 59 BPM [facility] Atrial Rate 59 BPM [facility] CO-Interval (MSEC) 154 ms [facility] QRS-Interval (MSEC) 86 ms [facility] QT-Interval (MSEC) 460 ms [facility] QTc 455 ms [facility] P [place] 46 degrees [facility] R [place] 18 degrees [facility] T [place] 19 degrees [facility] Diagnosis Sinus bradycardia Otherwise normal ECG No previous ECGs available Confirmed by ROYER MALIN M.D ([id number]) on 09/27/2024 6:26:23 PM [facility] 09/25/2024 9:41 PM CDT 09/27/2024 6:26 PM CDT us Chelsea Hawkins MD ECG ORDERABLES Final Resu lt [facility] * (ABNORMAL) Urinalysis reflex to microscopic [...] tendency for uric acid stone formation. Source: [facility] [employer] Current Interpretive Data was last revised on [...] Final Result MIGUEL ANGEL GUDINO ([place]) [address] [facility] Department [place] [address] * Troponin T high-sensitivity 2-hour (09/25/2024 3:56 [...] BLOOD ORDERABLES Final Result [facility]EL ANGEL [facility] ([place]) [facility] Department [place] [address] * CTA Stroke Head Neck W WO [...] or vascular malformation. Right posterior cerebral artery ([employer]): No large vessel occlusion or vascular malformation. Left posterior cerebral artery ([employer]): No large vessel occlusion or vascular malformation. [...] Sekou Burton M.D. NS: NS Report ID: [id number] Reading Location: [place] [address] Procedure Note Sekou Burton MD - 09/25/2024 [...] or vascular malformation. Right posterior cerebral artery ([employer]): No large vessel occlusion orvascular malformation. Left posterior cerebral artery ([employer]): No large vessel occlusion orvascular malformation. INCLUDED [...] Sekou Burton M.D. NS: NS Report ID: [id number] Reading Location: [place] [address] Dominique Fischer MD IMG CT PROCEDURES Final Re sult * ECG 12 lead (09/25/2024 2:27 PM CDT) 09/25/2024 2:27 PM CDT Narrative [facility] - 09/27/2024 8:11 AM CDT Vent Rate: 90 bpm RR Interval: 662 msec CO Interval: 147 msec QRS Duration: 89 msec QT Interval: 362 msec QTC Interval: 410 msec P-R-T [place]: 60 - 26 - 44 degrees IMPRESSION: SINUS RHYTHM LOW QRS VOLTAGE IN PRECORDIAL LEADS [QRS DEFLECTION < 1.0 mV IN CHEST LEADS] BORDERLINE ECG Electronically Signed By: Harvey Olson MD Dominique Fischer MD ECG ORDERABLES Final Resu lt [facility] [employer] [facility] * CT Stroke Head WO [...] Radha Lorenz M.D. LC: KYRA Report ID: [id number] Reading Location: [id number] Procedure Note Lubna Lorenz MD - 09/25/2024 [...] Radha Lorenz M.D. LC: KYRA Report ID: [id number] Reading Location: [place] [address] Dominique Fischer MD IM CT PROCEDURES Final [...] BLOOD ORDERABLES Final Result MIGUEL ANGEL GUDINO ([place]) [facility] [employer] [place] [address] * eGFR (09/25/2024 2:16 PM CDT) eGFR [...] BLOOD ORDERABLES Final Result MIGUEL ANGEL GUDINO ([place]) [facility] [employer] [place] [address] * Differential, auto (09/25/2024 2:16 PM CDT) [...] Final Result [facility] ANGEL [facility] ([place]) [facility] Department [place] [address] * (ABNORMAL) CBC with auto differential (09/25/2024 2:16 PM CDT) Pathologist [facility] WBC 8.33 3.80 - 9.90 K/cumm Hgb [...] 35.5 32.3 - 35.7 g/dL [facility] ([place]) RDW CV 11.7 11.1 - 14.9 % [facility] ([place]) RDW SD 35.8 35.7 - 48.1 fL [facility] NRBC abs 0.00 0.00 - 0.01 K/cumm [facility] Blood Venous blood specimen / Unknown 09/25/2024 2:16 PM CDT 09/25/2024 2:20 PM CDT Narrative [facility] ANGEL [facility] ([place]) - 09/25/2024 2:23 PM CDT Potential Stroke Patient us Dominique Fischer MD LAB BLOOD ORDERABLES Final Result MIGUEL ANGEL GUDINO ([place]) [address] [facility] Department [place] [address] * (ABNORMAL) aPTT (09/25/2024 2:16 PM CDT) Pathologist [facility] aPTT 40(H) 28 - 38 sec CESARNER [...] BLOOD ORDERABLES Final Result Performing Organization Address City/[facility] Co de Phone Number [facility] [address] [facility] [place] [address] * (ABNORMAL) Protime-INR (09/25/2024 2:16 PM CDT) PT 13.6(H) 9.7 - 13.0 sec MIGUEL ANGEL GUDINO ([place]) INR 1.25(H) 0.90 - 1.20 MIGUEL ANGEL [facility] ([place]) Comment: Interpretive data Oral anticoagulant therapeutic ranges: Venous thromboembolism prophylaxis or treatment: 2.0-3.0 CARDIOLOGY Standard range: 2.0-3.0 High-intensity range: 2.5-3.5 Refer to indication-specific guidelines for appropriate target ranges for prosthetic heart valve replacement. Current interpretive data was last revised on 2019. Blood 09/25/2024 2:16 PM CDT 09/25/2024 2:20 PM CDT Dominique Fischer MD LAB BLOOD ORDERABLES Final Result Performing Organization Address City/[facility]/ZIP Co de Phone Number [facility] ([place]) [address] [facility] [place] [address] * (ABNORMAL) Comprehensive metabolic panel (09/25/2024 2:16 [...] Final Result [facility]UEL ANGEL [facility] ([place]) [address] [facility] Department [place] [address] * POCT glucose (09/25/2024 2:11 PM CDT) [facility] Glucose, POC 113 70 - 199 mg/dL Blood 09/25/2024 2:11 PM CDT 09/25/2024 2:11 PM CDT us Dominique Fischer MD LAB POCT ORDERABLES - CARRIE CE Final Result MIGUEL ANGEL [facility] ([facility] [address] [facility] Department [place] [address] * eGFR (09/07/2024 4:00 PM CDT) [facility] eGFR >90 >=60 mL/min/1. 73 m2 Comment: [...] ORDERABLES Final Resu lt MIGUEL ANGEL GAMBINO [address] Department [place] [address] * Differential, auto (09/07/2024 4:00 PM CDT) Neutrophil abs 5.29 1.50 - 6.50 K/cumm Imm gran abs 0.03 0.00 - 0.10 K/cumm [facility] Lymphocyte abs 1.92 0.80 - 3.30 K/cumm [facility] Monocyte abs 0.69 0.20 - 0.80 K/cumm [facility] Eosinophil abs 0.13 0.00 - 0.50 K/cumm [facility] Basophil abs 0.06 0.00 - 0.10 K/cumm [facility] Neutrophil pct 65.2 % [facility] Comment: Interpretive Data Percent cell count reference ranges are not reported, since discordance with absolute values may lead to misinterpretation of CBC data. Current Interpretive Data was last revised on 2017. Imm gran pct 0.4 % [facility] Comment: Interpretive Data Percent cell count reference ranges are not reported, since discordance with absolute values may lead to misinterpretation of CBC data. Current Interpretive Data was last revised on 2017. Lymphocyte pct 23.6 % [facility] Comment: Interpretive Data Percent cell count reference ranges are not reported, since discordance with absolute values may lead to misinterpretation of CBC data. Current Interpretive Data was last revised on 2017. Monocyte pct 8.5 % [facility] Comment: Interpretive Data Percent cell count reference ranges are not reported, since discordance with absolute values may lead to misinterpretation of CBC data. Current Interpretive Data was last revised on 2017. Eosinophil pct 1.6 % [facility] Comment: Interpretive Data Percent cell count reference ranges are not reported, since discordance with absolute values may lead to misinterpretation of CBC data. Current Interpretive Data was last revised on 2017. Basophil pct 0.7 % [facility] Comment: Interpretive Data Percent cell count reference ranges are not reported, since discordance with absolute values may lead to misinterpretation of CBC data. Current Interpretive Data was last revised on 2017. Blood 09/07/2024 4:00 PM CDT 09/07/2024 4:01 PM CDT us Reuben Finn MD LAB BLOOD ORDERABLES Final Resu lt [facility] [address] Department [place] [address] * CBC with auto differential (09/07/2024 4:00 PM CDT) Pathologist [facility] WBC 8.12 3.80 - 9.90 K/cumm Hgb 14.9 13.0 - 17.5 g/dL [facility] Hct 43.0 38.9 - 50.3 % [facility] Plt 307 150 - 400 K/cumm [facility] MPV 10.0 9.1 - 12.[address] [facility] RBC 4.79 4.30 - 5.80 M/cumm [facility] MCV 89.8 81.3 - 96.4 fL [facility] MCH 31.1 27.1 - 33.3 pg [facility] MCHC 34.7 32.3 - 35.7 g/dL [facility] RDW CV 11.7 11.1 - 14.9 % [facility] RDW SD 38.5 35.7 - 48.[address] [facility] NRBC abs 0.00 0.00 - 0.01 K/cumm [facility] Blood 09/07/2024 4:00 PM CDT 09/07/2024 4:01 PM CDT us Reuben Finn MD LAB BLOOD ORDERABLES Final Resu lt [facility] [address] [facility] [place] [employer] [place] [address] * Lipoprotein a (LPa) (09/07/2024 4:00 PM CDT) Pathologist [facility] Lipoprotein A 23 <75 nmol/L [facility] Comment: ADDITIONAL INFORMATION Please notice that Lp(a) values are reported in molar units (nmol/L). These units are recommended by professional society guidelines and expert opinion statements. Measured results and risk thresholds are higher than those generated using mass units (mg/dL). Cardiovascular risk increases starting at 75 nmol/L. Lp(a) >=125 nmol/L is considered a risk enhancing factor by the [place] [employer]. This test has been modified from the bending shed worker's instructions. Its performance characteristics were determined by [facility] in a manner consistent with CLIA requirements. This test has not been cleared or approved by the U.S. Food and Drug Administration. Test Performed by: [facility] - [address] [address] [employer] B[employer] Hand: Pauly Ruffin Ph.D.; CLIA# [id number] Blood 09/07/2024 4:00 PM CDT 09/08/2024 9:52 AM CDT us Reuben Finn MD LAB BLOOD ORDERABLES Final Resu lt [facility] [address] Department [place] [address] [facility] * (ABNORMAL) Lipid panel (09/07/2024 [...] ORDERABLES Final Resu lt Performing Organization Address [facility] Co de Phone Number [facility] [address] [place] [address] * Basic metabolic panel (09/07/2024 4:00 PM [...] ORDERABLES Final Resu lt Performing Organization Address [facility]/ZIP Co de Phone Number MIGUEL ANGEL [address] Department [place] [address] * COLONOSCOPY (06/10/2012 12:00 AM CDT) Anatomical Region Laterality Modality Other Narrative 06/10/2012 12:00 AM CDT Ordered by an unspecified provider. Procedure Note ProviderPerry MD - 06/10/2012 12:00 AM CDT PROCEDURE REPORT Patient: LIT SOTOMAYOR Account: [id number] Room No: : 1975 Patient Type: SDS [...] Most Recently Relevant to Health Maintenance Insurance [id number] [place] [address] [facility] CHOICE PLUS [facility] CHOICE PLUS IDPA [facility] CHOICE PLUS [employer]PA Advance Directives For more information, please contact: [phone] Documents on File Type Date Recorded Patient Line Prep Cook Expl anation ADVANCE DIRECTIVE 09/26/2024 10:45 AM RAYMUNDO [employer] * Full Code (Latest Code Status on File) Date Activated Date Inactivated Comments 09/25/2024 8:20 PM 09/30/2024 8:25 PM Care Teams Technical Illustrations Map Inker Relationship Specialty Start Date End Date Nelly Godinez NP [facility] [place], [place] [id number] PCP - General Nurse Practitioner 09/26/24
--- OUTSIDE RECORDS SUMMARY | 2024-10-27 09:04 | XMS_ITS | Referral Summary ---
Author Organization [facility] Address [address] [place] [address] Care Team Providers Care Pumpman Name Role Phone Nelly Godinez NP Primary Care Provider [phone] Encounters Date Type Department Care Team Description 10/25/2024 12:43 PM CDT - 10/25/2024 11:59 PM CDT Hospital Encounter [facility] ([facility]) [address] [place] [address] Arrived Discharge Disposition: Discharge to home or self care 10/25/2024 12:42 PM CDT - 10/25/2024 11:59 PM CDT Hospital Encounter [facility] ([facility]) [address] [place] [address] Arrived Discharge Disposition: Discharge to home or self care 10/25/2024 12:42 PM CDT - 10/25/2024 11:59 PM CDT Hospital Encounter [facility] ([facility]) [address] [place] [address] Arrived Discharge Disposition: Discharge to home or self care 10/25/2024 12:41 PM CDT - 10/25/2024 11:59 PM CDT Hospital Encounter [facility] ([facility]) [address] [place] [address] Arrived Discharge Disposition: Discharge to home or self care 10/25/2024 12:41 PM CDT - 10/25/2024 11:59 PM CDT Hospital Encounter [facility] ([facility]) [address] [place] [address] Arrived Discharge Disposition: Discharge to home or self care 10/25/2024 12:40 PM CDT - 10/25/2024 11:59 PM CDT Hospital Encounter [facility] ([facility]) [address] [place] [address] Arrived Discharge Disposition: Discharge to home or self care 10/25/2024 12:39 PM CDT - 10/25/2024 11:59 PM CDT Hospital Encounter [facility] ([facility]) [address] [place] [address] Arrived Discharge Disposition: Discharge to home or self care 10/25/2024 12:39 PM CDT - 10/25/2024 11:59 PM CDT Hospital Encounter [facility] ([facility]) [address] [place] [address] Arrived Discharge Disposition: Discharge to home or self care 10/22/2024 10:20 AM CDT Office Visit [facility] Stroke [address] [facility] [address] [place] [phone] Dejon Rizo NP Stroke due to stenosis of left middle cerebral artery (HCC) (Primary Dx); Stenosis of left carotid artery; Hospital discharge follow-up; Hyperlipidemia LDL goal <70; Hypertension goal BP (blood pressure) < 130/80; History of tobacco use 10/08/2024 [facility] Post Discharge Follow up phone call [address] [phone] Yosef Bran RN 10/07/2024 [facility] Post Discharge Follow up phone call [address] [phone] Yosef Bran RN 09/30/2024 Telephone [facility] Neurosurgery [address] [facility] 6th [place] [address] [place] [phone] Claudia Walters RN 09/25/2024 7:35 PM CDT - 09/30/2024 4:19 PM CDT Hospital Encounter [address] [address] Chelsea Hawkins MD Stenosis of left carotid artery (Primary Dx); Stroke due to stenosis of left middle cerebral artery (HCC) Discharge Disposition: Discharge to home or self care 09/29/2024 Orders Only [address] [phone] Joey Hodges MD 09/29/2024 8:30 AM CDT - 09/29/2024 1:15 PM CDT Surgery [facility] Operating Room [address] [place] [address] Joey Hodges MD Endarterectomy - Carotid 09/29/2024 8:33 AM CDT Anesthesia Event [facility] Operating Room [address] [place] [address] Howard Garay MD PhD Irene Manriquez NP 09/25/2024 6:53 PM CDT - 09/25/2024 11:59 PM CDT Hospital Encounter [facility] Emergency, Room R Discharge Disposition: Discharge to home or self care 09/25/2024 2:16 PM CDT - 09/25/2024 6:51 PM CDT Emergency [facility] Emergency Department [address] [place] [address] oDminique Fischer MD Stroke, hemorrhagic (HCC) (Primary Dx) Discharge Disposition: Discharge to a critical access hospital 09/07/2024 3:40 PM CDT Lab [facility] [address] [place] [address] 09/01/2024 Telephone [facility] Home Care Services [address] [facility] [address] [place] [address] Apryl Spence from Last 3 Months Allergies Active Allergy Reactions Criticality Noted Date [...] 07/27/2024 Wrist drop 01/17/2015 Overview (07/05/2016): Wristdrop Social [...] on file 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 There will be no report generated by a [facility] Radiologist. Narrative [facility] - 10/25/2024 12:43 PM CDT EXAMINATION: Images For Reference Purposes Only Jarod Jacobson MD IMG CT PROCEDURES Final Re sult [email or web address] * Neuro CT Outside Reference (10/25/2024 12:42 PM CDT) Impressions [facility] - 10/25/2024 12:42 PM CDT These images are for Reference purposes only and have not been reviewed by [facility]iology. There will be no report generated by a [facility] Radiologist. Narrative [facility] - 10/25/2024 12:42 PM CDT EXAMINATION: Images For Reference Purposes Only Jarod Jacobson MD IMG CT PROCEDURES Final Re sult Performing Organization Address [facility] de Phone Number [email or web address] * Neuro CT Outside Reference (10/25/2024 12:42 PM CDT) Impressions [facility] - 10/25/2024 12:42 PM CDT These images are for Reference purposes only and have not been reviewed by [facility]iology. There will be no report generated by a [facility] Radiologist. Narrative [facility] - 10/25/2024 12:42 PM CDT EXAMINATION: Images For Reference Purposes Only Jarod Jacobson MD IMG CT PROCEDURES Final Re sult Performing Organization Address [facility] de Phone Number [email or web address] * Neuro CT Outside Reference (10/25/2024 12:41 PM CDT) Impressions [facility] - 10/25/2024 12:41 PM CDT These images are for Reference purposes only and have not been reviewed by [facility]iology. There will be no report generated by a [facility] Radiologist. Narrative [facility] - 10/25/2024 12:41 PM CDT EXAMINATION: Images For Reference Purposes Only Jarod Jacobson MD IMG CT PROCEDURES Final Re sult Performing Organization Address [facility] de Phone Number [email or web address] * Neuro MR Outside Reference (10/25/2024 12:41 PM CDT) Impressions [facility] - 10/25/2024 12:41 PM CDT These images are for Reference purposes only and have not been reviewed by [facility]iology. There will be no report generated by a [facility] Radiologist. Narrative [facility] - 10/25/2024 12:41 PM CDT EXAMINATION: Images For Reference Purposes Only us Jarod Jacobson MD IMG MRI PROCEDURES Final R esult Performing Organization Address [facility] Co de Phone Number [email or web address] * Neuro CT Outside Reference (10/25/2024 12:40 PM CDT) Impressions [facility] - 10/25/2024 12:40 PM CDT These images are for Reference purposes only and have not been reviewed by [facility]. There will be no report generated by a [facility] Radiologist. Narrative [facility] - 10/25/2024 12:40 PM CDT EXAMINATION: Images For Reference Purposes Only Jarod Jacobson MD IMG CT PROCEDURES Final Re sult Performing Organization Address [facility] de Phone Number [email or web address] * Neuro CT Outside Reference (10/25/2024 12:39 PM CDT) Impressions [facility] - 10/25/2024 12:39 PM CDT These images are for Reference purposes only and have not been reviewed by [facility]iology. There will be no report generated by a [facility] Radiologist. Narrative [facility] - 10/25/2024 12:39 PM CDT EXAMINATION: Images For Reference Purposes Only Jarod Jacobson MD IMG CT PROCEDURES Final Re sult Performing Organization Address [facility] de Phone Number [email or web address] * US Outside Reference (10/25/2024 12:39 PM CDT) Impressions [facility] - 10/25/2024 12:39 PM CDT These images are for Reference purposes only and have not been reviewed by [facility]iology. There will be no report generated by a [facility] Radiologist. Narrative [facility] - 10/25/2024 12:39 PM CDT EXAMINATION: Images For Reference Purposes Only Jarod Jacobson MD IMG US PROCEDURES Final Re sult [email or web address] * eGFR (09/29/2024 9:08 PM CDT) [...] Organization Address City/[facility]/ZIP Co de Phone Number MIGUEL ANGEL [facility] [place] [address] * (ABNORMAL) CBC without differential (09/29/2024 9:08 PM CDT) WBC 11.26(H) 3.80 - 9.90 K/cumm Hgb 14.1 13.0 - 17.5 g/dL [facility] Hct 40.3 38.9 - 50.3 % [facility] Plt 289 150 - 400 K/cumm [facility] MPV 9.1 9.1 - 12.3 fL [facility] RBC 4.76 4.30 - 5.80 M/cumm [facility] MCV 84.7 81.3 - 96.4 fL [facility] MCH 29.6 27.1 - 33.3 pg [facility] MCHC 35.0 32.3 - 35.7 g/dL [facility] RDW CV 11.7 11.1 - 14.9 % [facility] RDW SD 35.8 35.7 - 48.1 fL [facility] NRBC abs 0.00 0.00 - 0.01 K/cumm [facility] Blood 09/29/2024 9:08 PM CDT 09/29/2024 9:35 PM CDT us Chelsea Hawkins MD LAB BLOOD ORDERABLES Final Result [facility] [place] [address] * Basic metabolic panel (09/29/2024 9:08 PM CDT) Sodium 136 135 - 145 mmol/L Potassium, pl 4.3 3.3 - 4.9 mmol/L [facility] Chloride 99 97 - 110 mmol/L [facility] CO2 26 22 - 32 mmol/L [facility] Anion gap 11 2 - 15 mmol/L [facility] BUN 12 6 - 25 mg/dL [facility] Creatinine 0.85 0.80 - 1.30 mg/dL [facility] Glucose 188 70 - 199 mg/dL [facility] Comment: Interpretive Data Fasting glucose >/= [...] 2022. Calcium 9.5 8.5 - 10.3 mg/dL [facility] Blood 09/29/2024 9:08 PM CDT 09/29/2024 9:32 PM CDT us Chelsea Hawkins MD LAB BLOOD ORDERABLES Final Result [facility] [place] [address] * ENDARTERECTOMY - CAROTID (09/29/2024 12:55 PM CDT) Anatomical Region Laterality Modality X-Ray Angiograph y Narrative 09/29/2024 3:17 PM CDT Please see OpNote for result. us Joey Hodges MD CV CARDIAC CATH PROCEDURES Fi nal Result * Surgical pathology (09/29/2024 10:52 AM CDT) Lymph node, dissection/region al resection 09/29/2024 10:52 AM CDT 09/29/2024 2:05 PM CDT Narrative 10/07/2024 10:28 AM CDT [facility] Sabina Julien [facility] [place] [address] NEUROPATHOLOGY REPORT FINAL Patient Name:LIT SOTOMAYORAddress:[address] [place] [address] STService:NeurosurgeryAccession #:[id number], [place] [address]Hjrnnbng:[facility] [address]Taken:09/29/2024[facility][id number]:09/29/2024DOB:1975 (Age: 49)Hospital #:[id number]:10/04/2024Patient Type:[facility] InpatientReported:10/07/2024 Physician(s): Ciro Ribeiro ANP Dr Angela [...] Immunostains for CD3 and CD20 reveal that FU16-bawcybfl B cells are located predominantly in the [...] Surgical Pathology report is available electronically in [employer]. The performance characteristics of some immunohistochemical stains, fluorescence in-situ hybridization tests and immunophenotyping by flow cytometry cited in this report (if any) were determined by the Surgical Pathology Department at [facility] as part of an ongoing senior quality engineer program and in compliance with federally mandated [...] determined by the Surgical Pathology Department of [facility]. It has not been cleared or approved by the U. S. Food and Drug Administration. Joey Hodges MD LAB PATHOLOGY ORDERABLES Yomaira l Result * (ABNORMAL) POC Blood Gas and Chemistries, Arterial - (09/29/2024 10:42 AM CDT) pH, Art POC 7.36 7.35 - 7.45 pCO2, Art POC 46(H) 35 - 45 mmHg [facility] pO2, Art POC 213(H) 83 - 108 mmHg [facility] Na, POC 139 135 - 145 mmol/L [facility] K POC 4.6 3.3 - 4.9 mmol/L [facility] Comment: Interpretive Data Not all point of care methods assess for hemolysis. Confirm with instrument and retest K+ if not consistent with clinical signs and symptoms. Current Interpretive Data was last revised on 2023. Cl, POC 108 97 - 110 mmol/L [facility] Ionized Ca, POC 4.84 4.50 - 5.10 mg/dL [facility] Glucose, POC 115 70 - 199 mg/dL [facility] Lactate POC 1.5 0.7 - 2.0 mmol/L [facility] SO2 (radha) arterial 100(H) 90 - 95 % [facility] Base excess, POC 0.1 mmol/L [facility] Hct, POC 42.0 41.4 - 51.6 % [facility] Total Hb, POC 14.1 13.8 - 17.2 g/dL [facility] Blood 09/29/2024 10:4 2 AM CDT 09/29/2024 10:42 AM CDT Chelsea Hawkins MD LAB POCT ORDERABLES - CARRIE CE Final Result [facility] [place] [address] * Peripheral IV Catheter (09/29/2024 9:29 AM [...] 12:47 AM CDT) ABO Rh O Negative [facility] OTHER 09/29/2024 12:4 7 AM CDT 09/29/2024 1:35 AM CDT Chelsea Hawkins MD LAB BLOOD ORDERABLES Final Result MIGUEL ANGEL [facility] Department [place] [address] [facility] * eGFR (09/28/2024 9:20 PM CDT) eGFR [...] Organization Address City/[facility]/ZIP Co de Phone Number [facility] [place] [address] * Check Sample (09/28/2024 9:20 PM CDT) Pathologist [facility] ABO Rh O Negative [facility] OTHER 09/28/2024 9:20 PM CDT 09/28/2024 10:46 PM CDT us Chelsea Hawkins MD LAB BLOOD ORDERABLES Final Result [facility] [place] [address] [facility] * CBC without differential (09/28/2024 9:20 PM CDT) WBC 8.07 3.80 - 9.90 K/cumm Hgb 14.1 13.0 - 17.5 g/dL [facility] Hct 40.7 38.9 - 50.3 % [facility] Plt 287 150 - 400 K/cumm [facility] MPV 9.2 9.1 - 12.3 fL [facility] RBC 4.84 4.30 - 5.80 M/cumm [facility] MCV 84.1 81.3 - 96.4 fL [facility] MCH 29.1 27.1 - 33.3 pg [facility] MCHC 34.6 32.3 - 35.7 g/dL [facility] RDW CV 11.8 11.1 - 14.9 % [facility] RDW SD 35.8 35.7 - 48.1 fL [facility] NRBC abs 0.00 0.00 - 0.01 K/cumm [facility] Blood 09/28/2024 9:20 PM CDT 09/28/2024 10:33 PM CDT us Chelsea Hawkins MD LAB BLOOD ORDERABLES Final Result [facility] [place] [address] * (ABNORMAL) Basic metabolic panel (09/28/2024 9:20 PM CDT) [facility] Sodium 137 135 - 145 mmol/L Potassium, pl 3.5 3.3 - 4.9 mmol/L [facility] Chloride 100 97 - 110 mmol/L [facility] CO2 25 22 - 32 mmol/L [facility] Anion gap 12 2 - 15 mmol/L [facility] BUN 14 6 - 25 mg/dL [facility] Creatinine 0.73(L) 0.80 - 1.30 mg/dL [facility] Glucose 112 70 - 199 mg/dL [facility] Comment: Interpretive Data Fasting glucose >/= [...] 2022. Calcium 9.5 8.5 - 10.3 mg/dL [facility] Blood 09/28/2024 9:20 PM CDT 09/28/2024 10:30 PM CDT Chelsea Hawkins MD LAB BLOOD ORDERABLES Final Result Performing Organization Address [facility] Co de Phone Number [facility] [place] [address] * Type and screen (09/28/2024 4:23 PM CDT) Keira, indirect Negative ABO Rh O Negative [facility] Blood 09/28/2024 4:23 PM CDT 09/28/2024 5:14 PM CDT Narrative [facility] - 09/28/2024 6:14 PM CDT Has the patient had Daratumumab or Isatuximab in the past 6 months?->Unknown us Chelsea Hawkins MD LAB BLOOD BANK TEST ORDERA BLES Final Result Performing Organization Address [facility] Co de Phone Number [facility] [place] [address] * XR Chest 1 View (09/28/2024 11:26 [...] AM CDT Narrative 09/28/2024 9:26 AM CDT [facility] [place] [address] Transthoracic Echocardiographic Report Patient Name: LIT SOTOMAYOR L : 1975 (49y 4m) Gender: M Study Date: 09/28/2024 07:17:31 AM Ht(Inch): 68 Wt(Lb): 160.05 BSA: 1.87 Rail Track Maintainer: Sole Jarquin [facility] Location: [id number] Order Provider: CHELSEA HAWKINS Heart Rate: 97 [...] Procedure Note Michael Johnson MD - 09/28/2024 [facility] [place] [address] Transthoracic Echocardiographic Report Patient Name: LIT SOTOMAYOR L : 1975 (49y 4m) Gender: M Study Date: 09/28/2024 07:17:31 AM Ht(Inch): 68 Wt(Lb): 160.05 BSA: 1.87 Rail Track Maintainer: Sole Jarquin [facility]CS Location: [id number] OrderProvider: CHELSEA HAWKINS Heart Rate: 97 BMI: [...] LA Length 2C 5.74 cm MV Decel Oofz028.18 msec [ 104.00 - 258.00 ] LA [...] BLOOD ORDERABLES Final Result Performing Organization Address [facility]/ZIP Co de Phone Number [facility] [place] [address] * (ABNORMAL) CBC without differential (09/27/2024 9:39 PM CDT) Pathologist [facility] WBC 7.74 3.80 - 9.90 K/cumm Hgb 13.1 13.0 - 17.5 g/dL [facility] Hct 37.1(L) 38.9 - 50.3 % [facility] Plt 250 150 - 400 K/cumm [facility] MPV 9.2 9.1 - 12.3 fL [facility] RBC 4.37 4.30 - 5.80 M/cumm [facility] MCV 84.9 81.3 - 96.4 fL [facility] MCH 30.0 27.1 - 33.3 pg [facility] MCHC 35.3 32.3 - 35.7 g/dL [facility] RDW CV 11.9 11.1 - 14.9 % [facility] RDW SD 36.4 35.7 - 48.1 fL [facility] NRBC abs 0.00 0.00 - 0.01 K/cumm [facility] Blood 09/27/2024 9:39 PM CDT 09/27/2024 10:44 PM CDT us Chelsea Hawkins MD LAB BLOOD ORDERABLES Final Result Performing Organization Address City/[facility] Co de Phone Number [facility] [place] [address] * Basic metabolic panel (09/27/2024 9:39 PM CDT) Sodium 143 135 - 145 mmol/L Potassium, pl 4.3 3.3 - 4.9 mmol/L [facility] Chloride 105 97 - 110 mmol/L [facility] CO2 24 22 - 32 mmol/L [facility] Anion gap 14 2 - 15 mmol/L [facility] BUN 14 6 - 25 mg/dL [facility] Creatinine 0.89 0.80 - 1.30 mg/dL [facility] Glucose 124 70 - 199 mg/dL [facility] Comment: Interpretive Data Fasting glucose >/= [...] 2022. Calcium 9.0 8.5 - 10.3 mg/dL [facility] Blood 09/27/2024 9:39 PM CDT 09/27/2024 10:43 PM CDT Chelsea Hawkins MD LAB BLOOD ORDERABLES Final Result [facility] [place] [address] * IR Angio Selective Carotid ACCOUNT INFORMATION CLERK Right (09/27/2024 8:47 AM CDT) Anatomical Region [...] Heparin (3000 units) MATERIALS: 21-gauge needle 5 Ethiopian Merit Prelude IDeal sheath 23cm and mini guidewire 5 Ethiopian [place] 2 [place] catheter Terumo glidewire TR Band CONTRAST: Visipaque [...] and were stored to PACS.. The 5 Ethiopian Merit Prelude IDeal sheath 23cm was then introduced into the right radial artery over the mini guidewire. A cocktail of Verapamil (2.5 mg), Nitroglycerin (200 mcg), and Heparin (3000 units) was slowly injected into the right radial artery through the sheath over several minutes, with close monitoring of blood pressure. A Terumo Glidewire and 5 Ethiopian [place] 2 [place] catheter were advanced into the aortic arch [...] Heparin (3000 units) MATERIALS: 21-gauge needle 5 Ethiopian Merit Prelude IDeal sheath 23cm and mini guidewire 5 Ethiopian [place] 2 [place] catheter Terumo glidewire TR Band CONTRAST: Visipaque [...] and were stored to PACS.. The 5 Ethiopian Zaya Prelude IDeal sheath 23cm was then introduced into the right radial artery over the mini guidewire. A cocktail of Verapamil (2.5 mg), Nitroglycerin (200 mcg), and Heparin (3000 units) was slowly injected into the right radial artery through the sheath over several minutes, with close monitoring of blood pressure. A Terumo Glidewire and 5 Ethiopian [place] 2 [place] catheter were advanced into the aortic arch [...] Organization Address City/[facility]/ZIP Co de Phone Number [facility] [place] [address] * CBC without differential (09/26/2024 8:00 PM CDT) WBC 7.85 3.80 - 9.90 K/cumm Hgb 13.9 13.0 - 17.5 g/dL [facility] Hct 39.3 38.9 - 50.3 % [facility] Plt 256 150 - 400 K/cumm [facility] MPV 9.2 9.1 - 12.3 fL [facility] RBC 4.66 4.30 - 5.80 M/cumm [facility] MCV 84.3 81.3 - 96.4 fL [facility] MCH 29.8 27.1 - 33.3 pg [facility] MCHC 35.4 32.3 - 35.7 g/dL [facility] RDW CV 11.9 11.1 - 14.9 % [facility] RDW SD 36.4 35.7 - 48.1 fL [facility] NRBC abs 0.00 0.00 - 0.01 K/cumm [facility] Blood 09/26/2024 8:00 PM CDT 09/26/2024 8:55 PM CDT us Chelsea Hawkins MD LAB BLOOD ORDERABLES Final Result Performing Organization Address City/[facility] Co de Phone Number [facility] [place] [address] * Hemoglobin A1c (09/26/2024 8:00 PM CDT) Hgb A1C 5.6 4.0 - 5.6 % Estimated Average Glucose 114 mg/dL [facility] Comment: The ADA recommends reporting an [...] Hawkins MD LAB BLOOD ORDERABLES Final Result [facility] [place] [address] * Basic metabolic panel (09/26/2024 8:00 PM CDT) [facility] Sodium 139 135 - 145 mmol/L Potassium, pl 3.9 3.3 - 4.9 mmol/L [facility] Chloride 103 97 - 110 mmol/L [facility] CO2 25 22 - 32 mmol/L [facility] Anion gap 11 2 - 15 mmol/L [facility] BUN 20 6 - 25 mg/dL [facility] Creatinine 0.89 0.80 - 1.30 mg/dL [facility] Glucose 141 70 - 199 mg/dL [facility] Comment: Interpretive Data Fasting glucose >/= [...] 2022. Calcium 9.4 8.5 - 10.3 mg/dL [facility] Blood 09/26/2024 8:00 PM CDT 09/26/2024 8:55 PM CDT Chelsea Hawkins MD LAB BLOOD ORDERABLES Final Result Performing Organization Address [facility] Co de Phone Number MIGUEL ANGEL [facility] [place] [address] * (ABNORMAL) Fentanyl Confirmation, Urine (09/26/2024 1:23 [...] needed. Performance characteristics were determined by the [facility] in a manner consistent with CLIA requirement and has not been cleared or approved by the U.S. Food and Drug Administration. Current interpretive data was last revised 2020. Urine 09/26/2024 1:23 PM CDT 09/26/2024 1:42 PM CDT us Chelsea Hawkins MD LAB URINE ORDERABLES Final Result Performing Organization Address City/[facility]/ZIP Co de Phone Number MIGUEL ANGEL [facility] [place] [address] * (ABNORMAL) Drugs of Abuse Screen, Urine [...] Barbiturates, ur Not Detected CutOff 200ng/mL [facility] Comment: Interpretive Data - Barbiturates: Samples containing greater than 200 ng/mL secobarbital or other cross-reacting barbiturate compounds are reported as positive. False positive and false negative results are possible. Confirmatory testing required for definitive results. Current Interpretive Data was last reviewed 2022. Benzodiazepines, ur Not Detected CutOff 100ng/mL [facility] Comment: Interpretive Data - Benzodiazepines: Samples containing greater than 100 ng/mL nordiazepam or other cross-reacting compounds are reported as positive. False positive and false negative results are possible. Confirmatory testing required for definitive results. Current Interpretive Data was last reviewed 2022. Cannabinoids, ur Not Detected CutOff 50 ng/mL [facility] Comment: Interpretive Data - Cannabinoids: Samples containing greater than 50 ng/mL delta-9 THC -COOH or other cross- reacting compounds are reported as positive. False positive and false negative results are possible. Confirmatory testing required for definitive results. Current Interpretive Data was last reviewed 2022. Cocaine, ur Not Detected CutOff 150ng/mL [facility] Comment: Interpretive Data - Cocaine: Samples containing greater than 150 ng/mL benzoylecgonine or other cross- reacting compounds are reported as positive. False positive and false negative results are possible. Confirmatory testing required for definitive results. Current Interpretive Data was last reviewed 2022. Fentanyl, Ur Screen Positive, presumptive (A) CutOff 5 ng/mL [facility] Comment: Interpretive Data - Fentanyl: Samples containing [...] ur Not Detected CutOff 300ng/mL [facility] Comment: Interpretive Data - Opiates: Samples containing greater than 300 ng/mL morphine or other cross-reacting compounds are reported as positive. False positive and false negative results are possible. Confirmatory testing required for definitive results. Current Interpretive Data was last reviewed 2022. Oxycodone, ur Not Detected CutOff 100ng/mL [facility] Comment: Interpretive Data - Oxycodone: Samples containing greater than 100 ng/mL oxycodone or other cross-reacting compounds are reported as positive. False positive and false negative results are possible. Confirmatory testing required for definitive results. Current Interpretive Data was last reviewed 2022. Phencyclidine, ur Not Detected CutOff 25 ng/mL [facility] Comment: Interpretive Data - Phencyclidine: Samples containing greater than 25 ng/mL phencyclidine or other cross-reacting compounds are reported as positive. False positive and false negative results are possible. Confirmatory testing required for definitive results. Current Interpretive Data was last reviewed 2022. Urine Creatinine 292 mg/dL [facility] Comment: Interpretive Data Urine Creatinine: < 10 mg/dL is extremely dilute = or > 10 but < 20 mg/dL is dilute = or > 20 mg/dL is normal Current Interpretive Data was last revised on 2017. Urine 09/26/2024 1:23 PM CDT 09/26/2024 1:42 PM CDT Narrative [facility] - 09/26/2024 2:54 PM CDT Drug of Abuse screening is performed by immunoassay for medical purposes only. This is not to be used for Pain Management purposes. If Detected, confirmation testing will be performed for Amphetamines, Cocaine, Fentanyl, Methadone, Opiates, Oxycodone or Phencyclidine. Chelsea Hawkins MD LAB URINE ORDERABLES Final Result [facility]EL ANGEL [facility] [place] [address] * eGFR (09/25/2024 10:32 PM CDT) [facility] eGFR >90 >=60 mL/min/1. 73 m2 Comment: [...] BLOOD ORDERABLES Final Result Performing Organization Address [facility]/State/ZIP Co de Phone Number MIGUEL ANGEL [facility] [place] [address] * (ABNORMAL) CBC without differential (09/25/2024 10:32 PM CDT) [facility] WBC 9.05 3.80 - 9.90 K/cumm Hgb 13.9 13.0 - 17.5 g/dL [facility] Hct 40.2 38.9 - 50.3 % [facility] Plt 281 150 - 400 K/cumm [facility] MPV 9.0(L) 9.1 - 12.3 fL [facility] RBC 4.70 4.30 - 5.80 M/cumm [facility] MCV 85.5 81.3 - 96.4 fL [facility] MCH 29.6 27.1 - 33.3 pg [facility] MCHC 34.6 32.3 - 35.7 g/dL [facility] RDW CV 11.9 11.1 - 14.9 % [facility] RDW SD 37.0 35.7 - 48.1 fL [facility] NRBC abs 0.00 0.00 - 0.01 K/cumm [facility] Blood 09/25/2024 10:3 2 PM CDT 09/25/2024 11:00 PM CDT Chelsea Hawkins MD LAB BLOOD ORDERABLES Final Result [facility] [place] [address] * (ABNORMAL) Lipid panel (09/25/2024 10:32 PM [...] revised on 2017. Triglycerides 60 <=149 mg/dL [facility] Comment: Interpretive Data Ages < or [...] 2017. HDL 37(L) >=40 mg/dL [facility] Comment: Interpretive Data Ages < or = [...] LDL, calculated 103 <=129 mg/dL [facility] Comment: Interpretive Data Ages < or = [...] 2023. Non-HDL Cholesterol 115 mg/dL [facility] Comment: Interpretive Data Ages < or = [...] last revised on 2017. Chol/HDL ratio 4 [facility] Blood 09/25/2024 10:3 2 PM CDT 09/25/2024 10:58 PM CDT Chelsea Hawkins MD LAB BLOOD ORDERABLES Final Result [facility] [place] [address] * (ABNORMAL) Basic metabolic panel (09/25/2024 10:32 PM CDT) Sodium 139 135 - 145 mmol/L Potassium, pl 4.3 3.3 - 4.9 mmol/L [facility] Chloride 104 97 - 110 mmol/L [facility] CO2 25 22 - 32 mmol/L [facility] Anion gap 10 2 - 15 mmol/L [facility] BUN 11 6 - 25 mg/dL [facility] Creatinine 0.77(L) 0.80 - 1.30 mg/dL [facility] Glucose 106 70 - 199 mg/dL [facility] Comment: Interpretive Data Fasting glucose >/= [...] 2022. Calcium 9.6 8.5 - 10.3 mg/dL [facility] Blood 09/25/2024 10:3 2 PM CDT 09/25/2024 10:58 PM CDT us Chelsea Hawkins MD LAB BLOOD ORDERABLES Final Result Performing Organization Address [facility]/ZIP Co de Phone Number [facility] [place] [address] * ECG 12 lead (09/25/2024 9:41 PM CDT) Ventricular Rate EKG/Min 59 BPM [facility] Atrial Rate 59 BPM [facility] SC-Interval (MSEC) 154 ms [facility] QRS-Interval (MSEC) 86 ms [facility] QT-Interval (MSEC) 460 ms [facility] QTc 455 ms [facility] P [place] 46 degrees [facility] R [place] 18 degrees [facility] T [place] 19 degrees [facility] Diagnosis Sinus bradycardia Otherwise normal ECG No previous ECGs available Confirmed by ROYER MALIN M.D ([id number]) on 09/27/2024 6:26:23 PM [facility] 09/25/2024 9:41 PM CDT 09/27/2024 6:26 PM CDT us Chelsea Hawkins MD ECG ORDERABLES Final Resu lt Performing Organization Address [facility] Co de Phone Number [facility] * (ABNORMAL) Urinalysis reflex to microscopic and [...] tendency for uric acid stone formation. Source: Assignment Editor Current Interpretive Data was last revised on [...] GENERAL ORDERABLES Final Result Performing Organization Address [facility] Co de Phone Number MIGUEL ANGEL [facility] ([place]) 1 [facility] Department [place] [address] * Troponin T high-sensitivity 2-hour (09/25/2024 3:56 [...] Organization Address City/[facility]/ZIP Co de Phone Number MIGUEL ANGEL [facility] ([place]) 1 [facility] Department [place] [address] * CTA Stroke Head Neck W WO [...] or vascular malformation. Right posterior cerebral artery (PAINT MAKER): No large vessel occlusion or vascular malformation. Left posterior cerebral artery (PAINT MAKER): No large vessel occlusion or vascular malformation. [...] Sekou Burton M.D. NS: NS Report ID: [id number] [place] Location: [id number] Procedure Note Sekou Burton MD - 09/25/2024 [...] or vascular malformation. Right posterior cerebral artery (PAINT MAKER): No large vessel occlusion orvascular malformation. Left posterior cerebral artery (PAINT MAKER): No large vessel occlusion orvascular malformation. INCLUDED [...] Sekou Burton M.D. NS: NS Report ID: [id number] [place] Location: [id number] us Dominique Fischer MD IMG CT PROCEDURES Final Re sult * ECG 12 lead (09/25/2024 2:27 PM CDT) 09/25/2024 2:27 PM CDT Narrative [facility] - 09/27/2024 8:11 AM CDT Vent Rate: 90 bpm RR Interval: 662 msec SC Interval: 147 msec QRS Duration: 89 msec QT Interval: 362 msec QTC Interval: 410 msec P-R-T [place]: 60 - 26 - 44 degrees IMPRESSION: SINUS RHYTHM LOW QRS VOLTAGE IN PRECORDIAL LEADS [QRS DEFLECTION < 1.0 mV IN CHEST LEADS] BORDERLINE ECG Electronically Signed By: Harvey Olson MD us Dominique Fischer MD ECG ORDERABLES Final Resu lt [facility] * CT Stroke Head WO Contrast (09/25/2024 [...] Radha Lorenz M.D. LC: KYRA Report ID: [id number] [place] Location: [place] [address] Procedure Note Lubna Lorenz MD - 09/25/2024 [...] Radha Lorenz M.D. LC: KYRA Report ID: [id number] [place] Location: [id number] Dominique Fischer MD IMG CT PROCEDURES Final [...] LAB BLOOD ORDERABLES Final Result [facility] [place] 1 [facility] Department of Laboratories [place], [place] [id number] * eGFR (09/25/2024 2:16 PM CDT) eGFR [...] BLOOD ORDERABLES Final Result [facility] ([place]) 1 [facility] Department [place] [address] * Differential, auto (09/25/2024 2:16 PM CDT) [...] Final Result [facility] ([place]) 1 [facility] Department [place] [address] * (ABNORMAL) CBC with auto differential (09/25/2024 [...] BLOOD ORDERABLES Final Result Performing Organization Address [facility]/ZIP Co de Phone Number MIGUEL ANGEL [facility] ([place]) 1 [facility] [place] [address] * (ABNORMAL) aPTT (09/25/2024 2:16 PM CDT) aPTT 40(H) 28 - 38 sec [facility] ([place]) Comment: Interpretive Data Heparin therapeutic range: 66.0 [...] BLOOD ORDERABLES Final Result [facility] ANG[facility] ([place]) 1 [facility] [place] [address] * (ABNORMAL) Protime-INR (09/25/2024 2:16 PM CDT) PT 13.6(H) 9.7 - 13.0 sec [facility] INR 1.25(H) 0.90 - 1.20 [facility] Comment: Interpretive data Oral anticoagulant therapeutic ranges: Venous thromboembolism prophylaxis or treatment: 2.0-3.0 CARDIOLOGY Standard range: 2.0-3.0 High-intensity range: 2.5-3.5 Refer to indication-specific guidelines for appropriate target ranges for prosthetic heart valve replacement. Current interpretive data was last revised on 2019. Blood 09/25/2024 2:16 PM CDT 09/25/2024 2:20 PM CDT us Dominique Fischer MD LAB BLOOD ORDERABLES Final Result [facility] 1 [facility] Department [place] [address] * (ABNORMAL) Comprehensive metabolic panel (09/25/2024 2:16 PM CDT) Sodium 137 135 - 145 mmol/L Potassium, pl 4.0 3.3 - 4.9 mmol/L [facility] Chloride 99 97 - 110 mmol/L [facility] CO2 24 22 - 32 mmol/L [facility]) Anion gap 14 2 - 15 mmol/L [facility] ([place]) BUN 10 6 - 25 mg/dL [facility] Creatinine 0.73(L) 0.80 - 1.30 mg/dL [facility]) Glucose 107 70 - 199 mg/dL [facility] Comment: Interpretive Data Fasting glucose [...] Final Result MIGUEL ANGEL [facility] ([place]) 1 [facility] [place] [address] * POCT glucose (09/25/2024 2:11 PM CDT) [facility] Glucose, POC 113 70 - 199 mg/dL Blood 09/25/2024 2:11 PM CDT 09/25/2024 2:11 PM CDT Dominique Fischer MD LAB POCT ORDERABLES - CARRIE CE Final Result MIGUEL ANGEL [facility] ([place]) 1 [facility] [place] [address] * eGFR (09/07/2024 4:00 PM CDT) [facility] eGFR >90 >=60 mL/min/1. 73 m2 Comment: [...] MD LAB BLOOD ORDERABLES Final Resu lt [facility] [address] [place] [address] * Differential, auto (09/07/2024 4:00 PM CDT) Neutrophil abs 5.29 1.50 - 6.50 K/cumm Imm gran abs 0.03 0.00 - 0.10 K/cumm [facility] Lymphocyte abs 1.92 0.80 - 3.30 K/cumm [facility] Monocyte abs 0.69 0.20 - 0.80 K/cumm [facility] Eosinophil abs 0.13 0.00 - 0.50 K/cumm [facility] Basophil abs 0.06 0.00 - 0.10 K/cumm [facility] Neutrophil pct 65.2 % MIGUEL ANGEL Comment: [...] was last revised on 2017. Blood 09/07/2024 4:0 0 PM CDT 09/07/2024 4:01 PM CDT us Reuben Finn MD LAB BLOOD ORDERABLES Final Resu lt [facility] [address] [place] [address] * CBC with auto differential (09/07/2024 4:00 PM CDT) WBC 8.12 3.80 - 9.90 K/cumm Hgb 14.9 13.0 - 17.5 g/dL [facility] Hct 43.0 38.9 - 50.3 % [facility] Plt 307 150 - 400 K/cumm [facility] MPV 10.0 9.1 - 12.3 fL [facility] RBC 4.79 4.30 - 5.80 M/cumm [facility] MCV 89.8 81.3 - 96.4 fL [facility] MCH 31.1 27.1 - 33.3 pg [facility] MCHC 34.7 32.3 - 35.7 g/dL [facility] RDW CV 11.7 11.1 - 14.9 % [facility] RDW SD 38.5 35.7 - 48.1 fL [facility] NRBC abs 0.00 0.00 - 0.01 K/cumm [facility] Blood 09/07/2024 4:00 PM CDT 09/07/2024 4:01 PM CDT Reuben Finn MD LAB BLOOD ORDERABLES Final Resu lt Performing Organization Address [facility] Co de Phone Number [facility]UEL ANGEL [facility] [address] [place] [address] * Lipoprotein a (LPa) (09/07/2024 4:00 PM CDT) [facility] Lipoprotein A 23 <75 nmol/L [facility] Comment: ADDITIONAL INFORMATION Please notice that Lp(a) values are reported in molar units (nmol/L). These units are recommended by professional society guidelines and expert opinion statements. Measured results and risk thresholds are higher than those generated using mass units (mg/dL). Cardiovascular risk increases starting at 75 nmol/L. Lp(a) >=125 nmol/L is considered a risk enhancing factor by the [place] [employer]. This test has been modified from the pretzel twister's instructions. Its performance characteristics were determined by [facility] in a manner consistent with CLIA requirements. This test has not been cleared or approved by the U.S. Food and Drug Administration. Test Performed by: [facility] [address] [address] Engine Dynamometer Tester: Pauly Ruffin Ph.D.; CLIA# [id number] Blood 09/07/2024 4:00 PM CDT 09/08/2024 9:52 AM CDT Reuben Finn MD LAB BLOOD ORDERABLES Final Resu lt Performing Organization Address [facility]/ZIP Co de Phone Number MIGUEL ANGEL [place] [address] [place] [address] [facility] * (ABNORMAL) Lipid panel (09/07/2024 [...] on 2017. Chol/HDL ratio 4 [facility] Blood 09/07/2024 4:00 PM CDT 09/07/2024 4:00 PM CDT us Reuben Finn MD LAB BLOOD ORDERABLES Final Resu lt [facility] [address] [place] [address] * Basic metabolic panel (09/07/2024 4:00 PM CDT) Sodium 141 135 - 145 mmol/L Potassium, pl 4.0 3.3 - 4.9 mmol/L [facility] Chloride 104 97 - 110 mmol/L [facility] CO2 26 22 - 32 mmol/L [facility] Anion gap 11 2 - 15 mmol/L [facility] BUN 9 6 - 25 mg/dL [facility] Creatinine 0.85 0.80 - 1.30 mg/dL [facility] Glucose 111 70 - 199 mg/dL [facility] Comment: Interpretive Data Fasting glucose >/= 126 [...] 2022. Calcium 9.8 8.5 - 10.3 mg/dL [facility] Blood 09/07/2024 4:00 PM CDT 09/07/2024 4:00 PM CDT us Reuben Finn MD LAB BLOOD ORDERABLES Final Resu lt [facility] [address] [place] [address] * COLONOSCOPY (06/10/2012 12:00 AM CDT) Anatomical Region Laterality Modality Other Narrative 06/10/2012 12:00 AM CDT Ordered by an unspecified provider. Procedure Note ProviderPerry MD - 06/10/2012 12:00 AM CDT PROCEDURE REPORT Patient: LIT SOTOMAYOR Account: [id number] Room No: : 1975 Patient Type: SDS [...] for the next week or two weeks. Ciro Rai/gaurav TD: 06/11/2012 15:04 CC: Jarod Cheatham M.D. Authenticated by Aranza Butler MD On 06/12/2012 01:11:15 PM Historical Provider ENDOSCOPY PROCEDURES Yomaira solorio Result from Last 3 Months or Most Recently Relevant to Health Maintenance Insurance [facility] CHOICE PLUS [facility] CHOICE PLUS IDPA [facility] CHOICE PLUS IDPA Advance Directives For more information, please contact: [phone] Documents on File Type Date Recorded Patient Office Administration Expl anation ADVANCE DIRECTIVE 09/26/2024 10:45 AM RAYMUNDO R OF TELECOMMUNICATIONS TECHNICIAN-MEDICAL * Full Code (Latest Code Status on File) Date Activated Date Inactivated Comments 09/25/2024 8:20 PM 09/30/2024 8:25 PM Care Teams [place] Relationship Specialty Start Date End Date Nelly Godinez NP [facility] [place] [address] PCP - General Nurse Practitioner 09/26/24
--- OUTSIDE RECORDS SUMMARY | 2024-10-27 09:04 | XMS_ITS | Encounter Summary ---
Author Organization [facility] [employer] Care Team Providers Care Ironing Pleater Name Role Phone Nelly Godinez APRN Primary Care Provider [phone]- [phone] Encounter Details Date Type Department Care Team (Latest Contact Info) Description 10/26/2024 Travel Social History Tobacco Use Types Packs/Day [...] Description 10/28/2024 2:30 PM CDT Occupational Therapy [facility] [address] [place] [address] Nelly Godinez LACQUER PIN PRESS OPERATOR [address] [place] [address] Kyra Castillo OT [place] 10/29/2024 8:45 AM CDT Physical Therapy [facility] [address] [place] [address] Nelly Godinez LACQUER PIN PRESS OPERATOR [address] [place] [address] Nidhi Priest, [place] 11/02/2024 11:30 AM CDT Physical Therapy [facility] [address] [place] [address] Nelly Godinez, LACQUER PIN PRESS OPERATOR [address] [place] [address] Nidhi Priest, PT [place] 11/02/2024 1:45 PM CDT Occupational Therapy [facility] [address] [place] [address] Nelly Godinez, LACQUER PIN PRESS OPERATOR [address] [place] [address] Kyra Castillo OT [place] 11/02/2024 2:30 PM CDT Speech Therapy [facility] [address] [place] [address] Nelly Godinez, LACQUER PIN PRESS OPERATOR [address] [place] [address] Evelina Barrientos, MS CCC-ANIMAL DAYCARE PROVIDER [place] 11/05/2024 1:00 PM CDT Physical Therapy [facility] [address] [place] [address] Nelly Godinez, LACQUER PIN PRESS OPERATOR [address] [place] [address] Nidhi Priest, PT [place] 11/05/2024 1:45 PM CDT Speech Therapy [facility] [address] [place] [address] Nelly Godinez, LACQUER PIN PRESS OPERATOR [address] [place] [address] Evelina Barrientos, MS CCC-ANIMAL DAYCARE PROVIDER [place] 11/05/2024 2:30 PM CDT Occupational Therapy [facility] [address] [place] [address] Nelly Godinez, LACQUER PIN PRESS OPERATOR [address] [place] [address] Kyra Castillo, OT [place] 11/08/2024 12:45 PM CDT Occupational Therapy [facility] [address], [address] [place] [address] Nelly Godinez, LACQUER PIN PRESS OPERATOR [address] [place] [address] Anna, Kyra, OT [place] 11/08/2024 1:45 PM CDT Speech Therapy [facility] [address], [address] [place] [address] Nelly Godinez, LACQUER PIN PRESS OPERATOR [address] [place] [address] Evelina Barrientos, MS CCC-ANIMAL DAYCARE PROVIDER [place] 11/11/2024 1:00 PM CDT Occupational Therapy [facility] [address], [address] [place] [address] Nelly Godinez, LACQUER PIN PRESS OPERATOR [address] [place] [address] Krya Castillo, OT [place] 11/11/2024 1:45 PM CDT Physical Therapy [facility] [address], [address] [place] [address] Nelly Godinez, LACQUER PIN PRESS OPERATOR [address] [place] [address] Adalberto Kwan, COIN PURSE ASSEMBLER [place] 11/15/2024 12:45 PM CDT Occupational Therapy [facility] [address], [address] [place] [address] Nelly Godinez, LACQUER PIN PRESS OPERATOR [address] [place] [address] Kyra Castillo OT [place] 11/15/2024 1:45 PM CDT Speech Therapy [facility] [address], [address] [place] [address] Nelly Godinez, LACQUER PIN PRESS OPERATOR [address] [place] [address] Evelina Barrientos, MS CCC-ANIMAL DAYCARE PROVIDER [place] 11/15/2024 2:45 PM CDT Physical Therapy [facility] [address], [address] [place] [address] Nelly Godinez, LACQUER PIN PRESS OPERATOR [address] [place] [address] Adalberto Kwan, COIN PURSE ASSEMBLER [place] 11/19/2024 1:00 PM CDT Speech Therapy [facility] [address], [address] [place] [address] Nelly Godinez, LACQUER PIN PRESS OPERATOR [address] [place] [address] Evelina Barrientos, MS CCC-ANIMAL DAYCARE PROVIDER [place] 11/19/2024 1:45 PM CDT Physical Therapy [facility] [address] [place] [address] Nelly Godinez, LACQUER PIN PRESS OPERATOR [address] [place] [address] Nidhi Priest, PT [place] 11/22/2024 12:45 PM CDT Occupational Therapy [facility] [address], [address] [place] [address] Nelly Godinez, LACQUER PIN PRESS OPERATOR [address] [place] [address] Kyra Castillo OT [place] 11/22/2024 1:45 PM CDT Speech Therapy [facility] [address] [place] [address] Nelly Godinez, LACQUER PIN PRESS OPERATOR [address] [place] [address] Evelina Barrientos, MS CCC-ANIMAL DAYCARE PROVIDER [place] 11/22/2024 2:45 PM CDT Physical Therapy [facility] [address] [place] [address] Nelly Godinez, LACQUER PIN PRESS OPERATOR [address] [place] [address] Adalberto Kwan PTA [place] 11/26/2024 1:00 PM CDT Speech Therapy [facility] [address] [place] [address] Nelly Godinez, LACQUER PIN PRESS OPERATOR [address] [place] [address] Evelina Barrientos, MS CCC-ANIMAL DAYCARE PROVIDER [place] 11/26/2024 1:45 PM CDT Occupational Therapy [facility] [address], [address] [place] [address] Nelly Godinez, LACQUER PIN PRESS OPERATOR [address] [place] [address] Anna, Kyra, OT [place] 11/26/2024 2:30 PM CDT Physical Therapy [facility] [address], [address] [place] [address] Nelly Godinez, LACQUER PIN PRESS OPERATOR [address] [place] [address] Nidhi Priest, PT [place] 11/30/2024 1:00 PM CDT Speech Therapy [facility] [address], [address] [place] [address] Nelly Godinez, LACQUER PIN PRESS OPERATOR [address] [place] [address] Evelina Barrientos, MS CCC-ANIMAL DAYCARE PROVIDER [place] 11/30/2024 1:45 PM CDT Occupational Therapy [facility] [address], [address] [place] [address] Nelly Godinez, LACQUER PIN PRESS OPERATOR [address] [place] [address] Katei Castillosa, OT [place] 11/30/2024 2:30 PM CDT Physical Therapy [facility] [address], [address] [place] [address] Nelly Godinez, LACQUER PIN PRESS OPERATOR [address] [place] [address] Adalberto Kwan PTA [place] 12/03/2024 1:00 PM CDT Speech Therapy [facility] [address] [place] [address] Nelly Godinez, LACQUER PIN PRESS OPERATOR [address] [place] [address] Evelina Barrientos, MS [facility]-ANIMAL DAYCARE PROVIDER [place] 12/03/2024 1:45 PM CDT Occupational Therapy [facility] [address], [address] [place] [address] Nelly Godinez, LACQUER PIN PRESS OPERATOR [address] [place] [address] Anna, Kyra, OT [place] 12/03/2024 2:30 PM CDT Physical Therapy [facility] [address], [address] [place] [address] Nelly Godinez, LACQUER PIN PRESS OPERATOR [address] [place] [address] Nidhi Priest PT [place] 12/06/2024 12:45 PM CDT Occupational Therapy [facility] [address], [address] [place] [address] Nelly Godinez, LACQUER PIN PRESS OPERATOR [address] [place] [address] Anna, Kyra, OT [place] 12/06/2024 1:45 PM CDT Speech Therapy [facility] [address], [address] [place] [address] Nelly Godinez, LACQUER PIN PRESS OPERATOR [address] [place] [address] Evelina Barrientos, MS CCC-ANIMAL DAYCARE PROVIDER [place] 12/06/2024 2:45 PM CDT Physical Therapy [facility] [address], [address] [place] [address] Nelly Godinez, LACQUER PIN PRESS OPERATOR [address] [place] [address] Nidhi Priest, PT [place] 12/09/2024 1:15 PM CDT Physical Therapy [facility] [address], [address] [place] [address] Nelly Godinez, LACQUER PIN PRESS OPERATOR [address] [place] [address] Nidhi Priest, PT [place] documented as of this encounter Visit Diagnoses Not on filedocumented in this encounter Care Teams Ironing Pleater Relationship Specialty Start Date End Date Nelly Godinez APRN [address] [place] [address] PCP - General Advanced Practice Nurse 08/25/24 documented as of this encounter
--- OUTSIDE RECORDS SUMMARY | 2024-10-27 09:04 | XMS_ITS | Encounter Summary ---
Author Organization [facility] Address [address] [place] [address] Phone Care Team Providers Care Zumba Instructor Name Role Phone Nelly Godinez APRN Primary Care Provider +1- [phone] Reason for Visit * PT/OT/ST (Routine) - Authorized Specialty Diagnoses / Procedures Referred By Kb kyle Referred To Contact Physical Therapy Diagnoses Hemiplegia affecting right dominant side, unspecified etiology, unspecified hemiplegia type (HCC) Personal history of transient ischemic attack (TIA), and cerebral infarction without residual deficits Nelly Godinez APRN [address] [place] [address] Phone: tel: fax: [facility] [address], [address] [address] Phone: tel: fax: Referral ID Status Reason Start Date Expiration Date V isits Requested Visits Authorized [id number] Authorized 09/22/2024 100 20 Encounter Details Date Type Department Care Team (Latest Contact Info) Description 10/26/2024 1:45 PM CDT Physical Therapy [facility] [address], [address] [address] Nelly Godinez APRN [address] [place] [address] Adalberto Kwan, [facility] Arrived Discharge Disposition: Discharged to home or Selfcare [...] Description 10/28/2024 2:30 PM CDT Occupational Therapy [facility] [address], [address] [place] [address] Nelly Godinez, STNA [address] [place] [address] Kyra Castillo OT [place] 10/29/2024 8:45 AM CDT Physical Therapy [facility] [address], [address] [place] [address] Nelly Godinez, STNA [address] [place] [address] Nidhi Priest, PT [place] 11/02/2024 11:30 AM CDT Physical Therapy [facility] [address] [place] [address] Nelly Godinez, STNA [address] [place] [address] Nidhi Priest, PT [place] 11/02/2024 1:45 PM CDT Occupational Therapy [facility] [address] [place] [address] Nelly Godinez, STNA [address] [place] [address] Kyra Castillo, OT [place] 11/02/2024 2:30 PM CDT Speech Therapy [facility] at [address], [address] [place] [address] Nelly Godinez, STNA [address] [place] [address] Evelina Barrientos, MS CCC-[employer]EROCK TOWER LOADER [place] 11/05/2024 1:00 PM CDT Physical Therapy [facility] [address], [address] [place] [address] Nelly Godinez, STNA [address] [place] [address] Nidhi Priest, PT [place] 11/05/2024 1:45 PM CDT Speech Therapy [facility] [address], [address] [place] [address] Nelly Godinez, STNA [address] [place] [address] Evelina Barrientos, MS CCC-[employer] TOWER LOADER [place] 11/05/2024 2:30 PM CDT Occupational Therapy [facility] [address], [address] [place] [address] Nelly Godinez, STNA [address] [place] [address] Kyra Castillo, OT [place] 11/08/2024 12:45 PM CDT Occupational Therapy [facility] [address] [place] [address] Nelly Godinez, STNA [address] [facility] [address] Kyra Castillo, OT [place] 11/08/2024 1:45 PM CDT Speech Therapy [facility] [address] [place] [address] Nelly Godinez, STNA [address] [place] [address] Evelina Barrientos, MS [facility]-LIMEROCK TOWER LOADER [place] 11/11/2024 1:00 PM CDT Occupational Therapy [facility] [address] [place] [address] Nelly Godniez, STNA [address] [facility] [address] Kyra Castillo, OT [place] 11/11/2024 1:45 PM CDT Physical Therapy [facility] [address] [place] [address] Nelly Godinez, STNA [address] [facility] [place] [address] Adalberto Kwan PTA [place] 11/15/2024 12:45 PM CDT Occupational Therapy [facility] [address] [place] [address] Nelly Godinez, STNA [address] [facility] [place] [address] MichaLeonardo esquivelyssa OT [place] 11/15/2024 1:45 PM CDT Speech Therapy [facility] [address] [place] [address] Nelly Godinez, STNA [address] [facility] [place] [address] Evelina Barrientos, MS CCC-[employer]EROCK TOWER LOADER [place] 11/15/2024 2:45 PM CDT Physical Therapy [facility] [address] [place] [address] Nelly Godinez, STNA [address] [facility] [place] [address] Adalberto Kwan, [employer] [place] 11/19/2024 1:00 PM CDT Speech Therapy [facility] [address] [place] [address] Nelly Godinez, STNA [address] [facility] [place] [address] Evelina Barrientos, MS CCC-[employer] TOWER LOADER [place] 11/19/2024 1:45 PM CDT Physical Therapy [facility] [address] [place] [address] Nelly Godinez, STNA [address] [place] [address] Nidhi Priest, PT [place] 11/22/2024 12:45 PM CDT Occupational Therapy [facility] [address] [place] [address] Nelly Godinez, STNA [address] [place] [address] Kyra Castillo, OT [place] 11/22/2024 1:45 PM CDT Speech Therapy [facility] [address] [place] [address] Nelly Godinez, STNA [address] [place] [address] Evelina Barrientos, MS CCC-[employer] TOWER LOAD[place] 11/22/2024 2:45 PM CDT Physical Therapy [facility] [address], [address] [place] [address] Nelly Godinez, STNA [address] [place] [address] Adalberto Kwan, [employer] [place] 11/26/2024 1:00 PM CDT Speech Therapy [facility] [address], [address] [place] [address] Nelly Godinez, STNA [address] [place] [address] Evelina Barrientos, MS CCC-[employer] TOWER LOAD[place] 11/26/2024 1:45 PM CDT Occupational Therapy [facility] [address] [place] [address] Nelly Godinez, STNA [address] [place] [address] Kyra Castillo, [place] 11/26/2024 2:30 PM CDT Physical Therapy [facility] [address] [place] [address] Nelly Godinez, STNA [address] [place] [address] Nidhi Priest PT [place] 11/30/2024 1:00 PM CDT Speech Therapy [facility] [address], [address] [place] [address] Nelly Godinez, STNA [address] [place] [address] Evelina Barrientos, MS CCC-[employer]OWER LOAD[place] 11/30/2024 1:45 PM CDT Occupational Therapy [facility] at [address], [address] [place] [address] Nelly Godinez, STNA [address] [place] [address] Kyra Castillo OT [place] 11/30/2024 2:30 PM CDT Physical Therapy [facility] [address], [address] [place] [address] Nelly Godinez, STNA [address] [place] [address] Adalberto Kwan PTA [place] 12/03/2024 1:00 PM CDT Speech Therapy [facility] [address] [place] [address] Nelly Godinez, STNA [address] [place] [address] Evelina Barrientos, MS CCC-[employer] TOWER LOAD[place] 12/03/2024 1:45 PM CDT Occupational Therapy [facility] [address] [place] [address] Nelly Godinez, STNA [address] [facility] [place] [address] Kyra Castillo, OT [place] 12/03/2024 2:30 PM CDT Physical Therapy [facility] [address] [place] [address] Nelly Godinez, STNA [address] [facility] [place] [address] Nidhi Priest, PT [place] 12/06/2024 12:45 PM CDT Occupational Therapy [facility] [address] [place] [address] Nelly Godinez, STNA [address] [facility] [place] [address] Katie Castillosa, OT [place] 12/06/2024 1:45 PM CDT Speech Therapy [facility] [address] [place] [address] Nelly Godinez, STNA [address] [facility] [place] [address] Evelina Barrientos, MS CCC-[employer] TOWER LOAD[place] 12/06/2024 2:45 PM CDT Physical Therapy [facility] [address] [place] [address] Nelly Godinez, STNA [address] [facility] [place] [address] Nidhi Priest, PT [place] 12/09/2024 1:15 PM CDT Physical Therapy [facility] [address] [place] [address] Nelly Godinez APRN [address] [place] [address] Nidhi Priest, PT [place] documented as of this encounter Visit Diagnoses Not on filedocumented in this encounter Care Teams Zumba Instructor Relationship Specialty Start Date End Date Nelly Godinez APRN [address] [place] [address] PCP - General Advanced Practice Nurse 08/25/24 documented as of this encounter
--- OUTSIDE RECORDS SUMMARY | 2024-10-27 09:05 | XMS_ITS | Clinical Summary ---
Author Organization [facility] Address [address] [place] [address] Phone Care Team Providers Care Marketing Communications Assistant Name Role Phone Nelly Godinez ALTAGRACIA Primary Care Provider [phone]- [phone] Allergies Active Allergy Reactions Criticality Noted Date Comments Lactose Intolerance (Gi) Nausea 07/25/2024 Medications acetaminophen (TYLENOL) 325 MG Tablet Take 650 mg by mouth every 8 hours as needed for Mild or more severe pain. 08/18/2024 Active omeprazole (PriLOSEC) 40 MG CAPSULE DELAYED RELEASE Take 40 mg by mouth 2 times daily. Active amLODIPine (NORVASC) 5 MG Tablet Take 5 mg by mouth daily. 08/19/2024 aspirin 81 MG Chewable Tablet Take 81 mg by mouth daily. 08/19/2024 atorvastatin (LIPITOR) 80 MG Tablet Take 80 mg by mouth daily. 08/19/2024 Active Problems Problem Noted Date Diagnosed Date Spastic hemiparesis of right dominant side 08/17 Cognitive communication deficit 08/04/2024 Carotid stenosis 07/27/2024 Polysubstance abuse 07/27/2024 Mixed hyperlipidemia Resolved Problems Problem Noted Date Diagnosed Date Resolved Date Cerebral edema 07/27/2024 08/25/2024 Acute ischemic left ICA stroke 07/19/2024 08/25/2024 Wrist drop 01/17/2015 08/18/2024 Overview (08/18/2024): Wristdrop Encounters Date Type Department Care Team Description 10/26/2024 1:45 PM CDT Physical Therapy [facility] [address], [address] [place] [address] Nelly Godinez, Adalberto Thompson, AUTO SERVICE MECHANIC Arrived Discharge Disposition: Discharged to home or Selfcare 10/26/2024 1:00 PM CDT Occupational Therapy [facility] [address], [address] [place] [address] Nelly Godinez, Kyra Glasgow, OT Hemiplegia affecting right dominant side, unspecified etiology, unspecified hemiplegia type (HCC) (Primary Dx) Discharge Disposition: Discharged to home or Selfcare 10/26/2024 Travel 10/21/2024 1:00 PM CDT Occupational Therapy [facility] [address], [address] [place] [address] Nelly Godinez, Kyra Glasgow, OT Discharge Disposition: Discharged to home or Selfcare 10/21/2024 Travel 10/18/2024 Telephone [facility] [address], [address] [place] [address] Nidhi Priest, PT Appointment 10/18/2024 Telephone [facility] [address] [place] [address] Kyra Castillo, OT 10/14/2024 8:30 AM CDT Occupational Therapy [facility] [address] [place] [address] Nelly Godinez, VENEER SAWYER Embick, Kyra, OT Hemiplegia affecting right dominant side, unspecified etiology, unspecified hemiplegia type (HCC) (Primary Dx) Discharge Disposition: Discharged to home or Selfcare 10/13/2024 4:00 PM CDT Physical Therapy [facility] [address], [address] [place] [address] Nelly Godinez, Adalberto Thompson, AUTO SERVICE MECHANIC Hemiplegia affecting right dominant side, unspecified etiology, unspecified hemiplegia type (HCC) (Primary Dx); Abnormality of gait and mobility Discharge Disposition: Discharged to home or Selfcare 10/12/2024 4:45 PM CDT Occupational Therapy [facility] [address], [address] [place] [address] Nelly Godinez, ALTAGRACIA Castillo, Kyra, OT Hemiplegia affecting right dominant side, unspecified etiology, unspecified hemiplegia type (HCC) (Primary Dx) Discharge Disposition: Discharged to home or Selfcare 10/11/2024 2:30 PM CDT Speech Therapy [facility] [address], [address] [place] [address] Nelly Godinez, Evelina Luna, MS [facility]-BRE[facility] Aphasia (Primary Dx) Discharge Disposition: Discharged to home or Selfcare 10/11/2024 Travel 10/07/2024 10:00 AM CDT Physical Therapy [facility] [address], [address] [place] [address] Nelly Godinez, Nidhi Hastings, PT Hemiplegia affecting right dominant side, unspecified etiology, unspecified hemiplegia type (HCC) (Primary Dx); Abnormality of gait and mobility; Left middle cerebral artery stroke (HCC); Acute ischemic left internal carotid artery (ICA) stroke (HCC); Personal history of transient ischemic attack (TIA), and cerebral infarction without residual deficits Discharge Disposition: Discharged to home or Selfcare 10/07/2024 Plan of Care Documentation [facility] [address], [address] [place] [address] 10/06/2024 Plan of Care Documentation [facility] [address], [address] [place] [address] 10/06/2024 Plan of Care Documentation [facility] [address], [address] [place] [address] 10/05/2024 2:30 PM CDT Occupational Therapy [facility] [address], [address] [place] [address] Nelly Godinez, Kyra Glasgow OT Hemiplegia affecting right dominant side, unspecified etiology, unspecified hemiplegia type (HCC) Discharge Disposition: Discharged to home or Selfcare 10/05/2024 1:45 PM CDT Speech Therapy [facility] [address] [facility], [address] [place] [address] Nelly Godinez, Evelina Luna MS [facility]-BRE[facility] Aphasia (Primary Dx); Hemiplegia affecting right dominant side, unspecified etiology, unspecified hemiplegia type (HCC); Personal history of transient ischemic attack (TIA), and cerebral infarction without residual deficits Discharge Disposition: Discharged to home or Selfcare 10/05/2024 Travel 09/24/2024 [facility] [address] [place] [address] Mayda Singh OT OT - DISCHARGE SUMMARY 09/24/2024 Home Care Visit [address] [address] Demetria Bains PT PT - DISCHARGE SUMMARY 09/23/2024 1:00 PM CDT Home Care Visit [address] [address] Josselyn Goff, BREAKER LAYER-SPEECH LANGUAGE PATHOLOGIST BREAKER LAYER - OASIS DISCHARGE 09/23/2024 11:00 AM CDT Home Care Visit [address] [address] Blank Bernal OTA OT - DISCIPLINE DISCHARGE 09/23/2024 10:30 AM CDT Home Care Visit [address] [address] Gali Ag, AUTO SERVICE MECHANIC PT - DISCIPLINE DISCHARGE 09/23/2024 Travel 09/22/2024 Home Care Visit [address] [address] Demetria Bains, PT CASE COMMUNICATION 09/22/2024 Transcribe Orders [facility] [address] [place] [address] Nelly Godinez, VENEER SAWYER Hemiplegia affecting right dominant side, unspecified etiology, unspecified hemiplegia type (HCC) (Primary Dx); Personal history of transient ischemic attack (TIA), and cerebral infarction without residual deficits 09/22/2024 Home Care Visit [address] [address] Demetria Bains, PT TELEPHONE ENCOUNTER 09/21/2024 2:30 PM CDT Home Care Visit [address] [address] Josselyn Goff, BREAKER LAYER-SPEECH LANGUAGE PATHOLOGIST BREAKER LAYER - HOME VISIT 09/21/2024 10:30 AM CDT Home Care Visit [address] [address] Gali Ag, AUTO SERVICE MECHANIC PT - HOME VISIT 09/21/2024 Home Care Visit [address] [address] Blank Bernal OTA CASE COMMUNICATION 09/20/2024 12:30 PM CDT Home Care Visit [address] [address] Blank Bernal OTA OT - HOME VISIT 09/20/2024 8:00 AM CDT Home Care Visit [address] [address] Mei Karimi RN SN - DISCIPLINE DISCHARGE 09/20/2024 Home Care Visit [address] [address] Demetria Bains, PT TELEPHONE ENCOUNTER 09/20/2024 Travel 09/17/2024 1:00 PM CDT Home Care Visit [address] [address] Annabel Potter, AUTO SERVICE MECHANIC PT - HOME VISIT 09/16/2024 1:15 PM CDT Home Care Visit [address] [address] Josselyn Goff, BREAKER LAYER-SPEECH LANGUAGE PATHOLOGIST BREAKER LAYER - HOME VISIT 09/16/2024 11:30 AM CDT Home Care Visit [address] [address] Stefany Lopez, BESSY OT - HOME VISIT 09/14/2024 3:00 PM CDT Home Care Visit [address] [address] Josselyn Goff, BREAKER LAYER-SPEECH LANGUAGE PATHOLOGIST BREAKER LAYER - INITIAL EVALUATION 09/14/2024 2:00 PM CDT Home Care Visit [address] [address] Gali Ag, AUTO SERVICE MECHANIC PT - HOME VISIT 09/14/2024 10:30 AM CDT Home Care Visit [address] [address] Jasmin Gilbert, FICTION WRITER FICTION WRITER - INITIAL EVALUATION 09/13/2024 11:00 AM CDT Home Care Visit [address] [address] Mei Karimi RN SN - HOME VISIT 09/13/2024 9:00 AM CDT Home Care Visit [address] [address] Mayda Singh, OT OT - MARMOLEJO SUPERVISORY VISIT 09/09/2024 1:00 PM CDT Home Care Visit [address] [address] Stefany Lopez, CARE MANAGEMENT ASSISTANT OT - HOME VISIT 09/09/2024 Home Care Visit [address] [address] Stefany Lopez, BESSY CASE COMMUNICATION 09/09/2024 Home Care Visit [address] [address] Stefany Lopez, BESSY TELEPHONE ENCOUNTER 09/08/2024 11:30 AM CDT Home Care Visit [address] [address] Ludy Reardon, AUTO SERVICE MECHANIC PT - HOME VISIT 09/08/2024 Home Care Visit [address] [address] Jasmin Gilbert, FICTION WRITER CASE COMMUNICATION 09/08/2024 Travel 09/08/2024 Home Care Visit [address] [address] Demetria Bains, PT TELEPHONE ENCOUNTER 09/07/2024 12:00 PM CDT Home Care Visit [address] [address] Demetria Bains, PT PT - INITIAL EVALUATION 09/07/2024 10:15 AM CDT Home Care Visit [address] [address] Mayda Singh OT OT - INITIAL EVALUATION 09/06/2024 10:00 AM CDT Home Care Visit [address] [address] Mei Karimi RN SN - OASIS START OF CARE 09/06/2024 Plan of Care Documentation [address] [address] 08/25/2024 1:45 PM CDT Office Visit [facility] [place] [address] [place] [address] Serafin Amato MD Spastic hemiparesis of right dominant side (HCC) (Primary Dx) Discharge Disposition: Discharged to home or Selfcare 08/25/2024 Travel 08/18/2024 [facility] [address] [place] [address] Provider, None Advice Only from [...] Description 10/28/2024 2:30 PM CDT Occupational Therapy [facility] [address], [address] [place] [address] Nelly Godinez, VENEER SAWYER [address] [place] [address] Kyra Castillo OT [place] 10/29/2024 8:45 AM CDT Physical Therapy [facility] [address], [address] [place] [address] Nelly Godinez, VENEER SAWYER [address] [place] [address] Nidhi Priest, PT [place] 11/02/2024 11:30 AM CDT Physical Therapy [facility] [address] [place] [address] Nelly Godinez, VENEER SAWYER [address] [place] [address] Nidhi Priest, PT [place] 11/02/2024 1:45 PM CDT Occupational Therapy [facility] [address] [place] [address] Nelly Godinez, VENEER SAWYER [address] [place] [address] Kyra Castillo OT [place] 11/02/2024 2:30 PM CDT Speech Therapy [facility] [address] [place] [address] Nelly Godinez, VENEER SAWYER [address] [place] [address] Evelina Barrientos, MS [facility]-BREAKER L[place]ER [place] 11/05/2024 1:00 PM CDT Physical Therapy [facility] [address] [place] [address] Nelly Godinez, VENEER SAWYER [address] [place] [address] Nidhi Priest, PT [place] 11/05/2024 1:45 PM CDT Speech Therapy [facility] [address] [place] [address] Nelly Godinez, VENEER SAWYER [address] [place] [address] Evelina Barrientos, MS CCC-BREAKER LAYER [place] 11/05/2024 2:30 PM CDT Occupational Therapy [facility] [address], [address] [place] [address] Nelly Godinez, VENEER SAWYER [address] [place] [address] Kyra Castillo, OT [place] 11/08/2024 12:45 PM CDT Occupational Therapy [facility] [address] [place] [address] Nelly Godinez, VENEER SAWYER [address] [place] [address] Kyra Castillo, OT [place] 11/08/2024 1:45 PM CDT Speech Therapy [facility] [address] [place] [address] Nelly Godinez, VENEER SAWYER [address] [place] [address] Evelina Barrientos, MS CCC-BREAKER LAYER [place] 11/11/2024 1:00 PM CDT Occupational Therapy [facility] [address], [address] [place] [address] Nelly Godinez, VENEER SAWYER [address] [place] [address] Kyra Castillo, OT [place] 11/11/2024 1:45 PM CDT Physical Therapy [facility] [address] [place] [address] Nelly Godinez, VENEER SAWYER [address] [place] [address] Adalberto Kwan, AUTO SERVICE MECHANIC [place] 11/15/2024 12:45 PM CDT Occupational Therapy [facility] [address] [place] [address] Nelly Godinez, VENEER SAWYER [address] [place] [address] Anna, Kyra, OT [place] 11/15/2024 1:45 PM CDT Speech Therapy [facility] [address] [place] [address] Nelly Godinez, VENEER SAWYER [address] [place] [address] Evelina Barrientos, MS [facility]-[place] 11/15/2024 2:45 PM CDT Physical Therapy [facility] [address] [place] [address] eNlly Godinez, VENEER SAWYER [address] [place] [address] Adalberto Kwan, AUTO SERVICE MECHANIC [place] 11/19/2024 1:00 PM CDT Speech Therapy [facility] [address] [place] [address] Nelly Godinez, VENEER SAWYER [address] [place] [address] Evelina Barrientos, MS CCC-BREAKER LAYER [place] 11/19/2024 1:45 PM CDT Physical Therapy [facility] [address], [address] [place] [address] Nelly Godinez, VENEER SAWYER [address] [place] [address] Nidhi Priest, PT [place] 11/22/2024 12:45 PM CDT Occupational Therapy [facility] at [address], [address] [place] [address] Nelly Godinez, VENEER SAWYER [address] [place] [address] Kyra Castillo OT [place] 11/22/2024 1:45 PM CDT Speech Therapy [facility] at [address] [place] [address] Nelly Godinez, VENEER SAWYER [address] [place] [address] Evelina Barrientos, MS CCC-BREAKER LAYER [place] 11/22/2024 2:45 PM CDT Physical Therapy [facility] [address], [address] [place] [address] Nelly Godinez, VENEER SAWYER [address] [place] [address] Adalberto Kwan AUTO SERVICE MECHANIC [place] 11/26/2024 1:00 PM CDT Speech Therapy [facility] [address] [place] [address] Nelly Godinez, VENEER SAWYER [address] [place] [address] Evelina Barrientos, MS CCC-BREAKER LAYER [place] 11/26/2024 1:45 PM CDT Occupational Therapy [facility] [address], [address] [place] [address] Nelly Godinez, VENEER SAWYER [address] [place] [address] Kyra Castillo OT [place] 11/26/2024 2:30 PM CDT Physical Therapy [facility] [address] [place] [address] Nelly Godinez, VENEER SAWYER [address] [place] [address] Nidhi Priest, PT [place] 11/30/2024 1:00 PM CDT Speech Therapy [facility] [address] [place] [address] Nelly Godinez, VENEER SAWYER [address] [place] [address] Evelina Barrientos, MS CCC-BREAKER LAYER [place] 11/30/2024 1:45 PM CDT Occupational Therapy [facility] [address], [address] [place] [address] Nelly Godinez, VENEER SAWYER [address] [place] [address] Kyra Castillo, OT [place] 11/30/2024 2:30 PM CDT Physical Therapy [facility] [address] [place] [address] Nelly Godinez, VENEER SAWYER [address] [place] [address] Adalberto Kwan, AUTO SERVICE MECHANIC [place] 12/03/2024 1:00 PM CDT Speech Therapy [facility] [address] [place] [address] Nelly Godinez, VENEER SAWYER [address] [place] [address] Evelina Barrientos, MS [facility]-[place] 12/03/2024 1:45 PM CDT Occupational Therapy [facility] [address], [address] [place] [address] Nelly Godinez, VENEER SAWYER [address] [place] [address] Kyra Castillo, OT [place] 12/03/2024 2:30 PM CDT Physical Therapy [facility] [address] [place] [address] Nelly Godinez, VENEER SAWYER [address] [place] [address] Nidhi Priest, PT [place] 12/06/2024 12:45 PM CDT Occupational Therapy [facility] [address], [address] [place] [address] Nelly Godinez, VENEER SAWYER [address] [place] [address] Kyra Castillo OT [place] 12/06/2024 1:45 PM CDT Speech Therapy [facility] [address] [place] [address] Nelly Godinez, VENEER SAWYER [address] [place] [address] Evelina Barrientos, MS CCC-BREAKER LAYER [place] 12/06/2024 2:45 PM CDT Physical Therapy [facility] [address] [place] [address] Nelly Godinez, VENEER SAWYER [address] [place] [address] Nidhi Priest, PT [place] 12/09/2024 1:15 PM CDT Physical Therapy [facility] [address], [address] [place] [address] Nelly Godinez, VENEER SAWYER [address] [place] [address] Nidhi Priest, PT [place] Health Maintenance Due Date Last Done Comments Hepatitis C Virus (HCV) Screening 1977 TdaP Immunization 1977 Hepatitis B Immunization (1 of 3 - 19+ 3-dose series) 1996 Cologuard 2022 Colonoscopy 2022 Colorectal Cancer Screening 2022 Immunochemical Fecal Occult Blood 2022 SARS-COV-2 Immunization ( - season) 2023 Influenza Immunization (#1) 2024 Respiratory [...] patient's age to complete this topic Insurance [facility] MEDICAID [place] Advance Directives * Full Code (Latest Code Status on File) Date Activated Date Inactivated Comments 09/06/2024 3:09 PM Care Teams Marketing Communications Assistant Relationship Specialty Start Date End Date Nelly Godinez APRN [address] [place] [id number] PCP - General Advanced Practice Nurse 08/25/24
--- OUTSIDE RECORDS SUMMARY | 2024-10-27 09:05 | XMS_ITS | Encounter Summary ---
Author Organization [facility] Address [address] [place] [address] Phone Care Team Providers Care Wage Adjuster Name Role Phone Nelly Godinez APRN Primary Care Provider [phone]- [phone] Reason for Visit * PT/OT/ST (Routine) - Authorized Specialty Diagnoses / Procedures Referred By Kb kyle Referred To Contact Physical Therapy Diagnoses Hemiplegia affecting right dominant side, unspecified etiology, unspecified hemiplegia type (HCC) Personal history of transient ischemic attack (TIA), and cerebral infarction without residual deficits Nelly Godinez APRN [address] [place] [address] Phone: tel: fax: [facility] [address] [facility], [address] [address] Phone: tel: fax: Referral ID Status Reason Start Date Expiration Date V isits Requested Visits Authorized [id number] Authorized 09/22/2024 100 20 Encounter Details Date Type Department Care Team (Latest Contact Info) Description 10/26/2024 1:00 PM CDT Occupational Therapy [facility] [address], [place] [address] [address] Nelly Godinez APRN [address] [place] [address] Kyra Castillo OT PA Hemiplegia affecting right dominant side, unspecified etiology, [...] of Care - Kyra Castillo OT - 10/26/2024 1:00 PM CDT Occupational Therapy Visit - Electronically signed by: KYRA CASTILLO OT October 26, 2024 Subjective SUBJECTIVE: Patient reports that he got in the pool again last night. He does not report any other changes since his last appointment. Patient denies any pain today. Patient reports that his finger feel tight. OBJECTIVE: Observation: Functional Outcomes/Other Observations: BP: 118/68 TREATMENT: Refer to [facility] OT Rehab Therapy flowsheet for minutes. Home program distributed via handout for self PROM. Patient response to new home exercises provided today: patient required encouragement throughout exercises and cues for proper form Access Code: [email or web address] URL: [email or web address] Date: 10/12/2024 Prepared by: Kyra Interventions provided this session: Pegboard: Patient was provided with large foam pegboard with large 2 inch pegs. Patient was provided with the peg placed in his hand, and instructed to attempt to reach forward to place into the opening on the board. Patient was able to maintain a lateral pinch on the peg, but was unable to keep the peg in his hand when attempting to push into the opening on the board. Patient attempted to utilize his left hand to assist with the task, eventually requiring verbal cues to keep his left hand by his side throughout activity. Patient required maximal assistance to place 10 pegs. Then, patient wasinstructed to remove the pegs from the pegboard. Patient required moderate to maximal assistance touse a hooked fist to remove the pegs. Tabletop towel slides: While seated at the table, patient was instructed to place his right arm on the towel on the table surface. Patient was instructed to lean his body forward and attempt to activate shoulder into flexion position. Patient demonstrated difficulty utilizing shoulder muscles, but was able to achieve a stretch into shoulder flexion x 10 reps, holding for 30 seconds each. Then, patient was instructed to complete side/side towel slides with maximal assistance due to limited mobility at the shoulder. Seated Scapular Exercises: Patient participated in seated scapular exercises. Patient attempted to complete 20 reps each of scapular elevation. Patient initially was unable to complete, but was able to complete approximately 50% elevation of the right scapula. Then, patient was instructed to complete scapular pro/retraction. Patient demonstrated difficulty completing this movement, and required maximal assistance to facilitate scapular movement throughout. Therapist provided Skilled therapy by cueing the patient throughout the session, and providing cuesfor proper execution of activities. ASSESSMENT: Patient is demonstrating improvement by decreased stiffness noted in supination. Patient continues to have limited active movement in his right upper extremity. He reports that he does the stretches with his right arm daily. Patient would benefit from continued skilled interventions, as stated in the plan of care, due to the following functional limitations: housework, lifting a bag of groceries to waist level, lifting abag of groceries over head, grooming hair, pushing up on hands, dressing, doing buttons, tying or lacing shoes, and opening a jar. Preferred Language: Kuwaiti All charges entered today are appropriate and [...] tasks. - Patient to be evaluated on log rafter/pinch/9 hole testing at a later date. Planned Interventions This patient will likely be seen 2x/week for 16 visits from the date of initial evaluation for the following interventions: Therapeutic Exercise (82246) - ROM and strengthening Neuromuscular re-education (45667) Self care/home management training (68690) Therapeutic activity (47544) Instruction in home exercise program Precautions: monitor [...] Description 10/28/2024 2:30 PM CDT Occupational Therapy [facility] [address], [place] [address] [id number] Nelly Godinez, VICE PRESIDENT OF CONTRACTS [address] [place] [address] Kyra Castillo OT PA 10/29/2024 8:45 AM CDT Physical Therapy [facility] [address], [place] [address] [place] [phone] Nelly Godinez, VICE PRESIDENT OF [employer]S [address] [place] [address] Nidhi Priest, PT [place] 11/02/2024 11:30 AM CDT Physical Therapy [facility] [address], [address] [place] [id number] Nelly Godinez, VICE PRESIDENT OF [employer]S [address] [place] [address] Nidhi Priest, PT [place] 11/02/2024 1:45 PM CDT [facility] [address], [address] [place] [address] Nelly Godinez, VICE PRESIDENT OF CONTRACTS [address] [facility] [place] [address] Kyra Castillo, OT [place] 11/02/2024 2:30 PM CDT Speech [facility] [address], [address] [place] [address] Nelly Godinez, VICE PRESIDENT OF [employer]S [address] [facility] [place] [address] Evelina Barrientos, MS [employer] [place] 11/05/2024 1:00 PM CDT [facility] [address], [address] [place] [address] Nelly Godinez, VICE PRESIDENT OF [employer]S [address] [facility] [place] [address] Nidhi Priest, PT [place] 11/05/2024 1:45 PM CDT Speech [facility] [address], [address] [place] [address] Nelly Godinez, VICE PRESIDENT OF [employer]S [address] [facility] [place] [address] Evelina Barrientos, MS [employer] [place] 11/05/2024 2:30 PM CDT Occupational [facility] [address], [address] [place] [address] Nelly Godinez, VICE PRESIDENT OF [employer]S [address] [facility] [place] [address] Kyra Castillo, OT [place] 11/08/2024 12:45 PM CDT [facility] [address], [address] [place] [address] Nelly Godinez, VICE PRESIDENT OF [employer]S [address] [place] [address] Kyra Castillo, OT [place] 11/08/2024 1:45 PM CDT [facility] [address], [address] [place] [address] Nelly Godinez, VICE PRESIDENT OF CONTRACTS [address] [place] [address] Evelina Barrientos, MS [facility]-[employer] [place] 11/11/2024 1:00 PM CDT Occupational [facility] [address], [address] [place] [address] Nelly Godinez, VICE PRESIDENT OF [employer]S [address] [place] [address] Kyra Castillo, OT [place] 11/11/2024 1:45 PM CDT [facility] [address], [address] [place] [address] Nelly Godinez, VICE PRESIDENT OF [employer]S [address] [place] [address] Adalberto Kwan PTA [place] 11/15/2024 12:45 PM CDT [facility] [address], [address] [place] [address] Nelly Godinez, VICE PRESIDENT OF [employer]S [address] [place] [address] Kyra Castillo OT [place] 11/15/2024 1:45 PM CDT Speech [facility] [address], [address] [place] [address] Nelly Godinez, VICE PRESIDENT OF [employer]S [address] [place] [address] Evelina Barrientos, MS [employer] [place] 11/15/2024 2:45 PM CDT [facility] [address], [address] [place] [address] Nelly Godinez, VICE PRESIDENT OF [employer]S [address] [place] [address] Adalberto Kwan, JELLY FILTER TENDER [place] 11/19/2024 1:00 PM CDT Speech [facility] [address], [address] [place] [address] Nelly Godinez, VICE PRESIDENT OF [employer]S [address] [place] [address] Evelina Barrientos, MS [employer] [place] 11/19/2024 1:45 PM CDT [facility] [address], [address] [place] [address] Nelly Godinez, VICE PRESIDENT OF [employer]S [address] [place] [address] Nidhi Priest PT [place] 11/22/2024 12:45 PM CDT [facility] [address] [facility], [place] [address] [place] [address] Nelly Godinez, VICE PRESIDENT OF [employer]S [address] [place] [address] Kyra Castillo OT [place] 11/22/2024 1:45 PM CDT Speech [facility] [address] [facility], [place] [place] [address] Nelly Godinez, VICE PRESIDENT OF [employer]S [address] [facility] [place] [address] Evelina Barrientos, MS [employer] [place] 11/22/2024 2:45 PM CDT [facility] [address] [facility], [place] [place] [address] Nelly Godinez, VICE PRESIDENT OF [employer]S [address] [place] [address] Adalberto Kwan PTA [place] 11/26/2024 1:00 PM CDT Speech [facility] [address] [facility], [place] [place] [address] Nelly Godinez, VICE PRESIDENT OF [employer]S [address] [place] [address] Evelina Barrientos, MS [employer] [place] 11/26/2024 1:45 PM CDT [facility] [address], [address] [place] [address] Nelly Godinez, VICE PRESIDENT OF [employer]S [address] [facility] [place] [address] Kyra Castillo, OT [place] 11/26/2024 2:30 PM CDT [facility] [address], [address] [place] [address] Nelly Godinez, VICE PRESIDENT OF [employer]S [address] [facility] [place] [address] Nidhi Priest, PT [place] 11/30/2024 1:00 PM CDT [facility] [address], [address] [place] [address] Nelly Godinez, VICE PRESIDENT OF [employer]S [address] [facility] [place] [address] Evelina Barrientos, MS [employer] [place] 11/30/2024 1:45 PM CDT [facility]ational [facility] [address], [address] [place] [address] Nelly Godinez, VICE PRESIDENT OF [employer]S [address] [facility] [place] [address] Kyra Castillo, OT [place] 11/30/2024 2:30 PM CDT [facility] [address] [place] [address] Nelly Godinez, VICE PRESIDENT OF [employer]S [address] [facility] [place] [address] Adalberto Kwan PTA [place] 12/03/2024 1:00 PM CDT [facility] [address], [address] [place] [address] Nelly Godinez, VICE PRESIDENT OF [employer]S [address] [place] [address] Evelina Barrientos, MS [employer] [place] 12/03/2024 1:45 PM CDT [facility] [address] [place] [address] Nelly Godinez, VICE PRESIDENT OF [employer]S [address] [place] [address] Kyra Castillo, OT [place] 12/03/2024 2:30 PM CDT [facility] [address] [place] [address] Nelly Godinez, VICE PRESIDENT OF [employer]S [address] [place] [address] Nidhi Priest, PT [place] 12/06/2024 12:45 PM CDT [facility] [address], [place] [place] [address] Nelly Godinez, VICE PRESIDENT OF [employer]S [address] [place] [address] Kyra Castillo, OT [place] 12/06/2024 1:45 PM CDT Speech [facility] [address] [place] [address] Nelly Godinez, VICE PRESIDENT OF [employer]S [address] [facility] [place] [address] Evelina Barrientos, MS [employer] [place] 12/06/2024 2:45 PM CDT [facility] [address], [address] [place] [address] Nelly Godinez, VICE PRESIDENT OF [employer]S [address] [place] [address] Nidhi Priest, PT [place] 12/09/2024 1:15 PM CDT [facility] [address], [address] [place] [phone] Nelly Godinez VICE PRESIDENT OF CONTRACTS [address] [place] [address] Nidhi Priest, PT PA documented as of this encounter Visit Diagnoses Diagnosis Hemiplegia affecting right dominant side, unspecified etiology, unspecified hemiplegia type (HCC)- Primary documented in this encounter Care Teams Wage Adjuster Relationship Specialty Start Date End Date Nelly Godinez APRN [address] [place] [address] PCP - General Advanced Practice Nurse 08/25/24 documented as of this encounter
== END 2024-10-27 08:52 | disposition home or self-care (01) ==
PROVIDERS: PCP Nurse Practitioner Adult Health; Visit Provider Nurse Practitioner Adult Health
DX: G81.91 Hemiplegia, unspecified affecting right dominant side (principal)
CPT/HCPCS: 93926